=== PATIENT | female | born 1990 | race Caucasian/White ===

== ENCOUNTER 2022-09-06 09:41 | Outpatient (CLI) | payer OTHER, BC, SELFPAY ==
[2022-09-06 10:18] LABS: Alanine Aminotransferase 21 U/L (6-35); Albumin Level 4.8 g/dL (3.5-5.1); Alkaline Phosphatase 82 U/L (38-126); Anion Gap 7 mmol/L (8-16); Aspartate Amino Transferase 22 U/L (14-36); Bilirubin,Total 0.5 mg/dL (0.2-1.3); Blood Urea Nitrogen 14 mg/dL (7-17); Calcium 8.7 mg/dL (8.4-10.2); Carbon Dioxide 20 mmol/L (22-30); Chloride 109 mmol/L (98-107); Cholesterol 189 mg/dL (0-200); Estimated Glomerular Filt Rate > 60; Glucose 89 mg/dL (65-110); HDL Direct 56 mg/dL; Sodium 136 mmol/L (137-145); Triglycerides 71 mg/dL (<150)
[2022-09-06 10:29] LABS: LDL Cholesterol Direct 85 mg/dL
[2022-09-06 10:36] LABS: Hemoglobin A1C 5.3 % (<5.7)
[2022-09-06 10:37] LABS: Iron 73 ug/dL (37-170)
[2022-09-10 16:35] LABS: Vitamin D 1,25 (OH)2 Total 29 pg/mL (18-72); Vitamin D2 1,25 (OH)2 <8 pg/mL; Vitamin D3 1,25 (OH)2 29 pg/mL
== END 2022-09-06 09:42 | disposition home or self-care (01) ==
PROVIDERS: PCP Emergency Medicine; Visit Provider Emergency Medicine
DX: E61.1 Iron deficiency (principal); R73.09 Other abnormal glucose; I10 Essential (primary) hypertension; E55.9 Vitamin D deficiency, unspecified; R53.83 Other fatigue
CPT/HCPCS: 36415; 80053; 80061; 82652; 83036; 83540; 84443

== ENCOUNTER 2022-10-24 11:01 | Outpatient (CLI) | payer OTHER, BC, SELFPAY ==
[2022-10-24 11:34] LABS: Alanine Aminotransferase 21 U/L (6-35); Albumin Level 4.7 g/dL (3.5-5.1); Alkaline Phosphatase 78 U/L (38-126); Anion Gap 10 mmol/L (8-16); Aspartate Amino Transferase 27 U/L (14-36); Bilirubin,Total 0.6 mg/dL (0.2-1.3); Blood Urea Nitrogen 16 mg/dL (7-17); Calcium 8.7 mg/dL (8.4-10.2); Carbon Dioxide 21 mmol/L (22-30); Chloride 110 mmol/L (98-107); Cholesterol 155 mg/dL (0-200); Estimated Glomerular Filt Rate > 60; Glucose 89 mg/dL (65-110); HDL Direct 47 mg/dL; Potassium 3.6 mmol/L (3.4-5.0); Sodium 141 mmol/L (137-145); Triglycerides 72 mg/dL (<150)
[2022-10-24 11:46] LABS: LDL Cholesterol Direct 76 mg/dL
[2022-10-29 16:02] LABS: Vitamin D 1,25 (OH)2 Total 27 pg/mL (18-72); Vitamin D2 1,25 (OH)2 <8 pg/mL; Vitamin D3 1,25 (OH)2 27 pg/mL
== END 2022-10-24 11:02 | disposition home or self-care (01) ==
LOC: ANHLAB 11:03
PROVIDERS: PCP Emergency Medicine; Visit Provider Emergency Medicine
DX: R53.83 Other fatigue (principal); E55.9 Vitamin D deficiency, unspecified; I10 Essential (primary) hypertension; F32.A Depression, unspecified
CPT/HCPCS: 36415; 80053; 80061; 82652; 84443

== ENCOUNTER 2023-06-16 11:03 | Inpatient (IN) | payer OTHER, BC, SELFPAY ==
--- NOTE | ~2023-06-16 | CT_ITS ---
EXAMINATION: CT soft tissue neck chest w DATE: 06/16/2023 14:19 INDICATION: Neck swelling. Sore throat. TECHNIQUE: Computed tomography (CT) of the neck and chest was performed with 75 mL Omnipaque 350 intr avenous contrast. Automated exposure control and iterative reconstruction technique were employed. Th e dose-length product was 1410.45 mGy-cm. COMPARISON: None FINDINGS: CT NECK: The pharynx and larynx are normal. There is frontal scalp soft tissue swelling. There is sof t tissue swelling involving the face bilaterally centered at the parotid glands. No sialolith. There is fat stranding in the posterolateral neck, left worse than right. There is fat stranding in left chakraborty praclavicular region and anterior superior left chest. There are no pathologically enlarged lymph nod es. There is mild cervical spondylosis. CT CHEST: The lungs demonstrate mild atelectasis. No pleural effusion. The heart size is normal. No p ericardial effusion. There are no pathologically enlarged lymph nodes. There is mild thoracic spondyl osis. IMPRESSION: 1. Fat stranding involving the head and neck and left chest, consistent with edema versus inflammatio n. No abscess. Reviewed, dictated and finalized at location A. ITY CLERK IMPRESSION: 1. Fat stranding involving the head and neck and left chest, consistent with ed mariella versus inflammation. No abscess.
--- NOTE | ~2023-06-16 | US_ITS ---
EXAMINATION: US venous doppler UE LT DATE: 06/24/2023 20:12 INDICATION: PAIN/SWELLING . TECHNIQUE: Grayscale ultrasound images without and with compression and Doppler ultrasound images of the left upper extremity veins were obtained. COMPARISON: None. FINDINGS: Acute occlusive thrombus in the distal cephalic vein below the level of the antecubital fossa. The vi sualized portions of the left internal jugular vein, subclavian vein, axillary vein, brachial veins, basilic vein, cephalic vein (superior to the antecubital fossa), radial vein, and ulnar vein are dubose nt. IMPRESSION: Acute occlusive venous thrombosis in the distal cephalic vein, below the level of the antecubital fos sa. Reviewed, dictated and finalized at location K. ACUTE CARE NURSE PRACTITIONER IMPRESSION: Acute occlusive venous thrombosis in the distal cephalic vein, below the level of the antecubital fossa.
--- NOTE | ~2023-06-16 | CT_ITS ---
EXAMINATION: CT soft tissue neck chest w DATE: 06/23/2023 15:17 INDICATION: TECHNIQUE: Computed tomography (CT) of the neck and chest was performed with 75 mL Omnipaque-350 intr avenous contrast. The dose-length product was 1622.02 mGy-cm. COMPARISON: 06/16/2023 FINDINGS: Increasing fat stranding and nonencapsulated fluid in the right frontotemporal region and right face. Stable fat stranding in the left face. Considerably increased stranding and 90 LYTIC fluid in the le ft anterior and posterior neck, and left supraclavicular region. The thyroid gland is unremarkable. The submandibular and parotid glands are symmetric. There is no cervical lymphadenopathy. There are no masses identified. The airway is unremarkable. Parapharyngeal and pre-glottic fat planes a re preserved. Normal enhancing neck vessels. The orbits are unremarkable. Visualized sinuses and mastoid air cells are well aerated. Regional bones are normal. CHEST: Thoracic aorta: No significant dilation or calcification. Lung parenchyma and airways: Lungs and airways are clear. Thoracic inlet, axillae and chest wall: No thyroid or soft tissue mass. No axillary lymphadenopathy. Increased fat stranding and the catheter fluid in the anterior chest. Mediastinum: No mass or lymphadenopathy. Heart and pericardium: Normal heart size. No pericardial effusion. Coronary artery calcifications: Absent. Pleura: No effusion or mass. Upper abdomen: No significant finding. Thoracic bones: No acute osseous finding in the chest. IMPRESSION: Worsening subcutaneous fat stranding/fluid in the right frontotemporal region and face, the left ante rior and posterior neck, left supraclavicular region, and left upper anterior chest, consistent with worsening edema/inflammation. No abscess. Reviewed, dictated and finalized at location K. E PROFESSOR IMPRESSION: Worsening subcutaneous fat stranding/fluid in the right frontotemporal region a nd face, the left anterior and posterior neck, left supraclavicular region, and left upper anterior chest, consistent with worsening edema/inflammation. No ab scess.
--- NOTE | ~2023-06-16 | US_ITS ---
US renal BI 06/17/2023 09:21 Procedure: Realtime transabdominal ultrasound of the kidneys and bladder. Indication: Acute renal injury Comparison: No prior studies for comparison. Findings: Renal echotexture is normal bilaterally without hydronephrosis, or renal calculus. At the u pper pole of the right kidney there is a complicated cyst with low-level internal echoes measuring 2. 2 cm. No internal vascularity. There is posterior acoustic enhancement. The right kidney measures 12 cm and left kidney measures 12.8 cm. Bladder within normal limits. Impression: 1: Complicated cyst of the right ovary measuring 2.2 cm, likely benign. Recommend follow-up ultrasoun d in 6 months. Reviewed, dictated and finalized at location B. JOGGER Impression: 1: Complicated cyst of the right ovary measuring 2.2 cm, likely benign. Recomme nd follow-up ultrasound in 6 months.
[2023-06-16 11:10] VITALS: BP 132/76; PULSE 116; RESP 16; TEMP 36.6; O2SAT 100
[2023-06-16 11:46] VITALS: BP 117/75; PULSE 106; RESP 16; TEMP 36.6; O2SAT 100
--- NOTE | 2023-06-16 13:17 | ED.GENADULT ---
HPI - General Adult General Chief complaint: Skin/Abscess/Foreign Body Stated complaint: face feels swollen/st/arm pain Time Seen by Provider: 06/16/23 12:47 History of Present Illness HPI narrative: 32-year-old female present to the emergency department for evaluation of head and neck swelling. patient reports that she started developing some facial and neck edema on Thursday. Patient also reports increased tightness of her left shoulder. Patient denies any fevers. Patient denies any falls or injuries. Patient reports her daughter is currently being treated for cellulitis with Bactrim and Keflex. Related Data Allergies Allergy/AdvReac Type Severity Reaction Status Date / Time No Known Allergies Allergy Verified 06/16/23 11:55 Review of Systems Review of Systems: All systems reviewed & are unremarkable except as noted in HPI and below PMFSH Past Medical History Medical History Anxiety Depression Family History Family History Other Cerebrovascular accident Diabetes mellitus Family history of obesity Hypertension Social History Social History Smoking status: Former smoker Alcohol intake: current Exam Narrative: APPEARANCE: Well appearing, no pain, no distress, well-nourished. HEAD: normocephalic, atraumatic. EYES: PERRLA/EOMI, conjunctivae clear. NOSE: Normal no drainage EARS:TMS clear with good light reflex. THROAT: Pharynx clear, no exudate. NECK: Supple. No adenopathy, no masses. RESPIRATORY: Airway patent, respirations nonlabored. Clear to auscultation bilaterally, no rales, rhonchi, wheezing. CARDIOVASCULAR: Regular rate and rhythm without murmurs rubs or gallops. ABDOMINAL: Soft, nontender, nondistended, normal bowel sounds MUSCULOSKELETAL: Moves all extremities. Strength/ROM intact, No edema, No calf tenderness. NEURO: Alert. Cranial nerves II through XII intact. Good gait. Good coordination SKIN: Edema to forehead neck and to anterior chest. Tenderness of neck chest and left shoulder. Course Course Emergency Course: 32-year-old female presented emergency department for evaluation of facial and neck edema. Patient is afebrile but does have a leukocytosis of 25.5 and hemoglobin of 10.6. Patient has an INR of 1.5. Patient has a creatinine of 2.00 with previously normal kidney function. UA does show evidence of an infection. Patient was negative for influenza RSV and for COVID but did test positive for strep. Patient was started on cefazolin and vancomycin. Case was discussed with the hospitalist and patient was accepted for admission. Patient was updated on the plan for admission and treatment. All questions concerns were addressed. Vital Signs Vital signs: Vital Signs Temperature 97.9 F 06/16/23 11:10 Pulse Rate 116 H 06/16/23 11:10 Respiratory Rate 16 06/16/23 11:10 Blood Pressure 132/76 06/16/23 11:10 Pulse Oximetry 100 06/16/23 11:10 Oxygen Delivery Room Air 06/16/23 11:10 Temperature 98.3 F 06/16/23 17:35 Pulse Rate 103 H 06/16/23 17:35 Respiratory Rate 18 06/16/23 17:35 Blood Pressure 120/70 06/16/23 17:35 Pulse Oximetry 98 06/16/23 17:35 Oxygen Delivery Room Air 06/16/23 11:10 Medical Decision Making Vital Signs Vital Signs: Vital Signs Temperature 97.9 F 06/16/23 11:10 Pulse Rate 116 H 06/16/23 11:10 Respiratory Rate 16 06/16/23 11:10 Blood Pressure 132/76 06/16/23 11:10 Pulse Oximetry 100 06/16/23 11:10 Oxygen Delivery Room Air 06/16/23 11:10 Temperature 98.3 F 06/16/23 17:35 Pulse Rate 103 H 06/16/23 17:35 Respiratory Rate 18 06/16/23 17:35 Blood Pressure 120/70 06/16/23 17:35 Pulse Oximetry 98 06/16/23 17:35 Oxygen Delivery Room Air 06/16/23 11:10 Lab Data 06/16/23 13:32 06/16/23 13
[2023-06-16 13:56] LABS: Hematocrit 32.7 % (37.0-47.0); Hemoglobin 10.6 g/dL (12.0-15.0); Mean Corpuscular HGB Conc 32.4 g/dl (32-36); Mean Corpuscular Hemoglobin 26.4 pg (26-34); Mean Corpuscular Volume 81.3 fl (80-100); Mean Platelet Volume 10.5 fl (7.4-10.4); Platelet Count Result 392 k/mm3 (150-375); Red Blood Count 4.02 M/mm3 (4.2-5.4); Red Cell Distribution Width 16.3 % (11.5-14.5); White Blood Count 25.5 K/mm3 (4.5-10.0)
[2023-06-16 14:04] LABS: Alanine Aminotransferase 27 U/L (6-35); Albumin Level 3.9 g/dL (3.5-5.1); Alkaline Phosphatase 158 U/L (38-126); Anion Gap 13 mmol/L (8-16); Aspartate Amino Transferase 28 U/L (14-36); Bilirubin,Total 0.9 mg/dL (0.2-1.3); Blood Urea Nitrogen 33 mg/dL (7-17); Calcium 9.3 mg/dL (8.4-10.2); Carbon Dioxide 21 mmol/L (22-30); Chloride 101 mmol/L (98-107); Estimated CRCL calculation 42 ml/min; Estimated Glomerular Filt Rate 29; Glucose 144 mg/dL (65-110); Sodium 135 mmol/L (137-145)
[2023-06-16 14:05] LABS: Lactic Acid Reflex 1.7 mmol/L (0.7-2.0)
[2023-06-16 14:26] LABS: INR 1.5; Partial Thromboplastin Time 46.2 SECONDS (22.3-36.8); Prothrombin Time 18.6 Seconds (11.1-14.7)
[2023-06-16 14:29] LABS: Band Neutrophils Percent 39 % (0-6); Burr Cells 1+ (NORMAL); Crenated RBC 2+ (NORMAL); Lymphocytes Absolute Manual 0.25 K/mm3 (1.1-4.5); Neutrophils Absolute Manual 25.24 K/mm3 (1.7-7.2); Neutrophils Percent Manual 60 % (46-73); Schistocytes None Seen (NORMAL); Total Cells Counted 100
[2023-06-16] MEDS: HYDROmorphone HCL INJ (*CRX) 1 MG/ML SYR 0.5 MG IV PUSH ×3 (14:33→21:25)
[2023-06-16] MEDS: SODIUM CHLORIDE 0.9% IV 1,000 ML 999 ML IV CONT (14:34)
[2023-06-16 14:36] VITALS: BP 128/78; PULSE 104; RESP 18; TEMP 36.6; O2SAT 98
[2023-06-16 14:43] LABS: Influenza A QL RT-PCR Negative (Negative); Influenza B QL RT-PCR Negative (Negative); RSV RNA, RT-PCR Negative (Negative); SARS-CoV-2 RNA PCR Negative (Negative)
[2023-06-16 16:30] VITALS: BP 123/72; PULSE 100; RESP 20; O2SAT 98
[2023-06-16 16:46] LABS: Appearance Urine Turbid (Clear); Bacteria Urine 2+ /hpf; Bilirubin Urine 1+ (Negative); Blood Urine 3+ (Negative); Color Urine Dark Yellow (Yellow); Glucose Urine UA Trace mg/dL (Negative); Granular Casts Urine Present /lpf; Ketones Urine Trace mg/dL (Negative); Leukocyte Esterase Ur Negative LEU/UL (Negative); Need Manual Microscopic Reviewed; Nitrate Urine Negative (Negative); Non Pathogenic Casts >20; Protein Urine 2+ mg/dL (Negative); RBC Urine 0-2 /hpf (0-2); Specific Grav Ur 1.024 (1.001-1.035); Squamous Epithelial Cell Urine Many /hpf (Few)
[2023-06-16 16:47] LABS: Add Urine Microscopic? YES
[2023-06-16] MEDS: SODIUM CHLORIDE 0.9% IV 1,000 ML 250 ML IV CONT (17:06)
[2023-06-16] MEDS: ceFAZolin 1 GM/NS 50 ML 1 GM/50 ML BAG IVPB (17:06)
[2023-06-16] MEDS: ONDANSETRON INJ 4 MG/2 ML VIAL IV PUSH ×2 (17:12→21:25)
--- NOTE | 2023-06-16 17:28 | PM.IMHP ---
H&P: HPI History of Present Illness Date/Time: 06/16/23 16:30 Chief Complaint: Swelling in forehead and neck. Narrative: This is a very pleasant 32-year-old female with history of migraine headaches, hypertension, sleep apnea, gastroesophageal reflux disease, depression, and anxiety who presented to the emergency department from home for evaluation of swelling in the forehead and neck. The patient provides the following history. Sometime on Thursday she developed a pounding headache in the back of her head which is very different than what she typically experiences with her migraines. Around the same time she noticed some swelling to the front of her neck which eventually extended onto the face and up to the forehead. The swelling is warm and painful to touch and she even has pain when trying to with the left shoulder due to swelling near the left side of the neck. She has overall been feeling unwell these last 2 days with generalized malaise and a mild sore throat. She denies fever, sinus congestion, cough, nausea, vomiting, diarrhea, tooth pain, dysuria, and joint swelling. She has never had similar symptoms in the past. She takes naproxen several times per week and has for many years and she has never had issues with hives or angioedema. Her daughter is currently on an antibiotic for cellulitis on her side and with further questioning she and her family were out hunting on their land a couple of weeks ago however she denies tick bites, bug bites, and cuts or lacerations from nearby trees and brush. She was afebrile on arrival to the emergency department. Labs were significant for a WBC count of 25.5 (39% bands on differential), PT 18.6, INR 1.5, PTT 46.2, sodium 135, carbon dioxide 21, BUN 33, creatinine 2.00, glucose 144, lactic acid 1.7. Urine is turbid with 2+ protein, trace glucose, trace ketones, 3+ blood, 1+ bilirubin, 6 to 10 WBC, many squamous cells, 2+ bacteria, and granular casts. She tested negative for influenza, RSV, and COVID. She tested positive for group a strep. CT of the neck and chest showed frontal scalp soft tissue swelling and soft tissue swelling involving the face center at the parotid glands as well as fat stranding in the neck and left chest without pathologically enlarged lymph nodes, consistent with edema versus inflammation. No abscess was noted. She received a dose of cefazolin and vancomycin in the ED and she is being admitted in this setting for further treatment and evaluation. Review of Systems Review of Systems: Twelve systems were reviewed and are negative except for as per HPI. [facility] Past Medical History Medical History Anxiety Depression Gastroesophageal reflux disease Hypertension Obstructive sleep apnea Surgical History Surgical History History of repair of ACL History of tubal ligation History of wisdom tooth extraction Family History Family History Other Cancer Cerebrovascular accident Diabetes mellitus Family history of obesity Hypertension Social History Social History Social History: Surrogate medical decision maker: Jayjay Helms, spouse. Code status: Full code. Smoking status: Current some day smoker Tobacco type: e-cigarettes/vaping Substance use type: marijuana Lack of Transportation: No Lack of Food: Never True Current Housing: I Have Housing Concerned About Future Housing: No Difficulty Paying Gas/Electric Bills: No Difficulty Paying for Meds: No Currently Unemployed: No Education: Associate Degree Difficulty w/ Childcare or Family Care: No Additional living arrangements comments: Lives with spouse and children. 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 Spiritual care concerns: No
[2023-06-16 17:35] VITALS: BP 120/70; PULSE 103; RESP 18; TEMP 36.8; O2SAT 98
--- NOTE | 2023-06-16 17:36 | PC.NURSE ---
Food tray ordered for pt. Pt resting with reg resp. Hospitalist assessed pt.
[2023-06-16 18:28] LABS: Strep Group A RT-PCR DETECTED (Negative)
--- NOTE | 2023-06-16 18:51 | PC.NURSE ---
Pt c/o x2 sores on top of her head. Noted x2 open areas approx size of dime/tiffany with partial scabs. Pt voices concerns of tick bite, pt spoke with Hospitalist about her concerns
--- NOTE | 2023-06-16 19:00 | ADMGEN ---
This patient, Bonnie Helms, was admitted to 3 [facility] Surg Room 306-01. Patient/family oriented to hospital policies and general routines including ID bracelet, bed and alarms, visiting hours, pain management, procedures, bathroom and other care routines, personal items, smoking policy, room service/diet, and visiting hours. Information on how to activate the Rapid Response Team has been discussed. Patient/Family are encouraged to report perceived risks to care and to ask questions if they do not understand what they are told or what they should do.
[2023-06-16 19:47] VITALS: BMI 37.5
[2023-06-16 20:20] VITALS: BP 116/66; PULSE 76; RESP 16; TEMP 36.4; O2SAT 100
[2023-06-16] MEDS: SODIUM CHLORIDE 0.9% IV 1,000 ML 100 ML IV CONT (23:37)
[2023-06-17] MEDS: metroNIDAZOLE 500 MG/ISO 100ML 500 MG/100 ML BAG 100 MG IVPB ×4 (00:15→23:23)
[2023-06-17 04:54] VITALS: BP 133/86; PULSE 102; RESP 20; TEMP 36.1; O2SAT 97
[2023-06-17] MEDS: HYDROmorphone HCL INJ (*CRX) 1 MG/ML SYR 0.5 MG IV PUSH ×5 (04:54→22:04)
[2023-06-17 05:42] LABS: Hematocrit 27.5 % (37.0-47.0); Hemoglobin 8.8 g/dL (12.0-15.0); Mean Corpuscular Hemoglobin 26.1 pg (26-34); Mean Corpuscular Volume 81.6 fl (80-100); Platelet Count Result 320 k/mm3 (150-375); Red Blood Count 3.37 M/mm3 (4.2-5.4); Red Cell Distribution Width 16.7 % (11.5-14.5); White Blood Count 19.6 K/mm3 (4.5-10.0)
[2023-06-17 06:15] LABS: Alanine Aminotransferase 24 U/L (6-35); Alkaline Phosphatase 120 U/L (38-126); Anion Gap 12 mmol/L (8-16); Aspartate Amino Transferase 23 U/L (14-36); Bilirubin,Total 0.7 mg/dL (0.2-1.3); Blood Urea Nitrogen 32 mg/dL (7-17); Calcium 8.2 mg/dL (8.4-10.2); Carbon Dioxide 19 mmol/L (22-30); Chloride 104 mmol/L (98-107); Estimated CRCL calculation 57 ml/min; Estimated Glomerular Filt Rate 40; Glucose 95 mg/dL (65-110); Magnesium 2.1 mg/dL (1.6-2.3); Potassium 3.5 mmol/L (3.4-5.0); Sodium 135 mmol/L (137-145)
[2023-06-17 06:39] LABS: CRP 43.7 mg/dL (<1.0)
[2023-06-17 07:19] LABS: Band Neutrophils Percent 4 % (0-6); Burr Cells 2+ (NORMAL); Large Platelets Present; Lymphocytes Absolute Manual 0.58 K/mm3 (1.1-4.5); Monocytes Absolute Manual 0.78 K/mm3 (0.1-0.90); Monocytes Percent Manual 4 % (3-9); Neutrophils Absolute Manual 18.22 K/mm3 (1.7-7.2); Neutrophils Percent Manual 89 % (46-73); Platelet Estimate Adequate (Adequate); Schistocytes None Seen (NORMAL); Total Cells Counted 100
[2023-06-17 08:00] VITALS: O2SAT 97
[2023-06-17] MEDS: TOPIRAMATE 100 MG TABLET PO ×2 (09:44→20:19)
[2023-06-17] MEDS: SERTRALINE HCL 50 MG TABLET PO (09:44)
--- NOTE | 2023-06-17 13:03 | PM.IMPN ---
Progress Note: A&P Assessment and Plan (1) Sepsis: Code(s): A41.9 - Sepsis, unspecified organism Status: Acute (2) Diffuse cellulitis of face: Code(s): L03.211 - Cellulitis of face Status: Acute (3) Cellulitis of neck: Code(s): L03.221 - Cellulitis of neck Status: Acute (4) Strep throat: Code(s): J02.0 - Streptococcal pharyngitis Status: Acute (5) Acute kidney injury: Code(s): N17.9 - Acute kidney failure, unspecified Status: Acute Plan The patient presented to the emergency department for evaluation of swelling of the face and neck as detailed in HPI. Labs, imaging, EKG, and all reports were personally reviewed. Preliminary workup is concerning for sepsis with tachycardia, leukocytosis with bandemia, and acute kidney injury. She tested positive for strep throat and she has what appears to be cellulitis of the left neck and face with a more well-demarcated area of erysipelas on the forehead. The forehead has a short, linear rash/abrasion which she reports draining serosanguineous fluid last night however it is dry on inspection today. blood cultures are positive continue iv rocephin, flagyl and vancomycin monitor wcc continue care and pain control hopeful dc in 2-3 more days Subjective Date/time seen: 06/17/23 13:03 Interval history: 32-year-old female with history of migraine headaches, hypertension, sleep apnea, gastroesophageal reflux disease, depression, and anxiety who presented to the emergency department from home for evaluation of swelling in the forehead and neck. Blood cultures is positive gram positive in chains Review of Systems Review of Systems: Neck swelling and redness Objective Data Vital Signs Vital Signs: Vital Signs - 24 hr 06/16/23 14:36 06/16/23 17:35 06/16/23 16:30 Temperature 36.6 C 36.8 C Pulse Rate 104 H 103 H 100 Respiratory Rate 18 18 20 Blood Pressure 128/78 120/70 123/72 Pulse Oximetry 98 98 98 Oxygen Delivery 06/16/23 19:47 06/16/23 20:20 06/17/23 04:54 Temperature 36.4 C L 36.1 C L Pulse Rate 76 102 H Respiratory Rate 16 20 Blood Pressure 116/66 133/86 Pulse Oximetry 100 97 Oxygen Delivery Room Air 06/17/23 08:00 Temperature Pulse Rate Respiratory Rate Blood Pressure Pulse Oximetry 97 Oxygen Delivery Room Air Intake/Output Intake/Output: Intake & Output 06/14/23 06/15/23 06/16/23 06/17/23 23:59 23:59 23:59 23:59 Intake Total 1919 3080 Balance 1919 3080 Meds/Results Medications: Active Medications Generic Name Dose Route Start Last Admin Trade Name Freq PRN Reason Stop Dose Admin Acetaminophen 650 mg 06/16/23 23:02 Acetaminophen 325 Mg Tablet PO Q6H PRN Mild Pain (1-3) or Fever Alprazolam 0.5 mg 06/16/23 23:03 Alprazolam (*Crx) 0.5 Mg Tablet PO TID PRN anxiety Fluticasone Propionate 1 spray 06/16/23 23:03 Fluticasone Propionate 0.05% Na Spr 16 Gm Btl (*Bkc) NASAL BID PRN Nasal Congestion Hydromorphone HCl 0.5 mg 06/16/23 16:42 06/17/23 11:29 Hydromorphone Hcl Inj (*Crx) 1 Mg/Ml Syr IV PUSH 0.5 mg Q4H PRN Administration Pain Rated 7-10 Vancomycin HCl 1,500 mg in 500 mls @ 250 mls/hr 06/17/23 18:00 Vancomycin 1,500 Mg/D5w 500 Ml IVPB Q24H JARRETT Ceftriaxone Sodium 1 gm in 50 mls @ 100 mls/hr 06/16/23 23:00 06/17/23 00:15 Rocephin 1 Gm/Ns 50 Ml IVPB Infused Q24H JARRETT Infusion Metronidazole 500 mg in 100 mls @ 100 mls/hr 06/17/23 00:00 06/17/23 10:10 Flagyl 500 Mg/Iso Soln 100 Ml IVPB Infused Q8H JARRETT Infusion Sodium Chloride 1,000 mls @ 100 mls/hr 06/16/23 23:05 06/16/23 23:37 Normal Saline Iv IV CONT 100 mls/hr .Q10H JARRETT Administration Ondansetron HCl 4 mg 06/16/23 16:42 06/16/23 21:25 Ondansetron Inj 4 Mg/2 Ml Vial IV PUSH 4 mg Q4H PRN Administration Nausea Sertraline HCl 50 mg 06/17/23 09:00 06/17/23 09:44 Sertraline Hcl
[2023-06-17] MEDS: ONDANSETRON INJ 4 MG/2 ML VIAL IV PUSH (13:15)
[2023-06-17 13:46] VITALS: O2SAT 96
[2023-06-17 14:00] VITALS: BP 125/85; PULSE 103; RESP 19; TEMP 36.4; O2SAT 96
[2023-06-17] MEDS: SODIUM CHLORIDE 0.9% IV 1,000 ML 100 ML IV CONT ×2 (15:01→19:05)
[2023-06-17] MEDS: cefTRIAXone 2 GM/NS 100 ML 2 GM/100 ML BAG IVPB (16:56)
[2023-06-17] MEDS: ALPRAZolam (*CRX) 0.5 MG TABLET PO (20:20)
[2023-06-17] MEDS: ACETAMINOPHEN 325 MG TABLET 650 MG PO (20:20)
[2023-06-17] MEDS: MELATONIN 3 MG TABLET PO (20:20)
[2023-06-17 20:41] VITALS: BP 126/76; PULSE 87; RESP 18; TEMP 36.3; O2SAT 96
[2023-06-18 04:41] VITALS: BP 115/79; PULSE 88; RESP 20; TEMP 36.6; O2SAT 99
[2023-06-18] MEDS: HYDROmorphone HCL INJ (*CRX) 1 MG/ML SYR 0.5 MG IV PUSH ×3 (05:10→20:43)
[2023-06-18] MEDS: ONDANSETRON INJ 4 MG/2 ML VIAL IV PUSH (05:10)
[2023-06-18] MEDS: SODIUM CHLORIDE 0.9% IV 1,000 ML 100 ML IV CONT (05:35)
[2023-06-18 06:39] LABS: Estimated CRCL calculation 62 ml/min; Estimated Glomerular Filt Rate 43
[2023-06-18] MEDS: metroNIDAZOLE 500 MG/ISO 100ML 500 MG/100 ML BAG 100 MG IVPB (09:30)
[2023-06-18] MEDS: TOPIRAMATE 100 MG TABLET PO ×2 (09:30→20:42)
[2023-06-18] MEDS: SERTRALINE HCL 50 MG TABLET PO (09:30)
[2023-06-18] MEDS: diphenhydrAMINE HCl CAP 25 MG CAPSULE PO ×2 (13:03→18:40)
[2023-06-18 13:57] VITALS: BP 122/75; PULSE 101; RESP 20; TEMP 37.5; O2SAT 98
--- NOTE | 2023-06-18 14:06 | PM.IMPN ---
Progress Note: A&P Assessment and Plan (1) Sepsis: Code(s): A41.9 - Sepsis, unspecified organism Status: Acute (2) Diffuse cellulitis of face: Code(s): L03.211 - Cellulitis of face Status: Acute (3) Cellulitis of neck: Code(s): L03.221 - Cellulitis of neck Status: Acute (4) Strep throat: Code(s): J02.0 - Streptococcal pharyngitis Status: Acute (5) Acute kidney injury: Code(s): N17.9 - Acute kidney failure, unspecified Status: Acute Plan blood culture positive for strep A blood cultures are positive continue iv rocephin, flagyl and vancomycin monitor wcc continue care and pain control hopeful dc in 2-3 more days add Benadryl and Pepcid to the regime add ice pack Can consult ENT for specialist advice IV fluids continued at slow rate Subjective Date/time seen: 06/18/23 14:06 Interval history: 32-year-old female with history of migraine headaches, hypertension, sleep apnea, gastroesophageal reflux disease, depression, and anxiety who presented to the emergency department from home for evaluation of swelling in the forehead and neck. Blood cultures is positive gram positive in chains Pt having ongoing neck swelling and upper arm swelling. Pt states her pain is severe. Review of Systems Review of Systems: Neck swelling and redness Exam Narrative: General: Mildly ill-appearing female sitting up in bed. HEENT: Swelling of the forehead and dry rash on scalp and forehead Respiratory: Lungs are clear to auscultation bilaterally. Cardiovascular: Regular rate and rhythm with S1-S2. Gastrointestinal: Abdomen is soft, nontender, and nondistended with positive bowel sounds. Skin: Warm and dry. There is mild erythema and warmth at the base of the neck and minimally onto the chest There is a well-demarcated area of edema on the forehead and just under the hairline on the right forehead there is linear area of what appears to be abrasions though the patient denies scratching the area. Extremities: No cyanosis, clubbing, or extremity edema. Radial and pedal pulses intact. No joint swelling. Neurological: Alert. Cranial nerves 2-12 are grossly intact. No gross focal deficits to casual conversation. Psychiatric: Pleasant and cooperative with normal mood and affect. Judgment and insight intact. Objective Data Vital Signs Vital Signs: Vital Signs - 24 hr 06/17/23 20:41 06/17/23 20:00 06/18/23 04:41 Temperature 36.3 C L 36.6 C Pulse Rate 87 88 Respiratory Rate 18 20 Blood Pressure 126/76 115/79 Pulse Oximetry 96 99 Oxygen Delivery Room Air 06/18/23 13:57 Temperature 37.5 C Pulse Rate 101 H Respiratory Rate 20 Blood Pressure 122/75 Pulse Oximetry 98 Oxygen Delivery Intake/Output Intake/Output: Intake & Output 06/15/23 06/16/23 06/17/23 06/18/23 23:59 23:59 23:59 23:59 Intake Total 0 6080 5 Balance 0 6031 8 Meds/Results Medications: Active Medications Generic Name Dose Route Start Last Admin Trade Name Freq PRN Reason Stop Dose Admin Acetaminophen 650 mg 06/16/23 23:02 06/17/23 20:20 Acetaminophen 325 Mg Tablet PO 650 mg Q6H PRN Administration Mild Pain (1-3) or Fever Alprazolam 0.5 mg 06/16/23 23:03 06/17/23 20:20 Alprazolam (*Crx) 0.5 Mg Tablet PO 0.5 mg TID PRN Administration anxiety Diphenhydramine HCl 25 mg 06/18/23 13:00 06/18/23 13:03 Diphenhydramine Hcl Cap 25 Mg Capsule PO 25 mg TID JARRETT Administration Famotidine 20 mg 06/18/23 17:00 Famotidine 20 Mg Tablet PO BID JARRETT Fluticasone Propionate 1 spray 06/16/23 23:03 Fluticasone Propionate 0.05% Na Spr 16 Gm Btl (*Bkc) NASAL BID PRN Nasal Congestion Hydromorphone HCl 0.5 mg 06/17/23 18:21 06/18/23 11:52 Hydromorphone Hcl Inj (*Crx) 1 Mg/Ml Syr IV PUSH 0.5 mg Q3H PRN Administration Pain Rated 7-10 Vancomycin HCl 1,500 mg in 500 mls @ 250 mls/hr 06/17
[2023-06-18] MEDS: cefTRIAXone 2 GM/NS 100 ML 2 GM/100 ML BAG IVPB (16:17)
[2023-06-18] MEDS: CLINDAMYCIN 900 MG/D5W 50 ML 900 MG/50 ML PIGGYBACK 50 MG IVPB ×2 (18:40→23:41)
[2023-06-18] MEDS: FAMOTIDINE 20 MG TABLET PO (18:41)
[2023-06-18] MEDS: ACETAMINOPHEN 325 MG TABLET 650 MG PO (20:42)
[2023-06-18] MEDS: MELATONIN 3 MG TABLET PO (20:42)
[2023-06-18 22:00] VITALS: BP 114/64; PULSE 86; RESP 16; TEMP 36.7; O2SAT 96
[2023-06-18] MEDS: SODIUM CHLORIDE 0.9% IV 1,000 ML 50 ML IV CONT (23:44)
[2023-06-19] MEDS: cefTRIAXone 2 GM/NS 100 ML 2 GM/100 ML BAG IVPB ×2 (03:45→15:56)
[2023-06-19 06:00] VITALS: BP 122/77; PULSE 77; RESP 18; TEMP 36.4; O2SAT 100
[2023-06-19] MEDS: CLINDAMYCIN 900 MG/D5W 50 ML 900 MG/50 ML PIGGYBACK 50 MG IVPB ×2 (08:35→16:58)
[2023-06-19] MEDS: TOPIRAMATE 100 MG TABLET PO ×2 (08:37→21:03)
[2023-06-19] MEDS: SERTRALINE HCL 50 MG TABLET PO (08:37)
[2023-06-19] MEDS: diphenhydrAMINE HCl CAP 25 MG CAPSULE PO ×3 (08:37→17:07)
[2023-06-19] MEDS: FAMOTIDINE 20 MG TABLET PO ×2 (08:37→17:07)
--- NOTE | 2023-06-19 08:40 | WPDPROCEDUR ---
Procedures Laryngoscopy Laryngoscopy Comments: All the consents obtained. Nasal passages anesthetized with 2% lidocaine and Afrin. Flexible scope passed patient had crusting in the bilateral middle meati eye. Otherwise been erythematous nasopharynx erythema neck is erythematous pharynx. No masses no lesions nose edema no obstruction of the airway and or epiglottis. Patient tolerated the procedure well.
--- NOTE | 2023-06-19 08:42 | WPDCN ---
Assessment and Plan Assessment and plan (1) Cellulitis of neck: Code(s): L03.221 - Cellulitis of neck Status: Acute Assessment and Plan: Recommend daily CBCs to track white count. Could start low-dose of IV Decadron q.8 hours for 3 doses. 4-6 mg should be fine. This should help any swelling. Please call ENT with any further questions. Relatively normal endoscopy, no drainable abscesses. (2) Diffuse cellulitis of face: Code(s): L03.211 - Cellulitis of face Status: Acute HPI Data of Consult Date/Time: 06/19/23 08:42 Requesting Physician: Justyn Conner MD Primary Care Provider: Jose Francisco Wren MD Consult Narrative Narrative: Bonnie Helms is a 32 year old female With facial and neck and chest wall cellulitis. Blood culture came back for group a strep. Patient reports difficulty and pain swallowing. Flexible endoscopy showed erythema no obstructions of the airway and epiglottis. Review of Systems Review of Systems: All systems reviewed & are unremarkable except as noted in HPI and below PMFSH Past Medical History Medical History Anxiety Depression Gastroesophageal reflux disease Hypertension Obstructive sleep apnea Surgical History Surgical History History of repair of ACL History of tubal ligation History of wisdom tooth extraction Family History Family History Other Cancer Cerebrovascular accident Diabetes mellitus Family history of obesity Hypertension Social History Social History Social History: Surrogate medical decision maker: Jayjay Analia, spouse. Code status: Full code. Smoking status: Current some day smoker Tobacco type: e-cigarettes/vaping Substance use type: marijuana Lack of Transportation: No Lack of Food: Never True Current Housing: I Have Housing Concerned About Future Housing: No Difficulty Paying Gas/Electric Bills: No Difficulty Paying for Meds: No Currently Unemployed: No Education: Associate Degree Difficulty w/ Childcare or Family Care: No Additional living arrangements comments: Lives with spouse and children. 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 Spiritual care concerns: No Meds Home Medications and Allergies Home Medications Medication Instructions Recorded Confirmed Type topiramate 100 mg tablet 100 mg PO BID #180 tabs 09/24/22 06/16/23 Rx naproxen 500 mg tablet 500 mg PO TID PRN pain #270 tabs 10/03/22 06/16/23 Rx alprazolam 0.5 mg tablet (Xanax) 0.5 mg PO TID PRN anxiety #60 tabs 05/20/23 06/16/23 Rx fluticasone propionate 50 1 spray intranasal BID PRN Nasal 06/16/23 06/16/23 History mcg/actuation nasal Congestion spray,suspension phentermine 37.5 mg capsule 37.5 mg PO DAILY 06/16/23 06/16/23 History sertraline 50 mg tablet 50 mg PO DAILY PRN depression 06/16/23 06/16/23 History sumatriptan succinate 50 mg tablet 50 mg PO PRN PRN Headache 06/16/23 06/16/23 History Allergies Allergy/AdvReac Type Severity Reaction Status Date / Time No Known Allergies Allergy Verified 06/16/23 11:55 Vital Signs Vital Signs - 24 hr 06/18/23 13:57 06/18/23 22:00 06/18/23 20:00 Temperature 37.5 C 36.7 C Pulse Rate 101 H 86 Respiratory Rate 20 16 Blood Pressure 122/75 114/64 Pulse Oximetry 98 96 Oxygen Delivery Room Air 06/19/23 06:00 Temperature 36.4 C Pulse Rate 77 Respiratory Rate 18 Blood Pressure 122/77 Pulse Oximetry 100 Oxygen Delivery Exam Narrative: Chest neck and facial cellulitis edema erythema. Some scaling of skin. No crepitus. Pain to palpation. No ballotable fluctuant masses or drainable abscess is identified. Results Labs 06/17/23 05:33
[2023-06-19] MEDS: HYDROcodone/acetaminophen (*CRX) 5-325 MG TABLET 1 TAB PO ×2 (11:05→21:03)
[2023-06-19] MEDS: BENZOCAINE/MENTHOL (*BKC) 18 EA LOZENGE 1 LOZENGE PO (12:21)
[2023-06-19 12:27] LABS: Hematocrit 30.1 % (37.0-47.0); Hemoglobin 9.6 g/dL (12.0-15.0); Mean Corpuscular HGB Conc 31.9 g/dl (32-36); Mean Corpuscular Hemoglobin 25.7 pg (26-34); Mean Corpuscular Volume 80.5 fl (80-100); Platelet Count Result 402 k/mm3 (150-375); Red Blood Count 3.74 M/mm3 (4.2-5.4); Red Cell Distribution Width 17.3 % (11.5-14.5); White Blood Count 18.5 K/mm3 (4.5-10.0)
[2023-06-19 12:38] LABS: Magnesium 2.3 mg/dL (1.6-2.3)
[2023-06-19 12:45] LABS: Alanine Aminotransferase 31 U/L (6-35); Albumin Level 3.2 g/dL (3.5-5.1); Alkaline Phosphatase 173 U/L (38-126); Anion Gap 14 mmol/L (8-16); Aspartate Amino Transferase 38 U/L (14-36); Bilirubin,Total 0.4 mg/dL (0.2-1.3); Blood Urea Nitrogen 20 mg/dL (7-17); Calcium 8.8 mg/dL (8.4-10.2); Carbon Dioxide 15 mmol/L (22-30); Chloride 108 mmol/L (98-107); Estimated CRCL calculation 72 ml/min; Estimated Glomerular Filt Rate 51; Glucose 100 mg/dL (65-110); Potassium 3.6 mmol/L (3.4-5.0); Sodium 137 mmol/L (137-145)
--- NOTE | 2023-06-19 13:15 | PM.IMPN ---
Progress Note: A&P Assessment and Plan (1) Sepsis: Code(s): A41.9 - Sepsis, unspecified organism Status: Acute (2) Diffuse cellulitis of face: Code(s): L03.211 - Cellulitis of face Status: Acute (3) Cellulitis of neck: Code(s): L03.221 - Cellulitis of neck Status: Acute (4) Strep throat: Code(s): J02.0 - Streptococcal pharyngitis Status: Acute (5) Acute kidney injury: Code(s): N17.9 - Acute kidney failure, unspecified Status: Acute Plan Facial/neck cellulitis Decadron for swelling as recommended by ENT bacteremia with Streptococcus A blood culture positive for strep A. Antibiotics with Rocephin and clindamycin for antitoxin effect.. Repeat blood culture today JANA improving creatinine to 1 admission Complicated 2.2 cm cyst right kidney follow 6 Subjective Date/time seen: 06/19/23 13:15 Interval history: 32-year-old female with history of migraine headaches, hypertension, sleep apnea, gastroesophageal reflux disease, depression, and anxiety who presented to the emergency department from home for evaluation of swelling in the forehead and neck. Blood cultures is positive gram positive in chains Pt having ongoing neck swelling and upper arm swelling. Pt states her pain is severe. 06/19/2023 remains afebrile. Discussed with Infectious Disease pharmacist. Anemic. Leukocytosis at 25 K on admission. JANA improving Review of Systems Review of Systems: All systems reviewed & are unremarkable except as noted in HPI and below Exam Narrative: General: Mildly ill-appearing female sitting up in bed. HEENT: Swelling of the forehead and dry rash on scalp and forehead Respiratory: Lungs are clear to auscultation bilaterally. Cardiovascular: Regular rate and rhythm with S1-S2. Gastrointestinal: Abdomen is soft, nontender, and nondistended with positive bowel sounds. Skin: Warm and dry. There is mild erythema and warmth at the base of the neck and minimally onto the chest There is a well-demarcated area of edema on the forehead and just under the hairline on the right forehead there is linear area of what appears to be abrasions though the patient denies scratching the area. Extremities: No cyanosis, clubbing, or extremity edema. Radial and pedal pulses intact. No joint swelling. Neurological: Alert. Cranial nerves 2-12 are grossly intact. No gross focal deficits to casual conversation. Psychiatric: Pleasant and cooperative with normal mood and affect. Judgment and insight intact. Objective Data Vital Signs Vital Signs: Vital Signs - 24 hr 06/18/23 13:57 06/18/23 22:00 06/18/23 20:00 Temperature 99.5 F 98.1 F Pulse Rate 101 H 86 Respiratory Rate 20 16 Blood Pressure 122/75 114/64 Pulse Oximetry 98 96 Oxygen Delivery Room Air 06/19/23 06:00 Temperature 97.6 F Pulse Rate 77 Respiratory Rate 18 Blood Pressure 122/77 Pulse Oximetry 100 Oxygen Delivery Intake/Output Intake/Output: Intake & Output 06/16/23 06/17/23 06/18/23 06/19/23 23:59 23:59 23:59 23:59 Intake Total 1920 6080 3484 570 Balance 1920 6080 3484 570 Meds/Results Medications: Active Medications Generic Name Dose Route Start Last Admin Trade Name Freq PRN Reason Stop Dose Admin Acetaminophen 650 mg 06/16/23 23:02 06/18/23 20:42 Acetaminophen 325 Mg Tablet PO 650 mg Q6H PRN Administration Mild Pain (1-3) or Fever Hydrocodone Bitart/Acetaminophen 1 tab 06/19/23 10:43 06/19/23 11:05 Hydrocodone/Acetaminophen (*Crx) 5-325 Mg Tablet PO 1 tab Q6H PRN Administration Pain Rated 4-6 Alprazolam 0.5 mg 06/16/23 23:03 06/17/23 20:20 Alprazolam (*Crx) 0.5 Mg Tablet PO 0.5 mg TID PRN Administration anxiety Benzocaine 1 lozenge 06/19/23 10:42 06/19/23 12:21 Benzocaine/Menthol (*Bkc) 18 Ea Lozenge PO 1 lozenge PRN PRN Administration Sore Throat Dexamethasone Sodium Phosphate 6 mg 06/19/23 10:00 1
[2023-06-19 14:00] VITALS: BP 117/66; PULSE 81; RESP 16; TEMP 36.5; O2SAT 99
[2023-06-19 14:20] LABS: Band Neutrophils Percent 3 % (0-6); Eosinophils Absolute Manual 0.18 K/mm3 (0.02-0.5); Eosinophils Percent Manual 1 % (0-4); Lymphocytes Absolute Manual 0.55 K/mm3 (1.1-4.5); Monocytes Absolute Manual 0.74 K/mm3 (0.1-0.90); Monocytes Percent Manual 4 % (3-9); Neutrophils Absolute Manual 17.02 K/mm3 (1.7-7.2); Neutrophils Percent Manual 89 % (46-73); Total Cells Counted 100
[2023-06-19 14:21] LABS: Burr Cells 2+ (NORMAL); Platelet Estimate Increased (Adequate); Schistocytes None Seen (NORMAL)
[2023-06-19] MEDS: MELATONIN 3 MG TABLET PO (21:04)
[2023-06-19 21:23] VITALS: BP 122/65; PULSE 78; RESP 14; TEMP 35.7; O2SAT 99
[2023-06-20] MEDS: CLINDAMYCIN 900 MG/D5W 50 ML 900 MG/50 ML PIGGYBACK 50 MG IVPB ×4 (01:07→23:59)
[2023-06-20] MEDS: cefTRIAXone 2 GM/NS 100 ML 2 GM/100 ML BAG IVPB ×2 (04:54→16:15)
[2023-06-20] MEDS: HYDROcodone/acetaminophen (*CRX) 5-325 MG TABLET 1 TAB PO ×3 (04:56→20:07)
[2023-06-20 06:00] VITALS: BP 117/65; PULSE 83; RESP 20; TEMP 36.2; O2SAT 97
[2023-06-20 07:34] LABS: Hematocrit 29.4 % (37.0-47.0); Hemoglobin 9.5 g/dL (12.0-15.0); Mean Corpuscular HGB Conc 32.3 g/dl (32-36); Mean Corpuscular Hemoglobin 25.9 pg (26-34); Mean Corpuscular Volume 80.1 fl (80-100); Mean Platelet Volume 10.2 fl (7.4-10.4); Platelet Count Result 421 k/mm3 (150-375); Red Blood Count 3.67 M/mm3 (4.2-5.4); Red Cell Distribution Width 17.4 % (11.5-14.5); White Blood Count 22.8 K/mm3 (4.5-10.0)
[2023-06-20 07:48] LABS: Alanine Aminotransferase 30 U/L (6-35); Albumin Level 3.1 g/dL (3.5-5.1); Alkaline Phosphatase 171 U/L (38-126); Anion Gap 13 mmol/L (8-16); Aspartate Amino Transferase 36 U/L (14-36); Bilirubin,Total 0.3 mg/dL (0.2-1.3); Blood Urea Nitrogen 26 mg/dL (7-17); Calcium 8.9 mg/dL (8.4-10.2); Carbon Dioxide 17 mmol/L (22-30); Chloride 110 mmol/L (98-107); Estimated CRCL calculation 78 ml/min; Estimated Glomerular Filt Rate 57; Glucose 121 mg/dL (65-110); Magnesium 2.4 mg/dL (1.6-2.3); Sodium 140 mmol/L (137-145)
[2023-06-20 08:09] LABS: Anisocytosis 1+ (NORMAL); Band Neutrophils Percent 20 % (0-6); Lymphocytes Absolute Manual 1.36 K/mm3 (1.1-4.5); Monocytes Absolute Manual 1.14 K/mm3 (0.1-0.90); Monocytes Percent Manual 5 % (3-9); Myelocytes Percent 1 %; Neutrophils Absolute Manual 20.06 K/mm3 (1.7-7.2); Neutrophils Percent Manual 68 % (46-73); Platelet Estimate Increased (Adequate); Schistocytes None Seen (NORMAL); Total Cells Counted 100
[2023-06-20 08:10] LABS: Burr Cells 1+ (NORMAL)
[2023-06-20] MEDS: diphenhydrAMINE HCl CAP 25 MG CAPSULE PO ×3 (08:22→16:59)
[2023-06-20] MEDS: SERTRALINE HCL 50 MG TABLET PO (08:22)
[2023-06-20] MEDS: TOPIRAMATE 100 MG TABLET PO ×2 (08:23→20:07)
[2023-06-20] MEDS: FAMOTIDINE 20 MG TABLET PO ×2 (08:23→16:59)
[2023-06-20 14:00] VITALS: BP 126/80; PULSE 66; RESP 14; TEMP 36.6; O2SAT 100
--- NOTE | 2023-06-20 14:18 | PM.IMPN ---
Progress Note: A&P Assessment and Plan (1) Sepsis: Code(s): A41.9 - Sepsis, unspecified organism Status: Acute (2) Diffuse cellulitis of face: Code(s): L03.211 - Cellulitis of face Status: Acute (3) Cellulitis of neck: Code(s): L03.221 - Cellulitis of neck Status: Acute (4) Strep throat: Code(s): J02.0 - Streptococcal pharyngitis Status: Acute (5) Acute kidney injury: Code(s): N17.9 - Acute kidney failure, unspecified Status: Acute Plan Facial/neck cellulitis Decadron for swelling as recommended by ENT. Completed the course bacteremia with Streptococcus A blood culture positive for strep A. Antibiotics with Rocephin and clindamycin for antitoxin effect.. Repeat blood culture has remained negative so far. Leukocytosis today could be related to the Decadron. Will continue to trend JANA improving creatinine to 1 admission Complicated 2.2 cm cyst right kidney follow in 6 months Subjective Date/time seen: 06/20/23 14:18 Interval history: 32-year-old female with history of migraine headaches, hypertension, sleep apnea, gastroesophageal reflux disease, depression, and anxiety who presented to the emergency department from home for evaluation of swelling in the forehead and neck. Blood cultures is positive gram positive in chains Pt having ongoing neck swelling and upper arm swelling. Pt states her pain is severe. 06/19/2023 remains afebrile. Discussed with Infectious Disease pharmacist. Anemic. Leukocytosis at 25 K on admission. JANA improving 06/20/2023: No overnight events. Labs reviewed. Remains afebrile. Swelling slightly better Review of Systems Review of Systems: All systems reviewed & are unremarkable except as noted in HPI and below Exam Narrative: General: Well-appearing female sitting up in bed. HEENT: Swelling of the forehead and dry rash on scalp and forehead Respiratory: Lungs are clear to auscultation bilaterally. Cardiovascular: Regular rate and rhythm with S1-S2. Gastrointestinal: Abdomen is soft, nontender, and nondistended with positive bowel sounds. Skin: Warm and dry. There is mild erythema and warmth at the base of the neck and minimally onto the chest There is a well-demarcated area of edema on the forehead and just under the hairline on the right forehead there is linear area of what appears to be abrasions though the patient denies scratching the area. Extremities: No cyanosis, clubbing, or extremity edema. Radial and pedal pulses intact. No joint swelling. Neurological: Alert. Cranial nerves 2-12 are grossly intact. No gross focal deficits to casual conversation. Psychiatric: Pleasant and cooperative with normal mood and affect. Judgment and insight intact. Objective Data Vital Signs Vital Signs: Vital Signs - 24 hr 06/19/23 21:23 06/19/23 20:55 06/20/23 06:00 Temperature 96.3 F L 97.1 F L Pulse Rate 78 83 Respiratory Rate 14 20 Blood Pressure 122/65 117/65 Pulse Oximetry 99 97 Oxygen Delivery Room Air Intake/Output Intake/Output: Intake & Output 06/17/23 06/18/23 06/19/23 06/20/23 23:59 23:59 23:59 23:59 Intake Total 6080 3484 2562 980 Balance 6080 3484 2562 980 Meds/Results Medications: Active Medications Generic Name Dose Route Start Last Admin Trade Name Freq PRN Reason Stop Dose Admin Acetaminophen 650 mg 06/16/23 23:02 06/18/23 20:42 Acetaminophen 325 Mg Tablet PO 650 mg Q6H PRN Administration Mild Pain (1-3) or Fever Hydrocodone Bitart/Acetaminophen 1 tab 06/19/23 10:43 06/20/23 12:45 Hydrocodone/Acetaminophen (*Crx) 5-325 Mg Tablet PO 1 tab Q6H PRN Administration Pain Rated 4-6 Alprazolam 0.5 mg 06/16/23 23:03 06/17/23 20:20 Alprazolam (*Crx) 0.5 Mg Tablet PO 0.5 mg TID PRN Administration anxiety Benzocaine 1 lozenge 06/19/23 10:42 06/19/23 12:21 Benzocaine/Menthol (*Bkc) 18 Ea Lozenge PO 1 lozenge PRN
[2023-06-20] MEDS: BENZOCAINE/MENTHOL (*BKC) 18 EA LOZENGE 1 LOZENGE PO (16:23)
[2023-06-20] MEDS: ACETAMINOPHEN 325 MG TABLET 650 MG PO (16:35)
[2023-06-20] MEDS: MELATONIN 3 MG TABLET PO (20:07)
[2023-06-20 22:00] VITALS: BP 112/73; PULSE 62; RESP 20; TEMP 37.1; O2SAT 99
[2023-06-21] MEDS: cefTRIAXone 2 GM/NS 100 ML 2 GM/100 ML BAG IVPB ×2 (03:11→16:09)
[2023-06-21 06:00] VITALS: BP 118/76; PULSE 67; RESP 18; TEMP 36.6; O2SAT 99
[2023-06-21 07:43] LABS: Hematocrit 27.5 % (37.0-47.0); Mean Corpuscular HGB Conc 32.7 g/dl (32-36); Mean Corpuscular Hemoglobin 25.9 pg (26-34); Mean Corpuscular Volume 79.3 fl (80-100); Mean Platelet Volume 9.7 fl (7.4-10.4); Platelet Count Result 426 k/mm3 (150-375); Red Blood Count 3.47 M/mm3 (4.2-5.4); Red Cell Distribution Width 17.5 % (11.5-14.5); White Blood Count 15.4 K/mm3 (4.5-10.0)
[2023-06-21] MEDS: HYDROcodone/acetaminophen (*CRX) 5-325 MG TABLET 1 TAB PO ×3 (07:52→20:41)
[2023-06-21] MEDS: CLINDAMYCIN 900 MG/D5W 50 ML 900 MG/50 ML PIGGYBACK 50 MG IVPB ×3 (07:53→23:27)
[2023-06-21 07:55] LABS: Alanine Aminotransferase 43 U/L (6-35); Albumin Level 2.6 g/dL (3.5-5.1); Alkaline Phosphatase 136 U/L (38-126); Anion Gap 14 mmol/L (8-16); Aspartate Amino Transferase 66 U/L (14-36); Bilirubin,Total 0.2 mg/dL (0.2-1.3); Blood Urea Nitrogen 26 mg/dL (7-17); Calcium 8.4 mg/dL (8.4-10.2); Carbon Dioxide 15 mmol/L (22-30); Chloride 110 mmol/L (98-107); Estimated CRCL calculation 84 ml/min; Estimated Glomerular Filt Rate > 60; Glucose 81 mg/dL (65-110); Magnesium 1.9 mg/dL (1.6-2.3); Potassium 3.4 mmol/L (3.4-5.0); Sodium 139 mmol/L (137-145)
[2023-06-21 08:40] LABS: Anisocytosis 1+ (NORMAL); Band Neutrophils Percent 12 % (0-6); Basophils Absolute Manual 0.15 K/mm3 (0.0-0.1); Basophils Percent Manual 1 % (0-1); Eosinophils Absolute Manual 0.15 K/mm3 (0.02-0.5); Eosinophils Percent Manual 1 % (0-4); Lymphocytes Absolute Manual 2.46 K/mm3 (1.1-4.5); Monocytes Absolute Manual 0.77 K/mm3 (0.1-0.90); Monocytes Percent Manual 5 % (3-9); Myelocytes Percent 1 %; Neutrophils Percent Manual 64 % (46-73); Platelet Estimate Increased (Adequate); Schistocytes None Seen (NORMAL); Total Cells Counted 100
[2023-06-21 08:41] LABS: Hypochromasia 2+ (NORMAL); Ovalocytes 1+ (NORMAL)
[2023-06-21] MEDS: SERTRALINE HCL 50 MG TABLET PO (09:27)
[2023-06-21] MEDS: TOPIRAMATE 100 MG TABLET PO ×2 (09:27→20:39)
[2023-06-21] MEDS: FAMOTIDINE 20 MG TABLET PO ×2 (09:27→17:06)
[2023-06-21] MEDS: diphenhydrAMINE HCl CAP 25 MG CAPSULE PO ×3 (09:27→17:06)
[2023-06-21 14:00] VITALS: BP 128/77; PULSE 70; RESP 16; TEMP 36.8; O2SAT 98
--- NOTE | 2023-06-21 14:56 | PM.IMPN ---
Progress Note: A&P Assessment and Plan (1) Sepsis: Code(s): A41.9 - Sepsis, unspecified organism Status: Acute (2) Diffuse cellulitis of face: Code(s): L03.211 - Cellulitis of face Status: Acute (3) Cellulitis of neck: Code(s): L03.221 - Cellulitis of neck Status: Acute (4) Strep throat: Code(s): J02.0 - Streptococcal pharyngitis Status: Acute (5) Acute kidney injury: Code(s): N17.9 - Acute kidney failure, unspecified Status: Acute Plan Facial/neck cellulitis Decadron for swelling as recommended by ENT. Completed the course with increased swelling today at least subjectively. Will give a dose of Decadron again bacteremia with Streptococcus A blood culture positive for strep A. Antibiotics with Rocephin and clindamycin for antitoxin effect.. Repeat blood culture has remained negative so far. Leukocytosis today could be related to the Decadron. Will continue to trend JANA improving creatinine to 1 admission Complicated 2.2 cm cyst right kidney follow in 6 months Subjective Date/time seen: 06/21/23 14:56 Interval history: 32-year-old female with history of migraine headaches, hypertension, sleep apnea, gastroesophageal reflux disease, depression, and anxiety who presented to the emergency department from home for evaluation of swelling in the forehead and neck. Blood cultures is positive gram positive in chains Pt having ongoing neck swelling and upper arm swelling. Pt states her pain is severe. 06/19/2023 remains afebrile. Discussed with Infectious Disease pharmacist. Anemic. Leukocytosis at 25 K on admission. JANA improving 06/20/2023: No overnight events. Labs reviewed. Remains afebrile. Swelling slightly better 06/21/2023: Remains afebrile. Feels a bit more swollen today. Denies any other complaints. Labs reviewed. Review of Systems Review of Systems: All systems reviewed & are unremarkable except as noted in HPI and below Exam Narrative: General: Well-appearing female sitting up in bed. HEENT: Swelling of the forehead and dry rash on scalp and forehead Respiratory: Lungs are clear to auscultation bilaterally. Cardiovascular: Regular rate and rhythm with S1-S2. Gastrointestinal: Abdomen is soft, nontender, and nondistended with positive bowel sounds. Skin: Warm and dry. There is mild erythema and warmth at the base of the neck and minimally onto the chest There is a well-demarcated area of edema on the forehead and just under the hairline on the right forehead there is linear area of what appears to be abrasions though the patient denies scratching the area. Extremities: No cyanosis, clubbing, or extremity edema. Radial and pedal pulses intact. No joint swelling. Neurological: Alert. Cranial nerves 2-12 are grossly intact. No gross focal deficits to casual conversation. Psychiatric: Pleasant and cooperative with normal mood and affect. Judgment and insight intact. Objective Data Vital Signs Vital Signs: Vital Signs - 24 hr 06/20/23 20:00 06/20/23 22:00 06/21/23 06:00 Temperature 98.7 F 97.8 F Pulse Rate 62 67 Respiratory Rate 20 18 Blood Pressure 112/73 118/76 Pulse Oximetry 99 99 Oxygen Delivery Room Air 06/21/23 07:50 06/21/23 14:00 Temperature 98.2 F Pulse Rate 70 Respiratory Rate 16 Blood Pressure 128/77 Pulse Oximetry 98 Oxygen Delivery Room Air Intake/Output Intake/Output: Intake & Output 06/18/23 06/19/23 06/20/23 06/21/23 23:59 23:59 23:59 23:59 Intake Total 3484 2562 1638 740 Balance 3484 2562 1638 740 Meds/Results Medications: Active Medications Generic Name Dose Route Start Last Admin Trade Name Freq PRN Reason Stop Dose Admin Acetaminophen 650 mg 06/16/23 23:02 06/20/23 16:35 Acetaminophen 325 Mg Tablet PO 650 mg Q6H PRN Administration Mild Pain (1-3) or Fever Hydrocodone Bitart/Acetaminophen 1 tab 06/19/23 10:43 06/21/23 13:59 Hydrocod
[2023-06-21 20:00] VITALS: PULSE 70; RESP 16; O2SAT 98
[2023-06-21] MEDS: MELATONIN 3 MG TABLET PO (20:39)
[2023-06-21 21:00] VITALS: BP 122/58; PULSE 56; RESP 16; TEMP 36; O2SAT 99
[2023-06-22] MEDS: cefTRIAXone 2 GM/NS 100 ML 2 GM/100 ML BAG IVPB ×2 (04:13→16:53)
[2023-06-22 04:55] VITALS: BP 124/84; PULSE 53; RESP 18; TEMP 35.9; O2SAT 99
[2023-06-22] MEDS: HYDROcodone/acetaminophen (*CRX) 5-325 MG TABLET 1 TAB PO ×3 (06:44→21:32)
[2023-06-22 06:56] LABS: Hematocrit 32.5 % (37.0-47.0); Mean Corpuscular HGB Conc 30.8 g/dl (32-36); Mean Corpuscular Volume 84.4 fl (80-100); Mean Platelet Volume 10.5 fl (7.4-10.4); Platelet Count Result 419 k/mm3 (150-375); Red Blood Count 3.85 M/mm3 (4.2-5.4); Red Cell Distribution Width 17.5 % (11.5-14.5); White Blood Count 17.9 K/mm3 (4.5-10.0)
[2023-06-22 07:32] LABS: Alanine Aminotransferase 45 U/L (6-35); Albumin Level 2.8 g/dL (3.5-5.1); Alkaline Phosphatase 150 U/L (38-126); Anion Gap 13 mmol/L (8-16); Aspartate Amino Transferase 56 U/L (14-36); Bilirubin,Total 0.5 mg/dL (0.2-1.3); Blood Urea Nitrogen 18 mg/dL (7-17); Calcium 8.7 mg/dL (8.4-10.2); Carbon Dioxide 16 mmol/L (22-30); Chloride 108 mmol/L (98-107); Estimated CRCL calculation 92 ml/min; Estimated Glomerular Filt Rate > 60; Glucose 64 mg/dL (65-110); Potassium 4.4 mmol/L (3.4-5.0); Sodium 137 mmol/L (137-145)
[2023-06-22 07:56] LABS: Band Neutrophils Percent 14 % (0-6); Large Platelets Present; Lymphocytes Absolute Manual 1.61 K/mm3 (1.1-4.5); Metamyelocytes Percent 2 %; Monocytes Absolute Manual 0.53 K/mm3 (0.1-0.90); Monocytes Percent Manual 3 % (3-9); Myelocytes Percent 1 %; Neutrophils Absolute Manual 15.21 K/mm3 (1.7-7.2); Neutrophils Percent Manual 71 % (46-73); Ovalocytes 1+ (NORMAL); Platelet Estimate Increased (Adequate); Schistocytes None Seen (NORMAL); Total Cells Counted 100
[2023-06-22 07:57] LABS: Anisocytosis 1+ (NORMAL); Hypochromasia 1+ (NORMAL)
[2023-06-22 08:00] VITALS: PULSE 53; RESP 18; O2SAT 99
[2023-06-22] MEDS: diphenhydrAMINE HCl CAP 25 MG CAPSULE PO ×3 (08:08→16:53)
[2023-06-22] MEDS: SERTRALINE HCL 50 MG TABLET PO (08:09)
[2023-06-22] MEDS: FAMOTIDINE 20 MG TABLET PO ×2 (08:09→16:53)
[2023-06-22] MEDS: TOPIRAMATE 100 MG TABLET PO ×2 (08:09→21:34)
[2023-06-22] MEDS: CLINDAMYCIN 900 MG/D5W 50 ML 900 MG/50 ML PIGGYBACK 50 MG IVPB (10:00)
[2023-06-22 14:00] VITALS: BP 135/60; PULSE 87; RESP 16; TEMP 36.5; O2SAT 100
[2023-06-22] MEDS: ALPRAZolam (*CRX) 0.5 MG TABLET PO (14:54)
--- NOTE | 2023-06-22 15:25 | PM.IMPN ---
Progress Note: A&P Assessment and Plan (1) Sepsis: Code(s): A41.9 - Sepsis, unspecified organism Status: Acute (2) Diffuse cellulitis of face: Code(s): L03.211 - Cellulitis of face Status: Acute (3) Cellulitis of neck: Code(s): L03.221 - Cellulitis of neck Status: Acute (4) Strep throat: Code(s): J02.0 - Streptococcal pharyngitis Status: Acute (5) Acute kidney injury: Code(s): N17.9 - Acute kidney failure, unspecified Status: Acute Plan Facial/neck cellulitis Decadron for swelling as recommended by ENT. Completed the course with increased swelling today at least subjectively. Received another dose of Decadron x1 06/21/2023. Continue to trend WBC once improving will plan to switch to amoxicillin 1 g q.8 hour dose for discharge bacteremia with Streptococcus A blood culture positive for strep A. Antibiotics with Rocephin and clindamycin for antitoxin effect.. Repeat blood culture has remained negative so far. Leukocytosis today could be related to the Decadron. Will continue to trend JANA improving creatinine to 1 admission Complicated 2.2 cm cyst right kidney follow in 6 months Subjective Date/time seen: 06/22/23 15:25 Interval history: 32-year-old female with history of migraine headaches, hypertension, sleep apnea, gastroesophageal reflux disease, depression, and anxiety who presented to the emergency department from home for evaluation of swelling in the forehead and neck. Blood cultures is positive gram positive in chains Pt having ongoing neck swelling and upper arm swelling. Pt states her pain is severe. 06/19/2023 remains afebrile. Discussed with Infectious Disease pharmacist. Anemic. Leukocytosis at 25 K on admission. JANA improving 06/20/2023: No overnight events. Labs reviewed. Remains afebrile. Swelling slightly better 06/21/2023: Remains afebrile. Feels a bit more swollen today. Denies any other complaints. Labs reviewed. 06/22/2023: Feeling better. Swelling still present redness has been improving Review of Systems Review of Systems: All systems reviewed & are unremarkable except as noted in HPI and below Exam Narrative: General: Well-appearing female sitting up in bed. HEENT: Swelling of the forehead and dry rash on scalp and forehead Respiratory: Lungs are clear to auscultation bilaterally. Cardiovascular: Regular rate and rhythm with S1-S2. Gastrointestinal: Abdomen is soft, nontender, and nondistended with positive bowel sounds. Skin: Warm and dry. There is mild erythema and warmth at the base of the neck and minimally onto the chest There is a well-demarcated area of edema on the forehead and just under the hairline on the right forehead there is linear area of what appears to be abrasions though the patient denies scratching the area. Extremities: No cyanosis, clubbing, or extremity edema. Radial and pedal pulses intact. No joint swelling. Neurological: Alert. Cranial nerves 2-12 are grossly intact. No gross focal deficits to casual conversation. Psychiatric: Pleasant and cooperative with normal mood and affect. Judgment and insight intact. Objective Data Vital Signs Vital Signs: Vital Signs - 24 hr 06/21/23 20:00 06/21/23 21:00 06/22/23 04:55 Temperature 96.8 F L 96.6 F L Pulse Rate 70 56 L 53 L Respiratory Rate 16 16 18 Blood Pressure 122/58 L 124/84 Pulse Oximetry 98 99 99 Oxygen Delivery Room Air 06/22/23 08:00 Temperature Pulse Rate 53 L Respiratory Rate 18 Blood Pressure Pulse Oximetry 99 Oxygen Delivery Room Air Intake/Output Intake/Output: Intake & Output 06/19/23 06/20/23 06/21/23 06/22/23 23:59 23:59 23:59 23:59 Intake Total 2562 1638 1680 622 Balance 2562 1638 1680 622 Meds/Results Medications: Active Medications Generic Name Dose Route Start Last Admin Trade Name Hugoq PRN Reason Stop Dose Admin Acetaminophen 650 mg 06/16/23 23:02 06/20/23 16:35
[2023-06-22 20:20] VITALS: BP 129/70; PULSE 77; RESP 18; TEMP 36.7; O2SAT 99
[2023-06-22] MEDS: MELATONIN 3 MG TABLET PO (21:33)
[2023-06-23] MEDS: HYDROcodone/acetaminophen (*CRX) 5-325 MG TABLET 1 TAB PO ×3 (04:04→16:23)
[2023-06-23] MEDS: cefTRIAXone 2 GM/NS 100 ML 2 GM/100 ML BAG IVPB ×2 (04:04→16:17)
[2023-06-23 05:25] VITALS: BP 112/57; PULSE 55; RESP 20; TEMP 37.7; O2SAT 98
[2023-06-23] MEDS: HYDROmorphone HCL INJ (*CRX) 1 MG/ML SYR 0.5 MG IV PUSH ×2 (06:13→20:39)
[2023-06-23 06:35] LABS: Basophils Absolute Auto 0.1 K/mm3 (0.0-0.1); Basophils Percent Auto 0.6 % (0.2-1.2); Eosinophils Absolute Auto 0.1 K/mm3 (0-0.3); Eosinophils Percent Auto 0.4 % (0-4.4); Hematocrit 32.2 % (37.0-47.0); Hemoglobin 10.4 g/dL (12.0-15.0); Immature Granulocyte Absolute 2.13 K/mm3 (0.00-0.031); Immature Granulocyte Percent A 8.7 % (0-0.5); Lymphocytes Absolute Auto 2.02 K/mm3 (0.9-3.2); Lymphocytes Percent Auto 8.2 % (18.3-44.2); Mean Corpuscular HGB Conc 32.3 g/dl (32-36); Mean Corpuscular Hemoglobin 25.9 pg (26-34); Mean Corpuscular Volume 80.3 fl (80-100); Mean Platelet Volume 9.5 fl (7.4-10.4); Monocytes Absolute Auto 1.1 K/mm3 (0.1-0.6); Monocytes Percent Auto 4.7 % (2.6-8.5); Neutrophils Percent Auto 77.4 % (45.5-73.1); Platelet Count Result 519 k/mm3 (150-375); Red Blood Count 4.01 M/mm3 (4.2-5.4); White Blood Count 24.5 K/mm3 (4.5-10.0)
[2023-06-23 06:53] LABS: Alanine Aminotransferase 56 U/L (6-35); Alkaline Phosphatase 138 U/L (38-126); Anion Gap 10 mmol/L (8-16); Aspartate Amino Transferase 58 U/L (14-36); Bilirubin,Total 0.4 mg/dL (0.2-1.3); Blood Urea Nitrogen 16 mg/dL (7-17); Calcium 8.5 mg/dL (8.4-10.2); Carbon Dioxide 19 mmol/L (22-30); Chloride 104 mmol/L (98-107); Estimated CRCL calculation 92 ml/min; Estimated Glomerular Filt Rate > 60; Glucose 97 mg/dL (65-110); Potassium 3.8 mmol/L (3.4-5.0); Sodium 133 mmol/L (137-145)
[2023-06-23] MEDS: TOPIRAMATE 100 MG TABLET PO ×2 (09:00→20:36)
[2023-06-23] MEDS: diphenhydrAMINE HCl CAP 25 MG CAPSULE PO ×3 (09:00→16:23)
[2023-06-23] MEDS: FAMOTIDINE 20 MG TABLET PO ×2 (09:00→16:17)
[2023-06-23] MEDS: SERTRALINE HCL 50 MG TABLET PO (09:00)
[2023-06-23 14:00] VITALS: BP 123/76; PULSE 93; RESP 14; TEMP 37.2; O2SAT 97
--- NOTE | 2023-06-23 14:07 | PM.IMPN ---
Progress Note: A&P Assessment and Plan (1) Sepsis: Code(s): A41.9 - Sepsis, unspecified organism Status: Acute (2) Diffuse cellulitis of face: Code(s): L03.211 - Cellulitis of face Status: Acute (3) Cellulitis of neck: Code(s): L03.221 - Cellulitis of neck Status: Acute (4) Strep throat: Code(s): J02.0 - Streptococcal pharyngitis Status: Acute (5) Acute kidney injury: Code(s): N17.9 - Acute kidney failure, unspecified Status: Acute Plan Facial/neck cellulitis Decadron for swelling as recommended by ENT. Completed the course with increased swelling today at least subjectively. Received another dose of Decadron x1 06/21/2023. Continue to trend WBC once improving will plan to switch to amoxicillin 1 g q.8 hour dose for discharge worsened WBC count today along with worsening pain and left chest wall. Will recheck CT chest. Continue on IV ceftriaxone bacteremia with Streptococcus A blood culture positive for strep A. Antibiotics with Rocephin and clindamycin for antitoxin effect.. Off clindamycin now repeat blood culture has remained negative so far. Leukocytosis today could be related to the Decadron. Will continue to trend JANA improving creatinine to 1 admission Complicated 2.2 cm cyst right kidney follow in 6 months Subjective Date/time seen: 06/23/23 14:07 Interval history: 32-year-old female with history of migraine headaches, hypertension, sleep apnea, gastroesophageal reflux disease, depression, and anxiety who presented to the emergency department from home for evaluation of swelling in the forehead and neck. Blood cultures is positive gram positive in chains Pt having ongoing neck swelling and upper arm swelling. Pt states her pain is severe. 06/19/2023 remains afebrile. Discussed with Infectious Disease pharmacist. Anemic. Leukocytosis at 25 K on admission. JANA improving 06/20/2023: No overnight events. Labs reviewed. Remains afebrile. Swelling slightly better 06/21/2023: Remains afebrile. Feels a bit more swollen today. Denies any other complaints. Labs reviewed. 06/22/2023: Feeling better. Swelling still present redness has been improving 06/23/2023: no overnight events. mild fever this am. she reports some more soreness on left chest wall, redness and swelling about the same. Had multiple bowel movements but she reports that they are mostly soft Review of Systems Review of Systems: All systems reviewed & are unremarkable except as noted in HPI and below Exam Narrative: General: Well-appearing female sitting up in bed. HEENT: Swelling of the forehead and dry rash on scalp and forehead Respiratory: Lungs are clear to auscultation bilaterally. Cardiovascular: Regular rate and rhythm with S1-S2. Gastrointestinal: Abdomen is soft, nontender, and nondistended with positive bowel sounds. Skin: Warm and dry. There is mild erythema and warmth at the base of the neck and minimally onto the chest There is a well-demarcated area of edema on the forehead and just under the hairline on the right forehead there is linear area of what appears to be abrasions though the patient denies scratching the area. Extremities: No cyanosis, clubbing, or extremity edema. Radial and pedal pulses intact. No joint swelling. Neurological: Alert. Cranial nerves 2-12 are grossly intact. No gross focal deficits to casual conversation. Psychiatric: Pleasant and cooperative with normal mood and affect. Judgment and insight intact. Objective Data Vital Signs Vital Signs: Vital Signs - 24 hr 06/22/23 20:20 06/23/23 05:25 06/23/23 09:00 Temperature 98.1 F 99.8 F H Pulse Rate 77 55 L Respiratory Rate 18 20 Blood Pressure 129/70 112/57 L Pulse Oximetry 99 98 Oxygen Delivery Room Air Intake/Output Intake/Output: Intake & Output 06/20/23 06/21/23 06/22/23 06/23/23 23:59 23:59 23:59 23:59 Intake Total 1638 1680 1509 607 Balance 1
[2023-06-23 16:53] LABS: Toxigenic C. Diff NEGATIVE (NEGATIVE)
[2023-06-23 20:30] VITALS: BP 137/75; PULSE 87; RESP 16; TEMP 36.5; O2SAT 99
[2023-06-23] MEDS: MELATONIN 3 MG TABLET PO (20:36)
[2023-06-24] MEDS: HYDROcodone/acetaminophen (*CRX) 5-325 MG TABLET 1 TAB PO ×3 (00:56→19:40)
[2023-06-24] MEDS: cefTRIAXone 2 GM/NS 100 ML 2 GM/100 ML BAG IVPB ×2 (03:19→15:13)
[2023-06-24 04:45] VITALS: BP 126/71; PULSE 89; RESP 20; TEMP 36.3; O2SAT 100
[2023-06-24 06:46] LABS: Basophils Absolute Auto 0.1 K/mm3 (0.0-0.1); Basophils Percent Auto 0.8 % (0.2-1.2); Eosinophils Absolute Auto 0.1 K/mm3 (0-0.3); Eosinophils Percent Auto 0.8 % (0-4.4); Hematocrit 32.3 % (37.0-47.0); Hemoglobin 10.1 g/dL (12.0-15.0); Immature Granulocyte Absolute 1.31 K/mm3 (0.00-0.031); Immature Granulocyte Percent A 7.7 % (0-0.5); Lymphocytes Absolute Auto 2.05 K/mm3 (0.9-3.2); Lymphocytes Percent Auto 12.1 % (18.3-44.2); Mean Corpuscular HGB Conc 31.3 g/dl (32-36); Mean Corpuscular Hemoglobin 25.6 pg (26-34); Mean Corpuscular Volume 81.8 fl (80-100); Mean Platelet Volume 9.5 fl (7.4-10.4); Monocytes Absolute Auto 0.9 K/mm3 (0.1-0.6); Monocytes Percent Auto 5.3 % (2.6-8.5); Neutrophils Absolute Auto 12.4 K/mm3 (1.3-6.7); Neutrophils Percent Auto 73.3 % (45.5-73.1); Platelet Count Result 511 k/mm3 (150-375); Red Blood Count 3.95 M/mm3 (4.2-5.4); White Blood Count 16.9 K/mm3 (4.5-10.0)
[2023-06-24 07:01] LABS: Anion Gap 9 mmol/L (8-16); Blood Urea Nitrogen 14 mg/dL (7-17); Calcium 8.7 mg/dL (8.4-10.2); Carbon Dioxide 20 mmol/L (22-30); Chloride 104 mmol/L (98-107); Estimated CRCL calculation 101 ml/min; Estimated Glomerular Filt Rate > 60; Glucose 86 mg/dL (65-110); Magnesium 2.1 mg/dL (1.6-2.3); Potassium 3.7 mmol/L (3.4-5.0); Sodium 133 mmol/L (137-145)
[2023-06-24] MEDS: HYDROmorphone HCL INJ (*CRX) 1 MG/ML SYR 0.5 MG IV PUSH (08:27)
--- NOTE | 2023-06-24 08:27 | PCNWS ---
Weekly nutritional screen. Patient is tolerating current diet with adequate intake. No weight loss reported. No nutritional needs at this time.
[2023-06-24] MEDS: TOPIRAMATE 100 MG TABLET PO ×2 (08:32→21:11)
[2023-06-24] MEDS: diphenhydrAMINE HCl CAP 25 MG CAPSULE PO ×3 (08:32→16:43)
[2023-06-24] MEDS: SERTRALINE HCL 50 MG TABLET PO (08:32)
[2023-06-24] MEDS: FAMOTIDINE 20 MG TABLET PO ×2 (08:32→16:44)
[2023-06-24] MEDS: BENZOCAINE/MENTHOL (*BKC) 18 EA LOZENGE 1 LOZENGE PO (08:33)
[2023-06-24] MEDS: DEXAMETHASONE SOD PHOS INJ 4 MG/ML VIAL IV PUSH ×2 (10:11→21:13)
--- NOTE | 2023-06-24 13:02 | PM.IMPN ---
Progress Note: A&P Assessment and Plan (1) Sepsis: Code(s): A41.9 - Sepsis, unspecified organism Status: Acute (2) Diffuse cellulitis of face: Code(s): L03.211 - Cellulitis of face Status: Acute (3) Cellulitis of neck: Code(s): L03.221 - Cellulitis of neck Status: Acute (4) Strep throat: Code(s): J02.0 - Streptococcal pharyngitis Status: Acute (5) Acute kidney injury: Code(s): N17.9 - Acute kidney failure, unspecified Status: Acute Plan 32-year-old female with history of migraine headaches, hypertension, sleep apnea, gastroesophageal reflux disease, depression, and anxiety who presented to the emergency department from home with swelling of 4 head and neck.She tested negative for influenza, RSV, and COVID. She tested positive for group a strep. CT of the neck and chest showed frontal scalp soft tissue swelling and soft tissue swelling involving the face center at the parotid glands as well as fat stranding in the neck and left chest without pathologically enlarged lymph nodes, consistent with edema versus inflammation. ENT was consulted. Her normal endoscopy, advise for short course of Decadron along with antibiotic. She did well initially while on steroids, once taken off the steroids the swelling started to worsen. She has more pain rather than swelling at the moment. 1. Facial/neck cellulitis: Will restart Decadron today Pain control Streptococcus A in blood culture, repeat blood cultures negative till date Will continue with ceftriaxone Monitor leukocytosis Continue with lozenges 2. Left arm pain: Will get a DVT study 3. History of migraine headache: Continue with Topamax 4. JANA: Resolved Avoid nephrotoxins Recheck BMP in a.m. Complicated 2.2 cm cyst right kidney follow in 6 months 5. Code status: Full 6. DVT prophylaxis: Heparin subQ 7. Disposition: Pending improvement Time Spent With Patient Time with patient: 15 - 25 minutes Subjective Date/time seen: 06/24/23 13:02 Interval history: Complaints of worsening around neck area ? Mild pain with swallowing Complains of left arm pain Review of Systems Review of Systems: All systems reviewed & are unremarkable except as noted in HPI and below Exam Narrative: General: Well-appearing female sitting up in bed. HEENT: Swelling of the forehead and dry rash on scalp and forehead Respiratory: Lungs are clear to auscultation bilaterally. Cardiovascular: Regular rate and rhythm with S1-S2. Gastrointestinal: Abdomen is soft, nontender, and nondistended with positive bowel sounds. Skin: Warm and dry. There is mild erythema and warmth at the base of the neck and minimally onto the chest Extremities: No cyanosis, clubbing, or extremity edema. Radial and pedal pulses intact. No joint swelling. Neurological: Alert. Cranial nerves 2-12 are grossly intact. No gross focal deficits to casual conversation. Psychiatric: Pleasant and cooperative with normal mood and affect. Judgment and insight intact. Objective Data Vital Signs Vital Signs: Vital Signs - 24 hr 06/23/23 14:00 06/23/23 20:30 06/24/23 04:45 Temperature 98.9 F 97.7 F 97.3 F L Pulse Rate 93 87 89 Respiratory Rate 14 16 20 Blood Pressure 123/76 137/75 126/71 Pulse Oximetry 97 99 100 Oxygen Delivery 06/24/23 08:30 Temperature Pulse Rate Respiratory Rate Blood Pressure Pulse Oximetry Oxygen Delivery Room Air Intake/Output Intake/Output: Intake & Output 06/21/23 06/22/23 06/23/23 06/24/23 23:59 23:59 23:59 23:59 Intake Total 1680 1509 2029 770 Balance 1680 1509 2029 770 Meds/Results Medications: Active Medications Generic Name Dose Route Start Last Admin Trade Name Freq PRN Reason Stop Dose Admin Acetaminophen 650 mg 06/16/23 23:02 06/20/23 16:35 Acetaminophen 325 Mg Tablet PO 650 mg Q6H PRN Administration Mild Pain (1-3) or Fever Hydrocodone Bitart/Acetamino
[2023-06-24 14:00] VITALS: BP 131/64; PULSE 77; RESP 16; TEMP 36.7; O2SAT 97
[2023-06-24] MEDS: HEPARIN SODIUM 5,000 UNITS/ML VIAL 5000 UNITS SUB-Q (15:12)
[2023-06-24 19:45] VITALS: BP 135/78; PULSE 78; RESP 18; TEMP 36.7; O2SAT 99
[2023-06-24] MEDS: MELATONIN 3 MG TABLET PO (21:11)
[2023-06-24] MEDS: ALPRAZolam (*CRX) 0.5 MG TABLET PO (21:22)
--- NOTE | 2023-06-24 23:59 | PM.EVENT ---
Event Note Event Note Event Note: Cross Coverage: US of RUE resulted - showed acute occlusive venous thrombosis in the distal cephalic vein, below the level of the antecubital fossa. Placed on heparin gtt, SQ heparin d/c'd. Reassess patient in AM.
[2023-06-25 00:59] LABS: Basophils Absolute Auto 0.1 K/mm3 (0.0-0.1); Basophils Percent Auto 0.3 % (0.2-1.2); Eosinophils Percent Auto 0.1 % (0-4.4); Hematocrit 31.7 % (37.0-47.0); Hemoglobin 10.3 g/dL (12.0-15.0); Immature Granulocyte Absolute 0.82 K/mm3 (0.00-0.031); Immature Granulocyte Percent A 4.9 % (0-0.5); Lymphocytes Absolute Auto 1.05 K/mm3 (0.9-3.2); Lymphocytes Percent Auto 6.3 % (18.3-44.2); Mean Corpuscular HGB Conc 32.5 g/dl (32-36); Mean Corpuscular Hemoglobin 26.2 pg (26-34); Mean Corpuscular Volume 80.7 fl (80-100); Mean Platelet Volume 9.3 fl (7.4-10.4); Monocytes Absolute Auto 0.3 K/mm3 (0.1-0.6); Monocytes Percent Auto 1.6 % (2.6-8.5); Neutrophils Absolute Auto 14.4 K/mm3 (1.3-6.7); Neutrophils Percent Auto 86.8 % (45.5-73.1); Platelet Count Result 582 k/mm3 (150-375); Red Blood Count 3.93 M/mm3 (4.2-5.4); Red Cell Distribution Width 16.8 % (11.5-14.5); White Blood Count 16.6 K/mm3 (4.5-10.0)
[2023-06-25 01:10] LABS: INR 1.1; Prothrombin Time 14.4 Seconds (11.1-14.7)
[2023-06-25 01:11] LABS: Partial Thromboplastin Time 34.9 SECONDS (22.3-36.8)
[2023-06-25] MEDS: HEPARIN SOD/D5W 100 UNITS/ML 25,000 UNITS/250 ML BAG 13 UNITS IV CONT (01:40)
[2023-06-25] MEDS: HYDROcodone/acetaminophen (*CRX) 5-325 MG TABLET 1 TAB PO ×3 (01:45→21:34)
[2023-06-25] MEDS: cefTRIAXone 2 GM/NS 100 ML 2 GM/100 ML BAG IVPB (03:57)
[2023-06-25 06:00] VITALS: BP 128/77; PULSE 62; RESP 16; TEMP 36.4; O2SAT 99
[2023-06-25 07:25] LABS: Basophils Percent Auto 0.3 % (0.2-1.2); Eosinophils Percent Auto 0.1 % (0-4.4); Hematocrit 32.4 % (37.0-47.0); Hemoglobin 10.3 g/dL (12.0-15.0); Immature Granulocyte Absolute 0.68 K/mm3 (0.00-0.031); Immature Granulocyte Percent A 4.8 % (0-0.5); Lymphocytes Absolute Auto 1.46 K/mm3 (0.9-3.2); Lymphocytes Percent Auto 10.4 % (18.3-44.2); Mean Corpuscular HGB Conc 31.8 g/dl (32-36); Mean Corpuscular Hemoglobin 26.1 pg (26-34); Mean Platelet Volume 9.5 fl (7.4-10.4); Monocytes Absolute Auto 0.5 K/mm3 (0.1-0.6); Monocytes Percent Auto 3.3 % (2.6-8.5); Neutrophils Absolute Auto 11.4 K/mm3 (1.3-6.7); Neutrophils Percent Auto 81.1 % (45.5-73.1); Platelet Count Result 592 k/mm3 (150-375); Red Blood Count 3.95 M/mm3 (4.2-5.4); Red Cell Distribution Width 16.9 % (11.5-14.5); White Blood Count 14.1 K/mm3 (4.5-10.0)
[2023-06-25 07:42] LABS: Partial Thromboplastin Time 52.3 SECONDS (22.3-36.8)
[2023-06-25 07:43] LABS: Anion Gap 9 mmol/L (8-16); Blood Urea Nitrogen 18 mg/dL (7-17); Carbon Dioxide 19 mmol/L (22-30); Chloride 109 mmol/L (98-107); Estimated CRCL calculation 100 ml/min; Estimated Glomerular Filt Rate > 60; Glucose 122 mg/dL (65-110); Potassium 3.5 mmol/L (3.4-5.0); Sodium 137 mmol/L (137-145)
[2023-06-25] MEDS: HEPARIN SODIUM 5,000 UNITS/ML VIAL 6000 UNITS IV PUSH (08:02)
[2023-06-25] MEDS: DEXAMETHASONE SOD PHOS INJ 4 MG/ML VIAL IV PUSH ×2 (08:07→21:36)
[2023-06-25] MEDS: diphenhydrAMINE HCl CAP 25 MG CAPSULE PO ×3 (08:20→17:52)
[2023-06-25] MEDS: SERTRALINE HCL 50 MG TABLET PO (08:20)
[2023-06-25] MEDS: FAMOTIDINE 20 MG TABLET PO ×2 (08:21→17:51)
[2023-06-25] MEDS: TOPIRAMATE 100 MG TABLET PO ×2 (08:21→21:36)
--- NOTE | 2023-06-25 14:21 | PM.IMPN ---
Progress Note: A&P Assessment and Plan (1) Sepsis: Code(s): A41.9 - Sepsis, unspecified organism Status: Acute (2) Diffuse cellulitis of face: Code(s): L03.211 - Cellulitis of face Status: Acute (3) Cellulitis of neck: Code(s): L03.221 - Cellulitis of neck Status: Acute (4) Strep throat: Code(s): J02.0 - Streptococcal pharyngitis Status: Acute (5) Acute kidney injury: Code(s): N17.9 - Acute kidney failure, unspecified Status: Acute Plan 32-year-old female with history of migraine headaches, hypertension, sleep apnea, gastroesophageal reflux disease, depression, and anxiety who presented to the emergency department from home with swelling of 4 head and neck.She tested negative for influenza, RSV, and COVID. She tested positive for group a strep. CT of the neck and chest showed frontal scalp soft tissue swelling and soft tissue swelling involving the face center at the parotid glands as well as fat stranding in the neck and left chest without pathologically enlarged lymph nodes, consistent with edema versus inflammation. ENT was consulted. Her normal endoscopy, advise for short course of Decadron along with antibiotic. She did well initially while on steroids, once taken off the steroids the swelling started to worsen. She has more pain rather than swelling at the moment. 1. Facial/neck cellulitis: Continue with Decadron today Pain control Streptococcus A in blood culture, repeat blood cultures negative till date Will continue with ceftriaxone for total of 14 days from last negative blood culture Last day of ceftriaxone would be 07/02/2023 Will switch ceftriaxone to daily instead of b.i.d. scheduling Monitor leukocytosis, improving Continue with lozenges 2. Left arm pain: Left arm DVT shows thrombus in superficial cephalic vein Pain control No need of anticoagulation treatment Warm compresses as needed 3. History of migraine headache: Continue with Topamax 4. JANA: Resolved Avoid nephrotoxins Recheck BMP in a.m. Complicated 2.2 cm cyst right kidney follow in 6 months 5. Code status: Full 6. DVT prophylaxis: Heparin subQ 7. Disposition: Pending improvement Time Spent With Patient Time with patient: 15 - 25 minutes Subjective Date/time seen: 06/25/23 14:21 Interval history: Feeling much better as compared to yesterday, pain has remarkably improved Review of Systems Review of Systems: All systems reviewed & are unremarkable except as noted in HPI and below Exam Narrative: General: Well-appearing female sitting up in bed. HEENT: Swelling of the forehead and dry rash on scalp and forehead Respiratory: Lungs are clear to auscultation bilaterally. Cardiovascular: Regular rate and rhythm with S1-S2. Gastrointestinal: Abdomen is soft, nontender, and nondistended with positive bowel sounds. Skin: Warm and dry. There is mild erythema and warmth at the base of the neck and minimally onto the chest Extremities: No cyanosis, clubbing, or extremity edema. Radial and pedal pulses intact. No joint swelling. Neurological: Alert. Cranial nerves 2-12 are grossly intact. No gross focal deficits to casual conversation. Psychiatric: Pleasant and cooperative with normal mood and affect. Judgment and insight intact. Objective Data Vital Signs Vital Signs: Vital Signs - 24 hr 06/24/23 19:45 06/25/23 06:00 06/25/23 08:20 Temperature 98.1 F 97.5 F L Pulse Rate 78 62 Respiratory Rate 18 16 Blood Pressure 135/78 128/77 Pulse Oximetry 99 99 Oxygen Delivery Room Air Intake/Output Intake/Output: Intake & Output 06/22/23 06/23/23 06/24/23 06/25/23 23:59 23:59 23:59 23:59 Intake Total 1509 2028 2109 1010 Balance 1509 20280 1010 Meds/Results Medications: Active Medications Generic Name Dose Route Start Last Admin Trade Name Freq PRN Reason Stop Dose Admin Acetaminophen 650 mg 06/16/23 23:02 06/20/23 16:35
[2023-06-25 20:25] VITALS: BP 147/70; PULSE 56; RESP 18; TEMP 36.8; O2SAT 98
[2023-06-25] MEDS: MELATONIN 3 MG TABLET PO (21:36)
[2023-06-25] MEDS: HEPARIN SODIUM 5,000 UNITS/ML VIAL 5000 UNITS SUB-Q (21:36)
[2023-06-26 04:30] VITALS: BP 127/72; PULSE 64; RESP 18; TEMP 36.6; O2SAT 100
[2023-06-26] MEDS: HEPARIN SODIUM 5,000 UNITS/ML VIAL 5000 UNITS SUB-Q ×2 (05:23→14:59)
[2023-06-26 06:06] LABS: Basophils Absolute Auto 0.1 K/mm3 (0.0-0.1); Basophils Percent Auto 0.9 % (0.2-1.2); Eosinophils Percent Auto 0.1 % (0-4.4); Hematocrit 37.7 % (37.0-47.0); Hemoglobin 10.8 g/dL (12.0-15.0); Immature Granulocyte Absolute 0.34 K/mm3 (0.00-0.031); Immature Granulocyte Percent A 3.3 % (0-0.5); Lymphocytes Absolute Auto 1.57 K/mm3 (0.9-3.2); Lymphocytes Percent Auto 15.3 % (18.3-44.2); Mean Corpuscular HGB Conc 28.6 g/dl (32-36); Mean Corpuscular Hemoglobin 26.5 pg (26-34); Mean Corpuscular Volume 92.6 fl (80-100); Mean Platelet Volume 9.8 fl (7.4-10.4); Monocytes Absolute Auto 0.6 K/mm3 (0.1-0.6); Monocytes Percent Auto 5.6 % (2.6-8.5); Neutrophils Absolute Auto 7.7 K/mm3 (1.3-6.7); Neutrophils Percent Auto 74.8 % (45.5-73.1); Platelet Count Result 594 k/mm3 (150-375); Red Blood Count 4.07 M/mm3 (4.2-5.4); Red Cell Distribution Width 17.4 % (11.5-14.5); White Blood Count 10.3 K/mm3 (4.5-10.0)
[2023-06-26 06:47] LABS: Anion Gap 12 mmol/L (8-16); Blood Urea Nitrogen 19 mg/dL (7-17); Calcium 9.3 mg/dL (8.4-10.2); Carbon Dioxide 13 mmol/L (22-30); Chloride 112 mmol/L (98-107); Estimated CRCL calculation 113 ml/min; Estimated Glomerular Filt Rate > 60; Glucose 90 mg/dL (65-110); Potassium 4.7 mmol/L (3.4-5.0); Sodium 137 mmol/L (137-145)
[2023-06-26] MEDS: DEXAMETHASONE SOD PHOS INJ 4 MG/ML VIAL IV PUSH (09:59)
[2023-06-26] MEDS: TOPIRAMATE 100 MG TABLET PO (09:59)
[2023-06-26] MEDS: SERTRALINE HCL 50 MG TABLET PO (09:59)
[2023-06-26] MEDS: diphenhydrAMINE HCl CAP 25 MG CAPSULE PO ×2 (09:59→17:34)
[2023-06-26] MEDS: FAMOTIDINE 20 MG TABLET PO ×2 (09:59→17:33)
[2023-06-26] MEDS: cefTRIAXone 2 GM/NS 100 ML 2 GM/100 ML BAG IVPB (10:00)
[2023-06-26] MEDS: HYDROcodone/acetaminophen (*CRX) 5-325 MG TABLET 1 TAB PO (10:03)
[2023-06-26] MEDS: ALPRAZolam (*CRX) 0.5 MG TABLET PO ×2 (10:03→14:59)
--- NOTE | 2023-06-26 12:16 | PM.IMPN ---
Progress Note: A&P Assessment and Plan (1) Sepsis: Code(s): A41.9 - Sepsis, unspecified organism Status: Acute (2) Diffuse cellulitis of face: Code(s): L03.211 - Cellulitis of face Status: Acute (3) Cellulitis of neck: Code(s): L03.221 - Cellulitis of neck Status: Acute (4) Strep throat: Code(s): J02.0 - Streptococcal pharyngitis Status: Acute (5) Acute kidney injury: Code(s): N17.9 - Acute kidney failure, unspecified Status: Acute Plan 32-year-old female with history of migraine headaches, hypertension, sleep apnea, gastroesophageal reflux disease, depression, and anxiety who presented to the emergency department from home with swelling of 4 head and neck.She tested negative for influenza, RSV, and COVID. She tested positive for group a strep. CT of the neck and chest showed frontal scalp soft tissue swelling and soft tissue swelling involving the face center at the parotid glands as well as fat stranding in the neck and left chest without pathologically enlarged lymph nodes, consistent with edema versus inflammation. ENT was consulted. Her normal endoscopy, advise for short course of Decadron along with antibiotic. She did well initially while on steroids, once taken off the steroids the swelling started to worsen. She has more pain rather than swelling at the moment. 1. Facial/neck cellulitis: Will stop Decadron today, will switch to prednisone taper Pain control Streptococcus A in blood culture, repeat blood cultures negative till date Will continue with ceftriaxone for total of 14 days from last negative blood culture Last day of ceftriaxone would be 07/02/2023 Will get midline today Monitor leukocytosis, improving Continue with lozenges 2. Left arm pain: Left arm DVT shows thrombus in superficial cephalic vein Pain control No need of anticoagulation treatment Warm compresses as needed 3. History of migraine headache: Continue with Topamax 4. JANA: Resolved Avoid nephrotoxins Recheck BMP in a.m. Complicated 2.2 cm cyst right kidney follow in 6 months 5. Code status: Full 6. DVT prophylaxis: Heparin subQ 7. Disposition: Anticipate discharge tomorrow morning Time Spent With Patient Time with patient: 15 - 25 minutes Subjective Date/time seen: 06/26/23 12:16 Interval history: Feeling much better in terms of pain, rash has remarkably improved Very tearful this morning as no one has rounded on her since shift change Review of Systems Review of Systems: All systems reviewed & are unremarkable except as noted in HPI and below Exam Narrative: General: Well-appearing female sitting up in bed. HEENT: Swelling of the forehead and dry rash on scalp and forehead has resolved Respiratory: Lungs are clear to auscultation bilaterally. Cardiovascular: Regular rate and rhythm with S1-S2. Gastrointestinal: Abdomen is soft, nontender, and nondistended with positive bowel sounds. Skin: Warm and dry. There is mild erythema and warmth at the base of the neck and minimally onto the chest Extremities: No cyanosis, clubbing, or extremity edema. Radial and pedal pulses intact. No joint swelling. Neurological: Alert. Cranial nerves 2-12 are grossly intact. No gross focal deficits to casual conversation. Psychiatric: Pleasant and cooperative with normal mood and affect. Judgment and insight intact. Objective Data Vital Signs Vital Signs: Vital Signs - 24 hr 06/25/23 20:25 06/25/23 21:20 06/26/23 04:30 Temperature 98.2 F 98 F Pulse Rate 56 L 64 Respiratory Rate 18 18 Blood Pressure 147/70 H 127/72 Pulse Oximetry 98 100 Oxygen Delivery Room Air Intake/Output Intake/Output: Intake & Output 06/23/23 06/24/23 06/25/23 06/26/23 23:59 23:59 23:59 23:59 Intake Total 2028 2109 3055 960 Balance 2028 2109 3055 960 Meds/Results Medications: Active Medications Generic Name Dose Route Start Last Admin Trade Name Hugo
[2023-06-26 14:00] VITALS: BP 130/77; PULSE 77; RESP 16; TEMP 36.4; O2SAT 99
--- NOTE | 2023-06-26 16:20 | PM.DS ---
DS: Admitting Diagnosis Discharge Date 06/26/23 Admitting Diagnosis Facial cellulitis DS: Discharge Diagnosis Discharge Diagnosis (1) Acute kidney injury: Code(s): N17.9 - Acute kidney failure, unspecified Status: Acute (2) Cellulitis of neck: Code(s): L03.221 - Cellulitis of neck Status: Acute (3) Diffuse cellulitis of face: Code(s): L03.211 - Cellulitis of face Status: Acute (4) Sepsis: Code(s): A41.9 - Sepsis, unspecified organism Status: Acute DS: Summary Hospital Course Reason for hospitalization: Facial cellulitis Hospital Course: 32-year-old female with history of migraine headaches, hypertension, sleep apnea, gastroesophageal reflux disease, depression, and anxiety who presented to the emergency department from home with swelling of 4 head and neck.She tested negative for influenza, RSV, and COVID. She tested positive for group a strep. CT of the neck and chest showed frontal scalp soft tissue swelling and soft tissue swelling involving the face center at the parotid glands as well as fat stranding in the neck and left chest without pathologically enlarged lymph nodes, consistent with edema versus inflammation.? ENT was consulted.? Her normal endoscopy, advise for short course of Decadron along with antibiotic.? She did well initially while on steroids, once taken off the steroids the swelling started to worsen. She was restarted on Decadron, discharged on Medrol Dosepak. Was treated with 14 days of ceftriaxone IV(discharged on IV antibiotic) for streptococcal bacteremia. Also had JANA upon admission which had resolved prior to discharge. Discharged home in stable condition. Status at Discharge Functional status at discharge: independent ambulation Overall status at discharge: patient is progressing back to baseline Time Spent with Patient Time attestation: Total time spent providing and/or coordinating discharge services: Time spent: Greater than 30 minutes Exam Narrative: General: Well-appearing female sitting up in bed. HEENT: Swelling of the forehead and dry rash on scalp and forehead has resolved Respiratory: Lungs are clear to auscultation bilaterally. Cardiovascular: Regular rate and rhythm with S1-S2. Gastrointestinal: Abdomen is soft, nontender, and nondistended with positive bowel sounds. Skin: Warm and dry. There is mild erythema and warmth at the base of the neck and minimally onto the chest Extremities: No cyanosis, clubbing, or extremity edema. Radial and pedal pulses intact. No joint swelling. Neurological: Alert. Cranial nerves 2-12 are grossly intact. No gross focal deficits to casual conversation. Psychiatric: Pleasant and cooperative with normal mood and affect. Judgment and insight intact. DS: Data Data Completed and Pending Labs on day of discharge: Labs from last 24 hours 06/26/23 05:55 WBC 10.3 H RBC 4.07 L Hgb 10.8 L Hct 37.7 MCV 92.6 D MCH 26.5 MCHC 28.6 L RDW 17.4 H Plt Count 594 H MPV 9.8 Immature Gran % (Auto) 3.3 H Neut % (Auto) 74.8 H Lymph % (Auto) 15.3 L Casey % (Auto) 5.6 Eos % (Auto) 0.1 Baso % (Auto) 0.9 Lymph # (Auto) 1.57 Casey # (Auto) 0.6 Eos # (Auto) 0.0 Baso # (Auto) 0.1 Abs Immat Gran (auto) 0.34 H Absolute Neuts (auto) 7.7 H Absolute Nucleated RBC 0.0 Nucleated RBC % 0.0 Sodium 137 Potassium 4.7 Chloride 112 H Carbon Dioxide 13 L Anion Gap 12 BUN 19 H Creatinine 0.70 Estim Creat Clear Calc 113 Estimated GFR > 60 Glucose 90 Calcium 9.3 Discharge Plan Discharge Attending physician on discharge: Laverne Bethea Consulting providers: Lee Ambrosio Discharging Clinician: Laverne Bethea Anticipated Discharge Date/Time: 06/26/23 16:20 Patient Disposition: Home, Self-Care Activity: as tolerated Diet: regular Discharge Instructions: Per Care Coordination Patient will have IV antibiotics with [facility] [phone]. Leslie
[2023-06-26] MEDS: LIDOCAINE HCL 1% LOCAL INJ 2 ML AMPUL 5 ML INFILTRATE (16:30)
--- NOTE | 2023-06-26 19:03 | PC.NURSE ---
Patient called with questions regarding medications. All questions answered.
== END 2023-06-26 18:25 | disposition home or self-care (01) | DRG 872 ==
LOC: ANHED 18:35 → ANH3MEDSUR 18:38
PROVIDERS: Internal Medicine; Physician Assistant; Student in an Organized Health Care Education/Training Program; Admitting Provider Internal Medicine; Emergency Provider Emergency Medicine; PCP Emergency Medicine; Visit Provider Internal Medicine
DX: A41.9 Sepsis, unspecified organism (principal); L03.221 Cellulitis of neck; N17.9 Acute kidney failure, unspecified; L03.211 Cellulitis of face; I82.611 Acute embolism and thrombosis of superficial veins of right upper extremity; J02.0 Streptococcal pharyngitis; B95.0 Streptococcus, group A, as the cause of diseases classified elsewhere; K21.9 Gastro-esophageal reflux disease without esophagitis; F32.A Depression, unspecified; F41.9 Anxiety disorder, unspecified; I10 Essential (primary) hypertension; Z20.822 Contact with and (suspected) exposure to COVID-19; G47.33 Obstructive sleep apnea (adult) (pediatric); G43.909 Migraine, unspecified, not intractable, without status migrainosus; F17.290 Nicotine dependence, other tobacco product, uncomplicated; N28.1 Cyst of kidney, acquired
CPT/HCPCS: 36415; 36569; 70491; 71260; 76775; 80048; 80053; 81001; 81025; 82565; 83605; 83735; 85025; 85610; 85730; 86140; 87040; 87077; 87086; 87186; 87493; 87637; 87651; 93971; 96361; 96365; 96366; 96367; 96375; 96376; 99285; A9270; G0378; J0690; J0696; J1100; J1170; J1644; J1836; J2405; J3370; J7030; Q9967

== ENCOUNTER 2023-07-04 14:50 | Emergency (ER) | payer OTHER, BC, SELFPAY ==
--- NOTE | ~2023-07-04 | CT_ITS ---
EXAMINATION: CTA chest PE protocol DATE: 07/04/2023 16:33 INDICATION: left collar bone swelling, hsx of DVT TECHNIQUE: Computed tomography angiography (CTA) of the chest was performed with 100 mL Omnipaque-350 intravenous contrast timed to evaluate the pulmonary arteries. Coronal maximum intensity projection 3D-reconstructions were created by the technologist. The dose-length product (DLP) was 780.59 mGy-cm. Automated exposure control and iterative reconstruction technique were employed. COMPARISON: CT soft tissue neck 06/23/2023. FINDINGS: Lung parenchyma and airways: Clear. Pleura: Unremarkable. Thoracic inlet, axillae and chest wall: Persistent but improved subcutaneous fluid and stranding in t he right mid and lower neck, about the left clavicle, and upper anterior left chest. No encapsulated fluid to suggest abscess. Thoracic aorta: Normal. Mediastinum: Normal. Heart and pericardium: Normal. Coronary artery calcifications: Absent. Upper abdomen: No significant finding. Bones: No acute osseous finding. Pulmonary arteries: Study quality: Adequate. No pulmonary emboli detected. IMPRESSION: No CT evidence of acute pulmonary embolus. Persistent but improving fat stranding and fluid in the le ft neck and chest. Reviewed, dictated and finalized at location K. [employer] IMPRESSION: No CT evidence of acute pulmonary embolus. Persistent but improving fat strandi ng and fluid in the left neck and chest.
--- NOTE | ~2023-07-04 | US_ITS ---
EXAMINATION: US venous doppler UE DATE: 07/04/2023 18:23 INDICATION: arm swelling, swelling around clavicle . TECHNIQUE: Grayscale ultrasound images without and with compression and Doppler ultrasound images of the left upper extremity veins were obtained. COMPARISON: None. FINDINGS: The visualized portions of the left internal jugular vein, subclavian vein, axillary vein, brachial v eins, and basilic vein are patent. The radial and ulnar veins were not imaged due to a lack of forear m symptoms. The left cephalic vein was not visualized (this was confirmed verbally with the technolog ist). IMPRESSION: The left cephalic vein was not visualized. No deep venous thrombosis in the detected in the remaining upper extremity veins. Reviewed, dictated and finalized at location K. [employer] IMPRESSION: The left cephalic vein was not visualized. No deep venous thrombosis in the det ected in the remaining upper extremity veins.
[2023-07-04 14:51] VITALS: BP 131/85; PULSE 87; RESP 16; TEMP 36.3; O2SAT 100
--- NOTE | 2023-07-04 15:18 | ED.GENADULT ---
HPI - General Adult General Chief complaint: Unspecified Stated complaint: collarbone swelling Time Seen by Provider: 07/04/23 15:02 History of Present Illness HPI narrative: 32-year-old female presenting to the for evaluation of swelling over her left clavicle. Patient recently had strep bacteremia and has a PICC line is still on antibiotics. Patient was discharged from the hospital on 06/26. While patient was hospitalized she had superficial venous thrombosis involving the left upper extremity. Patient had been on a course of Decadron while she was hospitalized and when the steroids were stopped she had worsening swelling of her clavicle area. Patient was discharged on the and was started on Medrol Dosepak for home. Patient completed the Medrol Dosepak just a few days ago/ and it was on Thursday when patient noticed a recurrent swelling of her left clavicle area. Patient denies any associated chest pain or shortness of breath. Patient is not running fevers. Patient is still doing the antibiotics and the right upper extremity. Patient sent a picture to her primary care physician today of her clavicle region and she was referred to the emergency department. Related Data Home Medications Medication Instructions Recorded Confirmed fluticasone propionate 50 1 spray intranasal BID PRN Nasal 06/16/23 06/16/23 mcg/actuation nasal Congestion spray,suspension phentermine 37.5 mg capsule 37.5 mg PO DAILY 06/16/23 06/16/23 sertraline 50 mg tablet 50 mg PO DAILY PRN depression 06/16/23 06/16/23 sumatriptan succinate 50 mg tablet 50 mg PO PRN PRN Headache 06/16/23 06/16/23 Allergies Allergy/AdvReac Type Severity Reaction Status Date / Time No Known Allergies Allergy Verified 06/29/23 13:21 Review of Systems Review of Systems: All systems reviewed & are unremarkable except as noted in HPI and below PMFSH Past Medical History Medical History Anxiety Depression Gastroesophageal reflux disease Hypertension Obstructive sleep apnea Surgical History Surgical History History of repair of ACL History of tubal ligation History of wisdom tooth extraction Family History Family History Other Cancer Cerebrovascular accident Diabetes mellitus Family history of obesity Hypertension Social History Social History Social History: Surrogate medical decision maker: Jayjay Helms, spouse. Code status: Full code. Smoking status: Current some day smoker Tobacco type: e-cigarettes/vaping Substance use type: marijuana Lack of Transportation: No Lack of Food: Never True Current Housing: I Have Housing Concerned About Future Housing: No Difficulty Paying Gas/Electric Bills: No Difficulty Paying for Meds: No Currently Unemployed: No Education: Associate Degree Difficulty w/ Childcare or Family Care: No Additional living arrangements comments: Lives with spouse and children. 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 Spiritual care concerns: No Exam Narrative: APPEARANCE: Well appearing, no pain, no distress, well-nourished. HEAD: normocephalic, atraumatic. EYES: PERRLA/EOMI, conjunctivae clear. NOSE: Normal no drainage EARS:TMS clear with good light reflex. THROAT: Pharynx clear, no exudate. NECK: Supple. No adenopathy, no masses. RESPIRATORY: Airway patent, respirations nonlabored. Clear to auscultation bilaterally, no rales, rhonchi, wheezing. CARDIOVASCULAR: Regular rate and rhythm without murmurs rubs or gallops. ABDOMINAL: Soft, nontender, nondistended, normal bowel sounds MUSCULOSKELETAL: Moves all extremities. Strength/ROM intact, No edema, No calf tenderness. NEURO: Alert. Cranial nerves II through XII
[2023-07-04 15:56] LABS: Basophils Percent Auto 0.9 % (0.2-1.2); Eosinophils Absolute Auto 0.1 K/mm3 (0-0.3); Eosinophils Percent Auto 3.7 % (0-4.4); Hemoglobin 10.1 g/dL (12.0-15.0); Immature Granulocyte Absolute 0.01 K/mm3 (0.00-0.031); Immature Granulocyte Percent A 0.3 % (0-0.5); Lymphocytes Absolute Auto 0.97 K/mm3 (0.9-3.2); Lymphocytes Percent Auto 27.7 % (18.3-44.2); Mean Corpuscular HGB Conc 30.6 g/dl (32-36); Mean Corpuscular Hemoglobin 25.8 pg (26-34); Mean Corpuscular Volume 84.2 fl (80-100); Mean Platelet Volume 9.3 fl (7.4-10.4); Monocytes Absolute Auto 0.3 K/mm3 (0.1-0.6); Monocytes Percent Auto 8.9 % (2.6-8.5); Neutrophils Absolute Auto 2.1 K/mm3 (1.3-6.7); Neutrophils Percent Auto 58.5 % (45.5-73.1); Platelet Count Result 512 k/mm3 (150-375); Red Blood Count 3.92 M/mm3 (4.2-5.4); Red Cell Distribution Width 16.6 % (11.5-14.5); White Blood Count 3.5 K/mm3 (4.5-10.0)
[2023-07-04 16:05] LABS: Prothrombin Time 13.8 Seconds (11.1-14.7)
[2023-07-04 16:06] LABS: Alanine Aminotransferase 27 U/L (6-35); Albumin Level 3.7 g/dL (3.5-5.1); Alkaline Phosphatase 107 U/L (38-126); Anion Gap 9 mmol/L (8-16); Aspartate Amino Transferase 26 U/L (14-36); Bilirubin,Total 0.3 mg/dL (0.2-1.3); Blood Urea Nitrogen 12 mg/dL (7-17); Calcium 8.5 mg/dL (8.4-10.2); Carbon Dioxide 21 mmol/L (22-30); Chloride 107 mmol/L (98-107); Estimated CRCL calculation 111 ml/min; Estimated Glomerular Filt Rate > 60; Glucose 95 mg/dL (65-110); Potassium 3.1 mmol/L (3.4-5.0); Sodium 137 mmol/L (137-145)
[2023-07-04] MEDS: HYDROmorphone HCL INJ (*CRX) 1 MG/ML SYR 0.5 MG IV PUSH (16:07)
[2023-07-04 16:14] VITALS: RESP 16; O2SAT 99
[2023-07-04 17:05] VITALS: BP 131/78; PULSE 72; RESP 17; O2SAT 98
[2023-07-04 19:28] VITALS: BP 133/86; PULSE 86; RESP 18; O2SAT 98
== END 2023-07-04 19:29 | disposition home or self-care (01) ==
PROVIDERS: Emergency Provider Emergency Medicine; PCP Emergency Medicine
DX: R22.2 Localized swelling, mass and lump, trunk (principal); I10 Essential (primary) hypertension; K21.9 Gastro-esophageal reflux disease without esophagitis; G47.33 Obstructive sleep apnea (adult) (pediatric); F41.9 Anxiety disorder, unspecified; F32.A Depression, unspecified; F17.290 Nicotine dependence, other tobacco product, uncomplicated
CPT/HCPCS: 36415; 71275; 80053; 85025; 85610; 85730; 87040; 93971; 96374; 96375; 99284; J1100; J1170; Q9967

== ENCOUNTER 2023-07-17 09:13 | Outpatient (CLI) | payer OTHER, BC, SELFPAY ==
[2023-07-17 10:13] LABS: Alanine Aminotransferase 64 U/L (6-35); Albumin Level 4.1 g/dL (3.5-5.1); Alkaline Phosphatase 84 U/L (38-126); Anion Gap 7 mmol/L (8-16); Aspartate Amino Transferase 36 U/L (14-36); Bilirubin,Total 0.4 mg/dL (0.2-1.3); Blood Urea Nitrogen 10 mg/dL (7-17); Calcium 8.9 mg/dL (8.4-10.2); Carbon Dioxide 22 mmol/L (22-30); Chloride 107 mmol/L (98-107); Estimated Glomerular Filt Rate > 60; Glucose 92 mg/dL (65-110); Sodium 136 mmol/L (137-145)
== END 2023-07-17 09:14 | disposition home or self-care (01) ==
LOC: ANHLAB 09:15
PROVIDERS: PCP Emergency Medicine; Visit Provider Emergency Medicine
DX: N17.9 Acute kidney failure, unspecified (principal)
CPT/HCPCS: 36415; 80053

== ENCOUNTER 2023-07-21 11:38 | Outpatient (CLI) | payer OTHER, BC, SELFPAY ==
[2023-07-21 10:11] LABS: Hematocrit 37.3 % (37.0-47.0); Hemoglobin 11.6 g/dL (12.0-15.0); Mean Corpuscular HGB Conc 31.1 g/dl (32-36); Mean Corpuscular Volume 83.4 fl (80-100); Mean Platelet Volume 9.3 fl (7.4-10.4); Platelet Count Result 402 k/mm3 (150-375); Red Blood Count 4.47 M/mm3 (4.2-5.4); Red Cell Distribution Width 15.7 % (11.5-14.5); White Blood Count 7.8 K/mm3 (4.5-10.0)
[2023-07-21 12:08] LABS: Hemoglobin A1C 5.5 % (<5.7)
== END 2023-07-21 11:39 | disposition home or self-care (01) ==
LOC: ANHLAB 11:38
PROVIDERS: PCP Emergency Medicine; Visit Provider Emergency Medicine
DX: L03.221 Cellulitis of neck (principal); R53.83 Other fatigue; E11.9 Type 2 diabetes mellitus without complications
CPT/HCPCS: 36415; 83036; 84443; 85027

== ENCOUNTER 2023-10-16 09:20 | Outpatient (CLI) | payer OTHER, BC, SELFPAY ==
[2023-10-16 10:00] LABS: Alanine Aminotransferase 28 U/L (6-35); Albumin Level 4.3 g/dL (3.5-5.1); Alkaline Phosphatase 74 U/L (38-126); Anion Gap 7 mmol/L (4-12); Aspartate Amino Transferase 27 U/L (14-36); Bilirubin,Total 0.3 mg/dL (0.2-1.3); Blood Urea Nitrogen 14 mg/dL (7-17); Carbon Dioxide 25 mmol/L (22-30); Chloride 104 mmol/L (98-107); Cholesterol 166 mg/dL (0-200); Estimated Glomerular Filt Rate > 60; Glucose 96 mg/dL (65-110); HDL Direct 48 mg/dL; Potassium 3.8 mmol/L (3.4-5.0); Sodium 136 mmol/L (137-145); Triglycerides 76 mg/dL (<150)
[2023-10-16 10:11] LABS: LDL Cholesterol Direct 93 mg/dL
[2023-10-16 10:40] LABS: Vitamin D 25 Hydroxy 42.2 ng/mL
[2023-10-16 11:21] LABS: Hemoglobin A1C 5.5 % (<5.7)
== END 2023-10-16 09:21 | disposition home or self-care (01) ==
LOC: ANHLAB 09:22
PROVIDERS: PCP Emergency Medicine; Visit Provider Emergency Medicine
DX: E55.9 Vitamin D deficiency, unspecified (principal); I10 Essential (primary) hypertension; E78.5 Hyperlipidemia, unspecified; E11.9 Type 2 diabetes mellitus without complications
CPT/HCPCS: 36415; 80053; 80061; 82306; 83036

== ENCOUNTER 2024-01-13 07:11 | Outpatient (CLI) | payer OTHER, BC, SELFPAY ==
[2024-01-13 07:52] LABS: Alanine Aminotransferase 18 U/L (6-35); Alkaline Phosphatase 74 U/L (38-126); Anion Gap 5 mmol/L (4-12); Aspartate Amino Transferase 23 U/L (14-36); Bilirubin,Total 0.4 mg/dL (0.2-1.3); Blood Urea Nitrogen 11 mg/dL (7-17); Calcium 9.3 mg/dL (8.4-10.2); Carbon Dioxide 26 mmol/L (22-30); Chloride 108 mmol/L (98-107); Cholesterol 166 mg/dL (0-200); Estimated Glomerular Filt Rate > 60; Glucose 90 mg/dL (65-110); HDL Direct 61 mg/dL; Potassium 3.9 mmol/L (3.4-5.0); Sodium 139 mmol/L (137-145); Triglycerides 103 mg/dL (<150)
[2024-01-13 08:03] LABS: LDL Cholesterol Direct 87 mg/dL
[2024-01-13 08:21] LABS: Vitamin D 25 Hydroxy 43.9 ng/mL
== END 2024-01-13 07:12 | disposition home or self-care (01) ==
LOC: ANHLAB 07:14
PROVIDERS: PCP Emergency Medicine; Visit Provider Emergency Medicine
DX: I10 Essential (primary) hypertension (principal); E78.5 Hyperlipidemia, unspecified; E55.9 Vitamin D deficiency, unspecified
CPT/HCPCS: 36415; 80053; 80061; 82306

== ENCOUNTER 2024-04-08 13:42 | Outpatient (CLI) | payer OTHER, BC, SELFPAY ==
--- NOTE | ~2024-04-08 | US_ITS ---
EXAMINATION: US renal BI DATE: 04/08/2024 14:05 INDICATION: Right renal cysts TECHNIQUE: Multiple ultrasound grayscale images of the kidneys were obtained. COMPARISON: 06/17/2023 FINDINGS: The right kidney measures 9.1 x 4.8 x 5.3 cm. The left kidney measures 11.1 x 6.2 x 6.4 cm. The kidne ys demonstrate normal echogenicity. 2.2 cm simple appearing anechoic cyst at the upper pole of the ri ght kidney. There is no hydronephrosis in either kidney. No stones identified. The bladder is appear s normal but is partially decompressed which limits evaluation. IMPRESSION: 1. 2.2 cm simple appearing anechoic right renal cyst. Otherwise normal kidneys without hydronephrosi s. Reviewed, dictated and finalized at location B. IMPRESSION: 1. 2.2 cm simple appearing anechoic right renal cyst. Otherwise normal kidneys without hydronephrosis.
== END 2024-04-08 13:43 | disposition home or self-care (01) ==
PROVIDERS: PCP Emergency Medicine; Visit Provider Emergency Medicine
DX: N28.1 Cyst of kidney, acquired (principal)
CPT/HCPCS: 76775

== ENCOUNTER 2024-04-27 09:11 | Outpatient (CLI) | payer OTHER, BC, SELFPAY ==
[2024-04-27 10:09] LABS: Alanine Aminotransferase 19 U/L (6-35); Albumin Level 4.6 g/dL (3.5-5.1); Alkaline Phosphatase 74 U/L (38-126); Anion Gap 9 mmol/L (4-12); Aspartate Amino Transferase 26 U/L (14-36); Bilirubin,Total 0.6 mg/dL (0.2-1.3); Blood Urea Nitrogen 9 mg/dL (7-17); Calcium 9.2 mg/dL (8.4-10.2); Carbon Dioxide 26 mmol/L (22-30); Chloride 104 mmol/L (98-107); Cholesterol 196 mg/dL (0-200); Estimated Glomerular Filt Rate > 60; Glucose 95 mg/dL (65-110); HDL Direct 65 mg/dL; Potassium 4.3 mmol/L (3.4-5.0); Sodium 139 mmol/L (137-145); Triglycerides 75 mg/dL (<150)
[2024-04-27 10:20] LABS: LDL Cholesterol Direct 93 mg/dL
[2024-04-27 10:43] LABS: Vitamin D 25 Hydroxy 38.9 ng/mL
== END 2024-04-27 09:12 | disposition home or self-care (01) ==
PROVIDERS: PCP Emergency Medicine; Visit Provider Emergency Medicine
DX: E78.5 Hyperlipidemia, unspecified (principal); I10 Essential (primary) hypertension; E55.9 Vitamin D deficiency, unspecified
CPT/HCPCS: 36415; 80053; 80061; 82306

== ENCOUNTER 2024-10-27 09:04 | Outpatient (CLI) | payer OTHER, BC, SELFPAY ==
--- OUTSIDE RECORDS SUMMARY | 2024-10-27 09:21 | XMS_ITS | Data Portability ---
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 Patient will come back in a year unless there are new symptoms. [email or web address] Not available 05/01/2022 11:19:24 01/22/2023 01/22/2023 Annual gynecological exam performed. Patient will come back in a year unless there are new symptoms. [email or web address] Not available 01/22/2023 12:25:26 01/25/2024 01/25/2024 Annual gynecological exam performed. Patient will come back in a year unless there are new symptoms. [email or web address] Not available 01/25/2024 09:32:50 Plan of Treatment Reminders Order Date Submit Date Provider Last Modified By Organization Details Last Modified Time Details Appointments None recorded. Lab hbcab (hepatitis B core Ab) igm, serum 2023 [facility] (Lab), [address] [place], [address], 4 21:33:56 HBsAg (hepatitis B surface Ag), serum 2023 024 [facility] (Lab), [address] [place], [address], 4 21:33:54 hepatitis C virus Ab, serum 2023 024 [facility] (Lab), [address], [place], [address], 4 21:33:54 HIV 1+2 AB + HIV 1 p24 Ag, qualitative immunoassay , serum 2023 024 [facility] (Lab), [address], [place], [address], 4 21:33:55 RPR (rapid plasma reagin), serum 2023 024 [facility] (Lab), [address], [place], [address], 4 21:33:55 hbcab (hepatitis B core Ab) igm, serum 2022 023 [facility] (Lab), [address], [place], [address], 3 23:29:51 HBsAg (hepatitis B surface Ag), serum 2022 023 [facility] (Lab), [address], [place], [address], 3 23:29:49 hepatitis C virus Ab, serum 2022 023 [facility] (Lab), [address], [place], [address], 3 23:29:49 unlisted lab - HIV 1/2 antigen/ant ibody, reflex confirmatio n 2022 023 [facility] (Lab), [address], [place], [address], 3 23:29:50 RPR (rapid plasma reagin), serum 2022 023 [facility] (Lab), [address], [place], [address], 3 23:29:50 hbcab (hepatitis B core Ab) igm, serum 2021 [facility] (Lab), [address], [place], [address], 22:00:20 HBsAg (hepatitis B surface Ag), serum 2021 [facility] (Lab), [address], [place], [address], 22:00:16 hepatitis C virus Ab, serum 2021 [facility] (Lab), [address], [place], [address], 22:00:16 unlisted lab - HIV 1/2 antigen/ant ibody, reflex confirmatio n 2021 [facility] (Lab), [address], [place], [address], 22:00:20 RPR (rapid plasma reagin), serum 2021 [facility] (Lab), [address], [place], [address], 22:00:20 lipid panel, blood 2021 [facility] (Lab), [address], [place], [address], 22:00:17 CMP, serum or plasma 2021 [facility] (Lab), [address], [place], [address], 22:00:18 CBC w/ auto diff 2021 [facility] (Lab), [address], [place], [address], 22:00:17 HbA1c (hemoglobin A1c), blood 2021 [facility] (Lab), [address], [place], [address], 22:00:19 TSH, serum or plasma 2021 [facility] (Lab), [address], [place], [address], 22:00:18 vitamin D, 25-hydroxy, total, serum 2021 [facility] (Lab), [address], [place], [address], 22:00:19 pap, LB 2019 020 [facility]), [address] [facility] [address], [place], [address], 0 14:18:06 HPV DNA, high-risk 2019 020 [facility] [address] [facility] [address], [place], [address], 0 14:18:06 Referral None recorded. Procedures None recorded. Surgeries None recorded. Imaging None recorded. Medication Orders None recorded. Patient TargetsNo targets recorded. Patient InstructionsNo instructions recorded. Reason for Referral None Reported. Results Created Date Observation Date Name Description Value Unit Range Abnormal Flag Note LastModifiedBy Organization Detail LastModifiedTime 11/16/19 20 11/17/2019 pap, LB Pap test thin prep Negati ve for Intrae pithel ial Lesion or Malign harinder normal ACCES PRINCESS #: [id number] Sourc e: Cervi bravo/E ndoce rvica l LMP: 2019 Date Taken : 11/15 Speci men Type: ThinP rep Vial Date Repor hebert: 2019 Clini bravo Data: Cytot ech: Colt asher Sami y, CT( CP) Date Repor hebert: 2019 Speci men Adequ acy: Satis facto ry for evalu ation Endoc ervic al/tr ansfo rmati on zone compo nent prese nt Gener al Categ oriza tion: NEGAT MINDY FOR INTRA EPITH ELIAL LESIO N OR MALIG CRISTINA This speci men has been chanelle zed by the ThinP rep Imagi ng Syste m, an inter activ e compu ter syste m which jose ts the lab in the scree reid of ThinP rep Pap Test slide s. Follo wing imagi ng, the slide was revie wed by a Cytot echno logis t and/o r Patho logis t. D N A A S S A Y S R E P O R T TEST NAME RESUL TS ----- ---- ----- -- HPV High Risk Scree n (TMA) ThinP rep Vial The human papil lomav irus (HPV) High Risk Scree n is an FDA-a pprov ed in-vi tro ampli fied nucle ic acid test for the quali tativ e detec tion of E6/E7 viral mRNA. Resul ts shoul d be corre lated with patie nt prese ntati on, histo ry, cervi bravo cytol ogy and other clini bravo and labor atory findi ngs. See https ://Modlar/s ites/ defau lt/fi les/2 018-0 3/AW- 12532 _002_ 01.pd f for furth er infor matio n. Test perfo rmed by [facility], d/b/a [facility], [address], [facility] [place] [address] , Manoj Garber ra, DO, Labor atory Dire tor. HPV High Risk *HPV NOT DETEC HEBERT (TYPE S 16, 18, 31, 33, 35, 39, 45, 51, 52, 56, 58, 59, 66, 68) *HPV: The human papil lomav irus (HPV) High Risk Mayra shane is an FDA-a pprov ed in-vi tro ampli fied nucle ic acid test for the quali tativ e detec tion of E6/E7 viral mRNA. [facility] shoul d be corre lated with patie nt prese ntati on, histo ry, cervi bravo cytol ogy and other clini bravo and labor atory findi ngs. See https ://Modlar/s ites/ defau lt/fi les/2 018-0 3/AW- 77074 _002_ 01.pd f for jose er infor ana n. Test perfo rmed by [facility], d/b/a [employer], [address], [place] [address] , Manoj Garber ra, DO, Labor atory Direc tor. End of t Techn ical servi kimmy provi ded by [facility], d/b/a [employer], [address] [place] [address] Jean Lerner MD, [facility] [employer] Dire tor. Case revie wed and diagn osis rende red at [facility], d/b/a [employer], [address] [place] [address] Jean Lerner MD, Labor atorLiibook Dire tor. CONFI DENTI AL Not Available [facility] ([facility]) [address], [place], [address], 11/17/2019 14:38:32 11/16/19 20 11/17/2019 HPV DNA, high- risk HPV high risk NOT DETECT ED normal Not Available [facility] ([facility]) [address], [place], [address], 11/17/2019 14:38:32 01/29/20 21 01/28/2021 IMAGE GUIDE D PAP AND HPV REGAR DLESS image guided Pap, HPV regardless of Pap result SEE RESULT S BELOW CASE REPOR T: Cytol ogy Gynec ologi bravo Repor t Case: [id number] Autho gilberto fisher Provi winston: Tami Cassidy, MARQUIS Fonseca cted: 01/28 1454 Order ing Locat ion: [place] Patho log[facility] Recei eleuterio: 01/29 0741 First Scree n: DeLuc a, Jeimy, CT Patho logis t: Mathew Ferrera MD Speci men: Mayra mathews Pap - Image d, Cervi x STATE MENT OF ADEQU ACY: Satis facto ry for evalu ation Trans forma tion zone compo nent prese nt FINAL DIAGN OSIS: Negat mindy for Intra epith elial Lesio n or Malig cristina Elect tisha mark jesenia d by Mathew Ferrera MD on 2020 at 1:56 PM ----- ----- ----- ----- ----- ----- ----- ----- ----- ----- ----- ----- ----- ----- ----- ----- ----- ---- HPV RESUL TS: HPV mRNA E6/E7 : No HPV mRNA Detec hebert NOTE: This high risk HPV mRNA assay detec ts fourt een high- risk HPV types (16, 18, 31, 33, 35, 39, 45, 51, 52, 56, 58, 59, 66, 68) witho ut diffe renti ation . CHART ABLE COMME NT: Note: This speci men was revie wed by a Cytot echno logis t and/o r Patho logis t (as indic ated in this repor t) after evalu ation using the Thinp rep Imagi ng Syste m. CLINI BRAVO INFOR MATIO N: Menst rual Statu s: LMP (if appli cable ): 021 Clini bravo Histo ry/Pr eviou s Pap: Type of Neopl hermelinda (if appli cable ): Other Histo ry: Hormo tra (if appli cable ): PAP EDUCA POOJA L NOTE: The Pap Test is a scree reid test with an inher ent false negat mindy rate. Liqui d-bas e sampl ing may decre ase, but will not elimi pho[place], false negat mindy resul ts. A negat mindy resul t does not precl ude the prese nce and/o r devel opmen t of disea se, since the prese nce of abnor mal cells in the sampl e depen ds on the locat ion of the lesio n and sampl ing techn ique. Topher nued regul ar scree reid is the best metho d of cance r preve ntion . If repor hebert cytol ogic findi ng do not corre late with physi bravo and/o r histo rical findi ngs, furth er inves tigat ion is recom mable d, as clini luis a liudmila nted. Not Available [facility] (Lab) [address], [place], [address], 01/30/2021 14:57:57 01/29/20 21 01/28/2021 TRICH OMONA S VAGIN COMFORT (RRNA ) trichomonas vaginalis ribosomal RNA (rrna) Negati ve negati ve Not Available [facility] (Lab) [address], [place], [address], 01/30/2021 14:57:57 01/29/20 21 01/28/2021 CT/GC (ASHLEE) , THINP REP VIAL chlamydia trachomatis, PCR Negati ve negati ve Not Available [facility] (Lab) [address] [place], [address], 01/30/2021 14:57:58 01/29/20 21 01/28/2021 CT/GC (ASHLEE) , THINP REP VIAL neisseria gonorrhoeae, PCR Negati ve negati ve Not Available [facility] (Lab) [address] [place], [address], 01/30/2021 14:57:58 05/01/20 22 05/01/2022 HEPAT ITIS C ANTIB DARLEEN SCREE N, REFLE X TO CONFI RMATI ON hepatitis C antibody Non-re active non-re active Antib odies to HCV Not Detec hebert, does not exclu de the possi bilit y of expos ure to HCV. Not Available [facility] [address] [place], [place] [address], [place], [address], 05/02/2022 22:00:16 05/01/20 22 05/01/2022 HEPAT ITIS B SURFA CE ANTIG EN hepatitis B surface antigen Non-re active non-re active This assay was perfo rmed using [employer] ratio n reage nts and test kits. Value s obtai antonina with other assay metho ds or kits canno t be used inter cote eably . Not Available [facility] [address] [place] [address], [address], 05/02/2022 22:00:16 05/01/20 22 05/01/2022 CBC W/DIF F WBC 5.7 10'3/ uL 3.6-10 .2 Not Available [facility] [address] [place] [address], [address], 05/02/2022 22:00:17 05/01/20 22 05/01/2022 CBC W/DIF F RBC 4.60 10'6/ uL (based on docume nted legal sex) 4.10-5 .30 Not Available [facility] [address] [place] [address], [address], 05/02/2022 22:00:17 05/01/20 22 05/01/2022 CBC W/DIF F HGB 12.6 g/dL (based on docume nted legal sex) 11.9-1 5.8 Not Available [facility] [address] [place], [place] [address], [place], [address], 05/02/2022 22:00:17 05/01/20 22 05/01/2022 CBC W/DIF F HCT 39.3 % (based on docume nted legal sex) 37.4-4 8.3 Not Available [facility] [address] [place], [address], 05/02/2022 22:00:17 05/01/20 22 05/01/2022 CBC W/DIF F MCV 85.4 fL 82.0-9 9.0 Not Available [facility] [address] [place], [place] [address] [place], [address], 05/02/2022 22:00:17 05/01/20 22 05/01/2022 CBC W/DIF F MCH 27.4 pg 27.0-3 3.0 Not Available [facility] [address] [place], [place] [address], [place], [address], 05/02/2022 22:00:17 05/01/20 22 05/01/2022 CBC W/DIF F MCHC 32.1 g/dL 32.0-3 6.0 Not Available [facility] [address] [place], [place] [address], [place], [address], 05/02/2022 22:00:17 05/01/2005/01/2022 CBC W/DIF F RDW 13.8 % 11.0-1 5.0 Not Available [facility] [place], [address], 05/02/2022 22:00:17 05/01/20 22 05/01/2022 CBC W/DIF F plt 412 10'3/ uL 150-45 0 Not Available [facility] [address] [place], [place] [address], [place], [address], 05/02/2022 22:00:17 10/13/20 22 05/01/2022 CBC W/DIF F MPV 10.5 fL 9.8-12 .7 Not Available [facility] [address] [place], [address], 05/02/2022 22:00:17 05/01/20 22 05/01/2022 CBC W/DIF F NRBC's 0.0 % 0 Not Available [facility] [address] [place], [place] [address] [place], [address], 05/02/2022 22:00:17 05/01/20 22 05/01/2022 CBC W/DIF F absolute NRBCs 0.0 10'3/ uL 0 Not Available [facility] [address] [place], [place] [address] [place], [address], 05/02/2022 22:00:17 05/01/20 22 05/01/2022 CBC W/DIF F neutrophils 61.0 % 37.0-7 2.0 Not Available [facility] [address] [place], [place] [address], [place], [address], 05/02/2022 22:00:17 05/01/20 22 05/01/2022 CBC W/DIF F lymphocytes 28.8 % 16.0-4 8.0 Not Available [facility] [address] [place], [place] [address], [place], [address], 05/02/2022 22:00:17 05/01/20 22 05/01/2022 CBC W/DIF F monocytes 8.1 % 4.0-14 .0 Not Available [facility] [address] [place], [place] [address], [place], [address], 05/02/2022 22:00:17 05/01/20 22 05/01/2022 CBC W/DIF F eosinophils 1.1 % 0.0-9. 0 Not Available [facility] [address] [place], [place] [address], [address], 05/02/2022 22:00:17 05/01/20 22 05/01/2022 CBC W/DIF F basophils 0.5 % 0.0-2. 0 Not Available [facility] [address] [place], [place] [address], [place], [address], 05/02/2022 22:00:17 05/01/20 22 05/01/2022 CBC W/DIF F immature granulocytes 0.5 % no define d refere nce range Not Available [facility] [address] [place], [place] [address], [place], [address], 05/02/2022 22:00:17 05/01/20 22 05/01/2022 CBC W/DIF F absolute neutrophils 3.5 10'3/ uL 1.1-6. 0 Not Available [facility] [address] [place], [place] [address], [place], [address], 05/02/2022 22:00:17 05/01/20 22 05/01/2022 CBC W/DIF F absolute lymphocytes 1.6 10'3/ uL 0.7-3. 4 Not Available [facility] [address] [place] [address], [address], 05/02/2022 22:00:17 05/01/20 22 05/01/2022 CBC W/DIF F absolute monocytes 0.5 10'3/ uL 0.3-1. 0 Not Available [facility] [address] [place] [address], [address], 05/02/2022 22:00:17 05/01/20 22 05/01/2022 CBC W/DIF F absolute eosinophils 0.1 10'3/ uL 0.0-0. 6 Not Available [facility] [address] [place], [place] [address], [place], [address], 05/02/2022 22:00:17 05/01/20 22 05/01/2022 CBC W/DIF F absolute basophils 0.0 10'3/ uL 0.0-0. 1 Not Available [facility] [place], [address], 05/02/2022 22:00:17 05/01/20 22 05/01/2022 CBC W/DIF F absolute immature granulocytes 0.0 10'3/ uL 0.00-0 .10 05/02 1:59 AM: P indic ates parti al resul ts on a panel have been relea sed. Addit ional resul ts will follo w. 05/02 1:59 AM: This resul t has been final verif ied. No addit ional or cote ed resul ts are expec hebert. Not Available [facility] [address] [place], [place] [address], [place], [address], 05/02/2022 22:00:17 05/01/20 22 05/01/2022 LIPID PANEL ,AMA (LDL- CALC) total cholesterol 206 mg/dL 0-199 high Not Available [facility] [place], [address], 05/02/2022 22:00:17 05/01/20 22 05/01/2022 LIPID PANEL ,AMA (LDL- CALC) triglyceride s 95 mg/dL 0.00-1 50.00 NCEP Refer ence Value s for Trigl yceri genna: Samantha l: <150 mg/dL Borde rline High: 150 - 199 mg/dL High: 200 - 499 mg/dL Very High: >/= 500 mg/dL Not Available [facility] [place], [address], 05/02/2022 22:00:17 05/01/20 22 05/01/2022 LIPID PANEL ,AMA (LDL- CALC) HDL cholesterol 56 mg/dL >40 Not Available [facility] [address] [place], [address], 05/02/2022 22:00:17 05/01/20 22 05/01/2022 LIPID PANEL ,AMA (LDL- CALC) LDL cholesterol 131 mg/dL 0-99 high Cutof f value s recom mable d by the Flo nal Sol stero l Educa tion Progr am: ZAHRA ABLE: Sol stero l <200 mg/dL LDL <100 mg/dL BORDE RLINE : Sol stero l 200-2 39 mg/dL LDL 101-1 59 mg/dL HIGHE R RISK: Sol stero l >240 mg/dL LDL >160 mg/dL , HDL <40 mg/dL Not Available [facility] [address] [place] [address], [address], 05/02/2022 22:00:17 05/01/20 22 05/01/2022 LIPID PANEL ,AMA (LDL- CALC) non-HDL cholesterol 150 mg/dL no refere nce range A reaso nable goal for non-H DL sol stero l is one that is 30 mg/dL highe r than the LDL sol stero l goal. Not Available [facility] [address] [place] [address], [address], 05/02/2022 22:00:17 05/01/20 22 05/01/2022 LIPID PANEL ,AMA (LDL- CALC) chol/HDL ratio 3.7 . 0.0-5. 0 Not Available [facility] [address] [place], [address], 05/02/2022 22:00:17 05/01/20 22 05/01/2022 CMP(C OMPRE HENSI VE METAB OLIC PANEL ) sodium 137 mmol/ L 133-14 6 Not Available [facility] [address] [place] [address], [address], 05/02/2022 22:00:18 05/01/20 22 05/01/2022 CMP(C OMPRE HENSI VE METAB OLIC PANEL ) potassium 4.6 mmol/ L 3.5-5. 1 Not Available [facility] [address] [place], [place] [address], [place], [address], 05/02/2022 22:00:18 05/01/20 22 05/01/2022 CMP(C OMPRE HENSI VE METAB OLIC PANEL ) chloride 104 mmol/ L 98-107 Not Available [facility] [address] [place], [place] [address], [place], [address], 05/02/2022 22:00:18 05/01/20 22 05/01/2022 CMP(C OMPRE HENSI VE METAB OLIC PANEL ) carbon dioxide 23 mmol/ L 21-31 Not Available [facility] [address] [place], [place] [address], [place], [address], 05/02/2022 22:00:18 05/01/20 22 05/01/2022 CMP(C OMPRE HENSI VE METAB OLIC PANEL ) anion gap 10 mmol/ L 4-13 Not Available [facility] [address] [place], [place] [address], [place], [address], 05/02/2022 22:00:18 05/01/20 22 05/01/2022 CMP(C OMPRE HENSI VE METAB OLIC PANEL ) blood urea nitrogen 17 mg/dL 7-25 Not Available [facility] [address] [place], [place] [address], [place], [address], 05/02/2022 22:00:18 05/01/20 22 05/01/2022 CMP(C OMPRE HENSI VE METAB OLIC PANEL ) creatinine 0.92 mg/dL 0.60-1 .30 Not Available [facility] [address] [place], [place] [address], [address], 05/02/2022 22:00:18 05/01/20 22 05/01/2022 CMP(C OMPRE HENSI VE METAB OLIC PANEL ) egfrcr (CKD-epi 2020) 84 mL/mi n/1.7 3_m2 >=60 Not Available [facility] [place], [address], 05/02/2022 22:00:18 05/01/20 22 05/01/2022 CMP(C OMPRE HENSI VE METAB OLIC PANEL ) calcium 10.0 mg/dL 8.3-10 .5 Not Available [facility] [place], [address], 05/02/2022 22:00:18 05/01/20 22 05/01/2022 CMP(C OMPRE HENSI VE METAB OLIC PANEL ) glucose 87 mg/dL 70-100 Not Available [facility] [address] [place], [address], 05/02/2022 22:00:18 05/01/20 22 05/01/2022 CMP(C OMPRE HENSI VE METAB OLIC PANEL ) protein, total 7.8 g/dL 6.4-8. 3 Not Available [facility] [place], [address], 05/02/2022 22:00:18 05/01/20 22 05/01/2022 CMP(C OMPRE HENSI VE METAB OLIC PANEL ) albumin 4.9 g/dL 3.5-5. 0 Not Available [facility] [address] [place], [address], 05/02/2022 22:00:18 05/01/20 22 05/01/2022 CMP(C OMPRE HENSI VE METAB OLIC PANEL ) ALT 37 units /L 9-43 Not Available [facility] [address] [place] [address], [address], 05/02/2022 22:00:18 05/01/20 22 05/01/2022 CMP(C OMPRE HENSI VE METAB OLIC PANEL ) alkaline phosphatase 72 units /L 34-104 Not Available [facility] [address] [place] [address], [address], 05/02/2022 22:00:18 05/01/20 22 05/01/2022 CMP(C OMPRE HENSI VE METAB OLIC PANEL ) AST 26 units /L 13-39 Not Available [facility] [address] [place] [address], [address], 05/02/2022 22:00:18 05/01/20 22 05/01/2022 CMP(C OMPRE HENSI VE METAB OLIC PANEL ) bilirubin, total 0.4 mg/dL 0.2-1. 2 Not Available [facility] [address] [place] [address], [address], 05/02/2022 22:00:18 05/01/20 22 05/01/2022 TSH, REFLE X FREE T4 TSH 2.09 uIU/m L 0.30-5 .33 Not Available [facility] [address] [place] [address], [address], 05/02/2022 22:00:18 05/01/20 22 05/01/2022 VITAM IN D, 25-OH (TOTA L D2/D3 ) vitamin D, 25-hydroxy, total 23.8 NG/mL 30.0-1 00.0 [address] [place] of Defic iency : <20 ng/mL [facility] st[facility] of Insuf ficie ncy: 20-29 ng/mL Sugge stive of Suffi cienc y: 30-10 0 ng/mL Sugge stive of Toxic ity: >150 ng/mL Not Available [facility] [address] [place], [address], 05/02/2022 22:00:19 05/01/20 22 05/01/2022 HEMOG LOBIN A1C hemoglobin A1C 5.7 % 0-5.6 high The Ameri can Diabe cindy Ass[employer] iatio n recom mends that a prima ry goal of thera py shoul d be a HBA1C of < 7% and that physi cians shoul d reeva luate the treat ment regim en in patie nts with HBA1C value s consi stent ly > 8%. <5.7% Samantha l 5.7 - 6.4% Incre ased risk for diabe cindy >=6.5 % Diagn ostic of diabe cindy <7.0% Goal of thera py >8.0% Actio n sugge sted Not Available [facility] [address] [place], [address], 05/02/2022 22:00:19 05/01/20 22 05/01/2022 HIV 1/2 ANTIG EN/AN TIBOD Y, REFLE X CONFI RMATI ON HIV Ag-Ab total quant 0.08 idx <1.00 Not Available [facility] [address] [place], [place] [address], [place], [address], 05/02/2022 22:00:19 05/01/20 22 05/01/2022 HIV 1/2 ANTIG EN/AN TIBOD Y, REFLE X CONFI RMATI ON HIV Ag-Ab total Non-re active non-re active Not Available [facility] [address] [place], [address], 05/02/2022 22:00:19 05/01/20 22 05/01/2022 HIV 1/2 ANTIG EN/AN TIBOD Y, REFLE X CONFI RMATI ON HIV-1 antibody quant 0.01 idx <1.00 Not Available [facility] [address] [place], [place] [address], [phone], 05/02/2022 22:00:19 05/01/20 22 05/01/2022 HIV 1/2 ANTIG EN/AN TIBOD Y, REFLE X CONFI RMATI ON HIV-1 antibody Non-re active non-re active Not Available [facility] [address] [place] [address], [phone], 05/02/2022 22:00:19 05/01/20 22 05/01/2022 HIV 1/2 ANTIG EN/AN TIBOD Y, REFLE X CONFI RMATI ON HIV-1 antigen (P24) quant 0.08 idx <1.00 Not Available [facility] [address] [place] [address], [phone], 05/02/2022 22:00:19 05/01/20 22 05/01/2022 HIV 1/2 ANTIG EN/AN TIBOD Y, REFLE X CONFI RMATI ON HIV-1 antigen (P24) Non-re active non-re active Not Available [facility] [address] [place] [address], [phone], 05/02/2022 22:00:19 05/01/20 22 05/01/2022 HIV 1/2 ANTIG EN/AN TIBOD Y, REFLE X CONFI RMATI ON HIV-2 antibody quant 0.04 idx <1.00 Not Available [facility] [address] [place] [address], [phone], 05/02/2022 22:00:19 05/01/20 22 05/01/2022 HIV 1/2 ANTIG EN/AN TIBOD Y, REFLE X CONFI RMATI ON HIV-2 antibody Non-re active non-re active HIV testi ng is perfo rmed using Multi plex- [employer] Immun oassa y techn ology . The final overa ll HIV Ag-Ab resul t is deter mined based on the final resul t for each indiv idual chanelle te. If any of the chanelle cindy has 2 or more repli cates that are REACT MINDY, the final overa ll HIV Ag-Ab resul t is also React mindy. A Non-R eacti ve test resul t at any point in the inves tigat ion of indiv idual subje cts does not precl ude the possi bilit y of expos ure to or infec tion with HIV-1 and/o r HIV-2 . Non-R eacti ve resul ts can occur if the quant ity of marke r prese nt in the sampl e is below the detec tion limit s of the assay . React mindy speci mens must be inves tigat ed by addit ional , more speci fic suppl ement al tests . Speci men confi rmati on will be perfo rmed by the Cold Futures us HIV 1/2 Suppl ement al Assay . The perfo rmanc e of this assay has not been estab lishe d for neona cindy and the assay shoul d not be used in indiv idual s young er than 2 years of age. Not Available [facility] [address] [place], [place] [address], [address], 05/02/2022 22:00:19 05/01/20 22 05/01/2022 RPR SCREE N/REF MIMI TITER /FTA RPR screen Nonrea ctive nonrea ctive Not Available [facility] [address] [place], [place] [address], [address], 05/02/2022 22:00:20 05/01/20 22 05/01/2022 HEPAT ITIS B CORE, IGM hepatitis B core IgM antibody Negati ve negati ve Not Available [facility] [address] [place], [address], 05/02/2022 22:00:20 05/01/20 22 05/01/2022 IMAGE GUIDE D PAP AND HPV REGAR DLESS image guided Pap, HPV regardless of Pap result SEE RESULT S BELOW CASE REPOR T: Cytol ogy Gynec ologi bravo Repor t Case: [id number] Autho gilberto fisher Provi winston: Rachelle Ceron NP Colle cted: 05/01 1400 Order ing Locat ion: [place] Patho logjemma Recei eleuterio: 05/02 0738 First Scree n: Tammie Elkins , [place] Rescr een: Hill Gonzalez, [place] Speci men: Screlachelle mathews Pap - Image d, Cervi x STATE MENT OF ADEQU ACY: Satis facto ry for evalu ation Trans forma tion zone compo nent absen t The absen ce of an endoc ervic al compo nent was confi rmed by an addit ional mayra ner. FINAL DIAGN OSIS: Negat mindy for Intra epith elial Lesio n or uY lombardo (NIL) . Shift in antwon sugge stive of bacte rial vagin osis. Elect tisha ba d by Hill Gonzalez, CT on 05/07 at 3:11 PM ----- ----- ----- ----- ----- ----- ----- ----- ----- ----- ----- ----- ----- ----- ----- ----- ----- ---- HPV RESUL TS: HPV mRNA E6/E7 : No HPV mRNA Detec hebert NOTE: This high risk HPV mRNA assay detec ts fourt een high- risk HPV types (16, 18, 31, 33, 35, 39, 45, 51, 52, 56, 58, 59, 66, 68) witho ut diffe renti ation . COMME NT: Note: This speci men was revie wed by a Cytot echno logis t and/o r Patho logis t (as indic ated in this repor t) after evalu ation using the Thinp rep Imagi ng Syste m. CLINI BRAVO INFOR MATIO N: Menst rual Statu s: LMP (if appli cable ): Clini bravo Histo ry/Pr eviou s Pap: Type of Neopl hermelinda (if appli cable ): Signi fican t Clini bravo Findi ngs: Other Histo ry: Hormo tra (if appli cable ): PAP EDUCA POOJA L NOTE: The Pap Test is a scree reid test with an inher ent false negat mindy rate. Liqui d-bas ed sampl ing may decre ase, but will not elimi [place], false negat mindy resul ts. A negat mindy resul t does not precl ude the prese nce and/o r devel opmen t of disea se, since the prese nce of abnor mal cells in the sampl e depen ds on the locat ion of the lesio n and sampl ing techn ique. Topher nued regul ar scree reid is the best metho d of cance r preve ntion . If repor hebert cytol ogic findi ng do not corre late with physi bravo and/o r histo rical findi ngs, furth er inves tigat ion is recom mable d, as clini luis a warra nted. Not Available [facility] [address] [place], [address], 05/07/2022 16:14:04 05/01/20 22 05/01/2022 CT/GC (ASHLEE) , THINP REP VIAL chlamydia trachomatis, PCR Negati ve negati ve Not Available [facility] [address] [place], [address], 05/07/2022 16:14:05 05/01/20 22 05/01/2022 CT/GC (ASHLEE) , THINP REP VIAL neisseria gonorrhoeae, PCR Negati ve negati ve Not Available [facility] [address] [place], [address], 05/07/2022 16:14:05 05/01/20 22 05/01/2022 TRICH OMONA S VAGIN COMFORT (RRNA ) trichomonas vaginalis ribosomal RNA (rrna) Negati ve negati ve Not Available [facility] [address], [place], [address], 05/07/2022 16:14:05 01/23/20 23 01/22/2023 HEPAT ITIS C ANTIB DARLEEN SCREE N, REFLE X TO CONFI RMATI ON hepatitis C antibody Non-re active non-re active Antib odies to HCV Not Detec hebert, does not exclu de the possi bilit y of expos ure to HCV. Not Available [facility] (Lab) [address], [place], [address], 01/23/2023 23:29:49 01/23/20 23 01/22/2023 HEPAT ITIS B SURFA CE ANTIG EN hepatitis B surface antigen Non-re active non-re active This assay was perfo rmed using [employer] ratio n reage nts and test kits. Value s obtai antonina with other assay metho ds or kits canno t be used inter cote eably . Not Available [facility] (Lab) [address], [place], [address], 01/23/2023 23:29:49 01/23/20 23 01/22/2023 HIV 1/2 ANTIG EN/AN TIBOD Y, REFLE X CONFI RMATI ON HIV antigen/anti body Nonrea ctive nonrea ctive HIV-1 antig en and HIV-1 /HIV- 2 antib odies were not detec hebert. No labor atory evide nce of HIV infec tion. Not Available [facility] (Lab) [address], [place], [address], 01/23/2023 23:29:50 01/23/20 23 01/22/2023 RPR SCREE N/REF MIMI TITER /FTA RPR screen Nonrea ctive nonrea ctive Not Available [facility] (Lab) [address], [place], [address], 01/23/2023 23:29:50 01/23/20 01/22/2023 HEPAT ITIS B CORE, IGM hepatitis B core IgM antibody Negati ve negati ve Not Available [facility] (Lab) [address], [place], [address], 01/23/2023 23:29:50 01/23/20 23 01/22/2023 IMAGE GUIDE D PAP AND HPV REGAR DLESS image guided Pap, HPV regardless of Pap result SEE RESULT S BELOW abnormal CASE REPOR T: Cytol ogy Gynec ologi bravo Repor t Case: [id number] Autho rilorenn g Provi winston: Rachelle Ceron, WEATHER FORCASTER Colle cted: 01/22 1206 Order ing Locat ion: [place] Patho logy Recei eleuterio: 01/23 0714 First Scree n: Quan elias, Kristina ed, CT Rescr een: Lea Pederson , [place] Speci men: Scree reid Pap - Image d, Cervi x STATE MENT OF ADEQU ACY: Satis facto ry for evalu ation Trans forma tion zone compo nent absen t The absen ce of an endoc ervic al compo nent was confi rmed by an addit ional mayra ner. FINAL DIAGN OSIS: Negat mindy for Intra epith elial Sharif shane or Yu lombardo (NIL) . Lucien mark jesenia d by Lea Pederson , [place] on 023 at 2:32 PM ----- ----- ----- ----- ----- ----- ----- ----- ----- ----- ----- ----- ----- ----- ----- ----- ----- ---- HPV RESUL TS: HPV mRNA E6/E7 : Posit mindy - HPV mRNA Detec hebert NOTE: This high risk HPV mRNA assay detec ts fourt een high- risk HPV types (16, 18, 31, 33, 35, 39, 45, 51, 52, 56, 58, 59, 66, 68) witho ut diffe renti ation . COMME NT: This speci men was revie wed by a Cytot echno logis t and/o r Patho logis t (as indic ated in this repor t) after evalu ation using the Thinp rep Imagi ng Syste m. CLINI BRAVO INFOR MATIO N: Menst rual Statu s: LMP (if appli cable ): Clini bravo Histo ry/Pr eviou s Pap: Type of Neopl hermelinda (if appli cable ): Signi fican t Clini bravo Findi ngs: Other Histo ry: Hormo tra (if appli cable ): PAP EDUCA POOJA L NOTE: The Pap Test is a scree reid test with an inher ent false negat mindy rate. Liqui d-bas ed sampl ing may decre ase, but will not elimi [place], false negat mindy resul ts. A negat mindy resul t does not precl ude the prese nce and/o r devel opmen t of disea se, since the prese nce of abnor mal cells in the sampl e depen ds on the locat ion of the lesio n and sampl ing techn ique. Topher nued regul ar scree reid is the best metho d of cance r preve ntion . If repor hebert cytol ogic findi ng do not corre late with physi bravo and/o r histo rical findi ngs, furth er inves tigat ion is recom mable d, as clini luis a nur nted. Not Available [facility] (Lab) [address], [place], [address], 01/24/2023 15:35:51 01/23/20 23 01/22/2023 CT/GC (ASHLEE) , THINP REP VIAL chlamydia trachomatis, PCR Negati ve negati ve Not Available [facility] (Lab) [address] [place], [address], 01/24/2023 15:35:51 01/23/20 23 01/22/2023 CT/GC (ASHLEE) , THINP REP VIAL neisseria gonorrhoeae, PCR Negati ve negati ve Not Available [facility] (Lab) [address], [place], [address], 01/24/2023 15:35:51 01/23/20 23 01/22/2023 TRICH OMONA S VAGIN COMFORT (RRNA ) trichomonas vaginalis ribosomal RNA (rrna) Negati ve negati ve Not Available [facility] (Lab) [address], [place], [address], 01/24/2023 15:35:52 01/25/20 24 01/25/2024 HEPAT ITIS C ANTIB DARLEEN SCREE N, REFLE X TO CONFI RMATI ON hepatitis C antibody Non-re active non-re active Antib odies to HCV Not Detec hebert, does not exclu de the possi bilit y of expos ure to HCV. Not Available [facility] (Lab) [address], [place], [address], 01/26/2024 21:33:54 01/25/20 24 01/25/2024 HEPAT ITIS B SURFA CE ANTIG EN hepatitis B surface antigen Non-re active non-re active This assay was perfo rmed using [employer] n reage nts and test kits. Value s obtai antonina with other assay metho ds or kits canno t be used inter cote eably . Not Available [facility] (Lab) [address], [place], [address], 01/26/2024 21:33:54 01/25/20 24 01/25/2024 HIV 1/2 ANTIG EN/AN TIBOD Y, REFLE X CONFI RMATI ON HIV antigen/anti body Nonrea ctive nonrea ctive HIV-1 antig en and HIV-1 /HIV- 2 antib odies were not detec hebert. No labor atory evide nce of HIV infec tion. Not Available [facility] (Lab) [address], [place], [address], 01/26/2024 21:33:55 01/25/20 24 01/25/2024 RPR SCREE N, REFLE X TITER /CONF IRMAT ION RPR screen Nonrea ctive nonrea ctive Not Available [facility] (Lab) [address], [place], [address], 01/26/2024 21:33:55 01/25/20 24 01/25/2024 HEPAT ITIS B CORE, IGM hepatitis B core IgM antibody Non-re active non-re active IgM anti- HBc not detec hebert. Does not exclu de the possi bilit y of expos ure to or infec tion with HBV. Not Available [facility] (Lab) [address], [place], [address], 01/26/2024 21:33:55 01/25/20 24 01/25/2024 IMAGE GUIDE D PAP AND HPV REGAR DLESS image guided Pap, HPV regardless of Pap result SEE RESULT S BELOW CASE REPOR T: Cytol ogy Gynec ologi bravo Repor t Case: [id number] Autho gilberto Provi winston: Rachelle Ceron, GILMAR Colle cted: 01/24 1004 Order ing Locat ion: [place] Patho logy Recei eleuterio: 01/25 1326 First Scree n: Abraahn tafoya, Jason am, [place] Patho logis t: Bhargav Huffman MD Speci men: Mayra cuencag Pap - Image d, Cervi x STATE MENT OF ADEQU ACY: Satis facto ry for evalu ation Trans forma tion zone compo nent prese nt ----- ----- ----- ----- ----- ----- ----- ----- ----- ----- ----- ----- ----- ----- ----- ----- ----- ---- FINAL DIAGN OSIS: Negat mindy for Intra epith elial Sharif n or Yu lombardo (NIL) . Infla mmato ry cell cote es (incl udes typic al repai r). Elect tisha kothari by Bhargav Huffman MD on 2023 at 10:45 AM ----- ----- ----- ----- ----- ----- ----- ----- ----- ----- ----- ----- ----- ----- ----- ----- ----- ---- HPV RESUL TS: HPV mRNA E6/E7 : No HPV mRNA Detec hebert NOTE: This high risk HPV mRNA assay detec ts fourt een high- risk HPV types (16, 18, 31, 33, 35, 39, 45, 51, 52, 56, 58, 59, 66, 68) witho ut diffe renti ation . COMME NT: This speci men was revie wed by a Cytot echno logis t and/o r Patho logis t (as indic ated in this repor t) after evalu ation using the Thinp rep Imagi ng Syste m. CLINI BRAVO INFOR MATIO N: Menst rual Statu s: LMP (if appli cable ): Clini bravo Histo ry/Pr eviou s Pap: Type of Neopl hermelinda (if appli cable ): Signi fican t Clini bravo Findi ngs: Other Histo ry: Hormo tra (if appli cable ): PAP EDUCA POOJA L NOTE: The Pap Test is a scree reid test with an inher ent false negat mindy rate. Liqui d-bas ed sampl ing may decre ase, but will not elimi [place], false negat mindy resul ts. A negat mindy resul t does not precl ude the prese nce and/o r devel opmen t of disea se, since the prese nce of abnor mal cells in the sampl e depen ds on the locat ion of the lesio n and sampl ing techn ique. Topher nued regul ar scree reid is the best metho d of cance r preve ntion . If repor hebert cytol ogic findi ng do not corre late with physi bravo and/o r histo rical findi ngs, furth er inves tigat ion is recom mable d, as erika moses. Not Available [facility] (Lab) [address], [place], [address], 02/01/2024 11:48:58 01/25/20 24 01/25/2024 CT/GC (ASHLEE) , THINP REP VIAL chlamydia trachomatis, PCR Negati ve negati ve Not Available [facility] (Lab) [address], [place], [address], 02/01/2024 11:48:59 01/25/20 24 01/25/2024 CT/GC (ASHLEE) , THINP REP VIAL neisseria gonorrhoeae, PCR Negati ve negati ve Not Available [facility] (Lab) [address], [place], [address], 02/01/2024 11:48:59 01/25/20 24 01/25/2024 TRICH OMONA S VAGIN COMFORT (RRNA ) trichomonas vaginalis ribosomal RNA (rrna) Negati ve negati ve Not Available [facility] (Lab) [address], [place], [address], 02/01/2024 11:49:00 Result Notes None recorded. Problems Name Problem SNOMED Code Status Onset Date Resolution Date Notes Provider Name and Address Organization Details Recorded Time Steriliz ation procedur e Completed 201501/15/2021 Encounte r for steriliz ation;Pr actice ID: 0001 Lilia robertson [facility] 17:41:28 Pelvic and perineal pain [id number] Completed 201501/15/2021 Pelvic and perineal pain;Pra ctice ID: 0001 Lilia Chavez [facility] 17:41:18 Removal of intraute rine device Completed 201501/15/2021 Encounte r for removal of intraute rine contrace ptive device;P ractice ID: 0001 Lilia Chavez null, [facility] 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 17:41:23 Finding of sensatio n of breast Completed 201701/15/2021 Mastodyn ia;Pract ice ID: 0001 Lilia robertson, [facility] 17:41:03 Benign essentia l hyperten princess complica ting pregnanc y, childbir th and the puerperi um - not delivere d [id number] Completed 201401/15/2021 ESSEN HYPERTEN -ANTEPAR T;Practi ce ID: 0001 Lilia robertson, [facility] 17:40:59 Glucose toleranc e test during pregnanc y - baby not yet delivere d outside referenc e range [id number] Completed 201401/15/2021 ABN GLUCOSE- ANTEPART UM;Pract ice ID: 0001 Lilia robertson, [facility] 17:41:32 Routine antenata l care Completed 201401/15/2021 Supervis ion of other normal pregnanc y;Practi ce ID: 0001 Lilia robertson, [facility] 17:40:42 Labor and delivery complica hebert by heart rate anomaly [id number] Completed 201401/15/2021 HEART RATE NON REASSURI NG;Pract ice ID: 0001 Lilia robertson, [facility] 17:41:12 Delivery normal [id number] Completed 201401/15/2021 NORMAL DELIVERY ;Practic e ID: 0001 Lilia robertson, [facility] 17:41:34 Single live [id number] Completed 201401/15/2021 DELIVER- SINGLE LIVEBORN ;Practic e ID: 0001 Lilia robertson, [facility] 17:40:55 Transien t hyperten princess of pregnanc y - delivere d [id number] Completed 201401/15/2021 Transien t hyperten princess of pregnanc y, with delivery ;Practic e ID: 0001 Lilia robertson, [facility] 17:41:00 Transien t hyperten princess of pregnanc y - delivere d with postnata l complica tion [id number] Completed 201401/15/2021 TRANS HYPERTEN -POSTPAR T;Practi ce ID: 0001 Lilia robertson, [facility] 17:41:01 Lochia finding Completed 201401/15/2021 Encounte r for routine postpart um follow-u p;Practi ce ID: 0001 Lilia robertson, [facility] 17:41:30 Pregnanc y-induce d hyperten princess Completed 201401/15/2021 Gestatio nal htn w/o signific ant proteinu cassi, third trimeste r;Practi ce ID: 0001 Lilia robertson, [facility] 17:41:04 Insertio n of intraute rine contrace ptive device Completed 201401/15/2021 Encounte r for insertio n of intraute rine contrace ptive device;P ractice ID: 0001 Lilia robertson, [facility] 17:41:40 Pregnanc y test negative [id number] Completed 201401/15/2021 Encounte r for pregnanc y test, result negative ;Practic e ID: 0001 Lilia robertson [facility] 17:41:11 Contrace ptive sheath status [id number] Completed 201401/15/2021 Encounte r for routine checking of intraute rine contrace p dev;Prac kristian ID: 0001 Lilia robertson [facility] 17:41:08 Emotiona l state finding Completed 201501/15/2021 Emotiona l lability ;Practic e ID: 0001 Lilia robertson [facility] 17:41:15 Abnormal weight gain [id number] Completed 201501/15/2021 Abnormal weight gain;Pra ctice ID: 0001 Lilia robertson [facility] 17:40:49 Finding of body mass index [id number] Completed 201501/15/2021 Body mass index (BMI) 40.0-44. 9, adult;Pr actice ID: 0001 Lilia robertson [facility] 17:41:20 Educatio n Completed 201501/15/2021 Encounte r for oth general cnsl and advice on contrace ption;Pr actice ID: 0001 Lilia robertson [facility] 17:41:27 Procedur e Completed 201501/15/2021 Encounte r for other preproce dural examinat ion;Prac kristian ID: 0001 Lilia robertson [facility] 17:41:26 Examinat ion for accident Completed 201401/15/2021 Observat ion followin g other accident ;Practic e ID: 0001 Lilia robertson [facility] 17:41:07 Primigra natalee [id number] Completed 201401/15/2021 Supervis ion of normal first pregnanc y;Thao ce ID: 0001 Lilia robertson [facility] 17:40:38 Body mass index 30+ - obesity [id number] Completed 201701/15/2021 Body mass index (BMI) 39.0-39. 9, adult;Re corded Elsewher e: No Locat ion: [facility] S ource: EHR Rejogger barbi: N Natalieti ce ID: 0001 Alex lable Time: 09:00:00 [facility]50 Ultrason ography Completed 201401/15/2021 Antenata l screenin g for malforma tion using ultrason ics;Rashaad rded Elsewher e: No Locat ion: [facility] S ource: EHR Rejogger barbi: N Thao ce ID: 0001 Alex lable Time: 02:00:00 PM Lilia robertson [facility] 17:40:52 Antenata l screenin g Completed 201401/15/2021 Antenata l screenin g for malforma tion using ultrason ics;Rashaad rded Elsewher e: No Locat ion: [facility] S ource: EHR Rejogger barbi: N Natalieti ce ID: 0001 Alex lable Time: 02:00:00 PM Lilia robertson [facility] 17:41:06 Congenit al malforma tion [id number] Completed 201401/15/2021 Antenata l screenin g for malforma tion using ultrason ics;Rashaad rded Elsewher e: No Locat ion: [facility] S ource: EHR Rejogger barbi: N Natalieti ce ID: 0001 Alex lable Time: 02:00:00 PM Lilia robertson [facility] 17:41:19 Screenin g for malignan t neoplasm of cervix Completed 201301/15/2021 Screenin g for malignan t neoplasm s of the cervix;R ecorded Elsewher e: No Locat ion: [facility] S ource: EHR Rejogger barbi: N Practi ce ID: 0001 Alex lable Time: 09:30:00 AM Lilia robertson, [facility] 17:40:58 Postpart um care Completed 201101/15/2021 Routine postpart um follow-u p;Practi ce ID: 0001 Lilia robertson, [facility] 17:40:40 Insertio n of subcutan eous contrace ptive Completed 201201/15/2021 Insertio n of implanta ble subderma l contrace ptive;Pr actice ID: 0001 Lilia robertson, [facility] 17:40:53 Subcutan eous contrace ptive implant present [id number] Completed 201201/15/2021 Removal Or Check Nexplano n;Practi ce ID: 0001 Lilia robertson, [facility] 17:41:33 Speciali zed medical examinat ion Completed 201201/15/2021 Routine gynecolo gical examinat ion;Prac kristian ID: 0001 Lilia robertson, [facility] 17:41:36 Adult health examinat ion Completed 201301/15/2021 Routine general medical examinat ion at a health care facility ;Practic e ID: 0001 Lilia robertson [facility] 17:41:13 Speciali zed medical examinat ion Completed 201301/15/2021 Other specifie d chlamydi al diseases ;Practic e ID: 0001 Lilia robertson [facility] 17:41:37 Venereal disease screenin g Completed 201301/15/2021 Screenin g examinat ion for venereal disease; Practice ID: 0001 Lilia robertson [facility] 17:40:56 Amenorrh ea [id number] Completed 201401/15/2021 AMENORRH EA;Pract ice ID: 0001 Lilia robertson [facility] 17:40:45 Pregnanc y test positive [id number] Completed 201401/15/2021 Positive Pregnanc y Test;Pra ctice ID: 0001 Lilia Chavez [facility] 17:41:09 anatomy study Completed 201401/15/2021 [facility] ANATMC SURVEY;P ractice ID: 0001 [facility] 17:41:16 Postpart um depressi on [id number] Completed 201401/15/2021 Postpart um depressi on;Recor ded Elsewher e: No Locat ion: [facility] S ource: EHR Rejogger barbi: N Practi ce ID: 0001 Alex lable Time: 01:00:00 PM Lilia robertson [facility] 17:41:[address] Concept Completed 201501/15/2021 Encntr for general adult medical exam w/o abnormal findings ;Recorde d Elsewher e: No Locat ion: [facility] S ource: EHR Rejogger barbi: N Practi ce ID: 0001 Alex lable Time: 12:15:00 PM Lilia robertson [facility] 17:41:22 Low risk human papillom avirus deoxyrib onucleic acid detected in specimen from cervix [id number] Completed 201601/15/2021 Cervical low risk HPV DNA test positive ;Norberto Agrawal e: No Locat ion: [facility] S ource: EHR Rejogger barbi: N Practi ce ID: 0001 Alex lable Time: 03:30:00 PM Lilia robertson [facility] 17:40:48 Problem Notes None recorded. Procedures Surgical History Date Name Laterality Status Provider Name and Address Organization Details Recorded Time 01/18/20 16 ligation of bilateral fallopian tubes completed Lilia Chavez [facility] 01/15/2021 17:46:28 07/20/19 05 reconstruction of anterior cruciate ligament of knee joint completed Amy Martinze [facility] 11/04/2019 14:16:09 Imaging Results None recorded. Procedure Notes None recorded. Medical Equipment None Reported. Allergies No known drug allergies Medications Name Sig Start Date Stop Date Status Note LastModified by Organization Details LastModified Time Mirena 21 mcg/24 hr (up to 8 years) 52 mg intrauter ine device 01/30 completed Prescrib mitch Agrawal e: Yes [facility] odify By: amkuhzay Henriquez ncounter DateTime : 05/22/20 15 03:45:00 PM Not Available Not Available Not Available fluconazo le 100 mg tablet TAKE 1 TABLET BY MOUTH NOW AND THEN 1 TABLET 7 DAYS LATER 01/24 completed Not Available Not Available Not Available bupropion HCl SR 150 mg tablet,12 hr sustained -release 01/28 completed Not Available Not Available Not Available azithromy tamiko 250 mg tablet TAKE 2 TABLETS BY MOUTH ON DAY 1, AND THEN TAKE 1 TABLET BY MOUTH ONCE A DAY ON DAY 2 THROUGH DAY 5 01/24 completed Not Available Not Available Not Available ibuprofen 800 mg tablet 01/22 completed Not Available Not Available Not Available Nystop 100,000 unit/gram topical powder APPLY POWDER TOPICALL Y THREE TIMES DAILY 01/24 completed Not Available Not Available Not Available vitamin E 600 unit capsule 01/30 completed Prescrib ed Elsewher e: Yes Loca tion: Yvon henriquez [facility] odify By: [email or web address] Lachelle [email or web address] DateTime : 08/13/19 16 12:15:00 PM Not Available Not Available Not Available Diflucan 150 mg tablet take 1 tablet (150MG) by oral route once 06/18 completed Prescrib ed Elsewher e: No [facility]at [facility] odify By: [email or web address] trick En counter DateTime : 02/23/20 12 05:21:42 PM Not Available Not Available Not Available sumatript an 50 mg tablet TAKE 1 TABLET BY MOUTH AT ONSET OF HEADACHE . MAY REPEAT AFTER 2 HOURS. DO NOT EXCEED 4 TABLETS IN 24 HOURS 01/24 completed Not Available Not Available Not Available acetamino phen 300 mg-codein e 30 mg tablet TAKE 1-2 TABLETS BY MOUTH EVERY 4 HOURS NEEDED FOR PAIN 01/22 completed Not Available Not Available Not Available alprazola m 0.5 mg tablet TAKE 1 TABLET BY MOUTH THREE TIMES DAILY NEEDED FOR ANXIETY active Not Available Not Available No t Available Microgest in FE 08/08 (28) 1 mg-20 mcg (21)/75 mg (7) tablet take 1 tablet by oral route every day 08/11 completed Prescrib ed Elsewher e: No Locat ion: [facility] lachelle [facility] odify By: [email or web address] trick En counter DateTime : 04/20/20 14 09:30:00 AM Not Available Not Available Not Available Flagyl 500 mg tablet take 1 tablet (500MG) by oral route every 12 hours 06/18 completed Prescrib ed Elsewher e: No Locat ion: [facility] odify By: [email or web address] trick En counter DateTime : 04/05/20 12 09:40:25 AM Not Available Not Available Not Available mupirocin 2 % topical ointment APPLY OINTMENT TOPICALL Y THREE TIMES DAILY 01/24 completed Not Available Not Available Not Available ergocalci ferol (vitamin D2) 1,250 mcg (50,000 unit) capsule TAKE 1 CAPSULE BY MOUTH ONCE A WEEK FOR 8 WEEKS 01/22 completed Not Available Not Available Not Available methylpre dnisolone 4 mg tablets in a dose pack TAKE BY MOUTH DIRECTED ON INSIDE OF PACKAGE 01/24 completed Not Available Not Available Not Available Zoloft 25 mg tablet take 1 tablet by oral route every day 03/10 completed Prescrib ed Elsewher e: No [facility] By: khoi burrowsunter DateTime : 01/24/20 16 02:34:48 PM Not Available Not Available Not Available topiramat e 100 mg tablet TAKE 1 TABLET BY MOUTH TWICE DAILY 01/24 completed Not Available Not Available Not Available fluticaso ne propionat e 50 mcg/actua tion nasal spray,lisbeth pension USE 1 SPRAY(S) IN EACH NOSTRIL TWICE DAILY NEEDED FOR NASAL CONGESTI ON active Not Available Not Available No t Available sertralin e 50 mg tablet TAKE 1 TABLET BY MOUTH ONCE DAILY 01/24 completed Not Available Not Available Not Available phentermi ne 37.5 mg capsule TAKE 1 CAPSULE BY MOUTH ONCE DAILY active Not Available Not Available No t Available naproxen 500 mg tablet TAKE 1 TABLET BY MOUTH TWICE DAILY NEEDED FOR PAIN 2023 active Not Available Not Available Not Avai lable amoxicill in 875 mg-potass ium clavulana te 125 mg tablet TAKE 1 TABLET BY MOUTH TWICE DAILY 01/24 completed Not Available Not Available Not Available iron 18 mg tablet 01/30 completed Prescrib ed Elsewher e: Yes [facility] By: khoi burrowsunter DateTime : 04/19/20 15 01:00:00 PM Not Available Not Available Not Available Stool Softener 50 mg capsule take 1 capsule by oral route every day at bedtime as needed 01/30 completed Prescrib ed Elsewher e: Yes [facility] By: khoi Henriquez ncounter DateTime : 04/19/20 15 01:00:00 PM Not Available Not Available Not Available topiramat e 50 mg tablet 01/28 completed Not Available Not Available Not Available Nexplanon 68 mg subdermal implant Every 3 years 04/20 completed Prescrib ed Elsewher e: No Locat ion: [facility] lachelle [facility] odify By: [email or web address] shaylee Kerr counter DateTime : 02/22/20 13 10:30:00 AM Not Available Not Available Not Available + DHA 28 mg iron-975 mcg-200 mg oral pack 09/10 completed Prescrib ed Elsewher e: Yes Loca tion: [facility] odify By: [email or web address] z Encoun ter DateTime : 01/07/20 12 02:00:00 PM Not Available Not Available Not Available Selsun Blue Moisturiz ing 1 % shampoo apply to affected area 3x/week for 1-2wks; apply for 10 min. interval s 01/30 completed Prescrib ed Elsewher e: No Locat ion: [facility] odify By: khoi chaudhari DateTime : 11/29/19 16 09:00:00 AM Not Available Not Available Not Available Emgality Pen 120 mg/mL subcutane ous pen injector 2023 active Not Available Not Available Not Avai lable Fluzone Quad (PF) 60 mcg (15 mcg x 4)/0.5 mL IM syringe 01/15 completed Not Available Not Available Not Available Vitals Date Recorded Body height Body mass index (BMI) Body weight Systolic blood pressure Diastolic blood pressure Provider Name and Address Organization Details Last Updated DateTime 01/28/2021 165.1 cm 33.6 kg/m2 97878.66 g 136 mm[Hg] 80 mm[Hg] Lilia Chavez [facility] 1 12:19:17 Date Recorded Body height Body mass index (BMI) Body weight Systolic blood pressure Diastolic blood pressure Provider Name and Address Organization Details Last Updated DateTime 05/01/2022 165.1 cm 36.8 kg/m2 370907.6 3 g 130 mm[Hg] 87 mm[Hg] Madyson Alberts [facility] 2 11:19:58 Date Recorded Body height Body mass index (BMI) Body weight Systolic blood pressure Diastolic blood pressure Provider Name and Address Organization Details Last Updated DateTime 01/22/2023 165.1 cm 36.8 kg/m2 721436.9 1 g 127 mm[Hg] 82 mm[Hg] Madyson Springerkatya [facility] 3 12:25:56 Date Recorded Body height Body mass index (BMI) Body weight Systolic blood pressure Diastolic blood pressure Provider Name and Address Organization Details Last Updated DateTime 11/16/2019 165.1 cm 36.9 kg/m2 819852.5 1 g 118 mm[Hg] 79 mm[Hg] Amy Michelle [facility] 0 12:29:22 Date Recorded Body height Body mass index (BMI) Body weight Systolic blood pressure Diastolic blood pressure Provider Name and Address Organization Details Last Updated DateTime 01/25/2024 165.1 cm 37.1 kg/m2 024746.1 g 124 mm[Hg] 78 mm[Hg] Ambar Platt [facility] 4 09:37:02 Social History Question Answer Notes LastModified by Organizat ion Details LastModified Time Tobacco Smoking Status Former Smoker Ambar Platt [facility] 01/25/2024 09:39:22 Do You Have An Advance Directive? No [email or web address] Information not available 01/28/2021 What Is Your Level Of Alcohol Consumption? Occasional [email or web address] Information not available 01/28/2021 How Many Years Have You Consumed Alcohol? 20 Information not available 01/22/2023 Are You Blind Or Do You Have Difficulty Seeing? No [email or web address] Information not available 01/28/2021 What Is Your Level Of Caffeine Consumption? Heavy Information not available 01/22/2023 How Much Tobacco Do You Chew? None [email or web address] Information not available 01/28/2021 In The 14 Days Before Symptom Onset, Have You Had Close Contact With A Laboratory-confir [facility] COVID-19 While That Case Was Ill? No [email or web address] Information not available 01/28/2021 In The 14 Days Before Symptom Onset, Have You Had Close Contact With A Person Who Is Under Investigation For COVID-19 While That Person Was Ill? No [email or web address] Information not available 01/28/2021 Have You Been To An Area Known To Be High Risk For COVID-19? No Information not available 01/28/2021 Are You Deaf Or Do You Have Serious Difficulty Hearing? No [email or web address] Information not available 01/28/2021 What Type Of Diet Are You Following? [email or web address] Information not available 01/28/2021 Do You Or Have You Ever Used E-cigarettes Or Vape? Current User Of Electronic Cigarettes Information not available 01/22/2023 What Is The Highest Grade Or Level Of School You Have Completed Or The Highest Degree You Have Received? LS57461-7 [email or web address] Information not available 01/28/2021 What Is Your Occupation? [employer] [email or web address] Information not available 01/28/2021 Are There Any Guns Present In Your Home? No [email or web address] Information not available 01/28/2021 Do You Use Protection During Sex? No [email or web address] Information not available 01/28/2021 Do You Use Your Seat Belt Or Car Seat Routinely? Yes [email or web address] Information not available 01/28/2021 Do You Have Smoke And Carbon Monoxide Detectors In Your Home? Yes [email or web address] Information not available 01/28/2021 At What Age Did You Start Smoking Tobacco? 13 [email or web address] Information not available 01/28/2021 How Much Tobacco Do You Smoke? No Information not available 01/28/2021 Do You Feel Stressed (tense, Restless, Nervous, Or Anxious, Or Unable To Sleep At Night)? [id number] [email or web address] Information not available 01/28/2021 Do You Use Any Illicit Or Recreational Drugs? No Information not available 01/22/2023 Do You Use Sunscreen Routinely? Yes Information not available 01/28/2021 How Many Years Have You Smoked Tobacco? 20 Information not available 01/22/2023 Have You Used IV Drugs? No [email or web address] Information not available 01/28/2021 Sex: Unknown Functional Status Question Answer Note LastModified by Organizat ion Details LastModified Time Do you have difficulty walking or climbing stairs? No Information not available 01/22/2023 Are you able to walk? YESWOREST [email or web address] Information not available 01/28/2021 Are you able to care for yourself? Yes Information not available 01/22/2023 Do you have difficulty dressing or bathing? No Information not available 01/22/2023 What is your exercise level? Occasional walking [email or web address] Information not available 11/16/2019 Mental Status None recorded. Family History Relationship Description Onset Age of this Age Resolved Age Notes LastModified by Organization Details LastModified Time Maternal Aunt Family history of breast cancer [email or web address] Not available 04/19 11:20:02 Maternal Grandmother Malignant tumor of cervix 70 [email or web address] Not available 04/19 11:20:02 Maternal Grandmother Malignant tumor of cervix [email or web address] Not available 04/19 11:20:02 Paternal Uncle Carcinoma of prostate 80 vschroedter Not available 04/19 11:20:02 Unspecified Relation Malignant tumor of colon 60 Aunt's daught er [email or web address] Not available 05/01/2022 11:20:02 Unspecified Relation Malignant tumor of colon [email or web address] Not available 04/19 11:20:02 Medical History Condition Response Other History of abnormal pap Y History of STI Headaches Y Gynecological History Statement/Question Response Abnormal Pap Y Flow Moderate Date of Last Mammogram Date of LMP 01/02/2024 N On BCP's at Conception? Y STIs/STDs Y Was last menstrual period normal Y HPV Vaccine Y Colposcopy Duration of Flow (days) 4 Current Control Method Tubal Ligat ion Age at First Child 20 Date of Last Colonoscopy Frequency of Cycle (Q days) 23 Sexually Active? Y Menses Monthly Y Date of DEXA bone scan Age of first menstrual cycle 9 Date of Last Pap Smear Sexual Problems? N LMP Approximate N Obstetrics History GPAL:G 2 P 2 0 0 2 Type Value Full Term 2 Living 2 Total 2 Past Encounters Encounter ID Performer Location Encounter Start Date Encounter Closed Date Diagnosis/Indication Diagnosis SNOMED-CT Code Diagnosis ICD10 Code Diagnosis Note [id number] Tami Suarez [facility] [address] [address] 11/16/2019 12:20:12 11/16/2019 13:24:43 Gynecologic examination 09697173 Z01.419 Take Calcium with Vitamin D 1200mg daily if not receiving in daily diet. It is strongly advised to have an annual flu shot and up can obtain at most pharmacies . If you have not had a TDap shot in the last 10 years you should obtain one as well. Discussed with patient & provided with informatio n regarding Gardisil vaccine to prevent the 4 strains for HPV that cause cervical cancer if under age 26. Encourage safe sexual practices, to use condoms and limit partners if not already in a monogamous relationsh ip. Do monthly self breast exams. Have mammogram yearly or every other year depending on family history. BRCA testing is now available for patients with strong genetic history of female cancer. If interested contact the office. Engage in daily exercise of low impact aerobic exercise 45-60 minutes 4-5 times weekly. Avoid tobacco and illicit drugs as well as using moderation with alcohol intake less than 1-2 8 oz beverages daily. This lifestyle behavior pattern will lead to less health conditions and longer life span. If BMI greater than 25 weight watchers or dietary consult advised. Patient received above instructio ns, and questions have been answered. If you have any questions please call or respond to this email. Patient was made aware of the patient portal and may obtain a paper copy of today's plan if desired. [id number] Tami Suarez [facility] [address] [address] 01/28/2021 11:58:20 01/28/2021 12:53:19 Gynecologic examination 71006645 Z01.419 Z11.51 Take Calcium with Vitamin D 1200mg daily if not receiving in daily diet. It is strongly advised to have an annual flu shot and up can obtain at most pharmacies . If you have not had a TDap shot in the last 10 years you should obtain one as well. Discussed with patient & provided with informatio n regarding Gardisil vaccine to prevent the 4 strains for HPV that cause cervical cancer if under age 26. Encourage safe sexual practices, to use condoms and limit partners if not already in a monogamous relationsh ip. Do monthly self breast exams. Have mammogram yearly or every other year depending on family history. BRCA testing is now available for patients with strong genetic history of female cancer. If interested contact the office. Engage in daily exercise of low impact aerobic exercise 45-60 minutes 4-5 times weekly. Avoid tobacco and illicit drugs as well as using moderation with alcohol intake less than 1-2 8 oz beverages daily. This lifestyle behavior pattern will lead to less health conditions and longer life span. If BMI greater than 25 weight watchers or dietary consult advised. Patient received above instructio ns, and questions have been answered. If you have any questions please call or respond to this email. Patient was made aware of the patient portal and may obtain a paper copy of today's plan if desired. [id number] DAVID Louie [facility] [address] [address] 05/01/2022 10:57:51 05/01/2022 12:50:28 Gynecologic examination [id number] Z01.419 Take Calcium with Vitamin D 1200mg daily if not receiving in daily diet. It is strongly advised to have an annual flu shot and up can obtain at most pharmacies . If you have not had a TDap shot in the last 10 years you should obtain one as well. Discussed with patient & provided with informatio n regarding Gardisil vaccine to prevent the 4 strains for HPV that cause cervical cancer if under age 26. Encourage safe sexual practices, to use condoms and limit partners if not already in a monogamous relationsh ip. Do monthly self breast exams. Have mammogram yearly or every other year depending on family history. BRCA testing is now available for patients with strong genetic history of female cancer. If interested contact the office. Engage in daily exercise of low impact aerobic exercise 45-60 minutes 4-5 times weekly. Avoid tobacco and illicit drugs as well as using moderation with alcohol intake less than 1-2 8 oz beverages daily. This lifestyle behavior pattern will lead to less health conditions and longer life span. If BMI greater than 25 weight watchers or dietary consult advised. Patient received above instructio ns, and questions have been answered. If you have any questions please call or respond to this email. Patient was made aware of the patient portal and may obtain a paper copy of today's plan if desired. [facility] 10 years [facility]. No procedures required per patientPap done todaySTI testing added to papBlood STI testing orderedFam isacc santiago of maternal aunt with ovarian cancer, unsure age of diagnosis - we discussed genetic testing. She will consider.E ncouraged patient to establish care with a PCPRoutine adult health labs orderedRTC in 1 year or sooner if needed Venereal d isease screening 111997194 Z11.3 Sexually t ransmitted infectious disease 1593003 A64 [id number] DAVID Louie [facility] [address] [address] 01/22/2023 12:19:07 01/22/2023 12:43:15 Gynecologic examination 16765734 Z01.419 Z11.51 Take Calcium with Vitamin D 1200mg daily if not receiving in daily diet. It is strongly advised to have an annual flu shot and up can obtain at most pharmacies . If you have not had a TDap shot in the last 10 years you should obtain one as well. Discussed with patient & provided with informatio n regarding Gardisil vaccine to prevent the 4 strains for HPV that cause cervical cancer if under age 26. Encourage safe sexual practices, to use condoms and limit partners if not already in a monogamous relationsh ip. Do monthly self breast exams. Have mammogram yearly or every other year depending on family history. BRCA testing is now available for patients with strong genetic history of female cancer. If interested contact the office. Engage in daily exercise of low impact aerobic exercise 45-60 minutes 4-5 times weekly. Avoid tobacco and illicit drugs as well as using moderation with alcohol intake less than 1-2 8 oz beverages daily. This lifestyle behavior pattern will lead to less health conditions and longer life span. If BMI greater than 25 weight watchers or dietary consult advised. Patient received above instructio ns, and questions have been answered. If you have any questions please call or respond to this email. Patient was made aware of the patient portal and may obtain a paper copy of today's plan if desired.WW EBC - BTLpap updatedSTI testing added to papBlood STI panel orderedUTD with PCPRTC in 1 year or sooner if needed Venereal d isease screening [id number] Z11.3 Sexually t ransmitted infectious disease 4624349 A64 [id number] DAVID Louie [facility] [address] [address] 01/25/2024 09:27:09 01/25/2024 11:23:33 Gynecologic examination 04339855 Z01.419 Z11.51 WWEBC - BTLpap updatedgc/ ct/trich testing added to papHIV/Hep B&C/Syphil is testing ordered per pt requestrou john labs/PCPRT C in 1 yr or sooner if needed It is strongly advised to have an annual flu shot and up can obtain at most pharmacies . If you have not had a TDap shot in the last 10 years you should obtain one as well. Discussed with patient & provided with informatio n regarding HPV vaccine if applicable . Encourage safe sexual practices, to use condoms and limit partners if not already in a monogamous relationsh ip. Do monthly self breast exams. BRCA testing is now available for patients with strong genetic history of female cancer. If interested contact the office. Engage in regular exercise. Avoid tobacco and illicit drugs. This lifestyle behavior pattern will lead to less health conditions and longer life span. If BMI greater than 25 dietary consult advised. Patient received above instructio ns, and questions have been answered. If you have any questions please call or respond to this email. Patient was made aware of the patient portal and may obtain a paper copy of today's plan if desired. Venereal d isease screening [id number] Z11.3 Sexually t ransmitted infectious disease 1543395 A64 Health Concerns Section Related Observation LastModified by Organization Detai ls LastModified Time None Recorded Concern Status LastModified by Organization Details LastModified Time None Recorded Advance Directives Directive N: Payers Encounter Date Sequence Insurance Name Policy Number Policy Flores Covered Member ID Flores Member ID Guarantor Name 11/16/2019 1 [facility] PRIOR TO 01/17/2021 (MEDICAID REPLACEMENT - HMO) Bonnie Ortiz [id number] Bonnie [facility] 01/28/2021 2 [facility] ON OR AFTER 01/17/21 (MEDICAID REPLACEMENT - HMO) Bonnie Ortiz [id number] Bonnie [facility] 05/01/2022 2 [facility] - DOS ON OR AFTER 21 (MEDICAID REPLACEMENT - HMO) Bonnie Diana [id number] Bonnie Quary 05/01/2022 2 [place] [id number] Jayjay W McQuary [id number] Bonnie Quary 01/22/2023 2 [place] [id number] Jayjay W Quary [id number] Bonnie Quary 01/22/[address] [facility] [id number] Bonnie R McQuary [id number] Bonnie Quary 01/25/2024 2 [place] [id number] Jayjay W Quary [id number] Bonnie Quary 01/25/[address] [facility] [id number] Bonnie R McQuary [id number] Bonnie Quary Notes Date Note Type Note Provider Name and Address Organization Details Recorded Time 11/16/2019 text/html Annual GYNReport ed bypatient.Menstrua l cycle:Normal menses Urinary symptoms:No hematuria; No incontinence Vulva:No genital lesion Vagina:Normal vaginal discharge Breast:No breast pain; No breast lump; No nipple discharge Sexual complaints:No sexual complaints; No pain during intercourse; Normal libido Menopausal Symptoms:No menopausal symptoms; Normal vaginal lubrication Psychological symptoms:No depression; No anxiety; No PMDD Tami robertson [facility] 11/16/2019 12:53:15 01/28/2021 text/html Annual GYNReport ed bypatient.Menstrua l cycle:Normal menses Urinary symptoms:No hematuria; No incontinence Vulva:No genital lesion Vagina:Normal vaginal discharge Breast:No breast pain; No breast lump; No nipple discharge Sexual complaints:No sexual complaints; No pain during intercourse; Normal libido Menopausal Symptoms:No menopausal symptoms; Normal vaginal lubrication Psychological symptoms:No depression; No anxiety; No PMDD Tami robertson [facility] 01/28/2021 12:51:57 05/01/2022 text/html Annual GYNReport ed bypatient.Menstrua l cycle:Normal menses Urinary symptoms:No hematuria; No incontinence Vulva:No genital lesion Vagina:Normal vaginal discharge Breast:No breast pain; No breast lump; No nipple discharge Current Contraception:Sati sfied with current contraception; Tubal ligation Sexual complaints:No sexual complaints; No pain during intercourse; Normal libido Menopausal Symptoms:No menopausal symptoms; Normal vaginal lubrication Psychological symptoms:No depression; No anxiety; No PMDD Preventive measures:Encourage self breast examination; Encourage regular exercise; Encourage no tobacco use; Encourage regular mammograms starting age 40 DAVID Louie [address], [place], [address], [facility] 05/01/2022 12:50:09 01/22/2023 text/html Annual GYNReport ed bypatient.Menstrua l cycle:Normal menses Urinary symptoms:No hematuria; No incontinence Vulva:No genital lesion Vagina:Normal vaginal discharge Breast:No breast pain; No breast lump; No nipple discharge Current Contraception:Sati sfied with current contraception; Tubal ligation Sexual complaints:No sexual complaints; No pain during intercourse; Normal libido Menopausal Symptoms:No menopausal symptoms; Normal vaginal lubrication Psychological symptoms:No depression; No anxiety; No PMDD Preventive measures:Encourage self breast examination; Encourage regular exercise; Encourage no tobacco use; Encourage regular mammograms starting age 40 DAVID Louie [address], [place], [address], [facility] 01/22/2023 12:39:50 01/25/2024 text/html Annual GYNReport ed bypatient.Menstrua l cycle:Normal menses Urinary symptoms:No hematuria; No incontinence Vulva:No genital lesion Vagina:Normal vaginal discharge Breast:No breast pain; No breast lump; No nipple discharge Current Contraception:Sati sfied with current contraception; Tubal ligation Sexual complaints:No sexual complaints; No pain during intercourse; Normal libido Menopausal Symptoms:No menopausal symptoms; Normal vaginal lubrication Psychological symptoms:No depression; No anxiety; No PMDD Preventive measures:Encourage self breast examination; Encourage regular exercise; Encourage no tobacco use; Encourage regular mammograms starting age 38Notes:33yo [id number] - BTLlast pap 01/2023 : nilm, HPV (+)would like STI testing today DAVID [address], [place], [id number], [place] [facility] 01/25/2024 11:04:26 OBGyn Episode Ob Episode Information Episode Created Date Number of Fetuses Patient Bloodtype Patient rh Status Prepregnancy Weight lbs Domestic Partner Domestic Partner Phone Father Name Medical Physics Professor Status 11/16/19 20 1 CLOSED Fetus Data First Name Last Name Admitted to NICU Weight (g) Sex Living Outcome Pediatric Complications Fetus ID Race Codes Race Delivery Type [phone] 9 M Full Term 945 Vaginal Delivery Shashank Calculation Initial Shashank Date Initial Exam Date Initial Exam Provider Initial Ultrasound Date Last Menstrual Period Date Ultra Sound Weeks Gestation 0 Eighteen To Twenty Week Shashank Update Ultra Sound Date Fundal Height At Umbil Quickening Date Ultra Sound Latest Weeks Gestation Final Shashank Confirmed By Final Shashank Confirmed Date Final Shashank Date Ultra Sound Latest Days Gestation 0 0 Menstrual History Last Menstrual Date Menses Monthly On Bcp Conception Prior Menses Frequency Hcg Plus Date Menarche Onset Age Delivery Information Delivery Date Delivery Type Labor Anesthesia Weeks Gestation Incision Type Labor Labor Length Hrs Delivered By Post Complications Tubal Sterilization Discharge Date Comments 5 38.5 Discharge Information Feeding Method Contraceptive Method Maternal HG B and HCT Levels Ob Episode Information Episode Created Date Number of Fetuses Patient Bloodtype Patient rh Status Prepregnancy Weight lbs Domestic Partner Domestic Partner Phone Father Name Medical Physics Professor Status 11/16/19 20 1 CLOSED Fetus Data First Name Last Name Admitted to NICU Weight (g) Sex Living Outcome Pediatric Complications Fetus ID Race Codes Race Delivery Type [id number] F Full Term 946 Vaginal Delivery Shashank Calculation Initial Shashank Date Initial Exam Date Initial Exam Provider Initial Ultrasound Date Last Menstrual Period Date Ultra Sound Weeks Gestation 0 Eighteen To Twenty Week Shashank Update Ultra Sound Date Fundal Height At Umbil Quickening Date Ultra Sound Latest Weeks Gestation Final Shashank Confirmed By Final Shashank Confirmed Date Final Shashank Date Ultra Sound Latest Days Gestation 0 0 Menstrual History Last Menstrual Date Menses Monthly On Bcp Conception Prior Menses Frequency Hcg Plus Date Menarche Onset Age Delivery Information Delivery Date Delivery Type Labor Anesthesia Weeks Gestation Incision Type Labor Labor Length Hrs Delivered By Post Complications Tubal Sterilization Discharge Date Comments 2 40 Discharge Information Feeding Method Contraceptive Method Maternal HG B and HCT Levels
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
[2024-10-27 13:21] LABS: Alanine Aminotransferase 31 U/L (6-35); Albumin Level 4.6 g/dL (3.5-5.1); Alkaline Phosphatase 71 U/L (38-126); Anion Gap 12 mmol/L (4-12); Aspartate Amino Transferase 34 U/L (14-36); Bilirubin,Total 0.3 mg/dL (0.2-1.3); Blood Urea Nitrogen 11 mg/dL (7-17); Calcium 9.2 mg/dL (8.4-10.2); Carbon Dioxide 24 mmol/L (22-30); Chloride 103 mmol/L (98-107); Cholesterol 203 mg/dL (0-200); Estimated Glomerular Filt Rate > 60; Glucose 84 mg/dL (65-110); HDL Direct 71 mg/dL; Potassium 3.9 mmol/L (3.4-5.0); Sodium 139 mmol/L (137-145); Triglycerides 111 mg/dL (<150)
[2024-10-27 13:32] LABS: LDL Cholesterol Direct 85 mg/dL
[2024-10-27 16:27] LABS: Iron 61 ug/dL (37-170)
[2024-10-27 16:36] LABS: Percent Iron Saturation 16 % (20-50)
[2024-10-27 16:58] LABS: Folic Acid > 20.0 ng/mL (2.76->20)
[2024-10-27 18:09] LABS: Hemoglobin A1C 5.6 % (<5.7)
[2024-10-27 19:45] LABS: Vitamin D 25 Hydroxy 27.3 ng/mL
== END 2024-10-27 09:05 | disposition home or self-care (01) ==
LOC: ANHLAB 09:06
PROVIDERS: PCP Emergency Medicine; Visit Provider Emergency Medicine
DX: E78.5 Hyperlipidemia, unspecified (principal); E03.9 Hypothyroidism, unspecified; D64.9 Anemia, unspecified; E55.9 Vitamin D deficiency, unspecified; E11.9 Type 2 diabetes mellitus without complications; E53.8 Deficiency of other specified B group vitamins; Z13.220 Encounter for screening for lipoid disorders
CPT/HCPCS: 36415; 80053; 80061; 82306; 82607; 82746; 83036; 83540; 83550; 84443

== ENCOUNTER 2024-12-16 09:20 | Outpatient (CLI) | payer OTHER, BC, SELFPAY ==
--- NOTE | ~2024-12-16 | XR_ITS ---
Right Knee Technique: AP and lateral views were obtained. Clinical History: Pain Findings: No fracture or dislocation is seen. Prior ACL reconstruction changes noted. There is modera te degenerative change of the lateral compartment. There is moderate degenerative change of the luque lofemoral compartment. There is mild degenerative change of the medial compartment.. Soft tissues are unremarkable. No joint effusion is seen. Impression: Tricompartmental degenerative change, as detailed above. Prior ACL reconstruction. Reviewed, dictated and finalized at location M. Impression: Tricompartmental degenerative change, as detailed above. Prior ACL reconstruction.
--- OUTSIDE RECORDS SUMMARY | 2024-12-16 09:26 | XMS_ITS | Data Portability ---
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 Name Role Phone MICHAEL JENNIFER Primary Care [...] (hepatitis B core Ab) igm, serum 2023 [facility] (Lab), [address] [place], [address], 4 21:33:56 HBsAg (hepatitis B surface Ag), serum 2023 024 [facility] (Lab), [address] [place], [address], 4 21:33:54 hepatitis C virus Ab, serum 2023 024 [facility] (Lab), [address], [place], [address], 4 21:33:54 HIV 1+2 AB + HIV 1 p24 Ag, qualitative immunoassay , serum 2023 024 [facility] (Lab), [address], [place], [address], 4 21:33:55 RPR (rapid plasma reagin), serum 2023 024 [facility] (Lab), [address], [place], [address], 4 21:33:55 hbcab (hepatitis B core Ab) igm, serum 2022 023 [facility] (Lab), [address], [place], [address], 3 23:29:51 HBsAg (hepatitis B surface Ag), serum 2022 023 [facility] (Lab), [address], [place], [address], 3 23:29:49 hepatitis C virus Ab, serum 2022 023 [facility] (Lab), [address], [place], [address], 3 23:29:49 unlisted lab - HIV 1/2 antigen/ant ibody, reflex confirmatio n 2022 023 [facility] (Lab), [address], [place], [address], 3 23:29:50 RPR (rapid plasma reagin), serum 2022 023 [facility] (Lab), [address], [place], [address], 3 23:29:50 hbcab (hepatitis B core Ab) igm, serum 2021 [facility] (Lab), [address], [place], [address], 22:00:20 HBsAg (hepatitis B surface Ag), serum 2021 [facility] (Lab), [address], [place], [address], 22:00:16 hepatitis C virus Ab, serum 2021 [facility] (Lab), [address], [place], [address], 22:00:16 unlisted lab - HIV 1/2 antigen/ant ibody, reflex confirmatio n 2021 [facility] (Lab), [address], [place], [address], 22:00:20 RPR (rapid plasma reagin), serum 2021 [facility] (Lab), [address], [place], [address], 22:00:20 lipid panel, blood 2021 [facility] (Lab), [address], [place], [address], 22:00:17 CMP, serum or plasma 2021 [facility] (Lab), [address], [place], [address], 22:00:18 CBC w/ auto diff 2021 [facility] (Lab), [address], [place], [address], 22:00:17 HbA1c (hemoglobin A1c), blood 2021 [facility] (Lab), [address], [place], [address], 22:00:19 TSH, serum or plasma 2021 [facility] (Lab), [address], [place], [address], 22:00:18 vitamin D, 25-hydroxy, total, serum 2021 [facility] (Lab), [address], [place], [address], 22:00:19 pap, LB 2019 020 [facility] ([facility]), [address], [place], [address], 0 14:18:06 HPV DNA, high-risk 2019 020 [facility] [address], [place], [address], 0 14:18:06 Referral None recorded. Procedures None [...] and labor atory findi ngs. See https ://Haolianluo/s ites/ defau lt/fi les/2 018-0 3/AW- 71193 _002_ 01.pd f for furth er infor matio n. Test perfo rmed by [facility] d/b/a [facility], [address], [place] [address] , Manoj Garber ra, DO, Labor atory [...] e detec tion of E6/E7 viral mRNA[address] [facility] shoul d be corre lated with patie nt prese ntati on, histo ry, cervi bravo cytol ogy and other clini bravo and labor atory findi ngs. See https ://Haolianluo/s ites/ defau lt/fi les/2 018-0 3/AW- 19024 _002_ 01.pd f for jose er infor ana n. Test [facility]fo [facility]med by [facility], d/b[facility]a [facility], [address], [place] [address] , Manoj Garber ra, DO, Labor atory Direc tor. End of t Techn ical servi kimmy provi ded by [facility], d/b/a [facility], [address] [place] [address] Jean [place] MD, [facility] [employer] Dire tor. Case revie wed and diagn osis rende red at [facility], d/b/a [facility], [address] [place] [address] Jean [place] MD, [facility] Dire tor. CONFI DENTI AL Not Available [facility] ([facility]) [address], [place], [address], 11/17/2019 14:38:32 11/16/19 20 11/17/2019 HPV DNA, high- risk HPV high risk NOT DETECT ED normal Not Available [facility] ([facility]) [address], [place], [address], 11/17/2019 14:38:32 01/29/20 21 01/28/2021 IMAGE GUIDE D PAP AND HPV REGAR DLESS image guided Pap, HPV regardless of Pap result SEE RESULT S BELOW CASE REPOR T: Cytol ogy Gynec ologi bravo Repor t Case: [id number] Autho gilberto fisher Provi winston: Tami Cassidy, MARQUIS Fonscea cted: 01/28 1454 Order ing Locat ion: [...] clini luis a liudmila nted. Not Available [facility] (Lab) [address], [place], [address], 01/30/2021 14:57:57 01/29/20 21 01/28/2021 TRICH OMONA S VAGIN COMFORT (RRNA ) trichomonas vaginalis ribosomal RNA (rrna) Negati ve negati ve Not Available [facility] (Lab) [address], [place], [address], 01/30/2021 14:57:57 01/29/20 21 01/28/2021 CT/GC (ASHLEE) , THINP REP VIAL chlamydia trachomatis, PCR Negati ve negati ve Not Available [facility] (Lab) [address] [place], [address], 01/30/2021 14:57:58 01/29/20 21 01/28/2021 CT/GC (ASHLEE) , THINP REP VIAL neisseria gonorrhoeae, PCR Negati ve negati ve Not Available [facility] (Lab) [address] [place], [address], 01/30/2021 14:57:58 05/01/20 22 05/01/2022 HEPAT ITIS C ANTIB DARLEEN SCREE N, REFLE X TO CONFI RMATI ON hepatitis C antibody Non-re active non-re active Antib odies to HCV Not Detec hebert, does not exclu de the possi bilit y of expos ure to HCV. Not Available [facility] Infectious Disease [address] [place], [place] [address], [place], [address], 05/02/2022 22:00:16 05/01/20 22 05/01/2022 HEPAT ITIS B SURFA CE ANTIG EN hepatitis B surface antigen Non-re active non-re active This assay was perfo rmed using [employer] ratio n reage nts and test kits. Value s obtai antonina with other assay metho ds or kits canno t be used inter cote eably . Not Available [facility] Infectious Disease [address] [place] [address], [address], 05/02/2022 22:00:16 05/01/20 22 05/01/2022 CBC W/DIF F WBC 5.7 10'3/ uL 3.6-10 .2 Not Available [facility] Infectious Disease [address] [place] [address], [address], 05/02/2022 22:00:17 05/01/20 22 05/01/2022 CBC W/DIF F RBC 4.60 10'6/ uL (based on docume nted legal sex) 4.10-5 .30 Not Available [facility] Infectious Disease [address] [place] [address], [address], 05/02/2022 22:00:17 05/01/20 22 05/01/2022 CBC W/DIF F HGB 12.6 g/dL (based on docume nted legal sex) 11.9-1 5.8 Not Available [facility] Infectious Disease [address] [place], [place] [address], [place], [address], 05/02/2022 22:00:17 05/01/20 22 05/01/2022 CBC W/DIF F HCT 39.3 % (based on docume nted legal sex) 37.4-4 8.3 Not Available [facility] [address] [place], [address], 05/02/2022 22:00:17 05/01/20 22 05/01/2022 CBC W/DIF F MCV 85.4 fL 82.0-9 9.0 Not Available [facility] [address] [place], [place] [address] [place], [address], 05/02/2022 22:00:17 05/01/20 22 05/01/2022 CBC W/DIF F MCH 27.4 pg 27.0-3 3.0 Not Available [facility] [address] [place], [place] [address], [place], [address], 05/02/2022 22:00:17 05/01/20 22 05/01/2022 CBC W/DIF F MCHC 32.1 g/dL 32.0-3 6.0 Not Available [facility] [address] [place], [place] [address], [place], [address], 05/02/2022 22:00:17 05/01/2005/01/2022 CBC W/DIF F RDW 13.8 % 11.0-1 5.0 Not Available [facility] [place], [address], 05/02/2022 22:00:17 05/01/20 22 05/01/2022 CBC W/DIF F plt 412 10'3/ uL 150-45 0 Not Available [facility] [address] [place], [place] [address], [place], [address], 05/02/2022 22:00:17 10/13/20 22 05/01/2022 CBC W/DIF F MPV 10.5 fL 9.8-12 .7 Not Available [facility] [address] [place], [address], 05/02/2022 22:00:17 05/01/20 22 05/01/2022 CBC W/DIF F NRBC's 0.0 % 0 Not Available [facility] [address] [place], [place] [address] [place], [address], 05/02/2022 22:00:17 05/01/20 22 05/01/2022 CBC W/DIF F absolute NRBCs 0.0 10'3/ uL 0 Not Available [facility] [address] [place], [place] [address] [place], [address], 05/02/2022 22:00:17 05/01/20 22 05/01/2022 CBC W/DIF F neutrophils 61.0 % 37.0-7 2.0 Not Available [facility] [address] [place], [place] [address], [place], [address], 05/02/2022 22:00:17 05/01/20 22 05/01/2022 CBC W/DIF F lymphocytes 28.8 % 16.0-4 8.0 Not Available [facility] [address] [place], [place] [address], [place], [address], 05/02/2022 22:00:17 05/01/20 22 05/01/2022 CBC W/DIF F monocytes 8.1 % 4.0-14 .0 Not Available [facility] [address] [place], [place] [address], [place], [address], 05/02/2022 22:00:17 05/01/20 22 05/01/2022 CBC W/DIF F eosinophils 1.1 % 0.0-9. 0 Not Available [facility] [address] [place], [place] [address], [place], [address], 05/02/2022 22:00:17 05/01/20 22 05/01/2022 CBC W/DIF F basophils 0.5 % 0.0-2. 0 Not Available [facility] Infectious Disease [address] [place], [place] [address], [place], [address], 05/02/2022 22:00:17 05/01/20 22 05/01/2022 CBC W/DIF F immature granulocytes 0.5 % no define d refere nce range Not Available [facility] Infect[facility] Disease [address] [place], [place] [address], [place], [address], 05/02/2022 22:00:17 05/01/20 22 05/01/2022 CBC W/DIF F absolute neutrophils 3.5 10'3/ uL 1.1-6. 0 Not Available [facility] Infect[facility] Disease [address] [place], [place] [address], [place], [address], 05/02/2022 22:00:17 05/01/20 22 05/01/2022 CBC W/DIF F absolute lymphocytes 1.6 10'3/ uL 0.7-3. 4 Not Available [facility] Infectious Disease [address] [place] [address], [address], 05/02/2022 22:00:17 05/01/20 22 05/01/2022 CBC W/DIF F absolute monocytes 0.5 10'3/ uL 0.3-1. 0 Not Available [facility] Infect[facility] Disease [address] [place] [address], [address], 05/02/2022 22:00:17 05/01/20 22 05/01/2022 CBC W/DIF F absolute eosinophils 0.1 10'3/ uL 0.0-0. 6 Not Available [facility] Infect[facility] Disease [address] [place], [place] [address], [place], [address], 05/02/2022 22:00:17 05/01/20 22 05/01/2022 CBC W/DIF F absolute basophils 0.0 10'3/ uL 0.0-0. 1 Not Available [facility] Infectious Disease [facility] [place], [address], 05/02/2022 22:00:17 05/01/20 22 05/01/2022 CBC W/DIF [...] resul ts are expec hebert. Not Available [facility] Disease [address] [place], [place] [address], [place], [address], 05/02/2022 22:00:17 05/01/20 22 05/01/2022 LIPID PANEL ,AMA (LDL- CALC) total cholesterol 206 mg/dL 0-199 high Not Available [facility] [place], [address], 05/02/2022 22:00:17 05/01/20 22 05/01/2022 LIPID PANEL ,AMA (LDL- CALC) triglyceride s 95 mg/dL 0.00-1 50.00 NCEP Refer ence Value s for Trigl yceri genna: Samantha l: <150 mg/dL Borde rline High: 150 - 199 mg/dL High: 200 - 499 mg/dL Very High: >/= 500 mg/dL Not Available [facility] Infectious Disease [facility] [place], [address], 05/02/2022 22:00:17 05/01/20 22 05/01/2022 LIPID PANEL ,AMA (LDL- CALC) HDL cholesterol 56 mg/dL >40 Not Available [facility] [address] [place], [address], 05/02/2022 22:00:17 05/01/20 22 05/01/2022 LIPID PANEL [...] mg/dL , HDL <40 mg/dL Not Available [facility] Infect[facility] Disease [address] [place] [address], [address], 05/02/2022 22:00:17 05/01/20 22 05/01/2022 LIPID PANEL ,AMA (LDL- CALC) non-HDL cholesterol 150 mg/dL no refere nce range A reaso nable goal for non-H DL sol stero l is one that is 30 mg/dL highe r than the LDL sol stero l goal. Not Available [facility] Infect[facility] Disease [address] [place] [address], [address], 05/02/2022 22:00:17 05/01/20 22 05/01/2022 LIPID PANEL ,AMA (LDL- CALC) chol/HDL ratio 3.7 . 0.0-5. 0 Not Available [facility] Infectious Disease [address] [place], [address], 05/02/2022 22:00:17 05/01/20 22 05/01/2022 CMP(C OMPRE HENSI VE METAB OLIC PANEL ) sodium 137 mmol/ L 133-14 6 Not Available [facility] Infect[facility] Disease [address] [place] [address], [address], 05/02/2022 22:00:18 05/01/20 22 05/01/2022 CMP(C OMPRE HENSI VE METAB OLIC PANEL ) potassium 4.6 mmol/ L 3.5-5. 1 Not Available [facility] Infectious Disease [address] [place], [place] [address], [place], [address], 05/02/2022 22:00:18 05/01/20 22 05/01/2022 CMP(C OMPRE HENSI VE METAB OLIC PANEL ) chloride 104 mmol/ L 98-107 Not Available [facility] Infect[facility] Disease [address] [place], [place] [address], [place], [address], 05/02/2022 22:00:18 05/01/20 22 05/01/2022 CMP(C OMPRE HENSI VE METAB OLIC PANEL ) carbon dioxide 23 mmol/ L 21-31 Not Available [facility] Infect[facility] Disease [address] [place], [place] [address], [place], [address], 05/02/2022 22:00:18 05/01/20 22 05/01/2022 CMP(C OMPRE HENSI VE METAB OLIC PANEL ) anion gap 10 mmol/ L 4-13 Not Available [facility] Infectious Disease [address] [place], [place] [address], [place], [address], 05/02/2022 22:00:18 05/01/20 22 05/01/2022 CMP(C OMPRE HENSI VE METAB OLIC PANEL ) blood urea nitrogen 17 mg/dL 7-25 Not Available [facility] Infectious Disease [address] [place], [place] [address], [place], [address], 05/02/2022 22:00:18 05/01/20 22 05/01/2022 CMP(C OMPRE HENSI VE METAB OLIC PANEL ) creatinine 0.92 mg/dL 0.60-1 .30 Not Available [facility] Infect[facility] Disease [address] [place], [place] [address], [address], 05/02/2022 22:00:18 05/01/20 22 05/01/2022 CMP(C OMPRE HENSI VE METAB OLIC PANEL ) egfrcr (CKD-epi 2020) 84 mL/mi n/1.7 3_m2 >=60 Not Available [facility] Infectious Disease [facility] [place], [address], 05/02/2022 22:00:18 05/01/20 22 05/01/2022 CMP(C OMPRE HENSI VE METAB OLIC PANEL ) calcium 10.0 mg/dL 8.3-10 .5 Not Available [facility] Infectious Disease [facility] [place], [address], 05/02/2022 22:00:18 05/01/20 22 05/01/2022 CMP(C OMPRE HENSI VE METAB OLIC PANEL ) glucose 87 mg/dL 70-100 Not Available [facility] Infectious Disease [address] [place], [address], 05/02/2022 22:00:18 05/01/20 22 05/01/2022 CMP(C OMPRE HENSI VE METAB OLIC PANEL ) protein, total 7.8 g/dL 6.4-8. 3 Not Available [facility] Infectious Disease [facility] [place], [address], 05/02/2022 22:00:18 05/01/20 22 05/01/2022 CMP(C OMPRE HENSI VE METAB OLIC PANEL ) albumin 4.9 g/dL 3.5-5. 0 Not Available [facility] [address] [place], [address], 05/02/2022 22:00:18 05/01/20 22 05/01/2022 CMP(C OMPRE HENSI VE METAB OLIC PANEL ) ALT 37 units /L 9-43 Not Available [facility] Infectious Disease [address] [place] [address], [address], 05/02/2022 22:00:18 05/01/20 22 05/01/2022 CMP(C OMPRE HENSI VE METAB OLIC PANEL ) alkaline phosphatase 72 units /L 34-104 Not Available [facility] Infectious Disease [address] [place] [address], [address], 05/02/2022 22:00:18 05/01/20 22 05/01/2022 CMP(C OMPRE HENSI VE METAB OLIC PANEL ) AST 26 units /L 13-39 Not Available [facility] Infect[facility] Disease [address] [place] [address], [address], 05/02/2022 22:00:18 05/01/20 22 05/01/2022 CMP(C OMPRE HENSI VE METAB OLIC PANEL ) bilirubin, total 0.4 mg/dL 0.2-1. 2 Not Available [facility] [address] [place] [address], [address], 05/02/2022 22:00:18 05/01/20 22 05/01/2022 TSH, REFLE X FREE T4 TSH 2.09 uIU/m L 0.30-5 .33 Not Available [facility] Infect[facility] Disease [address] [place] [address], [address], 05/02/2022 22:00:18 05/01/20 22 05/01/2022 VITAM IN D, 25-OH (TOTA L D2/D3 ) vitamin D, 25-hydroxy, total 23.8 NG/mL 30.0-1 00.0 low Sugge stive of Defic iency : <20 ng/mL Sugge stive of Insuf ficie ncy: 20-29 ng/mL Sugge stive of Suffi cienc y: 30-10 0 ng/mL Sugge stive of Toxic ity: >150 ng/mL Not Available [facility] [address] [place], [address], 05/02/2022 22:00:19 05/01/20 22 05/01/2022 HEMOG LOBIN [...] sugge sted Not Available [facility] [address] [place], [address], 05/02/2022 22:00:19 05/01/20 22 05/01/2022 HIV 1/2 ANTIG EN/AN TIBOD Y, REFLE X CONFI RMATI ON HIV Ag-Ab total quant 0.08 idx <1.00 Not Available [facility] [address] [place], [place] [address], [place], [address], 05/02/2022 22:00:19 05/01/20 22 05/01/2022 HIV 1/2 ANTIG EN/AN TIBOD Y, REFLE X CONFI RMATI ON HIV Ag-Ab total Non-re active non-re active Not Available [facility] [address] [place], [address], 05/02/2022 22:00:19 05/01/20 22 05/01/2022 HIV 1/2 ANTIG EN/AN TIBOD Y, REFLE X CONFI RMATI ON HIV-1 antibody quant 0.01 idx <1.00 Not Available [facility] [address] [place], [place] [address], [place], [address], 05/02/2022 22:00:19 05/01/20 22 05/01/2022 HIV 1/2 ANTIG EN/AN TIBOD Y, REFLE X CONFI RMATI ON HIV-1 antibody Non-re active non-re active Not Available [facility] Disease [address] [place] [address], [address], 05/02/2022 22:00:19 05/01/20 22 05/01/2022 HIV 1/2 ANTIG EN/AN TIBOD Y, REFLE X CONFI RMATI ON HIV-1 antigen (P24) quant 0.08 idx <1.00 Not Available [facility] Disease [address] [place] [address], [address], 05/02/2022 22:00:19 05/01/20 22 05/01/2022 HIV 1/2 ANTIG EN/AN TIBOD Y, REFLE X CONFI RMATI ON HIV-1 antigen (P24) Non-re active non-re active Not Available [facility] Disease [address] [place] [address], [address], 05/02/2022 22:00:19 05/01/20 22 05/01/2022 HIV 1/2 ANTIG EN/AN TIBOD Y, REFLE X CONFI RMATI ON HIV-2 antibody quant 0.04 idx <1.00 Not Available [facility] Infect[facility] Disease [address] [place] [address], [address], 05/02/2022 22:00:19 05/01/20 22 05/01/2022 HIV 1/2 [...] on will be perfo rmed by the [employer] HIV 1/2 Suppl ement al Assay . The perfo rmanc e of this assay has not been estab lishe d for neona cindy and the assay shoul d not be used in indiv idual s young er than 2 years of age. Not Available [facility] Infectious Disease [address] [place], [place] [address], [place], [address], 05/02/2022 22:00:19 05/01/20 22 05/01/2022 RPR SCREE N/REF MIMI TITER /FTA RPR screen Nonrea ctive nonrea ctive Not Available [facility] Infect[facility] Disease [address] [place], [place] [address], [place], [address], 05/02/2022 22:00:20 05/01/20 22 05/01/2022 HEPAT ITIS B CORE, IGM hepatitis B core IgM antibody Negati ve negati ve Not Available [facility] [address] [place], [address], 05/02/2022 22:00:20 05/01/20 22 05/01/2022 IMAGE GUIDE D PAP AND HPV REGAR DLESS image guided Pap, HPV regardless of Pap result SEE RESULT S BELOW CASE REPOR T: Cytol ogy Gynec ologi bravo Repor t Case: [id number] Autho gilberto fisher Provi winston: Rachlele Ceron NP Colle cted: 05/01 1400 Order ing Locat ion: [place] Patho logjemma Recei eleuterio: 05/02 0738 First Scree n: Tammie Elkins , CT Rescr een: Hill Gonzalez, CT Speci men: Screflorence mathews Pap - Image d, Cervi x STATE MENT OF ADEQU ACY: Satis facto ry for evalu ation Trans forma tion zone compo nent absen t The absen ce of an endoc ervic al compo nent was confi rmed by an addit ional mayra ner. FINAL DIAGN OSIS: Negat mindy for Intra epith elial Lesio n or Yu lombardo (NIL) . Shift in antwon sugge [...] warra nted. Not Available [facility] [address] [place], [address], 05/07/2022 16:14:04 05/01/20 22 05/01/2022 CT/GC (ASHLEE) , THINP REP VIAL chlamydia trachomatis, PCR Negati ve negati ve Not Available [facility] [address] [place], [address], 05/07/2022 16:14:05 05/01/20 22 05/01/2022 CT/GC (ASHLEE) , THINP REP VIAL neisseria gonorrhoeae, PCR Negati ve negati ve Not Available [facility] [address] [place], [address], 05/07/2022 16:14:05 05/01/20 22 05/01/2022 TRICH OMONA S VAGIN COMFORT (RRNA ) trichomonas vaginalis ribosomal RNA (rrna) Negati ve negati ve Not Available [facility] [address], [place], [address], 05/07/2022 16:14:05 01/23/20 23 01/22/2023 HEPAT ITIS C ANTIB DARLEEN SCREE N, REFLE X TO CONFI RMATI ON hepatitis C antibody Non-re active non-re active Antib odies to HCV Not Detec hebert, does not exclu de the possi bilit y of expos ure to HCV. Not Available [facility] (Lab) [address], [place], [address], 01/23/2023 23:29:49 01/23/20 23 01/22/2023 HEPAT ITIS B SURFA CE ANTIG EN hepatitis B surface antigen Non-re active non-re active This assay was perfo rmed using [employer] ratio n reage nts and test kits. Value s obtai antonina with other assay metho ds or kits canno t be used inter cote eably . Not Available [facility] (Lab) [address], [place], [address], 01/23/2023 23:29:49 01/23/20 23 01/22/2023 HIV 1/2 ANTIG EN/AN TIBOD Y, REFLE X CONFI RMATI ON HIV antigen/anti body Nonrea ctive nonrea ctive HIV-1 antig en and HIV-1 /HIV- 2 antib odies were not detec hebert. No labor atory evide nce of HIV infec tion. Not Available [facility] (Lab) [address], [place], [address], 01/23/2023 23:29:50 01/23/20 23 01/22/2023 RPR SCREE N/REF MIMI TITER /FTA RPR screen Nonrea ctive nonrea ctive Not Available [facility] (Lab) [address], [place], [address], 01/23/2023 23:29:50 01/23/20 01/22/2023 HEPAT ITIS B CORE, IGM hepatitis B core IgM antibody Negati ve negati ve Not Available [facility] (Lab) [address], [place], [address], 01/23/2023 23:29:50 01/23/20 23 01/22/2023 IMAGE GUIDE D PAP AND HPV REGAR DLESS image guided Pap, HPV regardless of Pap result SEE RESULT S BELOW abnormal CASE REPOR T: Cytol ogy Gynec ologi bravo Repor t Case: [id number] Autho rilorenn g Provi winston: Rachelle Ceron, LINE CLEANER Colle cted: 01/22 1206 Order ing Locat [...] clini luis a nur nted. Not Available [facility] (Lab) [address], [place], [address], 01/24/2023 15:35:51 01/23/20 23 01/22/2023 CT/GC (ASHLEE) , THINP REP VIAL chlamydia trachomatis, PCR Negati ve negati ve Not Available [facility] (Lab) [address] [place], [address], 01/24/2023 15:35:51 01/23/20 23 01/22/2023 CT/GC (ASHLEE) , THINP REP VIAL neisseria gonorrhoeae, PCR Negati ve negati ve Not Available [facility] (Lab) [address], [place], [address], 01/24/2023 15:35:51 01/23/20 23 01/22/2023 TRICH OMONA S VAGIN COMFORT (RRNA ) trichomonas vaginalis ribosomal RNA (rrna) Negati ve negati ve Not Available [facility] (Lab) [address], [place], [address], 01/24/2023 15:35:52 01/25/20 24 01/25/2024 HEPAT ITIS C ANTIB DARLEEN SCREE N, REFLE X TO CONFI RMATI ON hepatitis C antibody Non-re active non-re active Antib odies to HCV Not Detec hebert, does not exclu de the possi bilit y of expos ure to HCV. Not Available [facility] (Lab) [address], [place], [address], 01/26/2024 21:33:54 01/25/20 24 01/25/2024 HEPAT ITIS B SURFA CE ANTIG EN hepatitis B surface antigen Non-re active non-re active This assay was perfo rmed using [employer] n reage nts and test kits. Value s obtai antonina with other assay metho ds or kits canno t be used inter cote eably . Not Available [facility] (Lab) [address], [place], [address], 01/26/2024 21:33:54 01/25/20 24 01/25/2024 HIV 1/2 ANTIG EN/AN TIBOD Y, REFLE X CONFI RMATI ON HIV antigen/anti body Nonrea ctive nonrea ctive HIV-1 antig en and HIV-1 /HIV- 2 antib odies were not detec hebert. No labor atory evide nce of HIV infec tion. Not Available [facility] (Lab) [address], [place], [address], 01/26/2024 21:33:55 01/25/20 24 01/25/2024 RPR SCREE N, REFLE X TITER /CONF IRMAT ION RPR screen Nonrea ctive nonrea ctive Not Available [facility] (Lab) [address], [place], [address], 01/26/2024 21:33:55 01/25/20 24 01/25/2024 HEPAT ITIS B CORE, IGM hepatitis B core IgM antibody Non-re active non-re active IgM anti- HBc not detec hebert. Does not exclu de the possi bilit y of expos ure to or infec tion with HBV. Not Available [facility] (Lab) [address], [place], [address], 01/26/2024 21:33:55 01/25/20 24 01/25/2024 IMAGE GUIDE [...] Recei eleuterio: 01/25 1326 First Scree n: Abrahan tafoya, Jason am, CT Patho logis t: [...] mable d, as erika moses. Not Available [facility] (Lab) [address], [place], [address], 02/01/2024 11:48:58 01/25/20 24 01/25/2024 CT/GC (ASHLEE) , THINP REP VIAL chlamydia trachomatis, PCR Negati ve negati ve Not Available [facility] (Lab) [address], [place], [address], 02/01/2024 11:48:59 01/25/20 24 01/25/2024 CT/GC (ASHLEE) , THINP REP VIAL neisseria gonorrhoeae, PCR Negati ve negati ve Not Available [facility] (Lab) [address], [place], [address], 02/01/2024 11:48:59 01/25/20 24 01/25/2024 TRICH OMONA S VAGIN COMFORT (RRNA ) trichomonas vaginalis ribosomal RNA (rrna) Negati ve negati ve Not Available [facility] (Lab) [address], [place], [address], 02/01/2024 11:49:00 Result Notes None recorded. Problems Name Problem SNOMED Code Status Onset Date Resolution Date Notes Provider Name and Address Organization Details Recorded Time Steriliz ation procedur e Completed 201501/15/2021 Encounte r for steriliz ation;Pr actice ID: 0001 Lilia robertson [facility] 17:41:28 Pelvic and perineal pain [id number] Completed 201501/15/2021 Pelvic and perineal pain;Pra ctice ID: 0001 Lilia Chavez [facility] 17:41:18 Removal of intraute rine device Completed 201501/15/2021 Encounte r for removal of intraute rine contrace ptive device;P ractice ID: 0001 Lilia Chavez null, [facility] 17:41:[address] Concept Completed 201601/15/2021 Encntr for carbon brush maker exam (general ) (routine ) w/o abn findings ;Practic e ID: 0001 Lilia robertson, [facility] 17:41:23 Finding of sensatio n of breast Completed 201701/15/2021 Mastodyn ia;Pract ice ID: 0001 Lilia robertson, [facility] 17:41:03 Benign essentia l hyperten princess complica ting pregnanc y, childbir th and the puerperi um - not delivere d [id number] Completed 201401/15/2021 ESSEN HYPERTEN -ANTEPAR T;Practi ce ID: 0001 Lilia robertson, [facility] 17:40:59 Glucose toleranc e test during pregnanc y - baby not yet delivere d outside referenc e range [id number] Completed 201401/15/2021 ABN GLUCOSE- ANTEPART UM;Pract ice ID: 0001 Lilia robertson, [facility] 17:41:32 Routine antenata l care Completed 201401/15/2021 Supervis ion of other normal pregnanc y;Practi ce ID: 0001 Lilia robertson, [facility] 17:40:42 Labor and delivery complica hebert by heart rate anomaly [id number] Completed 201401/15/2021 HEART RATE NON REASSURI NG;Pract ice ID: 0001 Lilia robertson, [facility] 17:41:12 Delivery normal [id number] Completed 201401/15/2021 NORMAL DELIVERY ;Practic e ID: 0001 Lilia robertson, [facility] 17:41:34 Single live from singleto n pregnanc y [id number] Completed 201401/15/2021 DELIVER- SINGLE LIVEBORN ;Practic e ID: 0001 Lilia roebrtson, [facility] 17:40:55 Transien t hyperten princess of pregnanc y - delivere d [id number] Completed 201401/15/2021 Transien t hyperten princess of pregnanc y, with delivery ;Practic e ID: 0001 Lilia robertson, [facility] 17:41:00 Transien t hyperten princess of pregnanc y - delivere d with postnata l complica tion [id number] Completed 201401/15/2021 TRANS HYPERTEN -POSTPAR T;Practi ce ID: 0001 Lilia robertson, [facility] 17:41:01 Lochia finding Completed 201401/15/2021 Encounte r for routine postpart um follow-u p;Practi ce ID: 0001 Lilia robertson, [facility] 17:41:30 Pregnanc y-induce d hyperten princess Completed 201401/15/2021 Gestatio nal htn w/o signific ant proteinu cassi, third trimeste r;Practi ce ID: 0001 Lilia robertson, [facility] 17:41:04 Insertio n of intraute rine contrace ptive device Completed 201401/15/2021 Encounte r for insertio n of intraute rine contrace ptive device;P ractice ID: 0001 Lilia robertson, [facility] 17:41:40 Pregnanc y test negative [id number] Completed 201401/15/2021 Encounte r for pregnanc y test, result negative ;Practic e ID: 0001 Lilia robertson [facility] 17:41:11 Contrace ptive sheath status [id number] Completed 201401/15/2021 Encounte r for routine checking of intraute rine contrace p dev;Prac kristian ID: 0001 Lilia robertson [facility] 17:41:08 Emotiona l state finding Completed 201501/15/2021 Emotiona l lability ;Practic e ID: 0001 [facility] 17:41:15 Abnormal weight gain 878066627 Completed 201501/15/2021 Abnormal weight gain;Pra ctice ID: 0001 [facility] 17:40:49 Finding of body mass index 852204889 Completed 201501/15/2021 Body mass index (BMI) 40.0-44. 9, adult;Pr actice ID: 0001 Lilia robertson [facility] 17:41:20 Educatio n Completed 201501/15/2021 Encounte r for oth general cnsl and advice on contrace ption;Pr actice ID: 0001 Lilia robertson [facility] 17:41:27 Procedur e Completed 201501/15/2021 Encounte r for other preproce dural examinat ion;Prac kristian ID: 0001 Lilia robertson [facility] 17:41:26 Examinat ion for accident Completed 201401/15/2021 Observat ion followin g other accident ;Practic e ID: 0001 Lilia robertson [facility] 17:41:07 Primigra natalee [id number] Completed 201401/15/2021 Supervis ion of normal first pregnanc y;Natalieti ce ID: 0001 Lilia robertson [facility] 17:40:38 Body mass index 30+ - obesity 417229713 Completed 201701/15/2021 Body mass index (BMI) 39.0-39. 9, adult;Re corded Elsewher e: No Locat ion: [facility] S ource: EHR [employer] Server barbi: N Natalieti ce ID: 0001 Alex lable Time: 09:00:00 AM Lilia robertson [facility] 17:40:50 Ultrason ography Completed 201401/15/2021 Antenata l screenin g for malforma tion using ultrason ics;Rashaad rded Elsewher e: No Locat ion: [facility] S ource: [employer] Server barbi: N Natalieti ce ID: 0001 Alex lable Time: 02:00:00 PM Lilia robertson [facility] 17:40:52 Antenata l screenin g Completed 201401/15/2021 Antenata l screenin g for malforma tion using ultrason ics;Rashaad rded Elsewher e: No Locat ion: [facility] S ource: [employer] [employer] Server barbi: N Practi ce ID: 0001 Alex lable Time: 02:00:00 PM Lilia robertson [facility] 17:41:06 Congenit al malforma tion [id number] Completed 201401/15/2021 Antenata l screenin g for malforma tion using ultrason ics;Rashaad rded Elsewher e: No Locat ion: [facility] S ource: [employer] [employer] Server barbi: N Natalieti ce ID: 0001 Alex lable Time: 02:00:00 PM Lilia robertson [facility] 17:41:19 Screenin g for malignan t neoplasm of cervix Completed 201301/15/2021 Screenin g for malignan t neoplasm s of the cervix;R ecorded Elsewher e: No Locat ion: [facility] S ource: [employer] [employer] Server barbi: N Practi ce ID: 0001 Alex lable Time: 09:30:00 AM Lilia robertson [facility] 17:40:58 Postpart um care Completed 201101/15/2021 Routine postpart um follow-u p;Practi ce ID: 0001 Lilia robertson [facility] 17:40:40 Implanta tion of subcutan eous contrace ptive Completed 201201/15/2021 Insertio n of implanta ble subderma l contrace ptive;Pr actice ID: 0001 Lilia robertson [facility] 17:40:53 Subcutan eous contrace ptive implant present [id number] Completed 201201/15/2021 Removal Or Check Nexplano n;Practi ce ID: 0001 Lilia robertson [facility] 17:41:33 Speciali zed medical examinat ion Completed 201201/15/2021 Routine gynecolo gical examinat ion;Prac kristian ID: 0001 Lilia robertson [facility] 17:41:36 Adult health examinat ion Completed 201301/15/2021 Routine general medical examinat ion at a health care facility ;Practic e ID: 0001 Lilia robertson [facility] 17:41:13 Speciali zed medical examinat ion Completed 201301/15/2021 Other specifie d chlamydi al diseases ;Practic e ID: 0001 Lilia robertson [facility] 17:41:37 Venereal disease screenin g Completed 201301/15/2021 Screenin g examinat ion for venereal disease; Practice ID: 0001 Lilia robertson [facility] 17:40:56 Amenorrh ea 71808069 Completed 201401/15/2021 AMENORRH EA;Pract ice ID: 0001 [facility] 17:40:45 Pregnanc y test positive [id number] Completed 201401/15/2021 Positive Pregnanc y Test;Pra ctice ID: 0001 [facility] 17:41:09 anatomy study Completed 201401/15/2021 [facility] SURVEY;P ractice ID: 0001 [facility] 17:41:16 Postpart um depressi on [id number] Completed 201401/15/2021 Postpart um depressi on;Recor ded Elsewher e: No Locat ion: [facility] S ource: EHR [employer] Server barbi: N Practi ce ID: 0001 Alex lable Time: 01:00:00 PM Lilia robertson [facility] 17:41:[address] Concept Completed 201501/15/2021 Encntr for general adult medical exam w/o abnormal findings ;Recorde d Elsewher e: No [facility] Server barbi: N Practi ce ID: 0001 Alex lable Time: 12:15:00 PM Lilia robertson [facility] 17:41:22 Low risk human papillom avirus deoxyrib onucleic acid detected in specimen from cervix [id number] 811134 Completed 201601/15/2021 Cervical low risk HPV DNA test positive ;Recorde d Tanja e: No Locat ion: Yvon 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 17:40:48 Problem Notes None recorded. Procedures Surgical History Date Name Laterality Status Provider Name and Address Organization Details Recorded Time 01/18/20 16 ligation of bilateral fallopian tubes completed Lilia Scott [facility] 01/15/2021 17:46:28 07/20/19 05 reconstruction of anterior cruciate ligament of knee joint completed Amy Martinez [facility] 11/04/2019 14:16:09 Imaging Results None recorded. Procedure Notes None recorded. Medical Equipment None Reported. Allergies No known drug allergies Medications Name Sig Start Date Stop Date Status Note LastModified by Organization Details LastModified Time Mirena 21 mcg/24 hr (up to 8 years) 52 mg intrauter ine device 01/30 completed Prescrib mitch Agrawal e: Yes [facility] By: amkellis burrowsuntdiaz DateTime : 05/22/20 15 03:45:00 PM Not [...] Prescrib ed Elsewher e: Yes Loca tion: Bonnie florence [facility] odify By: amkuhzay chaudhari DateTime : 08/13/19 16 12:15:00 PM Not Available Not Available Not Available Diflucan 150 mg tablet take 1 tablet (150MG) by oral route once 06/18 completed Prescrib ed Elsewher e: No Locat ion: [facility] odify By: [email or web address] trick En counter DateTime [...] Prescrib ed Elsewher e: No Locat ion: [facility] odify By: [email or web address] trick En counter DateTime : 04/20/20 14 09:30:00 AM Not Available Not Available Not Available Flagyl 500 mg tablet take 1 tablet (500MG) by oral route every 12 hours 06/18 completed Prescrib ed Elsewher e: No Locat ion: [facility] odify By: [email or web address] trick En counter DateTime [...] Prescrib ed Elsewher e: No Locat ion: [facility] odify By: khoi burrowsunter DateTime : 01/24/20 [...] Prescrib ed Elsewher e: Yes Loca tion: [facility] odify By: khoi burrowsunter DateTime : 04/19/20 15 01:00:00 PM Not Available Not Available Not Available Stool Softener 50 mg capsule take 1 capsule by oral route every day at bedtime as needed 01/30 completed Prescrib ed Elsewher e: Yes Loca tion: [facility] odify By: khoi burrowsuntdiaz DateTime : 04/19/20 15 01:00:00 PM Not Available Not Available Not Available topiramat e 50 mg tablet 01/28 completed Not Available Not Available Not Available Nexplanon 68 mg subdermal implant Every 3 years 04/20 completed Prescrib ed Elsewher e: No Locat ion: Yvon henriquez [facility] odify By: [email or web address] kiarak En counter DateTime : 02/22/20 13 10:30:00 AM Not Available Not Available Not Available + DHA 28 mg iron-975 mcg-200 mg oral pack 09/10 completed Prescrib ed Elsewher e: Yes Loca tion: [facility] odify By: [email or web address] z Encoun ter DateTime : 01/07/20 12 02:00:00 PM Not Available Not Available Not Available Selsun Blue Moisturiz ing 1 % shampoo apply to affected area 3x/week for 1-2wks; apply for 10 min. interval s 01/30 completed Prescrib ed Elsewher e: No Locat ion: [facility] odify By: khoi chaudhari DateTime : 11/29/19 16 09:00:00 AM Not Available Not Available Not Available Emgality Pen 120 mg/mL subcutane ous pen injector 2023 active Not Available Not Available Not Avai lable Fluzone Quad [id number] (PF) 60 mcg (15 mcg x 4)/0.5 mL IM syringe 01/15 completed Not Available Not Available Not Available Vitals Date Recorded Body height Body mass index (BMI) Body weight Systolic blood pressure Diastolic blood pressure Provider Name and Address Organization Details Last Updated DateTime 11/16/2019 165.1 cm 36.9 kg/m2 712654.5 1 g 118 mm[Hg] 79 mm[Hg] Amy Martinez [facility] 0 12:29:22 Date Recorded Body height Body mass index (BMI) Body weight Systolic blood pressure Diastolic blood pressure Provider Name and Address Organization Details Last Updated DateTime 01/22/2023 165.1 cm 36.8 kg/m2 330138.9 1 g 127 mm[Hg] 82 mm[Hg] Madyson Alberts [facility] 3 12:25:56 Date Recorded Body height Body mass index (BMI) Body weight Systolic blood pressure Diastolic blood pressure Provider Name and Address Organization Details Last Updated DateTime 01/25/2024 165.1 cm 37.1 kg/m2 043375.1 g 124 mm[Hg] 78 mm[Hg] Ambar Platt [facility] 4 09:37:02 Date Recorded Body height Body mass index (BMI) Body weight Systolic blood pressure Diastolic blood pressure Provider Name and Address Organization Details Last Updated DateTime 01/28/2021 165.1 cm 33.6 kg/m2 61641.66 g 136 mm[Hg] 80 mm[Hg] Lilia Chavez [facility] 1 12:19:17 Date Recorded Body height Body mass index (BMI) Body weight Systolic blood pressure Diastolic blood pressure Provider Name and Address Organization Details Last Updated DateTime 05/01/2022 165.1 cm 36.8 kg/m2 242414.6 3 g 130 mm[Hg] 87 mm[Hg] Madyson Alberts [facility] 2 11:19:58 Social History Question Answer Notes LastModified by Organizat ion Details LastModified Time Tobacco Smoking Status Former Smoker Ambar Platt [facility] 01/25/2024 09:39:22 Do You Have An Advance Directive? No [email or web address] Information not available 01/28/2021 How Many Years Have You Consumed Alcohol? 20 Information not available 01/22/2023 Are You Blind Or Do You Have Difficulty Seeing? No [email or web address] Information not available 01/28/2021 What Is Your Level Of Caffeine Consumption? Heavy Information not available 01/22/2023 How Much Tobacco Do You Chew? None [email or web address] Information not available 01/28/2021 In The 14 Days Before Symptom Onset, Have You Had Close Contact With A Laboratory-confir med COVID-19 While That Case Was Ill? No [email or web address] Information not available 01/28/2021 In The 14 Days Before Symptom Onset, Have You Had Close Contact With A Person Who Is Under Investigation For COVID-19 While That Person Was Ill? No [email or web address] Information not available 01/28/2021 Have You Been To An Area Known To Be High Risk For COVID-19? No [email or web address] Information not available 01/28/2021 Are You Deaf Or Do You Have Serious Difficulty Hearing? No [email or web address] Information not available 01/28/2021 What Type Of Diet Are You Following? [email or web address] Information not available 01/28/2021 What Is The Highest Grade Or Level Of School You Have Completed Or The Highest Degree You Have Received? [id number] Information not available 01/28/2021 Are There Any Guns Present In Your Home? No [email or web address] Information not available 01/28/2021 Do You Use Protection During Sex? No Information not available 01/28/2021 Do You Use Your Seat Belt Or Car Seat Routinely? Yes [email or web address] Information not available 01/28/2021 Do You Have Smoke And Carbon Monoxide Detectors In Your Home? Yes [email or web address] Information not available 01/28/2021 At What Age Did You Start Smoking Tobacco? 13 [email or web address] Information not available 01/28/2021 How Much Tobacco Do You Smoke? No [email or web address] Information not available 01/28/2021 Do You Use Sunscreen Routinely? Yes [email or web address] Information not available 01/28/2021 How Many Years Have You Smoked Tobacco? 20 Information not available 01/22/2023 Have You Used IV Drugs? No [email or web address] Information not available 01/28/2021 Do You Have Difficulty Walking Or Climbing Stairs? No Information not available 01/22/2023 Sex: Unknown Functional Status Question Answer Note LastModified by Organizat ion Details LastModified Time Do you use any illicit or recreational drugs? No Information not available 01/22/2023 What is your level of alcohol consumption? Occasional [email or web address] Information not available 01/28/2021 Are you able to walk? [email or web address] Information not available 01/28/2021 Are you able to care for yourself? 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 No Information not available 01/22/2023 Do you or have you ever used e-cigarettes or vape? Current user of electronic cigarettes Information not available 01/22/2023 What is your exercise level? Occasional walking [email or web address] Information not available 11/16/2019 Mental Status Question Answer Note LastModified by Organization D etails LastModified Time Do you feel stressed (tense, restless, nervous, or anxious, or unable to sleep at night)? [id number] Information not available 01/28/2021 Family History Relationship Description Onset Age of [...] available 04/19 11:20:02 Medical History Condition Response History of STI Other History of abnormal pap Y Headaches Y Gynecological History Statement/Question Response Abnormal [...] ICD10 Code Diagnosis Note 2506 Tami Suarez CNM [place] [address],[facility] [place] [address] 11/16/2019 12:20:12 11/16/2019 13:24:43 Gynecologic examination 87992604 Z01.419 Take Calcium with Vitamin D 1200mg [...] paper copy of today's plan if desired. [id number] Tami Suarze CNM [facility] [address] [address] 01/28/2021 11:58:20 01/28/2021 12:53:19 Gynecologic examination 32207027 Z01.419 Z11.51 Take Calcium with Vitamin D [...] paper copy of today's plan if desired. [id number] DAVID Louie [facility] [address] [address] 05/01/2022 10:57:51 05/01/2022 12:50:28 Gynecologic examination 87914050 Z01.419 Take Calcium with Vitamin D 1200mg [...] paper copy of today's plan if desired. WWEBC - BTLHx of abnormal pap about 10 years ago. No procedures required per patientPap done todaySTI testing added to papBlood STI testing orderedFam isacc hx of maternal aunt with ovarian cancer, unsure age of diagnosis - we discussed genetic testing. She will consider.E ncouraged patient to establish [facility] labs orderedRTC in 1 year or sooner if needed Venereal d isease screening 019939900 Z11.3 Sexually t ransmitted infectious disease 4974612 A64 [id number] DAVID Luoie [place] [address] [address] 01/22/2023 12:19:07 01/22/2023 12:43:15 Gynecologic examination 38867345 Z01.419 Z11.51 Take Calcium with Vitamin D [...] sooner if needed Venereal d isease screening 971515158 Z11.3 Sexually t ransmitted infectious disease 0233688 A64 [id number] DAVID Louie [facility] [address] [address] 01/25/2024 09:27:09 01/25/2024 11:23:33 Gynecologic examination 56023513 Z01.419 Z11.51 WWEBC - BTLpap updatedgc/ ct/trich [...] plan if desired. Venereal d isease screening 173066954 Z11.3 Sexually t ransmitted infectious disease [id number] A64 Health Concerns Section Related Observation LastModified by Organization Detai ls LastModified Time None Recorded Concern Status LastModified by Organization Details LastModified Time None Recorded Advance Directives Directive N: Payers Encounter Date Sequence Insurance Name Policy Number Policy Flores Covered Member ID Flores Member ID Guarantor Name 11/16/2019 1 [facility] PRIOR TO 01/17/2021 (MEDICAID REPLACEMENT - HMO) Bonnie Ortiz [id number] Bonnie Helms 01/28/2021 2 [facility] ON OR AFTER 01/17/21 (MEDICAID REPLACEMENT - HMO) Bonnie Ortiz [id number] Bonnie Quary 05/01/2022 2 [facility] - DOS ON OR AFTER 21 (MEDICAID REPLACEMENT - HMO) Bonnie Ortiz [id number] Bonnie Quary 05/01/2022 2 [place] [id number] Jayjay W McQuary [id number] Bonnie McQuary 01/22/2023 2 [place] [id number] Jayjay W McQuary [id number] Bonnie McQuary 01/22/2023 1 [facility] [id number] Bonnie R McQuary [id number] Bonnie McQuary 01/25/2024 2 [place] [id number] Jayjay W McQuary [id number] Bonnie Quary 01/25/2024 1 [facility] [id number] Bonnie R McQuary [id number] Bonnie Quary Notes Date Note Type Note [...] depression; No anxiety; No PMDD Tami robertson [facility] 11/16/2019 12:53:15 01/28/2021 text/html Annual GYNReport ed bypatient.Menstrua l cycle:Normal menses Urinary symptoms:No hematuria; No incontinence Vulva:No genital lesion Vagina:Normal vaginal discharge Breast:No breast pain; No breast lump; No nipple discharge Sexual complaints:No sexual complaints; No pain during intercourse; Normal libido Menopausal Symptoms:No menopausal symptoms; Normal vaginal lubrication Psychological symptoms:No depression; No anxiety; No PMDD Tami robertson [facility] 01/28/2021 12:51:57 05/01/2022 text/html Annual GYNReport [...] age 38 DAVID [address]ie [address], [place], [address], [facility] 05/01/2022 12:50:09 01/22/2023 text/html Annual [...] age 38 DAVID Louie [address], [place], [address], [facility] 01/22/2023 12:39:50 01/25/2024 text/html Annual [...] use; Encourage regular mammograms starting age 38Notes:33yo [id number] - BTLlast pap 01/2023 : nilm, HPV (+)would like STI testing today DAVID Louie [address], [place], [address], [facility] 01/25/2024 11:04:26 OBGyn Episode Ob Episode Information Episode Created Date Number of Fetuses Patient Bloodtype Patient rh Status Prepregnancy Weight lbs Domestic Partner Domestic Partner Phone Father Name Craft Recruiter Status 11/16/19 20 1 CLOSED Fetus Data [...] Domestic Partner Domestic Partner Phone Father Name Craft Recruiter Status 11/16/19 20 1 CLOSED Fetus Data [...]
--- OUTSIDE RECORDS SUMMARY | 2024-12-16 09:26 | XMS_ITS | Continuity of Care Document ---
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 Mill Tender Name Role Phone Paxton Maguire MD Unavailable Unavailable Allergies, Adverse Reactions, Alerts Substance Reaction Status Criticality No Known Allergies Active No Inform ation Medications Medication Instructions Dosage Effective Dates (start - stop) Status Comments Topamax 100 mg tablet take 1 Tablet by oral route 2 times every day 100 MG - Active naproxen 500 mg tablet take 1 tablet by oral route 2 times every day with food as needed 500 MG - Active PRN for pain, Imitrex 50 mg tablet take 1 tablet by oral route as needed 50 MG - Active take one at onset of headache, november repeat x 1 in two hours, max 2/24 hours Procedures Procedure Date PREV VISIT, EST, AGE [...] Diagnoses Date Provider Providers Copied on Encounter [facility] [address], [place], [place], [address], tel:[phone] [facility] No Information 2 Andrez Russo [address], [place], [place], [address] , [place]. tel:[phone] PREV VISIT, EST, AGE 18-39 [facility], [address], [place], [place], [address], [place] tel:[phone] [facility] physical (chief complaint) Encounter for general adult medical examination without abnormal findings 2 [facility]so [address] [facility] [address] [place], [place], [address] , [place]. tel:[phone] OFFICE/OUTPA TIENT VISIT, EST [facility], [address], [place], [place], [address], [place] tel:[phone] [facility] Well child HPI (chief complaint)h eadache1 (chief complaint)w eight loss1 (chief complaint) MigraineAbnormal weight lossPain in right knee 1 Andrez Russo [address], [place], [place], [address] , [place]. tel:[phone] OFFICE/OUTPA TIENT VISIT, EST [facility], [address], [place], [place], [address], [place] tel:[phone] [facility] migraine1 (chief complaint)w eight loss1 (chief complaint)s leep apnea1 (chief complaint)H ep B nonimmune1 (chief complaint)a llergy1 (chief complaint) MigraineAbnormal weight lossAllergic rhinitisSleep apneaOther specified abnormal immunological finding in serum 1 Andrez Russo [address], [place], [place], [address] , [place]. tel:[phone] OFFICE/OUTPA TIENT VISIT, EST [facility], [address], [place], [place], [address], [place] tel:[phone] [facility] headache1 (chief complaint)w eight loss1 (chief complaint) Abnormal weight lossMigraine 0 Andrez Russo [address], [place], [place], [address] , [place]. [phone] Referring Provider: Mahi Abarca [address], [place], [place], [address]. tel:[phone] PREV VISIT, EST, AGE 18-39 [facility], [address], [place], [place], [address], [place] [phone] [facility] Medicine PHysical (chief complaint)w eight loss1 (chief complaint) Encounter for general adult medical examination without abnormal findings 0 Andrez Matta. [address], [address], [place], [place], [address] , [place]. [phone] Referring Provider: Mahi Abarca [address], [place], [place], [address]. tel:[phone] OFFICE/OUTPA TIENT VISIT, [facility], [address], [place], [place], [address], [place] tel:[phone] [facility] Medicine weight1 (chief complaint)f atigue1 (chief complaint)h eadache1 (chief complaint) MigraineAbnormal weight lossFatigue 0 Andrez Russo [address], [address], [place], [place], [address] , [place]. [phone] Referring Provider: Mahi Abarca [address], [place], [place], [address]. tel:[phone] OFFICE/OUTPA TIENT VISIT, [facility], [address], [place], [place], [address], [place] tel:[phone] [facility] Medicine headache1 (chief complaint)s inus (chief complaint)t obacoc1 (chief complaint)f atigue1 (chief complaint) Body mass index (BMI) 40.0-44.9, adultMigraineTobac co useAllergic rhinitisFatigue 9 Andrez Matta. [address], [address], [place], [place], [address] , [place]. tel:[phone] Referring Provider: Paxton Maguire, [address], [place], [place], [address]. tel:[phone] OFFICE/OUTPA TIENT VISIT, [facility], [address], [place], [place], [address], [place] tel:[phone] [facility] syncope1 (chief complaint)m igraine1 (chief complaint) MigraineSyncope and collapseObesity 9 Andrez Matta. [address], [address], [place], [place], [address] , [place]. tel:[phone] Referring Provider: Mahi Abarca [address], [place], [place], [address]. tel:[phone] OFFICE/OUTPA TIENT VISIT, [facility], [address], [place], [place], [address], [place] tel:[phone] [facility] headache1 (chief complaint)t obacco (chief complaint) MigraineBody mass index (BMI) 39.0-39.9, adultEncounter for screening for respiratory tuberculosisTobacc o use 9 Andrez Matta. [address], [address], [place], [place], [address] , [place]. tel:[phone] Referring Provider: Mahi Abarca [address], [place], [place], [address]. tel:[phone] OFFICE/OUTPA TIENT VISIT, [facility], [address], [place], [place], [address], [place] tel:[phone] [facility] migraine1 (chief complaint)a nemia1 (chief complaint)l ung1 (chief complaint)s inus (chief complaint) Encounter for screening for respiratory tuberculosisAllerg ic rhinitisBody mass index (BMI) 39.0-39.9, adultAnemiaMigrain eAcute interstitial pneumonitis 9 Andrez Matta. [address], [address], [place], [place], [address] , [place]. tel:[phone] Referring Provider: Mahi Abarca [address], [place], [place], [address]. tel:[phone] PREV VISIT, EST, AGE 18-39 [facility], [address], [place], [place], [address], [place] tel:[phone] [facility] PHysical (chief complaint) Encntr for general adult medical exam w/o abnormal findings 9 Andrez Matta. [address], [address], [place], [place], [address] , [place]. tel:[phone] Referring Provider: Mahi Abarca [address], [place], [place], [address]. tel:[phone] OFFICE/OUTPA TIENT VISIT, EST [facility], [address], [place], [place], [address], [place] tel:[phone] [facility] eye1 (chief complaint)o varian vein (chief complaint)a nemia1 (chief complaint)l chris infiltrate (chief complaint) AnemiaAcute interstitial pneumonitisConjunc tivitisAcute embolism and thrombosis of other specified veins 7 Andrez Matta. [address], [address], [place], [place], [address] , [place]. tel:[phone] Referring Provider: Mahi Abarca [address], [place], [place], [address]. tel:[phone] OFFICE/OUTPA TIENT VISIT, EST [facility], [address], [place], [place], [address], [place] tel:[phone] [facility] obesity (chief complaint)t hyroid (chief complaint)o varian vein thromsis (chief complaint)U RI (chief complaint) Acute embolism and thrombosis of other specified veinsDisorder of thyroid, unspecifiedAbnorma l weight gainAcute upper respiratory infection, unspecified 6 Andrez Matta. [address], [address], [place], [place], [address] , [place]. tel:[phone] Referring Provider: Mahi Abarca [address], [place], [place], [address]. tel:[phone] OFFICE/OUTPA TIENT VISIT, EST [facility], [address], [place], [place], [address], [place] tel:[phone] [facility] Medicine Weight gain1 (chief complaint)l ow D (chief complaint)a nemia1 (chief complaint)o varian clot1 (chief complaint) AnemiaVitamin D deficiency, unspecifiedAbnorma l weight gainAcute embolism and thrombosis of other specified veins 6 Andrez Matta. [address], [address], [place], [place], [address] , [place]. tel:[phone] Referring Provider: Mahi Abarca [address], [place], [place], [address]. tel:[phone] PREV VISIT, EST, AGE 18-39 [facility], [address], [place], [place], [address], [place] tel:[phone] [facility] Medicine PHysical (chief complaint) Encntr for general adult medical exam w/o abnormal findings 6 Andrez Matta. [address], [place], [place], [address] , [place]. tel:[phone] Referring Provider: Mahi Abarca [address], [place], [place], [address]. tel:[phone] PREV VISIT, NEW, AGE 18-39 [facility], [address], [place], [place], [address], [place] tel:[phone] [facility] Medicine Physical (chief complaint) Dietary surveillance and counselingRoutine Medical ExamRoutine Medical Exam 3 Andrez Matta. [address], [address], [place], [place], [address] , [place]. [phone] Referring Provider: Mahi Abarca [facility] [address], [place], [place], [address]. tel:[phone] Family History Family Member Type Diagnosis Age At Onset Sister Problem (finding) Alive and well Father Problem (finding) Alive and well Mother Problem (finding) Alive and well Payers Payer name Insurance type Covered democrat ID Authoriza tion(s) No Information Social History [...] and exercise. sleep apnea1 Pt has sleep roller billet mill ea .Pt uses cpap nightly and she [...] thrombosed right ovarian vein. Pt seeen her RESORT DESK CLERK and was told to stop the lovenox? Pt denies any abbd pain. PT was told by RESORT DESK CLERK that if she has pain again, let [...] the ER. ovarian clot1 Pt c/o right silevstre e low abdomen pain 10 days ago. Pt went to ER and Ct showed ovarian vein thrombosis. Pt is on lovenox now. Pt staes that her right lower quadrant pain almost completely resolved. 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 week and was told she [...] complaints Instructions Date Instruction Additional Infor mation Quit smoking Related to Migra ine Weight management Related to Minesh jamarcus Special diet education Related t o Body mass index (BMI) 40.0-44.9, adult Increase physical activity Relat ed to Migraine Weight management Related to Minesh jamarcus Special diet education Related t o Body mass index (BMI) 39.0-39.9, adult Increase physical activity Relat ed to Migraine Special diet education Related t o Body mass index (BMI) 39.0-39.9, adult Quit smoking Related to Migra ine Weight management Related to Minesh jamarcus Increase activity. Related to En counter for screening for respiratory tuberculosis Perform monthly self breast examinations. Related to Encounter for screening for respiratory tuberculosis Special diet [...]
== END 2024-12-16 09:21 | disposition home or self-care (01) ==
PROVIDERS: PCP Emergency Medicine; Visit Provider Emergency Medicine
DX: M17.11 Unilateral primary osteoarthritis, right knee (principal); Z98.890 Other specified postprocedural states
CPT/HCPCS: 73560

== ENCOUNTER 2025-02-15 08:15 | Emergency (ER) | payer OTHER, BC, SELFPAY ==
[2025-02-15 08:20] VITALS: BP 121/73; PULSE 65; RESP 12; TEMP 36.2; O2SAT 100
--- NOTE | 2025-02-15 08:24 | ED_ITS ---
HPI - General Adult General Chief complaint: Skin/Abscess/Foreign Body Stated complaint: red irritated spot on left leg Source: patient Mode of arrival: ambulatory Limitations: no limitations History of Present Illness HPI narrative: Pt is a 34 y/o female presenting with c/o insect bite. Pt reports camping over the weekend, numerous insect bites to body but voices concern over insect bite to the L. thigh. Pt reports redness, tenderness and overall irritation to the area. States she has not noticed an increase in size/erythema since noticing the area on Thursday. Denies any constitutional sx. Tx initiated MARINE CARGO SPECIALIST includes application of hydrocortisone cream. Last tetanus vaccination received < 5 yrs ago. No additional complaints. Related Data Home Medications ?Medication ?Instructions ?Recorded ?Confirmed ?Last Taken ?Type mecobalamin (vitamin B12) 500 mcg 500 mcg PO DAILY 10/28/24 Unknown History chewable tablet Allergies Allergy/AdvReac Type Severity Reaction Status Date / Time No Known Allergies Allergy Verified 02/15/25 08:29 Review of Systems Review of Systems: CONSTITUTIONAL: Denies body aches, fever, chills, or sweats. EYES: Denies visual changes, redness, or discharge. ENT: Denies rhinorrhea, congestion, sore throat, or otalgia. CARDIOVASCULAR: Denies chest pain, palpitations, or edema. RESPIRATORY: Denies cough or dyspnea. GASTROINTESTINAL: Denies abdominal pain, nausea, vomiting, or diarrhea. GENITOURINARY: Denies dysuria or hematuria. SKIN: Reports itching, redness, insect bite. MUSCULOSKELETAL: Denies back pain, joint pain, or myalgia. NEUROLOGIC: Denies headache, numbness, tingling, or weakness. PSYCH: Denies depression or anxiety. All systems reviewed & are unremarkable except as noted in HPI and below PMFSH Past Medical History Medical History Yeast infection Acute kidney injury Cellulitis of neck Diffuse cellulitis of face Sepsis Gastroesophageal reflux disease Obstructive sleep apnea Hypertension Strep throat JANA (acute kidney injury) Edema of face Depression Anxiety Surgical History Surgical History History of wisdom tooth extraction History of tubal ligation History of repair of ACL Family History Family History Other Cancer Cerebrovascular accident Diabetes mellitus Family history of obesity Hypertension Social History Social History Social History: Surrogate medical decision maker: Jayjay Helms, spouse. Code status: Full code. Smoking status: Current some day smoker Tobacco type: e-cigarettes/vaping Alcohol intake: current Alcohol use details: socially Substance use: current Substance use type: marijuana Do You Feel Safe in your Home?: Yes Lack of Transportation: No Lack of Food: Never True Current Housing: I Have Housing Concerned About Future Housing: No Difficulty Paying Gas/Electric Bills: No Difficulty Paying for Meds: No Currently Unemployed: No Education: Associate Degree Difficulty w/ Childcare or Family Care: No Additional living arrangements comments: Lives with spouse and children. Additional occupation/education comments: Works for the [employer]. Spiritual care concerns: No Exam Narrative: GENERAL: Well-appearing, well-nourished, and in no acute distress. HEAD: Normocephalic, atraumatic. EYES: EOMI. No redness or drainage. Conjunctivae normal. ENT: Mucous membranes pink and moist. NECK: Normal AROM. Supple. CHEST: No respiratory distress. HEART: Regular rate Normal peripheral pulses. EXTREMITIES: Normal range of motion. No edema. SKIN: Quarter sized area of erythema, induration noted to the L. thigh, immediately inferior to the lateral aspect of the L. knee. There is no drainage. There is no increased warmth or lymphatic streaking. Capillary refill normal. Normal skin turgor. NEURO: No focal deficits. Alert and oriented x3. Gait steady. PSYCH: Normal affect. No signs of depression or anxiety. Course Course Level of Care: Express Care Visit Discharge Plan Discharge Clinical Impression: Infected insect bite of left thigh Patient Disposition: Home Condition: Stable Instructions: Antibiotic Form Additional Instructions: Go straight to ER should your symptoms become worse or should any new symptoms develop Patient Language: Setswana Prescriptions: New cephalexin 500 mg capsule 500 mg PO Q6H 5 Days Qty: 20 0RF No Action mecobalamin (vitamin B12) 500 mcg tablet,chewable 500 mcg PO DAILY fluticasone propionate 50 mcg/actuation spray,suspension 1 spray intranasal BID PRN (Reason: Nasal Congestion) Qty: 16 3RF alprazolam [Xanax] 0.5 mg tablet 0.5 mg PO TID PRN (Reason: anxiety) Qty: 60 2RF phentermine 37.5 mg capsule 37.5 mg PO DAILY Qty: 30 2RF Rx Instructions: must administer 30 minutes before or 1-2 hours after breakfast pantoprazole [Protonix] 40 mg tablet,delayed release (DR/EC) 40 mg PO DAILY Qty: 90 2RF Emgality Pen 120 mg/mL pen injector See Rx Instructions .ROUTE .COMPLEX Qty: 1 3RF Dose Instruction: INJECT 1 SYRINGE SUBCUTANEOUSLY ONCE EVERY MONTH Rx Instructions: INJECT 1 SYRINGE SUBCUTANEOUSLY ONCE EVERY MONTH Follow-up/Referrals: Jose Francisco Wren MD [Primary Care Provider] - 02/15/25 8:25 am Time of Disposition: 08:32
== END 2025-02-15 08:38 | disposition home or self-care (01) ==
PROVIDERS: Emergency Provider Registered Nurse; PCP Emergency Medicine
DX: S70.362A Insect bite (nonvenomous), left thigh, initial encounter (principal); L08.9 Local infection of the skin and subcutaneous tissue, unspecified; W57.XXXA Bitten or stung by nonvenomous insect and other nonvenomous arthropods, initial encounter; F17.290 Nicotine dependence, other tobacco product, uncomplicated; F12.90 Cannabis use, unspecified, uncomplicated; K21.9 Gastro-esophageal reflux disease without esophagitis; I10 Essential (primary) hypertension; F41.9 Anxiety disorder, unspecified
CPT/HCPCS: 99213; G0463

== ENCOUNTER 2025-04-17 13:56 | Outpatient (CLI) | payer OTHER, BC, SELFPAY ==
--- NOTE | ~2025-04-17 | XR_ITS ---
XR lumbar spine 2-3V Indication: R52 - Pain, unspecified Comparison: None Findings: Moderate loss of vertebral height, no fracture or subluxation. Moderate loss of disc height. Soft tissues unremarkable Nonspecific prominent loops of small bowel noted in the visualized abdomen, there is abdominal pain dedicated imaging is suggested Impression: No acute abnormality. Reviewed, dictated and finalized at location P. Impression: No acute abnormality.
== END 2025-04-17 13:57 | disposition home or self-care (01) ==
PROVIDERS: PCP Emergency Medicine; Visit Provider Emergency Medicine
DX: R52 Pain, unspecified (principal)
CPT/HCPCS: 72100

== ENCOUNTER 2025-05-01 07:23 | Outpatient (CLI) | payer OTHER, BC, SELFPAY ==
--- OUTSIDE RECORDS SUMMARY | 2025-05-01 07:29 | XMS_ITS | Data Portability ---
Author Organization [facility] Address [address] [place] [address] Care Team Providers Care Wire Harness Design Engineer Name Role Phone JENNIFER RODRIGUEZ Primary Care Provider Assessment Encounter Date Assessment Date Assessment LastModified by Organization Details LastModified Time 01/22/2023 01/22/2023 Annual gynecological exam performed. Patient will come back in a year unless there are new symptoms. [email or web address] Not available 01/22/2023 12:25:26 01/25/2024 01/25/2024 Annual gynecological exam performed. Patient will come back in a year unless there are new symptoms. [email or web address] Not available 01/25/2024 09:32:50 01/26/2025 01/26/2025 Annual gynecological exam performed. Patient will come back in a year unless there are new symptoms. [email or web address] Not available 01/26/2025 11:45:09 Plan of Treatment Reminders Order Date Submit Date Provider Last Modified By Organization Details Last Modified Time Details Appointments SURG PRE OP 2024 04:15P Nery LOPEZ MD Not available Not available Not available Robotic TLH 2024 10:30A Nery LOPEZ MD Not available Not available Not available SURG POST OP 2024 11:45A Nery LOPEZ MD Not available Not available Not available Lab hbcab (hepatiti s B core Ab) igm, serum 2024 07 025 [facility] (Lab), [address], [place], [address], 01/31/2025 21:08:58 HBsAg (hepatiti s B surface Ag), serum 2024 025 [facility] (Lab), [address], [place], [address], 01/31/2025 21:08:54 hepatitis C virus Ab, serum 2024 025 [facility] (Lab), [address], [place], [address], 01/31/2025 21:08:55 HIV 1+2 AB + HIV 1 p24 Ag, qualitati ve immunoass ay, serum 2024 025 [facility] (Lab), [address], [place], [address], 01/31/2025 21:08:54 RPR (rapid plasma reagin), serum 2024 025 [facility] (Lab), [address], [place], [address], 01/31/2025 21:08:57 pap, IG + HR HPV - HPV regardles s but if HPV is positive need subtyping 16,18/45 add gc/ct/tri ch 2024 025 [facility] (Lab), [address], [place], [address], 01/31/2025 11:27:00 dhea-sulf ate, serum 2024 025 [facility] (Lab), [address], [place], [address], 01/31/2025 21:08:57 hormone panel, serum or plasma [address] [place] [address] (Lab), [address], [place], [address], 01/31/2025 21:08:56 progester one, serum 2024 025 [facility] (Lab), [address], [place], [address], 01/31/2025 21:08:55 prolactin , serum 2024 025 [facility] (Lab), [address], [place], [address], 01/31/2025 21:08:55 shbg (sex hormone-b inding globulin) , serum 2024 025 [facility] (Lab), [address], [place], [address], 01/31/2025 21:08:57 TSH, serum or plasma 2024 025 [facility] (Lab), [address], [place], [address], 01/31/2025 21:08:56 testoster one free/test osterone total, ratio, serum 2024 025 [facility] (Lab), [address], [place], [address], 01/31/2025 21:08:58 CBC w/ auto diff 2024 025 [facility] (Lab), [address], [place], [address], 01/31/2025 21:08:56 hbcab (hepatiti s B core Ab) igm, serum 2023 024 [facility] (Lab), [address], [place], [address], 01/26/2024 21:33:56 HBsAg (hepatiti s B surface Ag), serum 2023 024 [facility] (Lab), [address], [place], [address], 01/26/2024 21:33:54 hepatitis C virus Ab, serum 2023 024 [facility] (Lab), [address] [facility] [facility], [place], [address], 01/26/2024 21:33:54 HIV 1+2 AB + HIV 1 p24 Ag, qualitati ve immunoass ay, serum 2023 024 [facility] (Lab), [address] [facility] [address], [place], [address], 01/26/2024 21:33:55 RPR (rapid plasma reagin), serum 2023 024 [facility] (Lab), [address] [facility] [facility], [place], [address], 01/26/2024 21:33:55 hbcab (hepatiti s B core Ab) igm, serum 2022 023 [facility] (Lab), [address] [facility], [place], [address], 01/23/2023 23:29:51 HBsAg (hepatiti s B surface Ag), serum 2022 023 [facility] (Lab), [address] [facility] [facility], [place], [address], 01/23/2023 23:29:49 hepatitis C virus Ab, serum 2022 023 [facility] (Lab), [address] [facility], [place], [address], 01/23/2023 23:29:49 unlisted lab - HIV 1/2 antigen/a ntibody, reflex confirmat ion 2022 023 [facility] (Lab), [address] [facility], [place], [address], 01/23/2023 23:29:50 RPR (rapid plasma reagin), serum 2022 023 [facility] (Lab), [address], [place], [address], 01/23/2023 23:29:50 Referral None recorded. Procedures None recorded. Surgeries robotic assisted hysterect rachel with salpingec tobias (SURG) 2024 025 [facility], [address], [place], [address], 04/07/2025 12:26:29 Imaging US, pelvis 2024 025 [email or web address], [place], [address], 02/02/2025 21:45:25 US, transvagi nal 2024 025 [email or web address], [address], [place], [address], 02/02/2025 21:45:25 Medication Orders None recorded. Patient TargetsNo targets recorded. Patient InstructionsNo instructions recorded. Reason for Referral None Reported. Results Created Date Observation Date Name Description Value Unit Range Abnormal Flag Note LastModifiedBy Organization Detail LastModifiedTime 01/23/2001/22/2023 HEPAT ITIS C ANTIB DARLEEN SCREE N, REFLE X TO CONFI RMATI ON hepatitis C antibody Non-re active non-re active Antib odies to HCV Not Detec hebert, does not exclu de the possi bilit y of expos ure to HCV. Not Available [facility] (Lab) [address], [place], [address], 01/23/2023 23:29:49 01/23/20 23 01/22/2023 HEPAT ITIS B SURFA CE ANTIG EN hepatitis B surface antigen Non-re active non-re active This assay was perfo rmed using [employer] ratio n reage nts and test kits. Value s obtai antonina with other assay metho ds or kits canno t be used inter cote eably . Not Available [facility] (Lab) [address] [facility] [facility], [place], [address], 01/23/2023 23:29:49 01/23/20 23 01/22/2023 HIV 1/2 ANTIG EN/AN TIBOD Y, REFLE X CONFI RMATI ON HIV antigen/anti body Nonrea ctive nonrea ctive HIV-1 antig en and HIV-1 /HIV- 2 antib odies were not detec hebert. No labor atory evide nce of HIV infec tion. Not Available [facility] (Lab) [address] [facility], [place], [address], 01/23/2023 23:29:50 01/23/20 23 01/22/2023 RPR SCREE N/REF MIMI TITER /FTA RPR screen Nonrea ctive nonrea ctive Not Available [facility] (Lab) [address], [place], [address], 01/23/2023 23:29:50 01/23/20 23 01/22/2023 HEPAT ITIS B CORE, IGM hepatitis B core IgM antibody Negati ve negati ve Not Available [facility] (Lab) [address], [place], [address], 01/23/2023 23:29:50 01/23/20 23 01/22/2023 IMAGE GUIDE D PAP AND HPV REGAR DLESS image guided Pap, HPV regardless of Pap result SEE RESULT S BELOW abnormal CASE REPOR T: Cytol ogy Gynec ologi bravo Repor t Case: [id number] Autho gilberto g Provi winston: Rachelle Ceron, GILMAR Colle cted: 01/22 1206 Order ing Locat ion: [place] Patho logy Recei eleuterio: 01/23 0714 First Scree n: uQan elias, Kristina ed, CT Rescr een: Lea Pederson , CT Speci men: Scree reid Pap - Image d, Cervi x STATE MENT OF ADEQU ACY: Satis facto ry for evalu ation Trans forma tion zone compo nent absen t The absen ce of an endoc ervic al compo nent was confi rmed by an addit ional mayra ner. FINAL DIAGN OSIS: Negat mariia for Intra epith elial Sharif shane or Yu lombardo (NIL) . Elect tisha ba d by Lea Pederson , CARMITA on 023 at 2:32 PM ----- ----- ----- ----- ----- ----- ----- ----- ----- ----- ----- ----- ----- ----- ----- ----- ----- ---- HPV RESUL TS: HPV mRNA E6/E7 : Posit mariia - HPV mRNA Detec hebert NOTE: This [...] test with an inher ent false negat mariia rate. Liqui d-bas ed sampl ing may decre ase, but will not elimi phoenix, false negat mariia resul ts. A negat mariia resul t does not precl ude the [...] clini luis a nur nted. Not Available [facility] (Lab) [address] [facility], [place], [address], 01/24/2023 15:35:51 01/23/20 23 01/22/2023 CT/GC (ASHLEE) , THINP REP VIAL chlamydia trachomatis, PCR Negati ve negati ve Not Available [facility] (Lab) [address] [facility], [place], [address], 01/24/2023 15:35:51 01/23/20 23 01/22/2023 CT/GC (ASHLEE) , THINP REP VIAL neisseria gonorrhoeae, PCR Negati ve negati ve Not Available [facility] (Lab) [address], [place], [address], 01/24/2023 15:35:51 01/23/20 23 01/22/2023 TRICH OMONA S VAGIN COMFORT (RRNA ) trichomonas vaginalis ribosomal RNA (rrna) Negati ve negati ve Not Available [facility] (Lab) [address] [facility], [place], [address], 01/24/2023 15:35:52 01/25/20 24 01/25/2024 HEPAT ITIS C ANTIB DARLEEN SCREE N, REFLE X TO CONFI RMATI ON hepatitis C antibody Non-re active non-re active Antib odies to HCV Not Detec hebert, does not exclu de the possi bilit y of expos ure to HCV. Not Available [facility] (Lab) [address], [place], [address], 01/26/2024 21:33:54 01/25/20 24 01/25/2024 HEPAT ITIS B SURFA CE ANTIG EN hepatitis B surface antigen Non-re active non-re active This assay was perfo rmed using [employer] ratio n reage nts and test kits. Value s obtai antonina with other assay metho ds or kits canno t be used inter cote eably . Not Available [facility] (Lab) [address] [facility], [place], [address], 01/26/2024 21:33:54 01/25/20 24 01/25/2024 HIV 1/2 ANTIG EN/AN TIBOD Y, REFLE X CONFI RMATI ON HIV antigen/anti body Nonrea ctive nonrea ctive HIV-1 antig en and HIV-1 /HIV- 2 antib odies were not detec hebert. No labor atory evide nce of HIV infec tion. Not Available [facility] (Lab) [address], [place], [address], 01/26/2024 21:33:55 01/25/20 24 01/25/2024 RPR SCREE N, REFLE X TITER /CONF IRMAT ION RPR screen Nonrea ctive nonrea ctive Not Available [facility] (Lab) [address], [place], [address], 01/26/2024 21:33:55 01/25/20 24 01/25/2024 HEPAT ITIS B CORE, IGM hepatitis B core IgM antibody Non-re active non-re active IgM anti- HBc not detec hebert. Does not exclu de the possi bilit y of expos ure to or infec tion with HBV. Not Available [facility] (Lab) [address], [place], [address], 01/26/2024 21:33:55 01/25/20 24 01/25/2024 IMAGE GUIDE D PAP AND HPV REGAR DLESS image guided Pap, HPV regardless of Pap result SEE RESULT S BELOW CASE REPOR T: Cytol ogy Gynec ologi bravo Repor t Case: [id number] Autho gilberto g Provi winston: Lamay , Rachelle C, DELIVERY PERSON Colle cted: 01/24 1004 Order ing Locat ion: [place] Patho logjemma Recevannessa eleuterio: 01/25 1326 First Mayra n: Abrahan tafoya, Jason coombs, CT Patho logis t: Bhargav Huffman MD Speci men: Mayra mathews Pap - Image d, Cervi x STATE MENT OF ADEQU ACY: Satis facto ry for evalu ation Trans forma tion zone compo nent prese nt ----- ----- ----- ----- ----- ----- ----- ----- ----- ----- ----- ----- ----- ----- ----- ----- ----- ---- FINAL DIAGN OSIS: Negat mariia for Intra epith elial Sharif shane or Yu lombardo (NIL) . Infla mmato [...] test with an inher ent false negat mariia rate. Liqui d-bas ed sampl ing may decre ase, but will not elimi phoenix, false negat mariia resul ts. A negat mariia resul t does not precl ude the [...] clini luis a warra nted. Not Available [facility] (Lab) [address], [place], [address], 02/01/2024 11:48:58 01/25/20 24 01/25/2024 CT/GC (ASHLEE) , THINP REP VIAL chlamydia trachomatis, PCR Negati ve negati ve Not Available [facility] (Lab) [address], [place], [address], 02/01/2024 11:48:59 01/25/20 24 01/25/2024 CT/GC (ASHLEE) , THINP REP VIAL neisseria gonorrhoeae, PCR Negati ve negati ve Not Available [facility] (Lab) [address], [place], [address], 02/01/2024 11:48:59 01/25/20 24 01/25/2024 TRICH OMONA S VAGIN COMFORT (RRNA ) trichomonas vaginalis ribosomal RNA (rrna) Negati ve negati ve Not Available [facility] (Lab) [address], [place], [address], 02/01/2024 11:49:00 01/27/20 25 01/26/2025 IMAGE GUIDE D PAP AND HPV REGAR DLESS image guided Pap, HPV regardless of Pap result SEE RESULT S BELOW CASE REPOR T: Cytol ogy Gynec ologi bravo Repor t Case: [id number] Autho gilberto phillip Provi winston: Rachelle Ceron, GILMAR Colle cted: 01/26 1307 Order ing Locat ion: [place] Patho logy Recei eleuterio: 01/27 0933 First Scree n: Abrahan tafoya, Jason coombs, CT Rescr een: Tammie Elkins , CT Speci men: Mayra mathews Pap - Image d, Cervi x STATE MENT OF ADEQU ACY: Satis facto ry for evalu ation Trans forma tion zone compo nent prese nt ----- ----- ----- ----- ----- ----- ----- ----- ----- ----- ----- ----- ----- ----- ----- ----- ----- ---- FINAL DIAGN OSIS: Negat mariia for Intra epith elial Lesio n or Yu lombardo (NIL) . Funga l organ isms morph ologi luis a consi stent with Sunitha da spp. Elect tisha ba d by Tammie Elkins , CT on 2024 at 1022 CDT ----- ----- ----- ----- ----- ----- ----- [...] test with an inher ent false negat mariia rate. Liqui d-bas ed sampl ing may decre ase, but will not elimi phoenix, false negat mariia resul ts. A negat mariia resul t does not precl ude the [...] clini luis a warra nted. Not Available [facility] (Lab) [address], [place], [address], 01/31/2025 11:27:00 01/27/2001/26/2025 CT/GC AND TRICH OMONA S VAGIN COMFORT (RRNA ), THINP REP VIAL CT/GC and trichomonas vaginalis (rrna), thinprep SEE RESULT S BELOW negati ve CHLAM YDIA TRACH OMATI S, PCR: Negat mariia NEISS ERIA GONOR RHOEA E, PCR: Negat mariia TRICH OMONA S VAGIN COMFORT RIBOS OMAL RNA (RRNA ): Negat mariia Not Available [facility] (Lab) [address], [place], [address], 01/31/2025 11:27:01 01/27/20 25 01/26/2025 HEPAT ITIS B SURFA CE ANTIG EN hepatitis B surface antigen Non-re active non-re active This assay was perfo rmed using [employer] ratio n reage nts and test kits. Value s obtai antonina with other assay metho ds or kits canno t be used inter cote eably . : Routi ne : ENDOC ERVIC AL/CE RVICA L : add gc/ct /tric h Not Available [facility] (Lab) [address], [place], [address], 01/31/2025 21:08:54 01/27/20 25 01/26/2025 HIV 1/2 ANTIG EN/AN TIBOD Y, REFLE X CONFI RMATI ON HIV antigen/anti body Nonrea ctive nonrea ctive : Routi ne : ENDOC ERVIC AL/CE RVICA L : add gc/ct /tric h HIV-1 antig en and HIV-1 /HIV- 2 antib odies were not detec hebert. No labor atory evide nce of HIV infec tion. Not Available [facility] (Lab) [address], [place], [address], 01/31/2025 21:08:54 01/27/20 25 01/26/2025 HEPAT ITIS C ANTIB DARLEEN SCREE N, REFLE X TO CONFI RMATI ON hepatitis C antibody Non-re active non-re active Antib odies to HCV Not Detec hebert, does not exclu de the possi bilit y of expos ure to HCV. : Routi ne : ENDOC ERVIC AL/CE RVICA L : add gc/ct /tric h Not Available [facility] (Lab) [address], [place], [address], 01/31/2025 21:08:54 01/27/20 25 01/26/2025 PROGE STERO NE progesterone 10.90 NG/mL This assay was perfo rmed using [employer] ratio n reage nts and test kits. Value s obtai antonina with other assay metho ds or kits canno t be used inter cote eably . Femal e Proge stero ne Range s: Folli cular phase 0.06- 0.89 ng/mL Ovula tion phase 0.12- 12.00 ng/mL Lutea l phase 1.83- 23.90 ng/mL Postm enopa usal <0.05 -0.13 ng/mL Healt hy Pregn ant Women 1st Trime ster 11.0- 44.30 2nd Trime ster 25.40 -83.3 0 3rd Trime ster 58.70 -214. 00 : Routi ne : ENDOC ERVIC AL/CE RVICA L : add gc/ct /tric h Not Available [facility] (Lab) [address] [place], [address], 01/31/2025 21:08:55 01/27/20 25 01/26/2025 TSH, REFLE X FREE T4 TSH 1.46 uIU/m L 0.30-5 .33 : Routi ne : ENDOC ERVIC AL/CE RVICA L : add gc/ct /tric h Not Available [facility] (Lab) [address] [place], [address], 01/31/2025 21:08:56 01/27/20 25 01/26/2025 TESTO STERO NE, FREE( DIALY SIS) AND TOTAL (LC/M S/MS) testosterone , total 31 NG/dL 2-45 For addit ional bonnie waldron e refer to http: //juan miguel shane.que stdia gnost ics.c om/fa q/ Total Testo stero neLCM SMSFA Q165 (This link is being provi ded for infoderic perez nal/ educa pooja l purpo ses only. ) This test was devel oped and its chanelle tical perfo rmanc e robin cteri stics have been deter mined by [employer] [place], [place]. It has not been clear ed or appro eleuterio by the U.S. Food and Drug Admin istra tion. This assay has been valid ated pursu ant to the CLIA regul ation s and is used for clini bravo purpo ses. Not Available [facility] (Lab) [address], [place], [address], 01/31/2025 21:08:58 01/27/20 25 01/26/2025 TESTO STERO NE, FREE( DIALY SIS) AND TOTAL (LC/M S/MS) testosterone , free 2.1 pg/mL 0.1-6. 4 This test was devel oped and its chanelle tical perfo rmanc e robin cteri stics have been deter mined by [employer] [place], [place]. It has not been clear ed or appro eleuterio by the U.S. Food and Drug Admin istra tion. This assay has been valid ated pursu ant to the CLIA regul ation s and is used for clini bravo purpo ses. : Robert ne : ENDOC ERVIC AL/CE RVICA L : add gc/ct /tric h Perfo rming Organ izati on Infor matio n: Site ID: AMD Name: [employer] [employer] UGOBEe Addre ss: [id number] [place], [place] Direc tor: Tu Villegas MD PhD Not Available [facility] (Lab) [address], [place], [address], 01/31/2025 21:08:58 02/03/2002/02/2025 US, pelvi s No observ ation record ed. tani [place] [address], [place], [address], 02/02/2025 16:48:37 02/03/2002/02/2025 US, trans vagin al No observ ation record ed. [facility] [address], [place], [address], 02/02/2025 16:48:48 02/03/20 25 02/02/2025 US, pelmiya s No observ ation record ed. negrito Ontiveros [address], [place], [address], 02/13/2025 15:11:02 Result Notes None recorded. Problems Name Problem SNOMED Code Status Onset Date Resolution Date Notes Provider Name and Address Organization Details Recorded Time Postpart um care Completed 201101/15/2021 Routine postpart um follow-u p;Practi ce ID: 0001 Lilia robertson, [facility] 17:40:40 Implanta tion of subcutan eous contrace ptive Completed 201201/15/2021 Insertio n of implanta ble subderma l contrace ptive;Pr actice ID: 0001 Lilia robertson, [facility] 17:40:53 Subcutan eous contrace ptive implant present [id number] Completed 201201/15/2021 Removal Or Check Nexplano n;Practi ce ID: 0001 Lilia robertson [facility] 17:41:33 Speciali zed medical examinat ion Completed 201201/15/2021 Routine gynecolo gical examinat ion;Prac kristian ID: 0001 Lilia robertson, [facility] 17:41:36 Screenin g for malignan t neoplasm of cervix Completed 201301/15/2021 Screenin g for malignan t neoplasm s of the cervix;R ecorded Elsewher e: No Locat ion: [facility] S ource: [employer] Model Maker Apprentice barbi: N Practi ce ID: 0001 Alex lable Time: 09:30:00 AM Lilia robertson [facility] 17:40:58 Adult health examinat ion Completed 201301/15/2021 Routine general medical examinat ion at a health care facility ;Practic e ID: 0001 Lilia robertson [facility] 17:41:13 Speciali zed medical examinat ion Completed 201301/15/2021 Other specifie d chlamydi al diseases ;Practic e ID: 0001 Lilia robertson [facility] 17:41:37 Venereal disease screenin g Completed 201301/15/2021 Screenin g examinat ion for venereal disease; Practice ID: 0001 Lilia robertson [facility] 17:40:56 Amenorrh ea [id number] Completed 201401/15/2021 AMENORRH EA;Pract ice ID: 0001 Lilia robertson [facility] 17:40:45 Pregnanc y test positive [id number] Completed 201401/15/2021 Positive Pregnanc y Test;Pra ctice ID: 0001 Lilia robertson [facility] 17:41:09 Ultrason ography Completed 201401/15/2021 Antenata l screenin g for malforma tion using ultrason ics;Rashaad rded Elsewher e: No Locat ion: [facility] S ource: [employer] Cast[employer] Model Maker Apprentice barbi: N Practi ce ID: [id number] Alex lable Time: 02:00:00 PM Lilia robertson [facility] 17:40:52 Antenata l screenin g Completed 201401/15/2021 Antenata l screenin g for malforma tion using ultrason ics;Rashaad rded Elsewher e: No [facility] [employer] Model Maker Apprentice barbi: N Practi ce ID: [id number] Alex lable Time: 02:00:00 [facility]:06 Congenit al malforma tion [id number] Completed 201401/15/2021 Antenata l screenin g for malforma tion using ultrason ics;Rashaad rded Elsewher e: No Locat ion: [facility] S ource: EHR [employer] Cast[employer] Model Maker Apprentice barbi: N Practi ce ID: [id number] Alex lable Time: 02:00:00 PM Lilia robertson, [facility] 17:41:19 anatomy study Completed 201401/15/2021 [facility] ANATMC SURVEY;P ractice ID: 0001 Lilia Chavez [facility] 17:41:16 Examinat ion for accident Completed 201401/15/2021 Observat ion followin g other accident ;Practic e ID: 0001 Lilia robertson, [facility] 17:41:07 Primigra natalee [id number] Completed 201401/15/2021 Supervis ion of normal first pregnanc y;Practi ce ID: 0001 Lilia robertson, [facility] 17:40:38 Benign essentia l hyperten princess complica ting pregnanc y, childbir th and the puerperi um - not delivere d [id number] Completed 201401/15/2021 ESSEN HYPERTEN -ANTEPAR T;Practi ce ID: 0001 Lilia robertson, [facility] 17:40:59 Glucose toleranc e test during pregnanc y - baby not yet delivere d outside referenc e range [id number] Completed 201401/15/2021 ABN GLUCOSE- ANTEPART UM;Pract ice ID: 0001 Lilia robertson, [facility] 17:41:32 Routine antenata l care Completed 201401/15/2021 Supervis ion of other normal pregnanc y;Practi ce ID: 0001 Lilia robertson, [facility] 17:40:42 Labor and delivery complica hebert by heart rate anomaly [id number] Completed 201401/15/2021 HEART RATE NON REASSURI NG;Pract ice ID: 0001 Lilia robertson, [facility] 17:41:12 Delivery normal [id number] Completed 201401/15/2021 NORMAL DELIVERY ;Practic e ID: 0001 Lilia robertson, [facility] 17:41:34 Single live from singleto n pregnanc y [id number] Completed 201401/15/2021 DELIVER- SINGLE LIVEBORN ;Practic e ID: 0001 Lilia robertson, [facility] 17:40:55 Transien t hyperten princess of pregnanc y - delivere d [id number] Completed 201401/15/2021 Transien t hyperten princess of pregnanc y, with delivery ;Practic e ID: 0001 Lilia robertson, [facility] 17:41:00 Transien t hyperten princess of pregnanc y - delivere d with postnata l complica tion [id number] Completed 201401/15/2021 TRANS HYPERTEN -POSTPAR T;Practi ce ID: [id number] Lilia robertson, [facility] 17:41:01 Lochia finding Completed 201401/15/2021 Encounte r for routine postpart um follow-u p;Practi ce ID: 0001 Lilia robertson, [facility] 17:41:30 Postpart um depressi on [id number] Completed 201401/15/2021 Postpart um depressi on;Recor ded Elsewher e: No Locat ion: [facility] S ource: [employer] Apprentice barbi: N Practi ce ID: 0001 Alex lable Time: 01:00:00 PM Lilia robertson, [facility], [facility] 17:41:39 Pregnanc y-induce d hyperten princess Completed 201401/15/2021 Gestatio nal htn w/o signific ant proteinu cassi, third trimeste r;P[facility]i ce ID: 0001 [facility]04 Insertio n of intraute rine contrace ptive device Completed 201401/15/2021 Encounte r for insertio n of intraute rine contrace ptive device;P ractice ID: 0001 Lilia robertson, [facility] 17:41:40 Pregnanc y test negative [id number] Completed 201401/15/2021 Encounte r for pregnanc y test, result negative ;Practic e ID: 0001 Lilia robertson [facility] 17:41:11 Contrace ptive sheath status [id number] Completed 201401/15/2021 Encounte r for routine checking of intraute rine contrace p dev;Prac kristian ID: 0001 [facility] Concept Completed 201501/15/2021 Encntr for general adult medical exam w/o abnormal findings ;Recorde d Elsewher e: No Locat ion: [facility] S ource: [employer] Apprentice barbi: N Practi ce ID: 0001 Alex lable Time: 12:15:00 PM Lilia robertson [facility] 17:41:22 Emotiona l state finding Completed 201501/15/2021 Emotiona l lability ;Practic e ID: 0001 Lilia robertson [facility] 17:41:15 Abnormal weight gain 640094855 Completed 201501/15/2021 Abnormal weight gain;Pra ctice ID: 0001 Lilia robertson [facility] 17:40:49 Finding of body mass index 943128219 Completed 201501/15/2021 Body mass index (BMI) 40.0-44. 9, adult;Pr actice ID: 0001 Lilia robertson [facility] 17:41:20 Procedur e by method Completed 201501/15/2021 Encounte r for oth general cnsl and advice on contrace ption;Pr actice ID: 0001 Lilia robertson [facility] 17:41:27 Procedur e Completed 201501/15/2021 Encounte r for other preproce dural examinat ion;Prac kristian ID: 0001 Lilia robertson [facility] 17:41:26 Steriliz ation procedur e Completed 201501/15/2021 Encounte r for steriliz ation;Pr actice ID: 0001 Lilia robertson [facility] 17:41:28 Pelvic and perineal pain [id number] Completed 201501/15/2021 Pelvic and perineal pain;Pra ctice ID: 0001 Lilia robertson [facility] 17:41:18 Removal of intraute rine device Completed 201501/15/2021 Encounte r for removal of intraute rine contrace ptive device;P ractice ID: 0001 Lilia robertson [facility] 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 17:40:48 Finding of sensatio n of breast Completed 201701/15/2021 Mastodyn ia;Pract ice ID: 0001 Lilia Chavez [facility] 17:41:03 Body mass index 30+ - obesity 420576723 Completed 201701/15/2021 Body mass index (BMI) 39.0-39. 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 17:40:50 Problem Notes None recorded. Procedures Surgical History Date Name Laterality Status Provider Name and Address Organization Details Recorded Time 01/18/20 16 ligation of bilateral fallopian tubes completed Lilialaquita Chavez [facility] 01/15/2021 17:46:28 07/20/19 05 reconstruction of anterior cruciate ligament of knee joint completed Amy Martinez [facility] 11/04/2019 14:16:09 Imaging Results None recorded. Procedure Notes None recorded. Medical Equipment None Reported. Allergies No known drug allergies Medications Name Sig Start Date Stop Date Status Note LastModified by Organization Details LastModified Time Mirena 21 mcg/24 hr (up to 8 years) 52 mg intrauter ine device 01/30 completed Prescrib ed Elsewher e: Yes Loca tion: [facility] odify By: khoi chaudhari DateTime : 05/22/20 15 03:45:00 PM Not [...] DAY ON DAY 2 THROUGH DAY 5 01/25 completed Not Available Not Available Not Available ibuprofen 800 mg tablet 01/22 completed Not Available Not Available Not Available fluconazo le 150 mg tablet TAKE ONE TABLET BY MOUTH A ONE-TIME DOSE AND REPEAT DOSE IN 3 DAYS. active Not Available Not Available No t Available benzonata te 200 mg capsule TAKE 1 CAPSULE BY MOUTH TWICE DAILY NEEDED FOR COUGH 01/25 completed Not Available Not Available Not Available Nystop 100,000 unit/gram topical powder APPLY POWDER TOPICALL Y THREE TIMES DAILY 01/24 completed Not Available Not Available Not Available vitamin E 600 unit capsule 01/30 completed Prescrib ed Elsewher e: Yes Loca tion: [facility] M odify By: khoi chaudhari DateTime : 08/13/19 16 12:15:00 PM Not Available Not Available Not Available ondansetr on HCl 4 mg tablet TAKE 1 TABLET BY MOUTH EVERY 8 HOURS NEEDED FOR NAUSEA AND VOMITING 01/25 completed Not Available Not Available Not Available sumatript [...] completed Not Available Not Available Not Available triamcino lone acetonide 0.1 % topical cream APPLY CREAM EXTERNAL LY ONCE DAILY active Not Available Not Available No t Available alprazola m 0.5 mg tablet TAKE 1 TABLET BY MOUTH THREE TIMES DAILY NEEDED FOR ANXIETY active Not Available Not Available No t Available Microgest in FE 08/08 (28) 1 mg-20 mcg (21)/75 mg (7) tablet take 1 tablet by oral route every day 08/11 completed Prescrib ed Elsewher e: No Locat ion: [facility] odify By: [email or web address] trick En counter DateTime : 04/20/20 14 09:30:00 AM Not Available Not Available Not Available Flagyl 500 mg tablet take 1 tablet (500MG) by oral route every 12 hours 06/18 completed Prescrib ed Elsewher e: No Locat ion: [facility] odify By: [email or web address] trick En counter DateTime : 04/05/20 12 09:40:25 AM Not Available Not Available Not Available cephalexi n 500 mg capsule TAKE 1 CAPSULE BY MOUTH EVERY 6 HOURS FOR 5 DAYS active Not Available Not Available No t Available pantopraz ole 40 mg tablet,de layed release TAKE 1 TABLET BY MOUTH ONCE DAILY active Not Available Not Available No t Available buspirone 10 mg tablet TAKE 1 TABLET BY MOUTH TWICE DAILY 01/25 completed Not Available Not Available Not Available mupirocin 2 % topical ointment APPLY OINTMENT TOPICALL Y THREE TIMES DAILY 01/25 completed Not Available Not Available Not Available [...] Elsewher e: No Locat ion: Yvon henriquez [facility] odify By: khoi chaudhari DateTime : 01/24/20 16 02:34:48 PM Not [...] TAKE 1 CAPSULE BY MOUTH ONCE DAILY MUST TAKE 30 MINUTES BEFORE OR 1-2 HOURS AFTER BREAKFAS T active Not Available Not Available No t Available naproxen 500 mg tablet TAKE 1 TABLET BY MOUTH TWICE DAILY NEEDED FOR PAIN 01/25 completed Not Available Not Available Not Available amoxicill in 875 mg-potass ium clavulana te 125 mg tablet TAKE 1 TABLET BY MOUTH TWICE DAILY 01/25 completed Not Available Not Available Not Available iron 18 mg tablet 01/30 completed Prescrib ed Elsewher e: Yes [facility] By: khoi chaudhari DateTime : 04/19/20 15 01:00:00 PM Not Available Not Available Not Available Stool Softener 50 mg capsule take 1 capsule by oral route every day at bedtime as needed 01/30 completed Prescrib ed Elsewher e: Yes [facility] By: khoi chaudhari DateTime : 04/19/20 15 01:00:00 PM Not Available Not Available Not Available topiramat e 50 mg tablet 01/28 completed Not Available Not Available Not Available Nexplanon 68 mg subdermal implant Every 3 years 04/20 completed Prescrib ed Elsewher e: No Locat ion: [facility] florence [facility] odify By: [email or web address] trick En counter DateTime : 02/22/20 13 10:30:00 AM Not Available Not Available Not Available + DHA 28 mg iron-975 mcg-200 mg oral pack 09/10 completed Prescrib ed Elsewher e: Yes Loca tion: [facility] odify By: shimon z Brittany aldana DateTime : 01/07/20 12 02:00:00 PM Not Available Not Available Not Available Selsun Blue Moisturiz ing 1 % shampoo apply to affected area 3x/week for 1-2wks; apply for 10 min. interval s 01/30 completed Prescrib ed Elsewher e: No Locat ion: [facility] odify By: amkellis chaudhari DateTime : 11/29/19 16 09:00:00 AM Not Available Not Available Not Available Emgality Pen 120 mg/mL subcutane ous pen injector INJECT 1 SYRINGE SUBCUTAN EOUSLY ONCE EVERY MONTH active Not Available Not Available No t Available Fluzone Quad (PF) 60 mcg (15 mcg x 4)/0.5 mL IM syringe 01/15 completed Not Available Not Available Not Available Vitals Date Recorded Body height Body mass index (BMI) Body weight Systolic And Diastolic Provider Name and Address Organization Details Last Updated DateTime 01/22/2023 165.1 cm 36.8 kg/m2 908747.91 g 127/82 mm[Hg] Madyson Alberts [facility] 01/22/2023 12:25:56 Date Recorded Body height Body mass index (BMI) Body weight Systolic And Diastolic Provider Name and Address Organization Details Last Updated DateTime 01/25/2024 165.1 cm 37.1 kg/m2 162964.1 g 124/78 mm[Hg] Ambar Platt [facility] 01/25/2024 09:37:02 Date Recorded Body height Body mass index (BMI) Body weight Systolic And Diastolic Provider Name and Address Organization Details Last Updated DateTime 01/26/2025 165.1 cm 34.8 kg/m2 55122.81 g 115/76 mm[Hg] Didi Bill [facility] 01/26/2025 11:47:46 Date Recorded Body height Provider Name an d Address Organization Details Last Updated DateTime 02/09/2025 165.1 cm Dorothy Parekh [facility] 02/09/2025 17:51:45 Social History Question Answer Notes LastModified by Organizat ion Details LastModified Time Tobacco Smoking Status Former Smoker Ambar Platt ailyn, [facility] 01/25/2024 09:39:22 Do You Have An Advance Directive? No [email or web address] Information not available 01/28/2021 How Many Years Have You Consumed Alcohol? 20 Information not available 01/22/2023 Are You Blind Or Do You Have Difficulty Seeing? No [email or web address] Information not available 01/28/2021 What Is Your Level Of Caffeine Consumption? Heavy Information not available 01/22/2023 How Much Tobacco Do You Chew? None [email or web address] Information not available 01/28/2021 In The 14 Days Before Symptom Onset, Have You Had Close Contact With A Laboratory-confir med COVID-19 While That Case Was Ill? No Information not available 01/28/2021 In The 14 Days Before Symptom Onset, Have You Had Close Contact With A Person Who Is Under Investigation For COVID-19 While That Person Was Ill? No [email or web address] Information not available 01/28/2021 Have You Been To An Area Known To Be High Risk For COVID-19? No Information not available 01/28/2021 Are You Deaf Or Do You Have Serious Difficulty Hearing? No [email or web address] Information not available 01/28/2021 What Type Of Diet Are You Following? [email or web address] Information not available 01/28/2021 What Is The Highest Grade Or Level Of School You Have Completed Or The Highest Degree You Have Received? [id number] [email or web address] Information not available 01/28/2021 Are There Any Guns Present In Your Home? No Information not available 01/28/2021 Do You Use Protection During Sex? No [email or web address] Information not available 01/28/2021 Do You Use Your Seat Belt Or Car Seat Routinely? Yes [email or web address] Information not available 01/28/2021 Do You Have Smoke And Carbon Monoxide Detectors In Your Home? Yes [email or web address] Information not available 01/28/2021 At What Age Did You Start Smoking Tobacco? 13 [email or web address] Information not available 01/28/2021 How Much Tobacco Do You Smoke? No [email or web address] Information not available 01/28/2021 Do You Use Sunscreen Routinely? Yes [email or web address] Information not available 01/28/2021 How Many Years Have You Smoked Tobacco? 20 Information not available 01/22/2023 Have You Used IV Drugs? No [email or web address] Information not available 01/28/2021 Do You Have Difficulty Walking Or Climbing Stairs? No Information not available 01/22/2023 Sex: Unknown Functional Status Question Answer Note LastModified by Organizat ion Details LastModified Time Do you use any illicit or recreational drugs? No Information not available 01/22/2023 What is your level of alcohol consumption? Occasional [email or web address] Information not available 01/28/2021 Are you able to walk independently without assistance or assistive devices? YESWOREST [email or web address] Information not available 01/28/2021 Are you able to care for yourself independently? 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 No Information not available 01/22/2023 Do you or have you ever used e-cigarettes or vape? Current user of electronic cigarettes Information not available 01/22/2023 What is your exercise level? Occasional walking jgumber Information not available 11/16/2019 Mental Status Question Answer Note LastModified by Organization D etails LastModified Time Do you feel stressed (tense, restless, nervous, or anxious, or unable to sleep at night)? [id number] [email or web address] Information not available 01/28/2021 Family History Relationship Description Onset Age of this Age Resolved Age Notes LastModified by Organization Details LastModified Time Maternal Aunt Family history of breast cancer [email or web address] Not available 2024 11:26:15 Maternal Grandmother Malignant neoplasm of cervix uteri 70 [email or web address] Not available 1 11:20:02 Maternal Grandmother Malignant neoplasm of cervix uteri [email or web address] Not available 1 11:20:02 Paternal Uncle Carcinoma of prostate 80 [email or web address] Not available 2024 11:26:15 Unspecified Relation Malignant neoplasm of colon 60 Aunt's daught er [email or web address] Not available 05/01/2022 11:20:02 Father Malignant neoplasm of colon [email or web address] Not available 2024 11:52:00 Medical History Condition Response History of STI N Other Y History of abnormal pap Y Headaches Y Gynecological History Statement/Question Response Date of Last Mammogram Flow Moderate Date of LMP 01/13/2025 N Was last menstrual period normal Y STIs/STDs Y Date of Last Colonoscopy Abnormal Pap Y On BCP's at Conception? Y HPV Vaccine Y Colposcopy Duration of Flow (days) 5 Current Control Method Tubal Ligat ion Age at First Child 20 Are cycles usually normal Y Frequency of Cycle (Q days) 23 Sexually [...] Diagnosis SNOMED-CT Code Diagnosis ICD10 Code Diagnosis IMO Codes Diagnosis Note [id number] Tami Suarez CNM [place] [address] [address] 11/16/2019 12:20:12 11/16/2019 13:24:43 Gynecologic examination [id number] Z01.419 Take Calcium with Vitamin D 1200mg [...] or dietary consult advised. Patient received above MyCityWay[employer] ns, and questions have been answered. If you have any questions please call or respond to this email. Patient was made aware of the patient portal and may obtain a paper copy of today's plan if desired. [id number] Tami Suarez CNM [place] [address] [address] 01/28/2021 11:58:20 01/28/2021 12:53:19 Gynecologic examination 20069823 Z01.419 Z11.51 Take Calcium with Vitamin D [...] or dietary consult advised. Patient received above [employer] ns, and questions have been answered. If you have any questions please call or respond to this email. Patient was made aware of the patient portal and may obtain a paper copy of today's plan if desired. [id number] DAVID Louie [place] [address],[facility] [place] [address] 05/01/2022 10:57:51 05/01/2022 12:50:28 Gynecologic examination 94912302 Z01.419 Take Calcium with Vitamin D 1200mg [...] sooner if needed Venereal d isease screening 379367686 Z11.3 Sexually t ransmitted infectious disease 8445217 A64 [id number] DAVID Louie [place] [address] [address] 01/22/2023 12:19:07 01/22/2023 12:43:15 Gynecologic examination 67957398 Z01.419 Z11.51 Take Calcium with Vitamin D [...] sooner if needed Venereal d isease screening 228851784 Z11.3 Sexually t ransmitted infectious disease 6245350 A64 [id number] DAVID Louie [place] [address] [address] 01/25/2024 09:27:09 01/25/2024 11:23:33 Gynecologic examination 40500687 Z01.419 Z11.51 WWEBC - BTLpap updatedgc/ ct/trich [...] plan if desired. Venereal d isease screening 617682930 Z11.3 Sexually t ransmitted infectious disease 0112358 A64 [id number] DAVID Louie [place] [address] [address] 01/26/2025 11:25:05 01/26/2025 13:58:39 Gynecologic examination 53998257 Z01.575 [id number] WWEB - BTLPap - done todaySTI screen - gc/ct/tric h testing added to papHIV/Hep B&C/Syphil is testing ordered per pt requestRou john labs - PCPRT in 1 yr or sooner if needed It is strongly advised to have an annual flu shot and up can obtain at most pharmacies . If you have not had a TDap shot in the last 10 years you should obtain one as well. Discussed with patient & provided with informatio n regarding the HPV vaccine if applicable . Encourage safe [...] BMI greater than 25 dietary consult advised. Questions answered. Venereal d isease screening 734705605 Z11.3 56419 Sexually t ransmitted infectious disease 4879931 A64 Menorrhagia 027092314 N9 2.0 6519698 Abnormal u terine bleeding 1914333969 9100 N93.9 Dysmenorrhea 993849847 N 94.6 77569 Reviewed management options, declines hormonal contracept ion at this timepelvic u/s ordered, scheduled for MD henry/dave [id number] Jose Lopez MD [place] [address] [address] 02/02/2025 09:26:10 02/02/2025 10:10:32 Dysmenorrhea 943065086 N94.6 N92.0 [id number] Jose Lopez MD [place] [address] [address] 02/09/2025 17:17:44 02/10/2025 05:09:57 Menometrorrhagia 420249305 N92.1 1108780 This patient is a -year-old female presents for heavy vaginal bleeding. She has longstandi ng very heavy bleeding. Her menses are regular. However, they require double protection . Patient has accidents, [id number] blood on her bedding and clothing. Is affected work. She changes a pad or tampon every hour. She leaks blood around the pad and tampon. This bleeding has a profound impact on her quality of life and her activities of daily living. she has failed medical treatment. She is found to have uterine fibroids on pelvic ultrasound . Orientatio n of fibroids would make endometria l ablation ineffectiv e. We discussed hysterecto my. The patient would like to proceed with hysterecto my The patient understand s the procedure. The procedure was described to the patient in great detail. the patient also understand s the risks. The risks were also explained in detail. She understand s that injuries May occur during surgery. She understand s these injuries can result in hospitaliz ation, more surgery, and severe illness. She understand s there is risk of hemorrhage and infection. Health Concerns Section Related Observation LastModified by Organization Detai ls LastModified Time None Recorded Concern Status LastModified by Organization Details LastModified Time None Recorded Advance Directives Directive N: Payers Insurance Date Sequence Insurance Name Policy Number Policy Flores Covered Member ID Flores Member ID Guarantor Name 01/25/2025 1 [facility] - DOS PRIOR TO 2021 (MEDICAID REPLACEMENT - HMO) Bonnie Ortiz [id number] [facility] 01/25/2025 2 [facility] - DOS ON OR AFTER 21 (MEDICAID REPLACEMENT - HMO) Bonnie Ortiz [id number] Bonnie Quary 04/14/2025 2 [employer] [id number] Bonnie Quary [id number] Bonnie Quary 02/02/2025 2 [place] [id number] Jayjay W McQuary [id number] Bonnie Quary 02/10/2025 1 [facility] [id number] Bonnie R McQuary [id number] Bonnie Quary Notes Date Note Type Note Provider Name and Address Organization Details Recorded Time 3 text/html Annual GYNReported by PatientGenitourinary symptomsFor menstrual cycle, patient reportsnormal menses. For urinary symptoms, patient reportsno hematuriaandno incontinence. For vulva, patient reportsno genital lesion. For vagina, patient reportsnormal vaginal discharge.Breast symptomsFor breast, patient reportsno breast pain,no breast lump, andno nipple discharge.ContraceptionFo r current contraception, patient reportssatisfied with current contraceptionandtubal ligation.Endocrine symptomsFor sexual complaints, patient reportsno sexual complaints,no pain during intercourse, andnormal libido. For menopausal symptoms, patient reportsno menopausal symptomsandnormal vaginal lubrication.Psychological symptomsFor psychological symptoms, patient reportsno depression,no anxiety, andno pmdd.Preventative measuresFor preventive measures, patient reportsencourage self breast examination,encourage regular exercise,encourage no tobacco use, andencourage regular mammograms starting age 40. DAVID Louie [address], [place], [address], [facility] 01/22/2023 12:39:50 4 text/html Annual GYNReported by PatientGenitourinary symptomsFor menstrual cycle, patient reportsnormal menses. For urinary symptoms, patient reportsno hematuriaandno incontinence. For vulva, patient reportsno genital lesion. For vagina, patient reportsnormal vaginal discharge.Breast symptomsFor breast, patient reportsno breast pain,no breast lump, andno nipple discharge.ContraceptionFo r current contraception, patient reportssatisfied with current contraceptionandtubal ligation.Endocrine symptomsFor sexual complaints, patient reportsno sexual complaints,no pain during intercourse, andnormal libido. For menopausal symptoms, patient reportsno menopausal symptomsandnormal vaginal lubrication.Psychological symptomsFor psychological symptoms, patient reportsno depression,no anxiety, andno pmdd.Preventative measuresFor preventive measures, patient reportsencourage self breast examination,encourage regular exercise,encourage no tobacco use, andencourage regular mammograms starting age 40.33yo [id number] - BTLlast pap 01/2023 : nilm, HPV (+)would like STI testing today DAVID Louie [address], [place], [address], [facility] 01/25/2024 11:04:26 5 text/html Annual GYNReported by PatientGenitourinary symptomsFor menstrual cycle, patient reportssevere dysmenorrheaandmenorrhagi a. For urinary symptoms, patient reportsno hematuriaandno incontinence. For vulva, patient reportsno genital lesion. For vagina, patient reportsnormal vaginal discharge.Breast symptomsFor breast, patient reportsno breast pain,no breast lump, andno nipple discharge.ContraceptionFo r current contraception, patient reportssatisfied with current contraceptionandtubal ligation.Endocrine symptomsFor sexual complaints, patient reportsno sexual complaints,no pain during intercourse, andnormal libido. For menopausal symptoms, patient reportsno menopausal symptomsandnormal vaginal lubrication.Psychological symptomsFor psychological symptoms, patient reportsno depression,no anxiety, andno pmdd.Preventative measuresFor preventive measures, patient reportsencourage self breast examination,encourage regular exercise,encourage no tobacco use, andencourage regular mammograms starting age 40.34yo wweBC - BTLlast pap 01/2024 : nilm, HPV (-)h/o HPV (+) 2022 periods monthly, lasting 5-6 days. Significant cramping during her periods which neg impacts her everyday activities. Uses menstrual cups and frequently having to change, every 1-2 hours. Not int in hormonal management options (states she has tried and failed many different hormonal contraception options). Wants to discuss surgical intervention. DAVID Louie [address], [place], [address], [facility] 01/26/2025 13:55:04 5 text/html This patient is a -year-old female presents for heavy vaginal bleeding. She has longstanding very heavy bleeding. Her menses are regular. However, they require double protection. Patient has accidents, [id number] blood on her bedding and clothing. Is affected work. She changes a pad or tampon every hour. She leaks blood around the pad and tampon. This bleeding has a profound impact on her quality of life and her activities of daily living. she has failed medical treatment. She is found to have uterine fibroids on pelvic ultrasound. Orientation of fibroids would make endometrial ablation ineffective. We discussed hysterectomy. The patient would like to proceed with hysterectomy The patient understands the procedure. The procedure was described to the patient in great detail. the patient also understands the risks. The risks were also explained in detail. She understands that injuries May occur during surgery. She understands these injuries can result in hospitalization, more surgery, and severe illness. She understands there is risk of hemorrhage and infection. Jose Lopez MD [address], [place], [id number], [facility] 02/09/2025 23:52:07 OBGyn Episode Ob Episode Information Episode Created Date Number of Fetuses Patient Bloodtype Patient rh Status Prepregnancy Weight lbs Domestic Partner Domestic Partner Phone Father Name Catering And Events Manager Status 11/16/19 20 1 CLOSED Fetus Data [...] Domestic Partner Domestic Partner Phone Father Name Catering And Events Manager Status 11/16/19 20 1 CLOSED Fetus Data [...]
[2025-05-01 08:27] LABS: Hematocrit 38.4 % (37.0-47.0); Hemoglobin 12.4 g/dL (12.0-15.0); Immature Granulocyte Percent A 0.6 % (0-0.5); Lymphocytes Absolute Auto 2.02 K/mm3 (0.9-3.2); Mean Corpuscular HGB Conc 32.3 g/dl (32-36); Mean Corpuscular Hemoglobin 29.0 pg (26-34); Mean Corpuscular Volume 89.7 fl (80-100); Nucleated Red Blood Cells Absolute Auto 0.000 K/mm3 (0.0-0.012); Nucleated Red Blood Cells Perc 0.0 % (0.0-0.2); Platelet Count Result 371 k/mm3 (150-375); Red Blood Count 4.28 M/mm3 (4.2-5.4); White Blood Count 6.4 K/mm3 (4.5-10.0)
[2025-05-01 08:53] LABS: Alanine Aminotransferase 21 U/L (6-35); Albumin Level 4.3 g/dL (3.5-5.1); Alkaline Phosphatase 77 U/L (38-126); Anion Gap 8 mmol/L (4-12); Aspartate Amino Transferase 27 U/L (14-36); Bilirubin,Total 0.3 mg/dL (0.2-1.3); Blood Urea Nitrogen 11 mg/dL (7-17); Calcium 9.1 mg/dL (8.4-10.2); Carbon Dioxide 25 mmol/L (22-30); Chloride 104 mmol/L (98-107); Cholesterol 178 mg/dL (0-200); Estimated Glomerular Filt Rate > 60; Glucose 91 mg/dL (65-110); HDL Direct 58 mg/dL; Potassium 4.1 mmol/L (3.4-5.0); Sodium 137 mmol/L (137-145); Total Protein 7.3 g/dL (6.3-8.2); Triglycerides 156 mg/dL (<150)
[2025-05-01 10:04] LABS: Vitamin B12 594.0 pg/mL (239-931)
== END 2025-05-01 07:24 | disposition home or self-care (01) ==
LOC: ANHLAB 07:26
PROVIDERS: PCP Emergency Medicine; Visit Provider Emergency Medicine
DX: E78.5 Hyperlipidemia, unspecified (principal); E55.9 Vitamin D deficiency, unspecified; I10 Essential (primary) hypertension
CPT/HCPCS: 36415; 80053; 80061; 82306; 82607; 82746; 85025

== ENCOUNTER 2025-05-03 13:16 | Outpatient (CLI) | payer OTHER, BC, SELFPAY ==
--- NOTE | ~2025-05-03 | CT_ITS ---
EXAMINATION: CT abd pelvis lumbar w con DATE: 05/03/2025 13:41 INDICATION: Disease of intestine, unspecified. TECHNIQUE: Computed tomography (CT) of the abdomen and pelvis and lumbar spine was performed with 100 mL Omnipaque 350 intravenous contrast. Automated exposure control and iterative reconstruction technique were employed. The dose-length product was 891.04 mGy-cm. COMPARISON: None. FINDINGS: CT ABDOMEN AND PELVIS: The visualized portions of lung bases demonstrate mild atelectasis. No pleural effusion. The heart size is normal. No pericardial effusion. The liver, gallbladder, spleen, pancreas, adrenal glands, and left kidney are normal. There is a 2.7 cm cyst in right kidney. There are no dilated loops of bowel. The appendix is normal. There are no pathologically enlarged lymph nodes. There is no free intraperitoneal fluid. CT LUMBAR SPINE: There is a transitional segment at S1. Alignment is normal. Vertebral body heights are normal. There is mildly decreased disc height at L1- L2, L3-L4, and L4-L5 and severely decreased disc height at L5-S1. The following disc levels are specifically discussed: L1-L2: The disc does not extend beyond the endplate margin. There is mild bilateral facet joint osteoarthritis. There is no neural foraminal stenosis. There is no central canal stenosis. L2-L3: The disc is bulging. There is mild bilateral facet joint osteoarthritis. There is mild bilateral neural foraminal stenosis. There is no central canal stenosis. L3-L4: The disc is bulging. There is mild bilateral facet joint osteoarthritis. There is mild bilateral neural foraminal stenosis. There is mild central canal stenosis. L4-L5: The disc is bulging. There is mild right and moderate left facet joint osteoarthritis. There is mild bilateral neural foraminal stenosis. There is mild central canal stenosis. L5-S1: The disc is bulging. There is severe bilateral facet joint osteoarthritis. There is mild bilateral neural foraminal stenosis. There is mild central canal stenosis. IMPRESSION: 1. Normal intestines. 2. Severe lower lumbar spondylosis. Reviewed, dictated and finalized at location E.
--- OUTSIDE RECORDS SUMMARY | 2025-05-03 15:16 | XMS_ITS | Data Portability ---
Author Organization [facility] Address [address] [place] [address] Care Team Providers Care Fuel Quality Tech Name Role Phone JENNIFER RODRIGUEZ Primary Care [...] a year unless there are new symptoms. [email or web address] Not available 01/26/2025 11:45:09 Plan of Treatment [...] core Ab) igm, serum 2024 07 025 [facility] (Lab), [address], [place], [address], 01/31/2025 21:08:58 HBsAg (hepatiti s B surface Ag), serum 2024 025 [facility] (Lab), [address], [place], [address], 01/31/2025 21:08:54 hepatitis C virus Ab, serum 2024 025 [facility] (Lab), [address], [place], [address], 01/31/2025 21:08:55 HIV 1+2 AB + HIV 1 p24 Ag, qualitati ve immunoass ay, serum 2024 025 [facility] (Lab), [address], [place], [address], 01/31/2025 21:08:54 RPR (rapid plasma reagin), serum 2024 025 [facility] (Lab), [address], [place], [address], 01/31/2025 21:08:57 pap, IG + HR HPV - HPV regardles s but if HPV is positive need subtyping 16,18/45 add gc/ct/tri ch 2024 025 [facility] (Lab), [address], [place], [address], 01/31/2025 11:27:00 dhea-sulf ate, serum 2024 025 [facility] (Lab), [address], [place], [address], 01/31/2025 21:08:57 hormone panel, serum or plasma [address] [place] [address] (Lab), [address], [place], [address], 01/31/2025 21:08:56 progester one, serum 2024 025 [facility] (Lab), [address], [place], [address], 01/31/2025 21:08:55 prolactin , serum 2024 025 [facility] (Lab), [address], [place], [address], 01/31/2025 21:08:55 shbg (sex hormone-b inding globulin) , serum 2024 025 [facility] (Lab), [address], [place], [address], 01/31/2025 21:08:57 TSH, serum or plasma 2024 025 [facility] (Lab), [address], [place], [address], 01/31/2025 21:08:56 testoster one free/test osterone total, ratio, serum 2024 025 [facility] (Lab), [address], [place], [address], 01/31/2025 21:08:58 CBC w/ auto diff 2024 025 [facility] (Lab), [address], [place], [address], 01/31/2025 21:08:56 hbcab (hepatiti s B core Ab) igm, serum 2023 024 [facility] (Lab), [address], [place], [address], 01/26/2024 21:33:56 HBsAg (hepatiti s B surface Ag), serum 2023 024 [facility] (Lab), [address], [place], [address], 01/26/2024 21:33:54 hepatitis C virus Ab, serum 2023 024 [facility] (Lab), [address] [facility], [place], [address], 01/26/2024 21:33:54 HIV 1+2 AB + HIV 1 p24 Ag, qualitati ve immunoass ay, serum 2023 024 [facility] (Lab), [address] [facility], [place], [address], 01/26/2024 21:33:55 RPR (rapid plasma reagin), serum 2023 024 [facility] (Lab), [address] [facility], [place], [address], 01/26/2024 21:33:55 hbcab (hepatiti s B core Ab) igm, serum 2022 023 [facility] (Lab), [address] [facility], [place], [address], 01/23/2023 23:29:51 HBsAg (hepatiti s B surface Ag), serum 2022 023 [facility] (Lab), [address] [facility], [place], [address], 01/23/2023 23:29:49 hepatitis C virus Ab, serum 2022 023 [facility] (Lab), [address] [facility], [place], [address], 01/23/2023 23:29:49 unlisted lab - HIV 1/2 antigen/a ntibody, reflex confirmat ion 2022 023 [facility] (Lab), [address] [facility], [place], [address], 01/23/2023 23:29:50 RPR (rapid plasma reagin), serum 2022 023 [facility] (Lab), [address], [place], [address], 01/23/2023 23:29:50 Referral None recorded. Procedures None recorded. Surgeries robotic assisted hysterect rachel with salpingec tobias (SURG) 2024 025 [facility], [address], [place], [address], 04/07/2025 12:26:29 Imaging US, pelvis 2024 025 [email or web address], [place], [address], 02/02/2025 21:45:25 US, transvagi nal 2024 025 [email or web address], [place], [address], 02/02/2025 21:45:25 Medication Orders None recorded. Patient [...] of expos ure to HCV. Not Available [facility] (Lab) [address], [place], [address], 01/23/2023 23:29:49 01/23/20 23 01/22/2023 HEPAT ITIS B SURFA CE ANTIG EN hepatitis B surface antigen Non-re active non-re active This assay was perfo rmed using [employer] ratio n reage nts and test kits. Value s obtai antonina with other assay metho ds or kits canno t be used inter cote eably . Not Available [facility] (Lab) [address] [facility], [place], [address], 01/23/2023 23:29:49 01/23/20 23 01/22/2023 HIV 1/2 ANTIG EN/AN TIBOD Y, REFLE X CONFI RMATI ON HIV antigen/anti body Nonrea ctive nonrea ctive HIV-1 antig en and HIV-1 /HIV- 2 antib odies were not detec hebert. No labor atory evide nce of HIV infec tion. Not Available [facility] (Lab) [address] [facility], [place], [address], 01/23/2023 23:29:50 01/23/20 23 01/22/2023 RPR SCREE N/REF MIMI TITER /FTA RPR screen Nonrea ctive nonrea ctive Not Available [facility] (Lab) [address] [facility], [place], [address], 01/23/2023 23:29:50 01/23/20 23 01/22/2023 HEPAT ITIS B CORE, IGM hepatitis B core IgM antibody Negati ve negati ve Not Available [facility] (Lab) [address] [facility], [place], [address], 01/23/2023 23:29:50 01/23/20 23 01/22/2023 IMAGE GUIDE [...] clini luis a nur nted. Not Available [facility] (Lab) [address] [facility], [place], [address], 01/24/2023 15:35:51 01/23/20 23 01/22/2023 CT/GC (ASHLEE) , THINP REP VIAL chlamydia trachomatis, PCR Negati ve negati ve Not Available [facility] (Lab) [address] [facility], [place], [address], 01/24/2023 15:35:51 01/23/20 23 01/22/2023 CT/GC (ASHLEE) , THINP REP VIAL neisseria gonorrhoeae, PCR Negati ve negati ve Not Available [facility] (Lab) [address] [facility], [place], [address], 01/24/2023 15:35:51 01/23/20 23 01/22/2023 TRICH OMONA S VAGIN COMFORT (RRNA ) trichomonas vaginalis ribosomal RNA (rrna) Negati ve negati ve Not Available [facility] (Lab) [address] [facility], [place], [address], 01/24/2023 15:35:52 01/25/20 24 01/25/2024 HEPAT ITIS C ANTIB DARLEEN SCREE N, REFLE X TO CONFI RMATI ON hepatitis C antibody Non-re active non-re active Antib odies to HCV Not Detec hebert, does not exclu de the possi bilit y of expos ure to HCV. Not Available [facility] (Lab) [address], [place], [address], 01/26/2024 21:33:54 01/25/20 24 01/25/2024 HEPAT ITIS B SURFA CE ANTIG EN hepatitis B surface antigen Non-re active non-re active This assay was perfo rmed using [employer] reage nts and test kits. Value s obtai antonina with other assay metho ds or kits canno t be used inter cote eably . Not Available [facility] (Lab) [address] [facility], [place], [address], 01/26/2024 21:33:54 01/25/20 24 01/25/2024 HIV 1/2 ANTIG EN/AN TIBOD Y, REFLE X CONFI RMATI ON HIV antigen/anti body Nonrea ctive nonrea ctive HIV-1 antig en and HIV-1 /HIV- 2 antib odies were not detec hebert. No labor atory evide nce of HIV infec tion. Not Available [facility] (Lab) [address] [facility], [place], [address], 01/26/2024 21:33:55 01/25/20 24 01/25/2024 RPR SCREE N, REFLE X TITER /CONF IRMAT ION RPR screen Nonrea ctive nonrea ctive Not Available [facility] (Lab) [address] [facility], [place], [address], 01/26/2024 21:33:55 01/25/20 24 01/25/2024 HEPAT ITIS B CORE, IGM hepatitis B core IgM antibody Non-re active non-re active IgM anti- HBc not detec hebert. Does not exclu de the possi bilit y of expos ure to or infec tion with HBV. Not Available [facility] (Lab) [address] [facility], [place], [address], 01/26/2024 21:33:55 01/25/20 24 01/25/2024 IMAGE GUIDE D PAP AND HPV REGAR DLESS image guided Pap, HPV regardless of Pap result SEE RESULT S BELOW CASE REPOR T: Cytol ogy Gynec ologi bravo Repor t Case: [id number] Autho gilberto g Provi winston: Lamay , Rachelle C, KNITTER HELPER Colle cted: 01/24 1004 Order ing Locat ion: [place] Patho logjemma Recevannessa eleuterio: 01/25 1326 First Mayra n: Abrahan tafoya, Jason coobms, CT Patho logis t: Bhargav Huffman MD Speci men: Mayra matehws Pap - Image d, Cervi x STATE [...] clini luis a warra nted. Not Available [facility] (Lab) [address] [facility], [place], [address], 02/01/2024 11:48:58 01/25/20 24 01/25/2024 CT/GC (ASHLEE) , THINP REP VIAL chlamydia trachomatis, PCR Negati ve negati ve Not Available [facility] (Lab) [address], [place], [address], 02/01/2024 11:48:59 01/25/20 24 01/25/2024 CT/GC (ASHLEE) , THINP REP VIAL neisseria gonorrhoeae, PCR Negati ve negati ve Not Available [facility] (Lab) [address], [place], [address], 02/01/2024 11:48:59 01/25/20 24 01/25/2024 TRICH OMONA S VAGIN COMFORT (RRNA ) trichomonas vaginalis ribosomal RNA (rrna) Negati ve negati ve Not Available [facility] (Lab) [address] [facility], [place], [address], 02/01/2024 11:49:00 01/27/20 25 01/26/2025 IMAGE GUIDE D PAP AND HPV REGAR DLESS image guided Pap, HPV regardless of Pap result SEE RESULT S BELOW CASE REPOR T: Cytol ogy Gynec ologi bravo Repor t Case: [id number] Autho gilberto phillip Provi winston: Rachelle [...] clini luis a warra nted. Not Available [facility] (Lab) [address], [place], [address], 01/31/2025 11:27:00 01/27/2001/26/2025 CT/GC AND TRICH OMONA S VAGIN COMFORT (RRNA ), THINP REP VIAL CT/GC and trichomonas vaginalis (rrna), thinprep SEE RESULT S BELOW negati ve CHLAM YDIA TRACH OMATI S, PCR: Negat mariia NEISS ERIA GONOR RHOEA E, PCR: Negat mariia TRICH OMONA S VAGIN COMFORT RIBOS OMAL RNA (RRNA ): Negat mariia Not Available [facility] (Lab) [address] [facility], [place], [address], 01/31/2025 11:27:01 01/27/20 25 01/26/2025 HEPAT ITIS [...] : add gc/ct /tric h Not Available [facility] (Lab) [address] [facility], [place], [address], 01/31/2025 21:08:54 01/27/20 25 01/26/2025 HIV 1/2 ANTIG EN/AN TIBOD Y, REFLE X CONFI RMATI ON HIV antigen/anti body Nonrea ctive nonrea ctive : Routi ne : ENDOC ERVIC AL/CE RVICA L : add gc/ct /tric h HIV-1 antig en and HIV-1 /HIV- 2 antib odies were not detec hebert. No labor atory evide nce of HIV infec tion. Not Available [facility] (Lab) [address] [facility] [facility], [place], [address], 01/31/2025 21:08:54 01/27/20 25 01/26/2025 HEPAT ITIS C ANTIB DARLEEN SCREE N, REFLE X TO CONFI RMATI ON hepatitis C antibody Non-re active non-re active Antib odies to HCV Not Detec hebert, does not exclu de the possi bilit y of expos ure to HCV. : Routi ne : ENDOC ERVIC AL/CE RVICA L : add gc/ct /tric h Not Available [facility] (Lab) [address], [place], [address], 01/31/2025 21:08:54 01/27/20 25 01/26/2025 PROGE STERO [...] : add gc/ct /tric h Not Available [facility] (Lab) [address] [place], [address], 01/31/2025 21:08:55 01/27/20 25 01/26/2025 TSH, REFLE X FREE T4 TSH 1.46 uIU/m L 0.30-5 .33 : Routi ne : ENDOC ERVIC AL/CE RVICA L : add gc/ct /tric h Not Available [facility] (Lab) [address] [place], [address], 01/31/2025 21:08:56 01/27/20 25 01/26/2025 TESTO STERO [...] cteri stics have been deter mined by [employer] [place], [place]. It has not been clear ed or appro eleuterio by the U.S. Food and Drug Admin istra tion. This assay has been valid ated pursu ant to the CLIA regul ation s and is used for clini bravo purpo ses. Not Available [facility] (Lab) [address] [facility], [place], [address], 01/31/2025 21:08:58 01/27/20 25 01/26/2025 TESTO STERO NE, FREE( DIALY SIS) AND TOTAL (LC/M S/MS) testosterone , free 2.1 pg/mL 0.1-6. 4 This test was devel oped and its chanelle tical perfo rmanc e robin cteri stics have been deter mined by [employer] [place], [place]. It has not been clear ed [...] Infor matio n: Site ID: AMD Name: [employer] [place] Apollidoni BPTe Addre ss: [id number] [place], [place] Direc tor: Tu Villegas MD PhD Not Available [facility] (Lab) [address], [place], [address], 01/31/2025 21:08:58 02/03/2002/02/2025 US, pelvi s No observ ation record ed. [facility] [address], [place], [address], 02/02/2025 16:48:37 02/03/2002/02/2025 US, trans vagin al No observ ation record ed. [facility] [address], [place], [address], 02/02/2025 16:48:48 02/03/20 25 02/02/2025 US, pelmiya s No observ ation record ed. negrito Ontiveros [address], [place], [address], 02/13/2025 15:11:02 Result Notes None recorded. Problems Name Problem SNOMED Code Status Onset Date Resolution Date Notes Provider Name and Address Organization Details Recorded Time Postpart um care Completed 201101/15/2021 Routine postpart um follow-u p;Practi ce ID: 0001 Lilia robertson, [facility] 17:40:40 Implanta tion of subcutan eous contrace ptive Completed 201201/15/2021 Insertio n of implanta ble subderma l contrace ptive;Pr actice ID: 0001 Lilia robertson, [facility] 17:40:53 Subcutan eous contrace ptive implant present [id number] Completed 201201/15/2021 Removal Or Check Nexplano n;Practi ce ID: 0001 Lilia robertson [facility] 17:41:33 Speciali zed medical examinat ion Completed 201201/15/2021 Routine gynecolo gical examinat ion;Prac kristian ID: 0001 Lilia robertson, [facility] 17:41:36 Screenin g for malignan t neoplasm of cervix Completed 201301/15/2021 Screenin g for malignan t neoplasm s of the cervix;R ecorded Elsewher e: No Locat ion: [facility] S ource: EHR Title Insurance Examiner barbi: N Practi ce ID: [id number] Alex lable Time: 09:30:00 AM Lilia robertson [facility] 17:40:58 Adult health examinat ion Completed 201301/15/2021 Routine general medical examinat ion at a health care facility ;Practic e ID: 0001 Lilia robertson [facility] 17:41:13 Speciali zed medical examinat ion Completed 201301/15/2021 Other specifie d chlamydi al diseases ;Practic e ID: 0001 Lilia robertson [facility] 17:41:37 Venereal disease screenin g Completed 201301/15/2021 Screenin g examinat ion for venereal disease; Practice ID: 0001 Lilia robertson [facility] 17:40:56 Amenorrh ea [id number] Completed 201401/15/2021 AMENORRH EA;Pract ice ID: 0001 Lilia robertson [facility] 17:40:45 Pregnanc y test positive [id number] Completed 201401/15/2021 Positive Pregnanc y Test;Pra ctice ID: 0001 Lilia robertson [facility] 17:41:09 Ultrason ography Completed 201401/15/2021 Antenata l screenin g for malforma tion using ultrason ics;Rashaad rded Elsewher e: No Locat ion: [facility] S ource: EHR Title Insurance Examiner barbi: N Practi ce ID: [id number] Alex lable Time: 02:00:00 PM Lilia robertson [facility] 17:40:52 Antenata l screenin g Completed 201401/15/2021 Antenata l screenin g for malforma tion using ultrason ics;Rashaad rded Elsewher e: No [facility] Title Insurance Examiner barbi: N Practi ce ID: [id number] Alex lable Time: 02:00:00 [facility] 17:41:06 Congenit al malforma tion [id number] Completed 201401/15/2021 Antenata l screenin g for malforma tion using ultrason ics;Rashaad rded Elsewher e: No Locat ion: [facility] S ource: EHR Title Insurance Examiner barbi: N Practi ce ID: [id number] Alex lable Time: 02:00:00 PM Lilia robertson, [facility] 17:41:19 anatomy study Completed 201401/15/2021 [facility] ANATMC SURVEY;P ractice ID: 0001 Lilia Chavez [facility] 17:41:16 Examinat ion for accident Completed 201401/15/2021 Observat ion followin g other accident ;Practic e ID: 0001 Lilia robertson, [facility] 17:41:07 Primigra natalee [id number] Completed 201401/15/2021 Supervis ion of normal first pregnanc y;Practi ce ID: 0001 Lilia robertson, [facility] 17:40:38 Benign essentia l hyperten princess complica ting pregnanc y, childbir th and the puerperi um - not delivere d [id number] Completed 201401/15/2021 ESSEN HYPERTEN -ANTEPAR T;Practi ce ID: 0001 Lilia robertson, [facility] 17:40:59 Glucose toleranc e test during pregnanc y - baby not yet delivere d outside referenc e range [id number] Completed 201401/15/2021 ABN GLUCOSE- ANTEPART UM;Pract ice ID: 0001 Lilia robertson, [facility] 17:41:32 Routine antenata l care Completed 201401/15/2021 Supervis ion of other normal pregnanc y;Practi ce ID: 0001 Lilia robertson, [facility] 17:40:42 Labor and delivery complica hebert by heart rate anomaly [id number] Completed 201401/15/2021 HEART RATE NON REASSURI NG;Pract ice ID: 0001 Lilia robertson, [facility] 17:41:12 Delivery normal [id number] Completed 201401/15/2021 NORMAL DELIVERY ;Practic e ID: 0001 Lilia robertson, [facility] 17:41:34 Single live from singleto n pregnanc y [id number] Completed 201401/15/2021 DELIVER- SINGLE LIVEBORN ;Practic e ID: 0001 Lilia robertson, [facility] 17:40:55 Transien t hyperten princess of pregnanc y - delivere d [id number] Completed 201401/15/2021 Transien t hyperten princess of pregnanc y, with delivery ;Practic e ID: 0001 Lilia robertson, [facility] 17:41:00 Transien t hyperten princess of pregnanc y - delivere d with postnata l complica tion [id number] Completed 201401/15/2021 TRANS HYPERTEN -POSTPAR T;Practi ce ID: 0001 Lilia robertson, [facility] 17:41:01 Lochia finding Completed 201401/15/2021 Encounte r for routine postpart um follow-u p;Practi ce ID: 0001 Lilia robertson, [facility] 17:41:30 Postpart um depressi on [id number] Completed 201401/15/2021 Postpart um depressi on;Recor ded Elsewher e: No Locat ion: [facility] S ource: EHR Title Insurance Examiner barbi: N Practi ce ID: [id number] Alex lable Time: 01:00:00 PM Lilia robertson, [facility] 17:41:39 Pregnanc y-induce d hyperten princess Completed 201401/15/2021 Gestatio nal htn w/o signific ant proteinu cassi, third trimeste r;Practi ce ID: 0001 [facility] 17:41:04 Insertio n of intraute rine contrace ptive device Completed 201401/15/2021 Encounte r for insertio n of intraute rine contrace ptive device;P ractice ID: 0001 Lilia robertson, [facility] 17:41:40 Pregnanc y test negative [id number] Completed 201401/15/2021 Encounte r for pregnanc y test, result negative ;Practic e ID: 0001 Lilia robertson [facility] 17:41:11 Contrace ptive sheath status [id number] Completed 201401/15/2021 Encounte r for routine checking of intraute rine contrace p dev;Prac kristian ID: 0001 [facility] 17:[facility]:[address] Concept Completed 201501/15/2021 Encntr for general adult medical exam w/o abnormal findings ;Recorde d Elsewher e: No Locat ion: [facility] S ource: EHR Title Insurance Examiner barbi: N Practi ce ID: [id number] Alex lable Time: 12:15:00 PM Lilia robertson [facility] 17:41:22 Emotiona l state finding Completed 201501/15/2021 Emotiona l lability ;Practic e ID: 0001 Lilia robertson [facility] 17:41:15 Abnormal weight gain [id number] Completed 201501/15/2021 Abnormal weight gain;Pra ctice ID: 0001 Lilia robertson [facility] 17:40:49 Finding of body mass index [id number] Completed 201501/15/2021 Body mass index (BMI) 40.0-44. 9, adult;Pr actice ID: 0001 Lilia robertson [facility] 17:41:20 Procedur e by method Completed 201501/15/2021 Encounte r for oth general cnsl and advice on contrace ption;Pr actice ID: 0001 Lilia robertson [facility] 17:41:27 Procedur e Completed 201501/15/2021 Encounte r for other preproce dural examinat ion;Prac kristian ID: 0001 Lilia robertson [facility] 17:41:26 Steriliz ation procedur e Completed 201501/15/2021 Encounte r for steriliz ation;Pr actice ID: 0001 Lilia robertson [facility] 17:41:28 Pelvic and perineal pain [id number] Completed 201501/15/2021 Pelvic and perineal pain;Pra ctice ID: 0001 Lilia robertson [facility] 17:41:18 Removal of intraute rine device Completed 201501/15/2021 Encounte r for removal of intraute rine contrace ptive device;P ractice ID: 0001 Lilia robertson [facility] 17:41:[address] Concept Completed 201601/15/2021 Encntr for topographical drafter exam (general ) (routine ) w/o abn findings ;Practic e ID: 0001 Lilia robertson [facility] 17:41:23 Low risk human papillom avirus deoxyrib onucleic acid detected in specimen from cervix [id number] Completed 201601/15/2021 Cervical low risk HPV DNA test positive ;Recorde d Elsewher e: No [facility] Title Insurance Examiner barbi: N Natalieti ce ID: [id number] Alex lable Time: 03:30:00 PM Lilia robertson [facility] 17:40:48 Finding of sensatio n of breast Completed 201701/15/2021 Mastodyn ia;Pract ice ID: 0001 Lilia Chavez [facility] 17:41:03 Body mass index 30+ - obesity [id number] Completed 201701/15/2021 Body mass index (BMI) 39.0-39. 9, adult;Re corded Elsewher e: No Locat ion: [facility] S ource: EHR Title Insurance Examiner barbi: N Natalieti ce ID: [id number] Alex lable Time: 09:00:00 AM Lilia robertson [facility] 17:40:50 Problem Notes None recorded. Procedures Surgical History Date Name Laterality Status Provider Name and Address Organization Details Recorded Time 01/18/20 16 ligation of bilateral fallopian tubes completed Lilialaquita Chavez [facility] 01/15/2021 17:46:28 07/20/19 05 reconstruction of anterior cruciate ligament of knee joint completed Amy Martinez [facility] 11/04/2019 14:16:09 Imaging Results None recorded. Procedure Notes None recorded. Medical Equipment None Reported. Allergies No known drug allergies Medications Name Sig Start Date Stop Date Status Note LastModified by Organization Details LastModified Time Mirena 21 mcg/24 hr (up to 8 years) 52 mg intrauter ine device 01/30 completed Prescrib ed Elsewher e: Yes Loca tion: [facility] odify By: khoi chaudhari DateTime : 05/22/20 [...] Prescrib ed Elsewher e: Yes Loca tion: [facility] M odify By: khoi chaudhari DateTime : [...] Prescrib ed Elsewher e: No Locat ion: [facility] odify By: [email or web address] trick En counter DateTime : 04/20/20 14 09:30:00 AM Not Available Not Available Not Available Flagyl 500 mg tablet take 1 tablet (500MG) by oral route every 12 hours 06/18 completed Prescrib ed Elsewher e: No Locat ion: [facility] odify By: [email or web address] trick En counter DateTime [...] Elsewher e: No Locat ion: Yvon henriquez [facility] odify By: khoi chaudhari DateTime : 01/24/20 [...] Prescrib ed Elsewher e: Yes Loca tion: [facility] odify By: khoi chaudhari DateTime : 04/19/20 15 01:00:00 PM Not Available Not Available Not Available Stool Softener 50 mg capsule take 1 capsule by oral route every day at bedtime as needed 01/30 completed Prescrib ed Elsewher e: Yes Loca tion: [facility] odify By: khoi chaudhari DateTime : 04/19/20 15 01:00:00 PM Not Available Not Available Not Available topiramat e 50 mg tablet 01/28 completed Not Available Not Available Not Available Nexplanon 68 mg subdermal implant Every 3 years 04/20 completed Prescrib ed Elsewher e: No Locat ion: [facility] florence [facility] odify By: [email or web address] trick En counter DateTime : 02/22/20 13 10:30:00 AM Not Available Not Available Not Available + DHA 28 mg iron-975 mcg-200 mg oral pack 09/10 completed Prescrib ed Elsewher e: Yes Loca tion: [facility] odify By: shimon z Brittany aldana DateTime : 01/07/20 12 02:00:00 PM Not Available Not Available Not Available Selsun Blue Moisturiz ing 1 % shampoo apply to affected area 3x/week for 1-2wks; apply for 10 min. interval s 01/30 completed Prescrib ed Elsewher e: No Locat ion: [facility] odify By: amkellis chaudhari DateTime : 11/29/19 [...] Updated DateTime 01/22/2023 165.1 cm 36.8 kg/m2 046915.91 g 127/82 mm[Hg] Madyson Alberts [facility] 01/22/2023 12:25:56 Date Recorded Body height Body mass index (BMI) Body weight Systolic And Diastolic Provider Name and Address Organization Details Last Updated DateTime 01/25/2024 165.1 cm 37.1 kg/m2 649529.1 g 124/78 mm[Hg] Ambar Platt [facility] 01/25/2024 09:37:02 Date Recorded Body height Body mass index (BMI) Body weight Systolic And Diastolic Provider Name and Address Organization Details Last Updated DateTime 01/26/2025 165.1 cm 34.8 kg/m2 14104.81 g 115/76 mm[Hg] Didi Bill [facility] 01/26/2025 11:47:46 Date Recorded Body height Provider Name an d Address Organization Details Last Updated DateTime 02/09/2025 165.1 cm Dorothy Parekh [facility] 02/09/2025 17:51:45 Social History Question Answer Notes LastModified by Organizat ion Details LastModified Time Tobacco Smoking Status Former Smoker Ambar Platt ailyn, [facility] 01/25/2024 09:39:22 Do You Have An Advance Directive? No [email or web address] Information not available 01/28/2021 How Many Years Have You Consumed Alcohol? 20 Information not available 01/22/2023 Are You Blind Or Do You Have Difficulty Seeing? No Information not available 01/28/2021 What Is Your Level Of Caffeine Consumption? Heavy Information not available 01/22/2023 How Much Tobacco Do You Chew? None [email or web address] Information not available 01/28/2021 In The 14 Days Before Symptom Onset, Have You Had Close Contact With A Laboratory-confir med COVID-19 While That Case Was Ill? No [email or web address] Information not available 01/28/2021 In The 14 Days Before Symptom Onset, Have You Had Close Contact With A Person Who Is Under Investigation For COVID-19 While That Person Was Ill? No Information not available 01/28/2021 Have You Been To An Area Known To Be High Risk For COVID-19? No [email or web address] Information not available 01/28/2021 Are You Deaf Or Do You Have Serious Difficulty Hearing? No Information not available 01/28/2021 What Type Of Diet Are You Following? CARBOHYDRATE [email or web address] Information not available 01/28/2021 What Is The Highest Grade Or Level Of School You Have Completed Or The Highest Degree You Have Received? [id number] [email or web address] Information not available 01/28/2021 Are There Any Guns Present In Your Home? No [email or web address] Information not available 01/28/2021 Do You Use Protection During Sex? No [email or web address] Information not available 01/28/2021 Do You Use Your Seat Belt Or Car Seat Routinely? Yes [email or web address] Information not available 01/28/2021 Do You Have Smoke And Carbon Monoxide Detectors In Your Home? Yes Information not available 01/28/2021 At What Age Did You Start Smoking Tobacco? 13 Information not available 01/28/2021 How Much Tobacco Do You Smoke? No Information not available 01/28/2021 Do You Use Sunscreen Routinely? Yes [email or web address] Information not available 01/28/2021 How Many Years Have You Smoked Tobacco? 20 Information not available 01/22/2023 Have You Used IV Drugs? No [email or web address] Information not available 01/28/2021 Do You Have Difficulty Walking Or Climbing Stairs? No Information not available 01/22/2023 Sex: Unknown Functional Status Question Answer Note LastModified by Organizat ion Details LastModified Time Do you use any illicit or recreational drugs? No Information not available 01/22/2023 What is your level of alcohol consumption? Occasional Information not available 01/28/2021 Are you able to walk independently without assistance or assistive devices? [email or web address] Information not available 01/28/2021 Are you able to care for yourself independently? 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 [id number] Information not available 01/28/2021 Family History Relationship Description Onset Age of this Age Resolved Age Notes LastModified by Organization Details LastModified Time Maternal Aunt Family history of breast cancer Not available 2024 11:26:15 Maternal Grandmother Malignant neoplasm of cervix uteri 70 [email or web address] Not available 1 11:20:02 Maternal Grandmother Malignant neoplasm of cervix uteri [email or web address] Not available 1 11:20:02 Paternal Uncle Carcinoma of prostate 80 [email or web address] Not available 2024 11:26:15 Unspecified Relation Malignant neoplasm of colon 60 Aunt's daught er [email or web address] Not available 05/01/2022 11:20:02 Father Malignant neoplasm of colon [email or web address] Not available 2024 11:52:00 Medical History Condition Response Other Y Headaches Y History of STI N History of abnormal pap Y Gynecological History Statement/Question Response Date of [...] Codes Diagnosis Note [id number] Tami Suarez CNM [place] [address] [address] 11/16/2019 12:20:12 11/16/2019 13:24:43 Gynecologic examination 13531172 Z01.419 Take Calcium with Vitamin D 1200mg [...] or dietary consult advised. Patient received above [employer], and questions have been answered. If you have any questions please call or respond to this email. Patient was made aware of the patient portal and may obtain a paper copy of today's plan if desired. [id number] Tami Suarez CNM [place] [address] [address] 01/28/2021 11:58:20 01/28/2021 12:53:19 Gynecologic examination 02272592 Z01.419 Z11.51 Take Calcium with Vitamin D [...] or dietary consult advised. Patient received above [employer], and questions have been answered. If you have any questions please call or respond to this email. Patient was made aware of the patient portal and may obtain a paper copy of today's plan if desired. [id number] DAVID Louie [place] [address],[facility] [address] 05/01/2022 10:57:51 05/01/2022 12:50:28 Gynecologic examination 51243196 Z01.419 Take Calcium with Vitamin D 1200mg [...] sooner if needed Venereal d isease screening 315603532 Z11.3 Sexually t ransmitted infectious disease 9640854 A64 [id number] DAVID Louie [place] [address] [address] 01/22/2023 12:19:07 01/22/2023 12:43:15 Gynecologic examination 58684535 Z01.419 Z11.51 Take Calcium with Vitamin D [...] sooner if needed Venereal d isease screening 570339678 Z11.3 Sexually t ransmitted infectious disease 2863179 A64 [id number] DAVID Louie [place] [address] [address] 01/25/2024 09:27:09 01/25/2024 11:23:33 Gynecologic examination 92898809 Z01.419 Z11.51 WWEBC - BTLpap updatedgc/ ct/trich [...] plan if desired. Venereal d isease screening 120371013 Z11.3 Sexually t ransmitted infectious disease 9771097 A64 [id number] DAVID Louie [place] [address] [address] 01/26/2025 11:25:05 01/26/2025 13:58:39 Gynecologic examination 88594824 Z01.962 0813468 WWEB - BTLPap - done todaySTI screen [...] advised. Questions answered. Venereal d isease screening 388344804 Z11.3 85756 Sexually t ransmitted infectious disease 9688579 A64 Menorrhagia 506544197 N9 2.0 5829867 Abnormal u terine bleeding 5540555123 9100 N93.9 Dysmenorrhea 928510495 N 94.6 [id number] Reviewed management options, declines hormonal contracept ion at this timepelvic u/s ordered, scheduled for MD henry/dave [id number] Jose Lopez MD [facility] [address] [address] 02/02/2025 09:26:10 02/02/2025 10:10:32 Dysmenorrhea 520912764 N94.6 N92.0 [id number] Jose Lopez MD [place] [address] [address] 02/09/2025 17:17:44 02/10/2025 05:09:57 Menometrorrhagia 686482942 N92.1 [id number] This patient is a -year-old female presents for heavy vaginal bleeding. She has longstandi ng very heavy bleeding. Her menses are regular. However, they require double protection . Patient has accidents, [id number] blood on her bedding and clothing. Is [...] Flores Member ID Guarantor Name 01/25/2025 1 [facility] - DOS PRIOR TO 2021 (MEDICAID REPLACEMENT - HMO) Bonnie Ortiz [id number] Bonnie Quary 01/25/2025 2 [facility] - DOS ON OR AFTER 21 (MEDICAID REPLACEMENT - HMO) Bonnie Ortiz [id number] Bonnie Quary 05/01/2025 2 [employer] [id number] Bonnie McQuary [id number] Bonnie Quary 05/01/2025 2 [place] Bonnie Quary [id number] Bonnie McQuary 02/02/2025 2 [place] [id number] Jayjay W McQuary [id number] Bonnie Quary 05/01/2025 1 [facility] [id number] Bonnie R McQuary [id number] Bonnie McQuary Notes Date Note Type Note Provider Name [...] age 38. DAVID Louie [address], [place], [address], [facility] 01/22/2023 12:39:50 4 text/html Annual GYNReported [...] use, andencourage regular mammograms starting age 40.35yo [id number] - BTLlast pap 01/2023 : nilm, HPV (+)would like STI testing today DAVID Louie [address], [place], [address], [facility] 01/25/2024 11:04:26 5 text/html Annual GYNReported [...] surgical intervention. DAVID Louie [address], [place], [address], [facility] 01/26/2025 13:55:04 5 text/html This patient is a -year-old female presents for heavy vaginal bleeding. She has longstanding very heavy bleeding. Her menses are regular. However, they require double protection. Patient has accidents, [id number] blood on her bedding and clothing. Is [...] infection. Jose Lopez MD [address], [place], [address], [facility] 02/09/2025 23:52:07 OBGyn Episode Ob Episode Information Episode Created Date Number of Fetuses Patient Bloodtype Patient rh Status Prepregnancy Weight lbs Domestic Partner Domestic Partner Phone Father Name Licensed Vocational Nurse Status 11/16/19 20 1 CLOSED Fetus Data [...] Domestic Partner Domestic Partner Phone Father Name Licensed Vocational Nurse Status 11/16/19 20 1 CLOSED Fetus Data [...]
== END 2025-05-03 13:17 | disposition home or self-care (01) ==
PROVIDERS: PCP Emergency Medicine; Visit Provider Emergency Medicine
DX: M43.06 Spondylolysis, lumbar region (principal)
CPT/HCPCS: 72132; 74177; Q9967

== ENCOUNTER 2025-07-03 13:26 | Outpatient (CLI) | payer OTHER, BC, SELFPAY ==
--- NOTE | 2025-07-03 13:43 | ECG_ITS ---
Test Date: 2025-07-03 13:58:35 Measurements Intervals [place] Rate: 69 P: 64 NE: 136 QRS: 46 QRSD: 94 T: 42 QT: 387 QTc: 417 Interpretive Statements SINUS RHYTHM NORMAL ECG No previous ECG available for comparison Electronically Signed On 07-03-2025 14:02:33 CARGO SUPERVISOR by Daniel Carrion D.O.
== END 2025-07-03 13:27 | disposition home or self-care (01) ==
LOC: ANHSURGERY 13:33
PROVIDERS: PCP Emergency Medicine; Visit Provider Obstetrics & Gynecology
DX: Z72.0 Tobacco use (principal); N92.0 Excessive and frequent menstruation with regular cycle
CPT/HCPCS: 36415; 86850; 86900; 86901; 93005

== ENCOUNTER 2025-07-05 03:55 | Day surgery (SDC) | payer OTHER, BC, SELFPAY ==
[2025-07-03 12:09] VITALS: BMI 34.0
--- NOTE | 2025-07-03 12:15 | SUR.PREOP ---
[facility] has started construction of its new state of the art ER which will open Spring 2026. With this, we anticipate parking may be a challenge for some our surgical patients and families. Parking spaces are limited but are available for all Surgical, obstetrics, and ER patients sharing this lot. If you arrive and find you are having a hard time finding a parking space, please note that we understand the challenges, please drive around the hospital and park near Hospital Entrance 1. When you enter this entrance, you can ask a volunteer to direct or take you back to the surgical waiting area to check in. We appreciate everyone?s understanding of these expected challenges while we build for your future. Report to the Outpatient Waiting Room, entrance under the green pavilion located off [address], at time 6:00a.m. on date 07/05/2025. Planned Procedure Time: 7:30a.m..? Time changes happen often and if your time is changed the preop area will call you the afternoon before. - You and your visitor will be asked to self-screen and do not enter if you have any COVID symptoms. Please call surgeon if you need to reschedule. - A mask is optional within the hospital at this time. Patients may have clear liquids (water, carbonated beverages, clear teas, apple juice) until 3 hours prior to surgery with a maximum of 20 ounces. - No food from midnight until time of surgery and no smoking, or chewing tobacco (or any form of nicotine). No chewing gum, candy or mints. Take only the following medications with a SIP of water on the morning of surgery: alprazolam DO NOT STOP ANY OF YOUR OTHER PRESCRIPTION MEDICATIONS PRIOR TO SURGERY EXCEPT THE FOLLOWING Hold all vitamins and supplements for 3 days per anesthesiologist. Medications to discontinue per physician N/A Date to take last dose N/A Please no make-up, nail sinhala, hairspray, perfume, deodorant, or body powder the day of surgery.? No jewelry (including any body piercings) or valuables the day of surgery, leave them at home.? Please take a shower or bath the night before, or the morning of, surgery with an antibacterial soap.? Wear comfortable, loose fitting clothing.? Children are encouraged to wear pajamas. - Jewelry must be removed prior to entering the operating room.? Rings and piercings that are not removed may be cut off. - The hospital will not accept responsibility for valuables.? - Please leave all valuables, including medications, at home the day of surgery. If you are going home after surgery, a licensed medical delivery driver must drive you home.? - NO public transportation without another adult if you receive anesthesia. - We recommend that an adult stay with you for 24 hours following discharge. - We also recommend that you do not drive, make important decision, drink alcoholic beverages, or take any drugs that were not prescribed by your health care provider for at least 24 hours after your discharge time. For Pediatric surgeries, we recommend two adults accompany the child home. Follow any additional instructions given to you from your surgeon. Telephone instructions given to Bonnie Helms and asked if any additional questions and then verbalized understanding. Patient advised to call surgeon office or pre surgery nurse liaison [phone] if any additional questions.
[2025-07-05] VITALS (10 sets, daily range): BP systolic 104–138; BP diastolic 62–77; PULSE 60–97; RESP 12–16; TEMP 36.1–36.8; O2SAT 98–100; BMI 33.8
--- OUTSIDE RECORDS SUMMARY | 2025-07-05 03:58 | XMS_ITS | Data Portability ---
Author Organization [facility] Address [address] [place] [address] Care Team Providers Care Clinical Safety Manager Name Role Phone JENNIFER RODRIGUEZ Primary Care Provider [phone] Assessment Encounter Date Assessment Date Assessment LastModified by Organization Details LastModified Time 01/25/2024 01/25/2024 Annual gynecological exam performed. Patient will come back in a year unless there are new symptoms. [email or web address] Not available 01/25/2024 09:32:50 01/26/2025 01/26/2025 Annual gynecological exam performed. Patient will come back in a year unless there are new symptoms. [email or web address] Not available 01/26/2025 11:45:09 Plan of Treatment Reminders Order Date Submit Date Provider Last Modified By Organization Details Last Modified Time Details Appointments Robotic TLH 2024 07:30A Nery LOPEZ MD Not available Not available Not available SURG POST OP 2024 09:30A Nery LOPEZ MD Not available Not available Not available Lab hbcab (hepatiti s B core Ab) igm, serum 2024 025 [facility] (Lab), [address], [place], [address], 01/31/2025 21:08:58 HBsAg (hepatiti s B surface Ag), serum 2024 025 [facility] (Lab), [address], [place], [address], 01/31/2025 21:08:54 hepatitis C virus Ab, serum 2024 025 [facility] (Lab), [address], [place], [address], 01/31/2025 21:08:55 HIV 1+2 AB + HIV 1 p24 Ag, qualitati ve immunoass ay, serum 2024 025 [facility] (Lab), [address], [place], [address], 01/31/2025 21:08:54 RPR (rapid plasma reagin), serum [address] [place] [address] (Lab), [address], [place], [address], 01/31/2025 21:08:57 pap, IG + HR HPV - HPV regardles s but if HPV is positive need subtyping 16,18/45 add gc/ct/tri ch 2024 025 [facility] (Lab), [address], [place], [address], 01/31/2025 11:27:00 dhea-sulf ate, serum [address] [place] [address] (Lab), [address], [place], [address], 01/31/2025 21:08:57 hormone panel, serum or plasma [address] [place] [address] (Lab), [address], [place], [address], 01/31/2025 21:08:56 progester one, serum [address] [place] [address] (Lab), [address], [place], [address], 01/31/2025 21:08:55 prolactin , serum [address] [place] [address] (Lab), [address], [place], [address], 01/31/2025 21:08:55 shbg (sex hormone-b inding globulin) , serum 2024 025 [facility] (Lab), [address], [place], [address], 01/31/2025 21:08:57 TSH, serum or plasma 2024 025 [facility] (Lab), [address], [place], [address], 01/31/2025 21:08:56 testoster one free/test osterone total, ratio, serum 2024 025 [facility] (Lab), [address], [place], [address], 01/31/2025 21:08:58 CBC w/ auto diff 2024 025 [facility] (Lab), [address], [place], [address], 01/31/2025 21:08:56 hbcab (hepatiti s B core Ab) igm, serum 2023 024 [facility] (Lab), [address], [place], [address], 01/26/2024 21:33:56 HBsAg (hepatiti s B surface Ag), serum 2023 024 [facility] (Lab), [address], [place], [address], 01/26/2024 21:33:54 hepatitis C virus Ab, serum 2023 024 [facility] (Lab), [address], [place], [address], 01/26/2024 21:33:54 HIV 1+2 AB + HIV 1 p24 Ag, qualitati ve immunoass ay, serum 2023 024 [facility] (Lab), [address], [place], [address], 01/26/2024 21:33:55 RPR (rapid plasma reagin), serum 2023 024 [facility] (Lab), [address], [place], [address], 01/26/2024 21:33:55 Referral None recorded. Procedures None recorded. Surgeries robotic assisted hysterect rachel with salpingec tobias (SURG) 2024 025 [facility], [address] [address], [place], [address], 04/07/2025 12:26:29 Imaging US, pelvis [address], [address], [place], [address], 02/02/2025 21:45:25 US, transvagi nal [address], [address], [place], [address], 02/02/2025 21:45:25 Medication Orders None recorded. Patient TargetsNo targets recorded. Patient InstructionsNo instructions recorded. Reason for Referral None Reported. Results Created Date Observation Date Name Description Value Unit Range Abnormal Flag Note LastModifiedBy Organization Detail LastModifiedTime 01/25/20 24 01/25/2024 HEPAT ITIS C ANTIB DARLEEN SCREE N, REFLE X TO CONFI RMATI ON hepatitis C antibody Non-re active non-re active Antib odies to HCV Not Detec hebert, does not exclu de the possi bilit y of expos ure to HCV. Not Available [facility] (Lab) [address], [place], [address], 01/26/2024 21:33:54 01/25/20 24 01/25/2024 HEPAT ITIS B SURFA CE ANTIG EN hepatitis B surface antigen Non-re active non-re active This assay was perfo rmed using [employer] ratio n reage nts and test kits. Value s obtai antonina with other assay metho ds or kits canno t be used inter cote eably . Not Available [facility] (Lab) [address], [place], [address], 01/26/2024 21:33:54 01/25/20 24 01/25/2024 HIV 1/2 ANTIG EN/AN TIBOD Y, REFLE X CONFI RMATI ON HIV antigen/anti body Nonrea ctive nonrea ctive HIV-1 antig en and HIV-1 /HIV- 2 antib odies were not detec hebert. No labor atory evide nce of HIV infec tion. Not Available [facility] (Lab) [address], [place], [address], 01/26/2024 21:33:55 01/25/20 24 01/25/2024 RPR SCREE N, REFLE X TITER /CONF IRMAT ION RPR screen Nonrea ctive nonrea ctive Not Available [facility] (Lab) [address], [place], [address], 01/26/2024 21:33:55 01/25/20 24 01/25/2024 HEPAT ITIS B CORE, IGM hepatitis B core IgM antibody Non-re active non-re active IgM anti- HBc not detec hebert. Does not exclu de the possi bilit y of expos ure to or infec tion with HBV. Not Available [facility] (Lab) [address], [place], [address], 01/26/2024 21:33:55 01/25/20 24 01/25/2024 IMAGE GUIDE D PAP AND HPV REGAR DLESS image guided Pap, HPV regardless of Pap result SEE RESULT S BELOW CASE REPOR T: Cytol ogy Gynec ologi bravo Repor t Case: [id number] Autho debbiemeghan phillip Provi winston: Rachelle Ceron, GILMAR Fonseca cted: 01/24 1004 Order ing Locat ion: [place] Patho logjemma Monique eleuterio: 01/25 1326 First Sharone n: Abrahan tafoya, Willi am, CT Patho logis t: Bhargav Huffman [...] a nur nted. Not Available [facility] (Lab) [address] [facility], [place], [address], 02/01/2024 11:48:58 01/25/20 24 01/25/2024 CT/GC (ASHLEE) , THINP REP VIAL chlamydia trachomatis, PCR Negati ve negati ve Not Available [facility] (Lab) [address] [place], [address], 02/01/2024 11:48:59 01/25/20 24 01/25/2024 CT/GC (ASHLEE) , THINP REP VIAL neisseria gonorrhoeae, PCR Negati ve negati ve Not Available [facility] (Lab) [address] [place], [address], 02/01/2024 11:48:59 01/25/20 24 01/25/2024 TRICH OMONA S VAGIN COMFORT (RRNA ) trichomonas vaginalis ribosomal RNA (rrna) Negati ve negati ve Not Available [facility] (Lab) [address] [facility], [place], [address], 02/01/2024 11:49:00 01/27/20 25 01/26/2025 IMAGE GUIDE D PAP AND HPV REGAR DLESS image guided Pap, HPV regardless of Pap result SEE RESULT S BELOW CASE REPOR T: Cytol ogy Gynec ologi bravo Repor t Case: [id number] Autho gilberto fisher Provi winston: Rachelle Ceron, GILMAR Colle cted: 01/26 1307 Order ing Locat ion: [place] Patho logy Recei eleuterio: 01/27 0933 First Mayra n: Abrahan tafoya, Jason coombs, CT Rescr [...] Sharif shane or Yu lombardo (NIL) . Funga l [...] a nur nted. Not Available [facility] (Lab) [address], [place], [address], 01/31/2025 11:27:00 01/27/20 25 01/26/2025 CT/GC AND TRICH OMONA S VAGIN COMFORT (RRNA ), THINP REP VIAL CT/GC and trichomonas vaginalis (rrna), thinprep SEE RESULT S BELOW negati ve CHLAM YDIA TRACH OMATI S, PCR: Negat mariia NEISS ERIA GONOR RHOEA E, PCR: Negat mariia TRICH OMONA S VAGIN COMFORT RIBOS OMAL RNA (RRNA ): Negat mariia Not Available [facility] (Lab) [address] [facility], [place], [address], 01/31/2025 11:27:01 01/27/2001/26/2025 HEPAT ITIS B SURFA CE ANTIG EN [...] : add gc/ct /tric h Not Available [facility] (Lab) [address] [facility], [place], [address], 01/31/2025 21:08:54 01/27/20 25 01/26/2025 HIV 1/2 ANTIG EN/AN TIBOD Y, REFLE X CONFI RMATI ON HIV antigen/anti body Nonrea ctive nonrea ctive : Routi ne : ENDOC ERVIC AL/CE RVICA L : add gc/ct /tric h HIV-1 antig en and HIV-1 /HIV- 2 antib odies were not detec hebert. No labor atory evide nce of HIV infec tion. Not Available [facility] (Lab) [address] [place], [address], 01/31/2025 21:08:54 01/27/20 25 01/26/2025 HEPAT ITIS C ANTIB DARLEEN SCREE N, REFLE X TO CONFI RMATI ON hepatitis C antibody Non-re active non-re active Antib odies to HCV Not Detec hebert, does not exclu de the possi bilit y of expos ure to HCV. : Routi ne : ENDOC ERVIC AL/CE RVICA L : add gc/ct /tric h Not Available [facility] (Lab) [address] [place], [address], 01/31/2025 21:08:54 01/27/2001/26/2025 PROGE STERO NE progesterone 10.90 NG/mL This [...] : add gc/ct /tric h Not Available [facility] (Lab) [address] [place], [address], 01/31/2025 21:08:55 01/27/2001/26/2025 PROLA CTIN prolactin, total 20.00 NG/mL 4.79-2 3.30 This assay was perfo rmed using [employer] ratio n reage nts and test kits. Value s obtai antonina with other assay metho ds or kits canno t be used inter cote eably . : Routi ne : ENDOC ERVIC AL/CE RVICA L : add gc/ct /tric h Not Available [facility] (Lab) [address] [place], [address], 01/31/2025 21:08:55 01/27/20 25 01/26/2025 FSH, LH, ESTRA DIOL estradiol 126.0 pg/mL This assay was perfo rmed using [employer] n reage nts and test kits. Value s obtai antonina with other assay metho ds or kits canno t be used inter cote eably . Femal e Estra diol Range s: Folli cular phase 12.4- 233 pg/mL Ovula tion phase 41.0- 398 pg/mL Lutea l phase 22.3- 341 pg/mL Postm enopa usal <5-13 8 pg/mL Healt hy Pregn ant Women 1st Trime ster 154-3 243 pg/mL 2nd Trime ster 1561- 27830 pg/mL 3rd Trime ster 8525- >3000 0 pg/mL Not Available [facility] (Lab) [address] [place], [address], 01/31/2025 21:08:55 01/27/20 25 01/26/2025 FSH, LH, ESTRA DIOL FSH 4.8 mIU/m L This assay was perfo rmed using [employer] ratio n reage nts and test kits. Value s obtai antonina with other assay metho ds or kits canno t be used inter [facility] . Femal es Folli cular : 3.5-1 2.5 mIU/m L Ovula tion: 4.7-2 1.5 mIU/m L Lutea l: 1.7-7 .7 mIU/m L Postm enopa use: 25.8- 134.8 mIU/m L Not Available [facility] (Lab) [address] [place], [address], 01/31/2025 21:08:55 01/27/20 25 01/26/2025 FSH, LH, ESTRA DIOL LH 4.5 mIU/m L This assay was perfo rmed using [employer] ratio n reage nts and test kits. Value s obtai antonina with other assay metho ds or kits canno t be used [facility] . Femal es Mid-F ollic ular: 2.4-1 2.6 mIU/m L Mid-C ycle: 14.0- 95.6 mIU/m L Mid-L uteal : 1.0-1 1.4 mIU/m L Postm enopa use: 7.7-5 8.5 mIU/m L : Routi ne : ENDOC ERVIC AL/CE RVICA L : add gc/ct /tric h Not Available [facility] (Lab) [address], [place], [address], 01/31/2025 21:08:55 01/27/2001/26/2025 TSH, REFLE X FREE T4 TSH 1.46 uIU/m L 0.30-5 .33 : Routi ne : ENDOC ERVIC AL/CE RVICA L : add gc/ct /tric h Not Available [facility] (Lab) [address], [place], [address], 01/31/2025 21:08:56 01/27/2001/26/2025 CBC W/DIF F WBC 6.4 10'3/ uL 3.5-10 .5 Not Available [facility] (Lab) [address] [facility], [place], [address], 01/31/2025 21:08:56 01/27/2001/26/2025 CBC W/DIF F RBC 4.61 10'6/ uL (based on docume nted legal sex) 3.80-5 .20 Not Available [facility] (Lab) [address] [facility], [place], [address], 01/31/2025 21:08:56 01/27/20 25 01/26/2025 CBC W/DIF F HGB 13.1 g/dL (based on docume nted legal sex) 11.6-1 5.4 Not Available [facility] (Lab) [address] [facility], [place], [address], 01/31/2025 21:08:56 01/27/2001/26/2025 CBC W/DIF F HCT 40.9 % (based on docume nted legal sex) 34.0-4 5.0 Not Available [facility] (Lab) [address] [facility], [place], [address], 01/31/2025 21:08:56 01/27/20 25 01/26/2025 CBC W/DIF F MCV 88.7 fL 80.0-9 9.0 Not Available [facility] (Lab) [address], [place], [address], 01/31/2025 21:08:56 01/27/20 25 01/26/2025 CBC W/DIF F MCH 28.4 pg 27.0-3 4.0 Not Available [facility] (Lab) [address], [place], [address], 01/31/2025 21:08:56 01/27/20 25 01/26/2025 CBC W/DIF F MCHC 32.0 g/dL 32.0-3 5.5 Not Available [facility] (Lab) [address], [place], [address], 01/31/2025 21:08:56 01/27/20 25 01/26/2025 CBC W/DIF F RDW 14.7 % 11.0-1 5.0 Not Available [facility] (Lab) [address], [place], [address], 01/31/2025 21:08:56 01/27/20 25 01/26/2025 CBC W/DIF F plt 393 10'3/ uL 150-40 0 Not Available [facility] (Lab) [address], [place], [address], 01/31/2025 21:08:56 01/27/20 25 01/26/2025 CBC W/DIF F MPV 10.8 fL 8.8-12 .1 Not Available [facility] (Lab) [address], [place], [address], 01/31/2025 21:08:56 01/27/20 25 01/26/2025 CBC W/DIF F NRBC's 0.0 % 0.0 Not Available [facility] (Lab) [address], [place], [address], 01/31/2025 21:08:56 01/27/20 25 01/26/2025 CBC W/DIF F absolute NRBCs 0.0 10'3/ uL no refere nce range establ ished Not Available [facility] (Lab) [address] [facility], [place], [address], 01/31/2025 21:08:56 01/27/20 25 01/26/2025 CBC W/DIF F neutrophils 68.8 % 34.0-7 3.0 Not Available [facility] (Lab) [address] [facility], [place], [address], 01/31/2025 21:08:56 01/27/20 25 01/26/2025 CBC W/DIF F lymphocytes 22.7 % 15.0-5 0.0 Not Available [facility] (Lab) [address] [facility], [place], [address], 01/31/2025 21:08:56 01/27/20 25 01/26/2025 CBC W/DIF F monocytes 6.6 % 1.0-15 .0 Not Available [facility] (Lab) [address] [facility], [place], [address], 01/31/2025 21:08:56 01/27/20 25 01/26/2025 CBC W/DIF F eosinophils 1.1 % 0.0-8. 0 Not Available [facility] (Lab) [address] [facility], [place], [address], 01/31/2025 21:08:56 01/27/20 25 01/26/2025 CBC W/DIF F basophils 0.5 % 0.0-2. 0 Not Available [facility] (Lab) [address] [facility], [place], [address], 01/31/2025 21:08:56 01/27/20 25 01/26/2025 CBC W/DIF F immature granulocytes 0.3 % no define d refere nce range Immat ure Granu locyt es (IG) repre sents autom ated enume ratio n of Metam yeloc ytes, Myelo cytes and Promy elocy cindy when IG is < 5%. Blast s are not inclu ded in IG and repor hebert separ ately if prese nt. Not Available [facility] (Lab) [address] [facility], [place], [address], 01/31/2025 21:08:56 01/27/2001/26/2025 CBC W/DIF F absolute neutrophils 4.4 10'3/ uL 1.5-8. 0 Not Available [facility] (Lab) [address] [facility], [place], [address], 01/31/2025 21:08:56 01/27/20 25 01/26/2025 CBC W/DIF F absolute lymphocytes 1.4 10'3/ uL 1.0-4. 0 Not Available [facility] (Lab) [address] [facility], [place], [address], 01/31/2025 21:08:56 01/27/20 25 01/26/2025 CBC W/DIF F absolute monocytes 0.4 10'3/ uL 0.2-1. 0 Not Available [facility] (Lab) [address] [facility], [place], [address], 01/31/2025 21:08:56 01/27/20 25 01/26/2025 CBC W/DIF F absolute eosinophils 0.1 10'3/ uL 0.0-0. 6 Not Available [facility] (Lab) [address] [facility], [place], [address], 01/31/2025 21:08:56 01/27/20 25 01/26/2025 CBC W/DIF F absolute basophils 0.0 10'3/ uL 0.0-0. 3 Not Available [facility] (Lab) [address] [place], [address], 01/31/2025 21:08:56 01/27/20 25 01/26/2025 CBC W/DIF F absolute immature granulocytes 0.0 10'3/ uL 0.00-0 .10 : Routi ne : ENDOC ERVIC AL/CE RVICA L : add gc/ct /tric h Refer ence range s for nonbi nary/ inter sex or unspe cifie d gende r patie nts have not been estab lishe d. Alesia henriquez refer [facility] for range s estab lishe d for cisge nder patie nts and evalu ate in the clini bravo david xt of the indiv idual patie nt: https ://marek regalado book. nm.or g/gen derx Not Available [facility] (Lab) [address], [place], [address], 01/31/2025 21:08:56 01/27/2001/26/2025 TESTO STERO NE, FREE( DIALY SIS) AND TOTAL (LC/M S/MS) testosterone , total 31 NG/dL 2-45 For addit ional infor alesia hassan refer to http: //[facility] madonna shane.que stdia gnost ics.c om/fa q/ Total Testo stero neLCM SMSFA Q165 (This link is being provi ded for infor ana rivera/ educsailaja grubbs l purpo ses only. ) This test was devel oped and its chanelle tical perfo rmanc e robin cteri stics have been deter mined by [facility] [place] It has not been clear ed or appro eleuterio by the U.S. Food and Drug Admin istra tion. This assay has been valid ated pursu ant to the CLIA regul ation s and is used for clini bravo purpo ses. Not Available [facility] (Lab) [address], [place], [address], 01/31/2025 21:08:58 01/27/2001/26/2025 TESTO STERO NE, FREE( DIALY SIS) AND TOTAL (LC/M S/MS) testosterone , free 2.1 pg/mL 0.1-6. 4 This test was devel oped and its chanelle tical perfo rmanc e robin cteri stics have been deter mined by [facility] [place], [place]. It has not been clear ed or appro eleuterio by the U.S. Food and Drug Admin istra tion. This assay has been valid ated pursu ant to the CLIA regul ation s and is used for clini bravo purpo ses. : Routi ne : ENDOC ERVIC AL/CE RVICA L : add gc/ct /tric h Perfo rming Organ izati on Infor matio n: Site ID: AMD Name: [facility] Addre ss: [id number] [place], [place] Direc tor: Tu Villegas MD PhD Not Available [facility] (Lab) [address] [facility], [place], [address], 01/31/2025 21:08:58 02/03/20 25 02/02/2025 US, pelvi s No observ ation record ed. [facility] [address] [facility] [address], [place], [address], 02/02/2025 16:48:37 02/03/20 25 02/02/2025 US, trans vagin al No observ ation record ed. [facility] [address] [facility] [address], [place], [address], 02/02/2025 16:48:48 02/03/20 25 02/02/2025 US, pelvi s No observ ation record ed. negrito Ontiveros [address], [place], [address], 02/13/2025 15:11:02 Result Notes None recorded. Problems Name Problem SNOMED Code Status Onset Date Resolution Date Notes Provider Name and Address Organization Details Recorded Time Postpart um care Completed 201101/15/2021 Routine postpart um follow-u p;Practi ce ID: 0001 Lilia Chavez [facility] 17:40:40 Implanta tion of subcutan eous contrace ptive Completed 201201/15/2021 Insertio n of implanta ble subderma l contrace ptive;Pr actice ID: 0001 Lilia robertson, [facility] 17:40:53 Subcutan eous contrace ptive implant present [id number] Completed 201201/15/2021 Removal Or Check Nexplano n;Practi ce ID: 0001 Lilia robertson, [facility] 17:41:33 Speciali zed medical examinat ion Completed 201201/15/2021 Routine gynecolo gical examinat ion;Prac kristian ID: 0001 Lilia robertson, [facility] 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 17:40:58 Adult health examinat ion Completed 201301/15/2021 Routine general medical examinat ion at a health care facility ;Practic e ID: 0001 Lilia robertson, [facility] 17:41:13 Speciali zed medical examinat ion Completed 201301/15/2021 Other specifie d chlamydi al diseases ;Practic e ID: 0001 Lilia robertson, [facility] 17:41:37 Venereal disease screenin g Completed 201301/15/2021 Screenin g examinat ion for venereal disease; Practice ID: [id number] Lilia robertson, [facility] 17:40:56 Amenorrh ea [id number] Completed 201401/15/2021 AMENORRH EA;Pract ice ID: 0001 Lilia robertson, [facility] 17:40:45 Pregnanc y test positive [id number] Completed 201401/15/2021 Positive Pregnanc y Test;Pra ctice ID: 0001 Lilia robertson, [facility] 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 17:41:19 anatomy study Completed 201401/15/2021 [facility] ANATMC SURVEY;P ractice ID: 0001 [facility] 17:41:16 Examinat ion for accident Completed 201401/15/2021 Observat ion followin g other accident ;Practic e ID: 0001 [facility] 17:41:07 Primigra natalee [id number] Completed 201401/15/2021 Supervis ion of normal first pregnanc y;Practi ce ID: 0001 [facility] 17:40:38 Benign essentia l hyperten princess complica ting pregnanc y, childbir th and the puerperi um - not delivere d [id number] Completed 201401/15/2021 ESSEN HYPERTEN -ANTEPAR T;Practi ce ID: 0001 Lilia robertson, [facility] 17:40:59 Glucose toleranc e test during pregnanc y - baby not yet delivere d outside referenc e range [id number] Completed 201401/15/2021 ABN GLUCOSE- ANTEPART UM;Pract ice ID: 0001 [facility] 17:41:32 Routine antenata l care Completed 201401/15/2021 Supervis ion of other normal pregnanc y;Practi ce ID: 0001 Lilia roberston, [facility] 17:40:42 Labor and delivery complica hebert by heart rate anomaly [id number] Completed 201401/15/2021 HEART RATE NON REASSURI NG;Pract ice ID: 0001 Lilia robertson, [facility] 17:41:12 Delivery normal [id number] Completed 201401/15/2021 NORMAL DELIVERY ;Practic e ID: 0001 Lilia robertson, [facility] 17:41:34 Single live from sindio n pregnanc y [id number] Completed 201401/15/2021 DELIVER- SINGLE LIVEBORN ;Practic e ID: 0001 Lilia robertson, [facility] 17:40:55 Transien t hyperten princess of pregnanc y - delivere d [id number] Completed 201401/15/2021 Transien t hyperten princess of pregnanc y, with delivery ;Practic e ID: 0001 Lilia robertson, [facility] 17:41:00 Transien t hyperten princess of pregnanc y - delivere d with postnata l complica tion [id number] Completed 201401/15/2021 TRANS HYPERTEN -POSTPAR T;Practi ce ID: 0001 Lilia robertson, [facility] 17:41:01 Lochia finding Completed 201401/15/2021 Encounte r for routine postpart um follow-u p;Natalieti ce ID: 0001 Lilia robertson, [facility] 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 17:41:39 Pregnanc y-induce d hyperten princess Completed 201401/15/2021 Gestatio nal htn w/o signific ant proteinu cassi, third trimeste r;Practi ce ID: 0001 Lilia robertson, [facility] 17:41:04 Insertio n of intraute rine contrace ptive device Completed 201401/15/2021 Encounte r for insertio n of intraute rine contrace ptive device;P ractice ID: 0001 Lilia robertson, [facility] 17:41:40 Pregnanc y test negative [id number] Completed 201401/15/2021 Encounte r for pregnanc y test, result negative ;Practic e ID: 0001 Lilia Chavez [facility], [facility] 17:41:11 Contrace ptive sheath status [id number] Completed 201401/15/2021 Encounte r for routine checking of intraute rine contrace p dev;Prac kristian ID: 0001 Lilia Chavez [facility], [facility] 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 17:41:22 Emotiona l state finding Completed 201501/15/2021 Emotiona l lability ;Practic e ID: 0001 Lilia robertson, [facility] 17:41:15 Abnormal weight gain 418713644 Completed 201501/15/2021 Abnormal weight gain;Pra ctice ID: 0001 Lilia robertson, [facility] 17:40:49 Finding of body mass index 630102110 Completed 201501/15/2021 Body mass index (BMI) 40.0-44. 9, adult;Pr actice ID: 0001 Lilia robertson [facility] 17:41:20 Procedur e by method Completed 201501/15/2021 Encounte r for oth general cnsl and advice on contrace ption;Pr actice ID: 0001 Lilia robertson [facility] 17:41:27 Procedur e Completed 201501/15/2021 Encounte r for other preproce dural examinat ion;Prac kristian ID: 0001 Lilia robertson [facility] 17:41:26 Steriliz ation procedur e Completed 201501/15/2021 Encounte r for steriliz ation;Pr actice ID: 0001 Lilia robertson [facility] 17:41:28 Pelvic and perineal pain [id number] Completed 201501/15/2021 Pelvic and perineal pain;Pra ctice ID: 0001 Lilia robertson [facility] 17:41:18 Removal of intraute rine device Completed 201501/15/2021 Encounte r for removal of intraute rine contrace ptive device;P ractice ID: 0001 Lilia robertson [facility] 17:41:[address] Concept Completed 201601/15/2021 Encntr for capture manager exam (general ) (routine ) w/o abn findings ;Practic e ID: 0001 Lilia robertson [facility] 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 17:40:48 Finding of sensatio n of breast Completed 201701/15/2021 Mastodyn ia;Pract ice ID: 0001 [facility] 17:41:03 Body mass index 30+ - obesity 782368495 Completed 201701/15/2021 Body mass index (BMI) 39.0-39. 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 17:40:50 Problem Notes None recorded. Procedures Surgical History Date Name Laterality Status Provider Name and Address Organization Details Recorded Time 01/27/20 25 Date of Last Pap Smear completed Dorothy Parekh [facility] 06/29/2025 17:25:39 01/18/20 16 ligation of bilateral fallopian tubes completed Lilia Chavez [facility] 01/15/2021 17:46:28 07/20/19 05 reconstruction of anterior cruciate ligament of knee joint completed Amy Martinez [facility] 11/04/2019 14:16:09 Imaging Results None recorded. Procedure Notes None recorded. Medical Equipment None Reported. Allergies No known drug allergies Medications Name Sig Start Date Stop Date Status Note LastModified by Organization Details LastModified Time Mirena 21 mcg/24 hr (up to 8 years) 52 mg intrauter ine device 01/30 completed Prescrib ed Elsewher e: Yes Loca tion: [facility] odify By: [email or web address] E ncounter DateTime : 05/22/20 15 03:45:00 PM [...] ONE TABLET BY MOUTH A ONE-TIME DOSE - MAY REPEAT IN 72 HOURS IF NEEDED 06/29 completed Not Available Not Available Not Available benzonata te 200 mg capsule TAKE 1 CAPSULE BY MOUTH TWICE DAILY NEEDED FOR COUGH 01/25 completed Not Available Not Available Not Available Nystop 100,000 unit/gram topical powder APPLY POWDER TOPICALL Y THREE TIMES DAILY 01/24 completed Not Available Not Available Not Available vitamin E 600 unit capsule 01/30 completed Prescrib mitch henriquez: Yes Loca tion: [facility] odify By: amkuhl E ncounter DateTime : 08/13/19 16 12:15:00 PM Not [...] Prescrib ed Elsewher e: No Locat ion: [facility] odify By: [email or web address] trick En counter DateTime : 04/20/20 14 09:30:00 AM Not Available Not Available Not Available Flagyl 500 mg tablet take 1 tablet (500MG) by oral route every 12 hours 06/18 completed Prescrib ed Elsewher e: No Locat ion: [facility] odify By: [email or web address] trick En counter DateTime : 04/05/20 12 09:40:25 AM Not Available Not Available Not Available cephalexi n 500 mg capsule TAKE 1 CAPSULE BY MOUTH EVERY 6 HOURS FOR 5 DAYS 06/29 completed Not Available Not Available Not Available pantopraz ole 40 mg tablet,de layed [...] Prescrib ed Elsewher e: No Locat ion: [facility] odify By: khoi chaudhari DateTime : [...] Prescrib ed Elsewher e: Yes Loca tion: [facility] odify By: khoi burrowsuntdiaz DateTime : 04/19/20 15 01:00:00 PM Not Available Not Available Not Available Stool Softener 50 mg capsule take 1 capsule by oral route every day at bedtime as needed 01/30 completed Prescrib ed Elsewher e: Yes Loca tion: [facility] odify By: khoi burrowsuntdiaz DateTime : 04/19/20 15 01:00:00 PM Not Available Not Available Not Available topiramat e 50 mg tablet 01/28 completed Not Available Not Available Not Available Nexplanon 68 mg subdermal implant Every 3 years 04/20 completed Prescrib ed Elsewher e: No Locat ion: Bonnie florence [facility] odify By: [email or web address] trick En counter DateTime : 02/22/20 13 10:30:00 AM Not Available Not Available Not Available + DHA 28 mg iron-975 mcg-200 mg oral pack 09/10 completed Prescrib ed Elsewher e: Yes Loca tion: [facility] odify By: [email or web address] z Encoun ter DateTime : 01/07/20 12 02:00:00 PM Not Available Not Available Not Available Selsun Blue Moisturiz ing 1 % shampoo apply to affected area 3x/week for 1-2wks; apply for 10 min. interval s 01/30 completed Prescrib ed Tanja e: No Locat ion: Yvon henriquez [facility] Nery odjason By: khoi chaudhari DateTime : 11/29/19 16 09:00:00 AM Not Available Not Available Not Available Emgality Pen 120 mg/mL subcutane ous pen injector INJECT CONTENTS OF 1 PEN SUBCUTAN EOUSLY ONCE EVERY MONTH active Not Available Not Available No t Available Fluzone Quad (PF) 60 mcg (15 mcg x 4)/0.5 mL IM syringe 01/15 completed Not Available Not Available Not Available Vitals Date Recorded Body height Body mass index (BMI) Body weight Systolic And Diastolic Provider Name and Address Organization Details Last Updated DateTime 01/25/2024 165.1 cm 37.1 kg/m2 671241.1 g 124/78 mm[Hg] Ambar Platt [facility] 01/25/2024 09:37:02 Date Recorded Body height Body mass index (BMI) Body weight Systolic And Diastolic Provider Name and Address Organization Details Last Updated DateTime 01/26/2025 165.1 cm 34.8 kg/m2 54395.81 g 115/76 mm[Hg] Didi Landy [facility] 01/26/2025 11:47:46 Date Recorded Body height Provider Name an d Address Organization Details Last Updated DateTime 02/09/2025 165.1 cm Dorothy [facility] 02/09/2025 17:51:45 Date Recorded Body height Body mass index (BMI) Body weight Systolic And Diastolic Provider Name and Address Organization Details Last Updated DateTime 06/29/2025 165.1 cm 34.3 kg/m2 68814.03 g 137/79 mm[Hg] Dorothy [facility] 06/29/2025 17:25:04 Social History Question Answer Notes LastModified by Organizat ion Details LastModified Time Tobacco Smoking Status Former Smoker Ambar Lc [facility] 01/25/2024 09:39:22 Do You Have An Advance Directive? No [email or web address] Information not available 01/28/2021 How Many Years Have You Consumed Alcohol? 20 Information not available 01/22/2023 Are You Blind Or Do You Have Difficulty Seeing? No [email or web address] Information not available 01/28/2021 What Is Your Level Of Caffeine Consumption? Heavy Information not available 01/22/2023 How Much Tobacco Do You Chew? None Information not available 01/28/2021 In The 14 Days Before Symptom Onset, Have You Had Close Contact With A Laboratory-confir med COVID-19 While That Case Was Ill? No [email or web address] Information not available 01/28/2021 In The 14 Days Before Symptom Onset, Have You Had Close Contact With A Person Who Is Under Investigation For COVID-19 While That Person Was Ill? No [email or web address] Information not available 01/28/2021 Have You Been To An Area Known To Be High Risk For COVID-19? No Information not available 01/28/2021 Are You Deaf Or Do You Have Serious Difficulty Hearing? No [email or web address] Information not available 01/28/2021 What Type Of Diet Are You Following? CARBOHYDRATE [email or web address] Information not available 01/28/2021 What Is The Highest Grade Or Level Of School You Have Completed Or The Highest Degree You Have Received? [id number] [email or web address] Information not available 01/28/2021 Are There Any Guns Present In Your Home? No [email or web address] Information not available 01/28/2021 Do You Use Protection During Sex? No [email or web address] Information not available 01/28/2021 Do You Use Your Seat Belt Or Car Seat Routinely? Yes [email or web address] Information not available 01/28/2021 Do You Have Smoke And Carbon Monoxide Detectors In Your Home? Yes Information not available 01/28/2021 At What Age Did You Start Smoking Tobacco? 13 [email or web address] Information not available 01/28/2021 How Much Tobacco Do You Smoke? No [email or web address] Information not available 01/28/2021 Do You Use Sunscreen Routinely? Yes [email or web address] Information not available 01/28/2021 How Many Years Have You Smoked Tobacco? 20 Information not available 01/22/2023 Have You Used IV Drugs? No [email or web address] Information not available 01/28/2021 Do You Have [...] independently without assistance or assistive devices? YESWOREST [email or web address] Information not available 01/28/2021 Are you able to care for yourself independently? 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 [id number] [email or web address] Information not available 01/28/2021 Family History Relationship Description Onset Age of this Age Resolved Age Notes LastModified by Organization Details LastModified Time Maternal Aunt Family history of breast cancer [email or web address] Not available 2024 11:26:15 Maternal Grandmother Malignant neoplasm of cervix uteri 70 [email or web address] Not available 11:20:02 Maternal Grandmother Malignant neoplasm of cervix uteri [email or web address] Not available 1 11:20:02 Paternal Uncle Carcinoma of prostate 80 Not available 2024 11:26:15 Unspecified Relation Malignant neoplasm of colon 60 Aunt's daught er [email or web address] Not available 05/01/2022 11:20:02 Father Malignant neoplasm of colon [email or web address] Not available 2024 11:52:00 Medical History Condition Response History of STI N Other Y History of abnormal pap Y Headaches Y Gynecological History Statement/Question Response Date of Last Mammogram Flow Moderate Date of LMP 06/18/2025 N Was last menstrual period normal Y STIs/STDs Y Date of Last Colonoscopy Desired Control Method Hysterectom y Abnormal Pap Y On BCP's at Conception? Y HPV Vaccine Y Colposcopy Duration of Flow (days) 5 Current Control Method Tubal Ligat ion Age at First Child 20 Are cycles usually normal Y Frequency of Cycle (Q days) 23 Sexually Active? Y Menses Monthly Y Date of DEXA bone scan Age of first menstrual cycle 9 Date of Last Pap Smear 01/26/2025 Sexual Problems? N LMP Approximate N Obstetrics History GPAL:G 2 P 2 0 0 2 Type Value Full Term 2 Living 2 Total 2 Past Encounters Encounter ID Performer Location Encounter Start Date Encounter Closed Date Diagnosis/Indication Diagnosis SNOMED-CT Code Diagnosis ICD10 Code Diagnosis IMO Codes Diagnosis Note [id number] Tami Suarez CNM [facility] [address] [address] 11/16/2019 12:20:12 11/16/2019 13:24:43 Gynecologic examination 10025831 Z01.419 Take Calcium with Vitamin D 1200mg [...] paper copy of today's plan if desired. [id number] Tami Suarez CNM [facility] [address],[place] [address] 01/28/2021 11:58:20 01/28/2021 12:53:19 Gynecologic examination 62220573 Z01.419 Z11.51 Take Calcium with Vitamin D [...] paper copy of today's plan if desired. [id number] DAVID Louie [facility] [address] [address] 05/01/2022 10:57:51 05/01/2022 12:50:28 Gynecologic examination 97427480 Z01.419 Take Calcium with Vitamin D 1200mg [...] sooner if needed Venereal d isease screening 445699904 Z11.3 Sexually t ransmitted infectious disease 0776478 A64 [id number] DAVID Louie [facility] [address] [address] 01/22/2023 12:19:07 01/22/2023 12:43:15 Gynecologic examination 33085909 Z01.419 Z11.51 Take Calcium with Vitamin D [...] sooner if needed Venereal d isease screening 796522241 Z11.3 Sexually t ransmitted infectious disease 8737461 A64 [id number] DAVID Louie [facility] [address] [address] 01/25/2024 09:27:09 01/25/2024 11:23:33 Gynecologic examination 48419777 Z01.419 Z11.51 WWEBC - BTLpap updatedgc/ ct/trich [...] plan if desired. Venereal d isease screening 730146566 Z11.3 Sexually t ransmitted infectious disease 7096988 A64 [id number] DAVID Louie [facility] [address] [address] 01/26/2025 11:25:05 01/26/2025 13:58:39 Gynecologic examination 92216826 Z01.401 [id number] WWEB - BTLPap - done todaySTI screen - gc/ct/tric h testing added to papHIV/Hep B&C/Syphil is testing ordered per pt requestRou john labs - PCPRTC in 1 yr or sooner if needed [...] advised. Questions answered. Venereal d isease screening 495546904 Z11.3 05347 Sexually t ransmitted infectious disease 7593759 A64 Menorrhagia 201196652 N9 2.0 8343991 Abnormal u terine bleeding 7473428879 9100 N93.9 Dysmenorrhea 706572534 N 94.6 44935 Reviewed management options, declines hormonal contracept ion at this timepelvic u/s ordered, scheduled for MD henry/dave [id number] Jose Lopez MD [facility] [address] [address] 02/02/2025 09:26:10 02/02/2025 10:10:32 Dysmenorrhea 250233769 N94.6 N92.0 [id number] Jose Lopez MD [facility] [address] [address] 02/09/2025 17:17:44 02/10/2025 05:09:57 Menometrorrhagia 735524277 N92.1 7752381 This patient is a -year-old female presents for heavy vaginal bleeding. She has longstandi ng very heavy bleeding. Her menses are regular. However, they require double protection . Patient has accidents, [id number] blood on her bedding and clothing. Is [...] there is risk of hemorrhage and infection. [id number] Jose Lopez MD [facility] [address] [address] 06/29/2025 17:09:47 07/01/2025 11:25:45 Menorrhagia 378797286 N92.0 [id number] This patient is a 34-year-ol d female with severe menorrhagi a. We have agreed to perform robotic assisted hysterecto my with bilateral salpingect rachel. She understand s the risks, benefits, and alternativ es. She has completed informed consent process and is ready to proceed. Health Concerns Section Related Observation LastModified by Organization Detai ls LastModified Time None Recorded Concern Status LastModified by Organization Details LastModified Time None Recorded Advance Directives Directive N: Payers Insurance Date Sequence Insurance Name Policy Number Policy Flores Covered Member ID Flores Member ID Guarantor Name 07/04/2025 1 [facility] - DOS PRIOR TO 2021 (MEDICAID REPLACEMENT - HMO) Bonnie Ortiz [id number] [facility] 07/04/2025 2 [facility] - DOS ON OR AFTER 21 (MEDICAID REPLACEMENT - HMO) Bonnie Ortiz [id number] Bonnie Quary 07/04/2025 2 [place] [id number] Bonnie McQuary [id number] Bonnie McQuary 07/02/2025 2 [place] [id number] Jayjay W McQuary [id number] Bonnie McQuary 02/02/2025 2 [place] [id number] Jayjay W McQuary [id number] Bonnie McQuary 07/04/2025 1 [facility] [id number] Bonnie R McQuary [id number] Bonnie McQuary Notes Date Note Type Note Provider Name and Address Organization Details Recorded Time 4 text/html Annual GYNReported by PatientGenitourinary symptomsFor [...] use, andencourage regular mammograms starting age 40.35yo [id number] - BTLlast pap 01/2023 : nilm, HPV (+)would like STI testing today DAVID Louie [address], [place], [address], [facility] 01/25/2024 11:04:26 5 text/html Annual GYNReported [...] use, andencourage regular mammograms starting age 40.36yo [facility] - BTLlast pap 01/2024 : nilm, HPV [...] surgical intervention. DAVID Louie [address], [place], [address], [facility] 01/26/2025 13:55:04 5 text/html This patient is a -year-old female presents for heavy vaginal bleeding. She has longstanding very heavy bleeding. Her menses are regular. However, they require double protection. Patient has accidents, [id number] blood on her bedding and clothing. Is [...] infection. Jose Lopez MD [address], [place], [address], [facility] 02/09/2025 23:52:07 5 text/html This patient is a 34-year-old female with severe menorrhagia. We have agreed to perform robotic assisted hysterectomy with bilateral salpingectomy. She understands the risks, benefits, and alternatives. She has completed informed consent process and is ready to proceed.. The patient understands the procedure. The procedure [...] infection. Jose Lopez MD [address], [place], [address], [facility] 06/30/2025 20:30:48 OBGyn Episode Ob Episode Information Episode Created Date Number of Fetuses Patient Bloodtype Patient rh Status Prepregnancy Weight lbs Domestic Partner Domestic Partner Phone Father Name Director Of Consumer Marketing Status 11/16/19 20 1 CLOSED Fetus Data [...] Domestic Partner Domestic Partner Phone Father Name Director Of Consumer Marketing Status 11/16/19 20 1 CLOSED Fetus Data [...]
--- OUTSIDE RECORDS SUMMARY | 2025-07-05 03:58 | XMS_ITS | Continuity of Care Document ---
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 Plan of Treatment Reminders Order Date Submit Date Provider Last Modified By Organization Details Last Modified Time Details Appointments Robotic TLH 2024 07:30A Nery WHEELER MD Not available Not available Not available SURG POST OP 2024 09:30A Nery WHEELER MD Not available Not available Not available Lab None recorded . Referral None recorded . Procedures None recorded . Surgeries None recorded . Imaging None recorded . Medication Orders None recorded . Patient TargetsNo targets recorded. Patient InstructionsNo instructions recorded. Reason for Referral None Reported. Problems Name Problem SNOMED Code Status Onset Date Resolution Date Notes Provider Name and Address Organization Details Recorded Time Postpart um care Completed 201101/15/2021 Routine postpart follow-u p;Practi ce ID: 0001 Lilia robertson, [facility] 17:40:40 Implanta tion of subcutan eous contrace ptive Completed 201201/15/2021 Insertio n of implanta ble subderma l contrace ptive;Pr actice ID: 0001 Lilia robertson [facility] 17:40:53 Subcutan eous contrace ptive implant present [id number] Completed 201201/15/2021 Removal Or Check Nexplano n;Practi ce ID: 0001 Lilia robertson, [facility] 17:41:33 Speciali zed medical examinat ion Completed 201201/15/2021 Routine gynecolo gical examinat ion;Prac kristian ID: 0001 Lilia robertson, [facility] 17:41:36 Screenin g for malignan t neoplasm of cervix Completed 201301/15/2021 Screenin g for malignan t neoplasm s of the cervix;R ecorded Elsewher e: No Locat ion: [facility] S ource: EHR [place] barbi: N Practi ce ID: 0001 Alex lable Time: 09:30:00 AM Lilia robertson, [facility] 17:40:58 Adult health examinat ion Completed 201301/15/2021 Routine general medical examinat ion at a general [facility] facility ;Practic e ID: 0001 Lilia robertson, [facility] 17:41:13 Speciali zed medical examinat ion Completed 201301/15/2021 Other specifie d chlamydi al diseases ;Practic e ID: 0001 Lilia robertson, [facility] 17:41:37 Venereal disease screenin g Completed 201301/15/2021 Screenin g examinat ion for venereal disease; Practice ID: 0001 Lilia Scott ailyn, [facility] 17:40:56 Amenorrh ea [id number] Completed 201401/15/2021 AMENORRH EA;Pract ice ID: 0001 Lilia Scott ailyn, [facility] 17:40:45 Pregnanc y test positive [id number] Completed 201401/15/2021 Positive Pregnanc y Test;Pra ctice ID: 0001 Lilia robertson, [facility] 17:41:09 Ultrason ography Completed 201401/15/2021 Antenata l screenin g for malforma tion using ultrason ics;Rashaad rded Elsewher e: No Locat ion: [facility] S ource: E[facility] [place] barbi: N Natalieti ce ID: 0001 Alex lable Time: 02:00:00 PM Lilia robertson, [facility] 17:40:52 Antenata l screenin g Completed 201401/15/2021 Antenata l screenin g for malforma tion using ultrason ics;Rashaad rded Elsewher e: No Locat ion: [facility] S ource: EHR [place] barbi: N Natalieti ce ID: 0001 Alex lable Time: 02:00:00 PM Lilia robertson, [facility] 17:41:06 Congenit al malforma tion [id number] Completed 201401/15/2021 Antenata l screenin g for malforma tion using ultrason ics;Rashaad rded Elsewher e: No Locat ion: [facility] S ource: EHR [place] barbi: N Thao ce ID: 0001 Alex lable Time: 02:00:00 PM Lilia robertson, [facility] 17:41:19 anatomy study Completed 201401/15/2021 [facility] ANATMC SURVEY;P ractice ID: 0001 Lilia robertson, [facility] 17:41:16 Examinat ion for accident Completed 201401/15/2021 Observat ion followin g other accident ;Practic e ID: 0001 Lilia robertson, [facility] 17:41:07 Primigra natalee [id number] Completed 201401/15/2021 Supervis ion of normal first pregnanc y;Practi ce ID: 0001 Lilia robertson, [facility] 17:40:38 Benign essentia l hyperten princess complica ting pregnanc y, childbir th and the puerperi um - not delivere d [id number] Completed 201401/15/2021 ESSEN HYPERTEN -ANTEPAR T;Practi ce ID: 0001 Lilia Chavez ailyn, [facility] 17:40:59 Glucose toleranc e test during pregnanc y - baby not yet delivere d outside referenc e range [id number] Completed 201401/15/2021 ABN GLUCOSE- ANTEPART UM;Pract ice ID: 0001 Lilia Chavez ailyn, [facility] 17:41:32 Routine antenata l care Completed 201401/15/2021 Supervis ion of other normal pregnanc y;Practi ce ID: 0001 Lilia Chavez ailyn, [facility] 17:40:42 Labor and delivery complica hebert by heart rate anomaly [id number] Completed 201401/15/2021 HEART RATE NON REASSURI NG;Pract ice ID: 0001 Lilia Chavez ailyn, [facility] 17:41:12 Delivery normal [id number] Completed 201401/15/2021 NORMAL DELIVERY ;Practic e ID: 0001 Lilia Scott ailyn, [facility] 17:41:34 Single live from singleto n pregnanc y [id number] Completed 201401/15/2021 DELIVER- SINGLE LIVEBORN ;Practic e ID: 0001 Lilia Scott robertson, [facility] 17:40:55 Transien t hyperten princess of pregnanc y - delivere d [id number] Completed 201401/15/2021 Transien t hyperten princess of pregnanc y, with delivery ;Practic e ID: 0001 Lilia robertson, [facility] 17:41:00 Transien t hyperten princess of pregnanc y - delivere d with postnata l complica tion [id number] Completed 201401/15/2021 TRANS HYPERTEN -POSTPAR T;Practi ce ID: 0001 Lilia robertson, [facility] 17:41:01 Lochia finding Completed 201401/15/2021 Encounte r for routine postpart um follow-u p;Practi ce ID: 0001 Lilia Chavez [facility], [facility] 17:41:30 Postpart um depressi on [id number] Completed 201401/15/2021 Postpart um depressi on;Recor ded Elsewher e: No Locat ion: [facility] S ource: EHR [place] barbi: N Practi ce ID: 0001 Alex lable Time: 01:00:00 PM Lilia robertson, [facility] 17:41:39 Pregnanc y-induce d hyperten princess Completed 201401/15/2021 Gestatio nal htn w/o signific ant proteinu cassi, third trimeste r;Practi ce ID: 0001 Lilia robertson, [facility] 17:41:04 Insertio n of intraute rine contrace ptive device Completed 201401/15/2021 Encounte r for insertio n of intraute rine contrace ptive device;P ractice ID: 0001 Lilia robertson, [facility] 17:41:40 Pregnanc y test negative [id number] Completed 201401/15/2021 Encounte r for pregnanc y test, result negative ;Practic e ID: 0001 Lilia robertson, [facility] 17:41:11 Contrace ptive sheath status [id number] Completed 201401/15/2021 Encounte r for routine checking of intraute rine contrace p dev;Prac kristian ID: 0001 Lilia robertson, [facility] 17:41:[address] Concept Completed 201501/15/2021 Encntr for general adult medical exam w/o abnormal findings ;Recorde d Elsewher e: No Locat ion: [facility] S ource: EHR [place] barbi: N Practi ce ID: 0001 Alex lable Time: 12:15:00 PM Lilia robertson [facility] 17:41:22 Emotiona l state finding Completed 201501/15/2021 Emotiona l lability ;Practic e ID: 0001 Lilia robertson, [facility] 17:41:15 Abnormal weight gain 166321583 Completed 201501/15/2021 Abnormal weight gain;Pra ctice ID: 0001 Lilia robertson, [facility] 17:40:49 Finding of body mass index 684414847 Completed 201501/15/2021 Body mass index (BMI) 40.0-44. 9, adult;Pr actice ID: 0001 Lilia robertson [facility] 17:41:20 Procedur e by method Completed 201501/15/2021 Encounte r for oth general cnsl and advice on contrace ption;Pr actice ID: 0001 Lilia robertson, [facility] 17:41:27 Procedur e Completed 201501/15/2021 Encounte r for other preproce dural examinat ion;Prac kristian ID: 0001 Lilia robertson, [facility] 17:41:26 Steriliz ation procedur e Completed 201501/15/2021 Encounte r for steriliz ation;Pr actice ID: 0001 Lilia robertson [facility] 17:41:28 Pelvic and perineal pain [id number] Completed 201501/15/2021 Pelvic and perineal pain;Pra ctice ID: 0001 Lilia Chavez [facility] 17:41:18 Removal of intraute rine device Completed 201501/15/2021 Encounte r for removal of intraute rine contrace ptive device;P ractice ID: 0001 Lilia robertson, [facility] 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 17:41:23 Low risk human papillom avirus deoxyrib onucleic acid detected in specimen from cervix [id number] Completed 201601/15/2021 Cervical low risk HPV DNA test positive ;Recorde d Elsewher e: No Locat ion: [facility] S ource: EHR [place] barbi: N Practi ce ID: 0001 Alex lable Time: 03:30:00 PM Lilia robertson [facility] 17:40:48 Finding of sensatio n of breast Completed 201701/15/2021 Mastodyn ia;Pract ice ID: 0001 Lilia robertson [facility] 17:41:03 Body mass index 30+ - obesity [id number] Completed 201701/15/2021 Body mass index (BMI) 39.0-39. 9, adult;Re corded Elsewher e: No Locat ion: [facility] S ource: EHR [place] barbi: N Practi ce ID: 0001 Alex lable Time: 09:00:00 AM Lilia robertson [facility] 17:40:50 Problem Notes None recorded. Procedures Surgical History Date Name Laterality Status Provider Name and Address Organization Details Recorded Time 01/27/20 25 Date of Last Pap Smear completed Dorothy Parekh [facility] 06/29/2025 17:25:39 01/18/20 16 ligation of bilateral fallopian tubes completed Lilia Perdomoan [facility] 01/15/2021 17:46:28 07/20/19 05 reconstruction of anterior cruciate ligament of knee joint completed Amy Martinez [facility] 11/04/2019 14:16:09 Imaging Results None recorded. Procedure Notes None recorded. Medical Equipment None Reported. Allergies No known drug allergies Medications Name Sig Start Date Stop Date Status Note LastModified by Organization Details LastModified Time Mirena 21 mcg/24 hr (up to 8 years) 52 mg intrauter ine device 01/30 completed Prescrib ed Elsewher e: Yes Loca tion: [facility] M odify By: amkuhzay Henriquez ncobrittnier DateTime : 05/22/20 03:45:00 PM Not Available Not Available Not [...] Prescrib ed Elsewher e: Yes Loca tion: [facility] [address] odify By: amkuhzay burrowsuntdiaz DateTime : 08/13/19 16 12:15:00 PM Not [...] Prescrib ed Elsewher e: No Locat ion: [facility] [address] odify By: [email or web address] trick En counter DateTime : 04/20/20 14 09:30:00 AM Not Available Not Available Not Available Flagyl 500 mg tablet take 1 tablet (500MG) by oral route every 12 hours 06/18 completed Prescrib ed Elsewher e: No Locat ion: [facility] M odify By: [email or web address] kiarak En counter DateTime : 04/05/20 12 09:40:25 [...] Prescrib ed Elsewher e: No Locat ion: [facility] [address] odify By: amkuhl Florence ncobrittnier DateTime : 01/24/20 16 02:34:48 PM Not [...] Elsewher e: Yes Loca tion: [facility] odify By: khoi burrowsunter DateTime : 04/19/20 15 01:00:00 PM Not Available Not Available Not Available Stool Softener 50 mg capsule take 1 capsule by oral route every day at bedtime as needed 01/30 completed Prescrib ed Elsewher e: Yes Loca tion: [facility] henriquez [facility] odify By: khoi burrowsuntdiaz DateTime : 04/19/20 15 01:00:00 PM Not Available Not Available Not Available topiramat e 50 mg tablet 01/28 completed Not Available Not Available Not Available Nexplanon 68 mg subdermal implant Every 3 years 04/20 completed Prescrib ed Elsewher e: No Locat ion: [facility] henriquez [facility] odify By: [email or web address] trick En counter DateTime : 02/22/20 13 10:30:00 AM Not Available Not Available Not Available + DHA 28 mg iron-975 mcg-200 mg oral pack 09/10 completed Prescrib ed Elsewher e: Yes Loca tion: Bonnie florence [facility] odify By: [email or web address] z Encoun ter DateTime : 01/07/20 12 02:00:00 PM Not Available Not Available Not Available Selsun Blue Moisturiz ing 1 % shampoo apply to affected area 3x/week for 1-2wks; apply for 10 min. interval s 01/30 completed Prescrib ed Elsewher e: No Locat ion: [facility] henriquez [facility] odify By: khoi burrowsuntdiaz DateTime : 11/29/19 16 09:00:00 AM Not Available Not Available Not Available Emgality Pen 120 mg/mL subcutane ous pen injector INJECT CONTENTS OF 1 PEN SUBCUTAN EOUSLY ONCE EVERY MONTH active Not Available Not Available No t Available Fluzone Quad [id number] (PF) 60 mcg (15 mcg x 4)/0.5 mL IM syringe 01/15 completed Not Available Not Available Not Available Vitals Date Recorded Body height Body mass index (BMI) Body weight Systolic And Diastolic Provider Name and Address Organization Details Last Updated DateTime 06/29/2025 165.1 cm 34.3 kg/m2 67477.03 g 137/79 mm[Hg] Dorothy Parekh [facility] 06/29/2025 17:25:04 Social History Question Answer Notes LastModified by Organizat ion Details LastModified Time Tobacco Smoking Status Former Smoker Ambar Platt ailyn, [facility] 01/25/2024 09:39:22 Do You Have An Advance Directive? No Information not available 01/28/2021 How Many Years [...] COVID-19 While That Case Was Ill? No [email or web address] Information not available 01/28/2021 In The 14 Days Before Symptom Onset, Have You Had Close Contact With A Person Who Is Under Investigation For COVID-19 While That Person Was Ill? No [email or web address] Information not available 01/28/2021 Have You Been To An Area Known To Be High Risk For COVID-19? No Information not available 01/28/2021 Are You Deaf Or Do You Have Serious Difficulty Hearing? No Information not available 01/28/2021 What Type Of Diet Are You Following? CARBOHYDRATE [email or web address] Information not available 01/28/2021 What Is The Highest Grade Or Level Of School You Have Completed Or The Highest Degree You Have Received? [id number] [email or web address] Information not available 01/28/2021 Are There Any Guns Present In Your Home? No [email or web address] Information not available 01/28/2021 Do You Use Protection During Sex? No Information not available 01/28/2021 Do You Use Your Seat Belt Or Car Seat Routinely? Yes Information not available 01/28/2021 Do You Have Smoke And Carbon Monoxide Detectors In Your Home? Yes Information not available 01/28/2021 At What Age Did You Start Smoking Tobacco? 13 Information not available 01/28/2021 How Much Tobacco Do You Smoke? No Information not available 01/28/2021 Do You Use Sunscreen Routinely? Yes Information not available 01/28/2021 How Many Years Have You Smoked Tobacco? 20 Information not available 01/22/2023 Have You Used IV Drugs? 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 [id number] [email or web address] Information not available 01/28/2021 Family History Relationship Description Onset Age of this Age Resolved Age Notes LastModified by Organization Details LastModified Time Maternal Aunt Family history of breast cancer [email or web address] Not available 2024 11:26:15 Maternal Grandmother Malignant neoplasm of cervix uteri 70 [email or web address] Not available 1 11:20:02 Maternal Grandmother Malignant neoplasm of cervix uteri [email or web address] Not available 1 11:20:02 Paternal Uncle Carcinoma of prostate 80 [email or web address] Not available 2024 11:26:15 Unspecified Relation Malignant neoplasm of colon 60 Aunt's daught er [email or web address] Not available 05/01/2022 11:20:02 Father Malignant neoplasm of colon [email or web address] Not available 2024 11:52:00 Medical History Condition Response Other Y History of STI N History of abnormal pap Y Headaches Y [...] ICD10 Code Diagnosis IMO Codes Diagnosis Note [id number] Jose Wheeler MD [place] [address] [address] 06/29/2025 17:09:47 07/01/2025 11:25:45 Menorrhagia [id number] N92.0 [id number] This patient is a 34-year-ol d female [...] by Organization Details LastModified Time None Recorded Payers Encounter Date Sequence Insurance Name Policy Number Policy Flores Covered Member ID Flores Member ID Guarantor Name 06/29/2025 2 [employer] [id number] Jayjay W Quary [id number] [facility] 06/29/2025 1 [facility] [id number] Bonnie R Quary [id number] [facility] Notes Date Note Type Note Provider Name and Address Organization Details Recorded Time 06/29/2025 text/html This patient is a 34-year-old female [...] is risk of hemorrhage and infection. Jose Wheeler MD [address], [place], [address], [facility] 06/30/2025 20:30:48 OBGyn Episode No OBEpisode recorded.
[2025-07-05] MEDS: KETOROLAC 15 MG/ML VIAL (*BKC) IV PUSH (06:36)
[2025-07-05] MEDS: ACETAMINOPHEN 500 MG TABLET 1000 MG PO ×3 (06:36→19:50)
--- NOTE | 2025-07-05 07:03 | P.PNAN_ITS ---
Anes - Initial Pre Proc Eval Procedure: Operation Date: 07/05/25 07:30 Proposed Procedures p Robotic Assisted Hysterectomy with Bilateral Salpingectomy - Jose Lopez MD Date/Time: 07/05/25 07:03 Surgeon: Jose Lopez MD Pre Op Diagnosis: Menorrhagia with Irg Cycle Patient Data Age: 34 Gender: F Height: 1.65 m Weight: 92.2 kg Last Vital Signs Temp 97.1 F L 07/05/25 06:00 Pulse 97 07/05/25 06:00 Resp 14 07/05/25 06:00 BP 138/74 07/05/25 06:00 Pulse Ox 98 07/05/25 06:00 O2 Del Method Room Air 07/05/25 06:00 Allergies Allergy/AdvReac Type Severity Reaction Status Date / Time No Known Allergies Allergy Verified 07/03/25 12:08 Home Medications ?Medication ?Instructions ?Recorded ?Confirmed ?Type phentermine 37.5 mg capsule 37.5 mg PO DAILY #30 caps 12/19/24 07/03/25 Rx pantoprazole 40 mg tablet,delayed 40 mg PO DAILY #90 t abs 01/06/25 07/03/25 Rx release (Protonix) alprazolam 0.5 mg tablet (Xanax) 0.5 mg PO TID PRN anx iety #60 tabs 04/25/25 07/03/25 Rx fluticasone propionate 50 1 spray intranasal BID PRN N emilio 04/25/25 07/03/25 Rx mcg/actuation nasal Congestion #48 grams spray,suspension galcanezumab-gnlm 120 mg/mL See Rx Instructions .Route 04/25/25 07/03/25 Rx subcutaneous pen injector .COMPLEX #1 mL (Emgality Pen) Patient hx anesthesia problems: none Family hx anesthesia problems: none Results Review: All pre-operative results and documents have been reviewed as part of the pre- operative evaluation. [facility], [facility] Past Medical History Medical History Lumbar stenosis Lumbar spondylosis Dorsalgia Yeast infection Acute kidney injury Cellulitis of neck Diffuse cellulitis of face Sepsis Gastroesophageal reflux disease Obstructive sleep apnea Hypertension Strep throat JANA (acute kidney injury) Edema of face Depression Anxiety Surgical History Surgical History History of wisdom tooth extraction History of tubal ligation History of repair of ACL Family History Family History Other Cancer Cerebrovascular accident Diabetes mellitus Family history of obesity Hypertension Social History Social History Social History: Surrogate medical decision maker: Jayjay Helms, spouse. Code status: Full code. Smoking packs per day: 1.5 Smoking cigarettes per day: 30.0 Years smoked: 14 Smoking pack-years: 21.00 Smoking status: Former smoker Alcohol intake: current Alcohol use details: 5x a year Substance use: current Substance use type: marijuana Other substance usage details: daily smoker Lack of Transportation: No Lack of Food: Never True Current Housing: I Have Housing Concerned About Future Housing: No Difficulty Paying Gas/Electric Bills: No Difficulty Paying for Meds: No Currently Unemployed: No Education: Associate Degree Difficulty w/ Childcare or Family Care: No Living arrangements: with family Additional living arrangements comments: Lives with spouse and children. Additional occupation/education comments: Works for the [employer]. Spiritual care concerns: No Anes - Eval Final PreProcedure Day of Procedure 07/05/25 07:03 Patient weight: obese Lungs: normal air movement Airway: Mallampati scale class II Neurological: alert and oriented Last oral intake: >/= 8 hours ASA classification: II Emergent: no Anesthetic plan: proceed Anesthesia type and monitoring: general ETT and standard monitoring Results Review: All pre-operative results and documents have been reviewed as part of the pre- operative evaluation. BMI 33, ex smoker, pt has TACOS but noncompliant w CPAP. 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 Informed Consent: The patient's anesthetic plan and its attendant risks and benefits were discussed with the patient/family/POA. Questions were solicited and answers provided to the satisfaction of the patient/family/POA.
--- NOTE | 2025-07-05 07:13 | WPDHPUPDATE1 ---
History and Physical Update Update Date/Time: 07/05/25 07:13 History and Physical has been reviewed, including an updated exam of the patient. There are NO changes in the patient's condition. Risks, benefits, and alternatives have been discussed and questions answered. Patient agrees to proceed with procedure.
[2025-07-05] MEDS: ceFAZolin 2 GM in SODIUM CHLORIDE 0.9% IV 50 ML 100 ML IVPB (07:27)
--- NOTE | 2025-07-05 08:50 | S_PTH ---
PATIENT: Bonnie Helms LOC: [facility] U#:[id number] AGE/SX: 34/F ROOM: RE07/05/[address]: Jose Lopez MD : 1990 BED: DIS: 07/06/2025 SPEC #: [id number] RECD: 07/05/25 10:36 STATUS: MARCELA REQ #: [id number] KYLER: 07/05/25 08:[address]: Jose Lopez DEPT: [facility] Surgical RECD BY: Kerrie Velásquez ENTERED: 07/05/25 10:37 SP TYPE: Surgical OTHR DR: Jose Francisco Wren MD Tissues: A - Uterus Procedures: Hematoxylin and Eosin Stain Gross and Microscopic Level 5
[2025-07-05] MEDS: LACTATED RINGERS 1,000 ML 30 ML IV CONT ×2 (09:19)
[2025-07-05] MEDS: fentaNYL CITRATE INJ (*CRX) 100 MCG/2 ML VIAL 25 MCG IV PUSH ×3 (09:21→09:46)
--- NOTE | 2025-07-05 09:29 | P.OP_ITS ---
Procedure Note - Detailed Date of Procedure 07/05/25 Pre-op Diagnosis Menorrhagia with Irg Cycle Post-op Diagnosis Same Procedure Performed Robot assisted Total hysterectomy with bilateral salpingectomy. Surgeon Jose Lopez MD Anesthesia General Indications heavy vaginal bleeding, pelvic pain Findings Mildly enlarged uterus, normal-appearing tubes and ovaries Description of Procedure This patient was taken to the operating room. She was prepped and draped in the dorsal lithotomy position after induction of general anesthesia. The uterine manipulator and Harlan cup were placed. This was done with a speculum and tenaculum. The speculum was placed. The cervix was grasped with a tenaculum. The stay sutures were placed at 3 and 9:00 a.m.. The stay sutures of 0 Vicryl were tied to the appropriately Size scope after it was slipped around the cervix.. The tip of the DIMA manipulator was placed in the intrauterine cavity. The cup was slid into place around the cervix and into the fornices. It was locked into place. The sutures were then wrapped around the handle and tied under tension. A 8 mm skin incision was made in the left upper quadrant the abdomen. a 5 mm Visiport trocar was inserted into abdominal cavity and pneumoperitoneum was achieved. A 8 mm supraumbilical incision was made and a 8 mm trocar was inserted into the intrauterine cavity under direct visualization of the scope. an 8 mm incision was made in the right upper quadrant of the abdomen and an 8 mm robotic trocar was placed the inter uterine cavity under direct visualization the scope. An 11 mm trocar was inserted in the right upper quadrant of the abdomen rectal is a cystoscope after an incision was made there as well. The robot was docked. Electronic Orientation of the robot was performed. Bilateral ureteral lysis was performed. This was done from the pelvic brim down to the uterine artery. This was done with careful dissection using sharp and blunt dissection. The fallopian tubes were removed bilaterally. The mesosalpinx around the fallopian tubes were cauterized transected with LigaSure cautery. This was done in a bilateral fashion from the ovary to the uterine cornua. The fallopian tube was transected at the uterine cornu and amputated. The tube was taken out the left lower quadrant trocar site. In a stepwise fashion along the lateral aspects of the uterus the round ligament and broad ligaments were cauterized transected down to the level of the uterine arteries. A bladder flap was created in the bladder was moved distally to the end of the cervix and over the Harlan cup. The bilateral uterine arteries were cauterized and transected. Colpotomy was then performed. In a circumferential fashion the vagina was transected using unipolar cautery. The incision was made down on the Harlan cup. The uterus and cervix were taken out through the vagina. A pneumo occluder was placed in the vagina. The vaginal cuff was closed with a 0 V lock suture in a running fashion. The pe lvis was irrigated with copious amounts antibiotic irrigation. The ureters were again examined and found to be intact and flowing freely under the uterine arteries into the bladder. The bladder was intact. It was examined directly. Cystoscopy was performed after administration of methylene blue. The cystoscope was inserted. Bladder was distended with fluid. The ureteric meatus was observed bilaterally. Blue fluid was seen to egress bilaterally. The bladder was drained and the cystoscope was withdrawn. The vagina was irrigated with Betadine solution after removal of the Pneumo occluder. the trocars were removed after the robot was undocked. The skin was closed with subacute or Dermabond. The patient was taken to recovery room. She was stable condition. Sponge lap and needle counts were correct x2. Estimated Blood Loss 50 Urine Output 800 Drains Yes Packing No Pathology Yes Complications No immediate complications Condition Stable Disposition Floor
--- NOTE | 2025-07-05 10:44 | OBPPTRN ---
Patient transferred to post room #283 via bed. Support person present. Oriented to unit, room, information board, and admission packet. Patient verbalizes understanding.
[2025-07-05] MEDS: KETOROLAC 30 MG/ML VIAL (*BKC) IV PUSH ×2 (13:20→19:50)
[2025-07-05] MEDS: DEXTROSE 5%/0.45% SOD CHL 1,000 ML 125 ML IV CONT (13:23)
[2025-07-05] MEDS: oxyCODONE HCL (*CRX) 5 MG TAB IR PO (14:06)
[2025-07-05] MEDS: SIMETHICONE 80 MG TAB.CHEW PO (15:00)
--- NOTE | 2025-07-05 15:09 | PC.NURSE ---
Dr. Lopez's cell phone called and a message was left for him to call me back or to stop in on the floor to assess the patient. notified of bleeding and pain. will wait to hear back from him for any new orders.
--- NOTE | 2025-07-05 15:52 | PC.NURSE ---
Dr. Lopez did not return my phone call or come to the floor, notified again by phone. Spoke with Dr. Lopez about bleeding and pain, no new orders received at this time. Will continue to monitor.
[2025-07-05] MEDS: oxyCODONE HCL (*CRX) 5 MG TAB IR 10 MG PO (17:42)
[2025-07-05] MEDS: DOCUSATE SODIUM 100 MG CAPSULE PO (17:42)
[2025-07-06] VITALS: BP 103/60; PULSE 72; RESP 16; TEMP 36.9; O2SAT 98
[2025-07-06] MEDS: KETOROLAC 30 MG/ML VIAL (*BKC) IV PUSH (02:13)
[2025-07-06 04:02] VITALS: BP 112/51; PULSE 63; RESP 16; TEMP 36.9; O2SAT 99
[2025-07-06] MEDS: ACETAMINOPHEN 500 MG TABLET 1000 MG PO ×2 (04:25→12:48)
[2025-07-06 07:55] VITALS: BP 117/63; PULSE 70; RESP 14; TEMP 36.9; O2SAT 99
[2025-07-06 08:18] LABS: Hematocrit 31.1 % (37.0-47.0); Hemoglobin 10.2 g/dL (12.0-15.0)
--- NOTE | 2025-07-06 08:44 | PM.GYNPNOP ---
SEA[employer] - A/P Postoperative Procedures: Procedures Operation Date: 07/05/25 07:30 Actual Procedure Side Surgeon p Robotic Assisted Hysterectomy with Bilateral Salpingectomy Bilateral Jose Lopez MD Postoperative day: 1 Postoperative status: doing well Postoperative plan: see orders Time Spent With Patient Time: Total time spent is greater than 50% in coordination of care (as documented) at patient's floor/unit and/or counseling patient: Time with patient: less than 15 minutes [employer]- PN:Subj Post-Op Subjective Date/time seen: 07/06/25 08:44 Subjective: patient reports feeling better, patient has no complaints and pain is well controlled Exam Const: General: healthy appearing, comfortable and no acute distress Resp: Auscultation: clear to auscultation bilaterally, no rales, no rhonchi and no wheezes Cardio: Rate: regular rate Heart sounds: no click, no murmurs and no rubs GI: Inspection: non-distended Auscultation: normal bowel sounds Extrem: General: normal to inspection, no pedal edema and no calf tenderness 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[employer] 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[employer]OR - PN: Obj Data Vital Signs Vital Signs: Vital Signs - 24 hr 07/05/25 09:19 07/05/25 09:30 07/05/25 09:45 Temperature 97.0 F L Pulse Rate 90 68 72 Respiratory Rate 12 16 15 Blood Pressure 128/64 109/66 105/75 Pulse Oximetry 100 100 100 Oxygen Delivery Simple Face Mask Simple Face Mask Simple Face Mask Oxygen Flow Rate 8 8 8 07/05/25 10:00 07/05/25 10:15 07/05/25 10:30 Temperature 97.2 F L 97.2 F L Pulse Rate 62 61 60 Respiratory Rate 13 14 13 Blood Pressure 104/69 112/66 108/74 Pulse Oximetry 100 100 100 Oxygen Delivery Room Air Room Air Room Air Oxygen Flow Rate 07/05/25 10:45 07/05/25 10:50 07/05/25 13:45 Temperature 98.1 F Pulse Rate 73 Respiratory Rate 12 Blood Pressure 104/62 Pulse Oximetry 100 Oxygen Delivery Room Air Room Air Oxygen Flow Rate 07/05/25 18:28 07/05/25 18:28 07/06/25 00:00 Temperature 98.2 F 98.5 F Pulse Rate 67 72 Respiratory Rate 16 16 Blood Pressure 116/72 103/60 Pulse Oximetry 98 98 Oxygen Delivery Room Air Oxygen Flow Rate 07/06/25 04:02 Temperature 98.4 F Pulse Rate 63 Respiratory Rate 16 Blood Pressure 112/51 L Pulse Oximetry 99 Oxygen Delivery Oxygen Flow Rate Intake/Output Intake/Output: Intake & Output 07/03/25 07/04/25 07/05/25 07/06/25 23:59 23:59 23:59 23:59 Intake Total 977.1 Output Total 1900 Balance -922.9 Meds/Results Medications: Active Medications Generic Name Dose Route Start Last Admin Trade Name Freq PRN Reason Stop Dose Admin Acetaminophen 1,000 mg 07/05/25 18:00 07/06/25 04:25 Acetaminophen 500 Mg Tablet PO 1,000 mg Q6HR JARRETT Administration Docusate Sodium 100 mg 07/05/25 17:00 07/05/25 17:42 Docusate Sodium 100 Mg Capsule PO 100 mg BID JARRETT Administration Dextrose/Sodium Chloride 1,000 mls @ 125 mls/hr 07/05/25 13:10 07/05/25 18:00 Dextrose 5% Sodium Chloride 0.45% IV CONT 0 mls/hr .Q8H JARRETT Infusion Ibuprofen 600 mg 07/06/25 12:00 Ibuprofen 600 Mg Tablet PO Q6HR JARRETT Naloxone HCl 0.1 mg 07/05/25 13:10 Naloxone Hcl 0.4 Mg/Ml Vial IV PUSH Q2M PRN Respiratory rate less than 10 Ondansetron HCl 4 mg 07/05/25 13:10 Ondansetron Inj 4 Mg/2 Ml Vial IV PUSH Q6H PRN Nausea And Vomiting Oxycodone HCl 5 mg 07/05/25 13:10 07/05/25 14:06 Oxycodone Hcl (*Crx) 5 Mg Tab Ir PO 5 mg Q4H PRN Administration Pain Rated 4-6 Oxycodone HCl 10 mg 07/05/25 13:10 07/05/25 17:42 Oxycodone Hcl (*Crx) 5 Mg Tab Ir PO 10 mg Q6H PRN Administration Pain Rated 7-10 Simethicone 80 mg 07/05/25 17:00 07/05/25 15:00 Simethicone 80 Mg Tab.Chew PO 80 mg TIDWM JARRETT Administration Labs 07/06/25 08:13 Labs: Laboratory Results - last 24 hr 07/06/25 08:13 Hgb 10.2 L Hct 31.1 L
[2025-07-06] MEDS: SIMETHICONE 80 MG TAB.CHEW PO (12:48)
[2025-07-06] MEDS: DOCUSATE SODIUM 100 MG CAPSULE PO (12:48)
[2025-07-06] MEDS: IBUPROFEN 600 MG TABLET PO (12:48)
== END 2025-07-06 13:10 | disposition home or self-care (01) ==
LOC: ANHSURGERY 05:49 → ANHOB2 11:15
PROVIDERS: PCP Emergency Medicine; Visit Provider Obstetrics & Gynecology
PROC: (CPT 58571; principal; 2025-07-05 07:30)
DX: D25.1 Intramural leiomyoma of uterus (principal); N80.03 Adenomyosis of the uterus; I10 Essential (primary) hypertension; K21.9 Gastro-esophageal reflux disease without esophagitis; G47.33 Obstructive sleep apnea (adult) (pediatric); F32.A Depression, unspecified; F41.9 Anxiety disorder, unspecified; M48.061 Spinal stenosis, lumbar region without neurogenic claudication; M43.06 Spondylolysis, lumbar region; F17.290 Nicotine dependence, other tobacco product, uncomplicated; F12.90 Cannabis use, unspecified, uncomplicated; E66.9 Obesity, unspecified; Z68.33 Body mass index [BMI] 33.0-33.9, adult; Z98.890 Other specified postprocedural states; Z98.51 Tubal ligation status; Z80.3 Family history of malignant neoplasm of breast; Z80.49 Family history of malignant neoplasm of other genital organs; Z80.42 Family history of malignant neoplasm of prostate; Z80.0 Family history of malignant neoplasm of digestive organs
CPT/HCPCS: 58571; S2900; 36415; 85014; 85018; 88307; 99199; J0690; A9270; J1100; J1885; J2250; J2405; J2704; J3010; J7030; J7120; Q9968